=== PATIENT | male | born 1960 | race Caucasian/White ===

== ENCOUNTER 2018-05-25 12:21 | Inpatient (IN) | payer MEDICAID ==
[2018-05-25 13:16] LABS: % BASOPHILS 0.9 % (0.0-2.0); % EOSINOPHILS 3.4 % (0.0-5.0); % LYMPHOCYTES 24.3 % (20.0-50.0); % MONOCYTES 8.4 % (2.0-10.0); BASOPHILE ABSOLUTE 0.1 Th/cumm (0-0.2); EOSINOPHILE ABSOLUTE 0.2 Th/cmm (0.1-0.4); HEMATOCRIT 34.1 % (41.0-60); HEMOGLOBIN 11.4 gm/dL (12-16); LYMPHOCYTE ABSOLUTE 1.7 Th/cmm (1.5-3.0); MEAN CELL VOLUME 96.9 fl (80-99); MEAN CORPUSCULAR HEMOGLOBIN 32.3 pg (26.0-30.0); MEAN CORPUSCULAR HGB CONC 33.3 pg (28.0-36.0); MEAN PLATELET VOLUME 8.2 fl; MONOCYTE ABSOLUTE 0.6 Th/cmm (0.3-1.0); NEUTROPHILE ABSOLUTE 4.3 Th/cmm (1.8-8.0); PLATELET COUNT 190 Th/cmm (150-400); RED BLOOD COUNT 3.52 Mil/cmm (4.30-5.70); RED CELL DISTRIBUTION WIDTH 15.2 % (11.5-20.0); WHITE BLOOD COUNT 6.9 Th/cmm (4.8-10.8)
[2018-05-25 13:36] LABS: ALB/GLOB RATIO 0.8 (1.0-1.8); ALBUMIN 3.8 gm/dL (4.2-5.5); ALKALINE PHOSPHATASE 117 U/L (34-104); AMYLASE SERUM < 10 U/L (29-103); ANION GAP 14.6 (7.0-16.0); BILIRUBIN,TOTAL 0.2 mg/dL (0.3-1.0); BUN - UREA NITROGEN 18 mg/dL (7-25); CALCIUM SERUM 9.8 mg/dL (8.6-10.3); CARBON DIOXIDE 22.9 mEq/L (21.0-31.0); CHLORIDE 98 mEq/L (98-107); CREATININE - SERUM 0.6 mg/dL (0.7-1.3); GFR AFRICAN-AMERICAN > 60.0 ml/min (>90); GFR NON AFRICAN-AMERICAN > 60.0 ml/min; GLUCOSE 291 mg/dL (70-105); POTASSIUM SERUM 4.5 mEq/L (3.5-5.1); SGOT 11 U/L (13-39); SGPT/ALT 17 U/L (7-52); SODIUM SERUM 131 mEq/L (136-145); TOTAL PROTEIN,SERUM 8.9 gm/dL (6.0-8.3)
[2018-05-25 13:39] LABS: LIPASE < 3 U/L (11-82)
[2018-05-25 14:38] LABS: URINE SOURCE CATH
[2018-05-25 14:42] LABS: URINE BILIRUBIN NEGATIVE (NEGATIVE); URINE BLOOD SMALL (NEGATIVE); URINE GLUCOSE (UA) 100 mg/dL (NEGATIVE); URINE KETONE NEGATIVE (NEGATIVE); URINE LEUKOCYTE ESTERASE NEGATIVE (NEGATIVE); URINE MICROSCOPIC INDICATED? YES; URINE NITRATE NEGATIVE (NEGATIVE); URINE PH 5.5 (4.6 - 8.0); URINE PROTEIN 30 mg/dL (NEGATIVE); URINE UROBILINOGEN 0.2 E.U./dL (0.2 - 1.0)
[2018-05-25 15:18] LABS: URINE CLARITY HAZY (CLEAR); URINE COLOR YELLOW
[2018-05-25 15:19] LABS: URINE RBC 0-2 /hpf (0-5)
[2018-05-25 15:20] LABS: URINE BACTERIA MODERATE /hpf (NONE SEEN); URINE EPITHELIAL CELLS NONE SEEN /lpf (FEW)
--- NOTE | 2018-05-25 15:25 | ED Physician Chart ---
ED Chief Complaint/HPI - Patient Information Date Seen:: 05/25/18 Time Seen:: 12:47 Chief Complaint:: loose stools History of Present Illness:: loose stools in a patient who is dependent on tube feeds. Allergies:: Allergies Allergy/AdvReac Type Severity Reaction Status Date / Time No Known Allergies Allergy Verified 05/25/18 12:46 Vitals:: Vital Signs - 8 hr 05/25/18 12:47 Temp 98.4 F HR 124 RR 21 BP 133/87 O2 Sat % 98 Historian:: Patient, Family Member Review:: Nurse's Note Reviewed, Transfer documents Reviewed ED Review of Systems - Review of Systems General/Constitutional: No fever, No chills, No weight loss, No weakness, No diaphoresis, No edema, No loss of appetite Skin: Other (sacral skin breakdown) Head: No headache, No light-headedness Eyes: No loss of vision, No pain, No diplopia ENT: No earache, No nasal drainage, No sore throat, No tinnitus Neck: No neck pain, No swelling, No thyromegaly, No stiffness, No mass noted Cardio Vascular: No chest pain, No palpitations, No PND, No orthopnea, No edema Pulmonary: No SOB, No cough, No sputum, No wheezing GI: No nausea, No vomiting, Diarrhea, No pain, No melena, No hematochezia, No constipation, No hematemesis G/U: No dysuria, No frequency, No hematuria, No nacturia Musculoskeletal: No bone or joint pain, Back pain, No muscle pain, Other (back pain in area of sacral breakdown) Endocrine: No polyuria, No polydipsia Psychiatric: No prior psych history, No depression, No anxiety, No suicidal ideation Hematopoietic: No bruising, No lymphadenopathy Allergic/Immuno: No urticaria, No angioedema Neurological: No syncope, No focal symptoms, No weakness, No paresthesia, No headache, No seizure, No dizziness, No confusion, No vertigo ED Past Medical History - Past Medical History Obtainable: Yes Past Medical History: HTN, DM, CVA/TIA, Dyslipidemia, Other Family Medical History - Family Member Mother History Unknown: Yes ED Physical Exam - Physical Examination General/Constitutional: Awake, Alert, No distress, GCS 15, Ambulatory Other Gen/Cons comments:: chronically ill appearing Head: Atraumatic Eyes: Lids, conjuctiva normal, PERRL, EOMI Other Skin comments:: sacral skin breakdown ENMT: External ears, nose nl Neck: Nontender, No nuchal rigidity, No stridor Respiratory: Nl effort/Exclusion, Clear to Auscultation, No Wheeze/Rhonchi/Rales Cardio Vascular: RRR, No murmur, gallop, rubs, NL S1 S2 GI: No tenderness/rebounding/guarding, No organomegaly, No hernia, Normal BS's, Nondistended, No mass/bruits, No McBurney tenderness Other GI comments:: g tube in place : No CVA tenderness Other Extremities comments:: contracted extremities Neuro/Psych: Alert/oriented, Judgement/insight normal, Mood normal Other Misc comments:: sacral skin breakdown ED Labs/Radiology/EKG Results - Lab Results Results: Laboratory Tests 05/25/18 05/25/18 05/25/18 12:56 12:57 13:07 WBC 6.9 RBC 3.52 L Hgb 11.4 L Hct 34.1 L MCV 96.9 MCH 32.3 H MCHC Differential 33.3 RDW 15.2 Plt Count 190 MPV 8.2 Neutrophils % 63.0 Lymphocytes % 24.3 Monocytes % 8.4 Eosinophils % 3.4 Basophils % 0.9 Sodium Potassium Chloride Carbon Dioxide Anion Gap BUN Creatinine Est GFR ( Amer) Est GFR (Non-Af Amer) BUN/Creatinine Ratio Glucose POC Glucose 297 H Whole Bld Lactic Acid Calcium Total Bilirubin AST ALT Alkaline Phosphatase Total Protein Albumin Globulin Albumin/Globulin Ratio Amylase Lipase Urine Source Urine Color Urine Clarity Urine pH Ur Specific [place] Urine Protein Urine Glucose (UA) Urine Ketones Urine Blood Urine Nitrate Urine Bilirubin Urine Urobilinogen Ur Leukocyte Esterase Urine RBC Urine WBC Ur Epithelial Cells Urine Bacteria Stool Occult Blood NEGATIVE 05/25/18 05/25/18 05/25/18 13:07 13:07 14:10 WBC RBC Hgb Hct MCV MCH MCHC Differential RDW Plt Count MPV Neutrophils % Lymphocytes % Monocytes % Eosinophils % Basophils % Sodium 131 L Potassium 4.5 Chloride 98 Carbon Dioxide 22.9 Anion Gap 14.6 BUN 18 Creatinine 0.6 L Est GFR ( Amer) > 60.0 Est GFR (Non-Af Amer) > 60.0 BUN/Creatinine Ratio 30.0 Glucose 291 H POC Glucose Whole Bld Lactic Acid 1.67 Calcium 9.8 Total Bilirubin 0.2 L AST 11 L ALT 17 Alkaline Phosphatase 117 H Total Protein 8.9 H Albumin 3.8 L Globulin 5.1 Albumin/Globulin Ratio 0.8 L Amylase < 10 L Lipase < 3 L Urine Source CATH Urine Color YELLOW Urine Clarity HAZY Urine pH 5.5 Ur Specific [place] >= 1.030 Urine Protein 30 H Urine Glucose (UA) 100 H Urine Ketones NEGATIVE Urine Blood SMALL H Urine Nitrate NEGATIVE Urine Bilirubin NEGATIVE Urine Urobilinogen 0.2 Ur Leukocyte Esterase NEGATIVE Urine RBC 0-2 H Urine WBC 10-25 H Ur Epithelial Cells NONE SEEN Urine Bacteria MODERATE H Stool Occult Blood ED Assessment - Assessment General Assessment: Dr. Garcia gave orders, will call HMO insurance now. HMO approved full admit for this patient. Spoke with Alexia. EKG: sinus tachycardia, NSST T wave changes, ED Septic Shock - . Is Septic Shock (SBP<90, OR Lactate>4 mmol\L) present?: No - <6hrs of presentation: Vital Signs: Vital Signs - 8 hr 05/25/18 12:47 Temp 98.4 F HR 124 RR 21 BP 133/87 O2 Sat % 98 ED Reassessment (Disposition) - Reassessment Reassessment Condition:: Unchanged - Diagnosis Diagnosis:: Loose stools Urinary tract infection Diabetes mellitus, not well controlled Anemia Low albumin Sacral decubitus. - Patient Disposition Discharge/Transfer:: Acute Care w/in this hosp Admitted to:: Telemetry Condition at Disposition:: Stable, Unchanged
[2018-05-25] MEDS ORDERED: Piperacillin Sodium/Tazobact 3.375 gm Vial IV ONE (15:37)
[2018-05-25 15:38] LABS: BARBITURATES URINE POSITIVE (NEGATIVE); BENZODIAZEPINES QUAL URINE POSITIVE (NEGATIVE); OPIATES (MORPHINE) QUAL. URINE POSITIVE (NEGATIVE)
[2018-05-25 15:39] LABS: AMPHETAMINE URINE NEGATIVE (NEGATIVE); CANNABINOID THC NEGATIVE (NEGATIVE); COCAINE METABOLITE QUAL URINE NEGATIVE (NEGATIVE); METHADONE URINE NEGATIVE (NEGATIVE); METHAMPHETAMINES QUAL URINE NEGATIVE (NEGATIVE); PHENCYCLIDINE (PCP) URINE NEGATIVE (NEGATIVE); TRICYCLICS (TCA) QUAL. URINE NEGATIVE (NEGATIVE)
[2018-05-25 18:56] VITALS: BP 122/81
[2018-05-25] MEDS: Sodium Chloride 0.45% 1,000 ML IV SCH (19:39)
[2018-05-25] MEDS: Diphenoxylate/Atropine 2.5mg Tab PO SCH (21:06)
[2018-05-25] MEDS: INSULIN ASPART SLIDING SCALE 100 UNITS/ML UNIT SUBQ SCH (21:06)
[2018-05-26] MEDS ORDERED: Piperacillin Sodium/Tazobact 3.375 gm Vial IV ONE ×2 (00:02→04:32)
[2018-05-26] MEDS: INSULIN ASPART SLIDING SCALE 100 UNITS/ML UNIT SUBQ SCH ×4 (05:17→22:23)
[2018-05-26] MEDS: Sodium Chloride 0.45% 1,000 ML IV SCH ×3 (05:17→22:09)
[2018-05-26 06:41] LABS: BASOPHILE ABSOLUTE 0.1 Th/cumm (0-0.2); EOSINOPHILE ABSOLUTE 0.3 Th/cmm (0.1-0.4); MEAN CORPUSCULAR HEMOGLOBIN 32.5 pg (26.0-30.0)
[2018-05-26 06:44] LABS: % EOSINOPHILS 4.7 % (0.0-5.0); % MONOCYTES 9.4 % (2.0-10.0); % NEUTROPHILS 66.9 % (40.0-80.0); HEMOGLOBIN 11.1 gm/dL (12-16); LYMPHOCYTE ABSOLUTE 1.2 Th/cmm (1.5-3.0); MEAN CELL VOLUME 96.7 fl (80-99); MEAN CORPUSCULAR HGB CONC 33.7 pg (28.0-36.0); MEAN PLATELET VOLUME 8.5 fl; MONOCYTE ABSOLUTE 0.6 Th/cmm (0.3-1.0); NEUTROPHILE ABSOLUTE 4.6 Th/cmm (1.8-8.0); PLATELET COUNT 170 Th/cmm (150-400); RED BLOOD COUNT 3.41 Mil/cmm (4.30-5.70); RED CELL DISTRIBUTION WIDTH 15.4 % (11.5-20.0); WHITE BLOOD COUNT 6.8 Th/cmm (4.8-10.8)
[2018-05-26 06:57] LABS: ALB/GLOB RATIO 0.7 (1.0-1.8); ALBUMIN 3.6 gm/dL (4.2-5.5); ALKALINE PHOSPHATASE 128 U/L (34-104); BILIRUBIN,TOTAL 0.4 mg/dL (0.3-1.0); BUN - UREA NITROGEN 20 mg/dL (7-25); CALCIUM SERUM 9.6 mg/dL (8.6-10.3); CARBON DIOXIDE 22.8 mEq/L (21.0-31.0); CHLORIDE 98 mEq/L (98-107); CHOLESTEROL 103 mg/dL (<200); CREATININE - SERUM 0.7 mg/dL (0.7-1.3); GFR AFRICAN-AMERICAN > 60.0 ml/min (>90); GFR NON AFRICAN-AMERICAN > 60.0 ml/min; GLUCOSE 310 mg/dL (70-105); HDL -HIGH DENSITY LIPOPROTEIN 30 mg/dL (23-92); POTASSIUM SERUM 3.8 mEq/L (3.5-5.1); SGOT 10 U/L (13-39); SGPT/ALT 14 U/L (7-52); SODIUM SERUM 133 mEq/L (136-145); TOTAL PROTEIN,SERUM 8.6 gm/dL (6.0-8.3); TRIGLYCERIDES 160 mg/dL (<150)
[2018-05-26] MEDS: Diphenoxylate/Atropine 2.5mg Tab PO SCH ×3 (09:33→20:33)
[2018-05-26] MEDS ORDERED: Probiotic Screen MC PRN (12:00)
[2018-05-26] MEDS ORDERED: Non-Formulary Item 1 EA (Apixaban [Eliquis] 5 MG) GT SCH (14:00)
[2018-05-26] MEDS: Hydrocodone/APAP 10 mg/325 mg Tab GT PRN ×2 (16:10→20:43)
--- NOTE | 2018-05-26 16:24 | History & Physical ---
ADMIT DATE: 05/26/2018 CHIEF COMPLAINT: Generalized weakness and diarrhea. HISTORY OF PRESENT ILLNESS: This is a 57-year-old male who is a senior care resident at [facility], admitted to the telemetry unit due to 1-day history of increase of generalized weakness and diarrhea. According to the patient, yesterday he started to have x 3 episode of diarrhea. Denied any abdominal pain or any nausea. The patient states due to his diarrhea he felt very extremely weak. For this reason, he was brought to the hospital to be evaluated. The patient denies any diarrhea at this time, still feels weak and complains of generalized pain. PAST MEDICAL HISTORY: Respiratory failure, status post decannulation; PE; DVT; hypercholesterolemia; GERD; neuropathy; hypertension; seizures and insomnia. PAST SURGICAL HISTORY: Tracheostomy and gastrostomy tube. SOCIAL HISTORY: The patient is a senior care resident, requiring 24-hour nursing care. FAMILY HISTORY: Noncontributory. REVIEW OF SYSTEMS: GENERAL: Denies any fever and chills. CARDIOVASCULAR: Denies chest pain. RESPIRATORY: Denies shortness of breath. GASTROINTESTINAL: Denies nausea, vomiting, abdominal pain, but complains of intermittent diarrhea. MUSCULOSKELETAL: Complains of weakness. PHYSICAL EXAMINATION: GENERAL: The patient is well developed, well nourished, in no apparent distress. VITAL SIGNS: Temperature 98.4, heart rate 97, blood pressure 120/74, respiration 18 and O2 99%. HEENT: Head; normocephalic and atraumatic. NECK: Supple. No mass. LUNGS: Clear bilaterally. HEART: Regular rate and rhythm. ABDOMEN: Soft, nontender and nondistended. EXTREMITIES: No edema noted. SKIN: The patient is noted with generalized rashes. LABORATORY DATA: WBC 6.8, H and H 11.1 and 33.0 and platelet of 170. Sodium 133, potassium 3.8, chloride 98, BUN 20, creatinine 0.7, AST 10 and ALT 14. The patient had a urinalysis done, positive for UTI. ASSESSMENT: Acute dehydration, electrolyte imbalance, acute urinary tract infection, functional quadriplegia, hypercholesterolemia, history of pulmonary embolus and deep venous thrombosis, history of respiratory failure, status post decannulation, type 2 diabetes, seizures, hypertension and gastroesophageal reflux disease. PLAN: The patient to be admitted to telemetry unit. We will send stool for cultures and C. diff. Send urine for culture. We will place the patient on Zosyn 3.375 grams IV q. 6 hours. We will get followup labs for tomorrow morning. We will get a swallow evaluation as well as PT eval. ID consultation, Wound Care consult as well as a Nephrology consultation. Continue IV fluids for hydration. Pain management. We will continue to monitor this patient. JOB# [id number]
[2018-05-26] MEDS: Morphine Sulfate 2 mg/mL 1mL Syr IVP PRN (17:20)
[2018-05-26] MEDS: Albuterol/Ipratropium Neb 3 ML AERS HHN SCH ×2 (19:31→19:47)
[2018-05-26] MEDS: Ferrous Sulfate 300 MG/5 ML UDC PO SCH (20:31)
[2018-05-26] MEDS: Atorvastatin Calcium 10 MG TAB PO SCH (20:31)
[2018-05-26] MEDS: Levetiracetam 500 mg/5mL 5mL UDSyr *for ORAL USE ONLY GT SCH (20:35)
[2018-05-26] MEDS ORDERED: INSULIN ASPART, RECOMBINANT 100 UNITS/ML SUBQ ONE (21:15)
--- NOTE | 2018-05-26 22:47 | Consultation ---
DATE OF CONSULTATION: 05/26/2018 INFECTIOUS DISEASE CONSULTATION REFERRING PHYSICIAN: Dr. Garcia. REASON FOR CONSULTATION: UTI. HISTORY OF PRESENT ILLNESS: The patient is a 57-year-old male with a past medical history of CVA 5 years ago, respiratory failure, was on ventilator, which was discontinued. Tracheostomy was removed. Intracranial bleed, encephalopathy, diabetes mellitus type 2, seizure disorder, DVT, hyperlipidemia, brought to the ER for loose stools for last 4 days and weakness. On initial evaluation, the patient's temperature was 98.4 degrees Fahrenheit and WBC count was 6900. Urinalysis showed UTI, so ID consult was called for antibiotic management. Meanwhile, the patient was started on Zosyn. PAST MEDICAL HISTORY: As mentioned above, diabetes mellitus type 2, has history of respiratory failure, ____ place, CVA, seizure disorder, encephalopathy, history of DVT, and hyperlipidemia. ALLERGIES: NKDA. MEDICATIONS: As per medication reconciliation sheet. Antibiotic nunez, the patient is on Zosyn. REVIEW OF SYSTEMS: The patient has stated that he had a high glucose. GENERAL: The patient has no fever, no chills. HEENT: Head is atraumatic. No diplopia, no photophobia, no sore throat. RESPIRATORY: No cough, no shortness of breath. CARDIOVASCULAR: No chest pain or palpitation. GASTROINTESTINAL: No nausea, no vomiting, no diarrhea, and no constipation. GENITOURINARY: No dysuria. NEUROLOGIC: No headache, no dizziness, no focal weakness. The patient has left-sided weakness ____. PHYSICAL EXAMINATION: VITAL SIGNS: Show temperature is 98.4 degrees Fahrenheit, pulse 97, respiration 18, blood pressure 128/74, oxygen saturation 99%. GENERAL: The patient is comfortable, lying in the bed, not in acute distress. HEENT: Head is normocephalic, atraumatic. Oral cavity moist, pink tongue. Eyes: No pallor, no icterus. PERRLA, EOMI. NECK: Tracheal stoma. No trach. CHEST: Bilateral breath sounds. No crackles or wheezing. HEART: S1, S2 within normal limits. Regular rhythm. No murmur, no gallop. ABDOMEN: Soft, nontender, nondistended. Bowel sounds present. G-tube site is clear. EXTREMITIES: No cyanosis, no clubbing, no edema. NEUROLOGIC: Alert, awake, and oriented x 3. Left-sided paraplegia and some flexion contracture of the left side. SKIN: No ulcer ____. LABORATORY DATA: Current lab shows WBC count 6800, hemoglobin 11.1, hematocrit 33, platelets are 170,000, neutrophils 67%. Sodium is 133, potassium 3.8, chloride 98, bicarbonate is 23, BUN is 20, creatinine 0.7, glucose 310. LFTs are reviewed. Urinalysis showed small blood, negative leukocyte esterase, WBC 10-25, moderate bacteria. Stool for occult blood is negative. Urine for tox screen was positive for opiates, barbiturates, and ventilator dependent. IMPRESSION: 1. Urinary tract infection. 2. Cerebrovascular accident with left-sided weakness. 3. Diabetes mellitus type 2. 4. Hypertension. 5. Seizure disorder. 6. History of dysphagia and G-tube placement. RECOMMENDATIONS: We will continue Zosyn at this time. Get swallow evaluation and physical therapy. Thank you, Dr. Garcia for me involving me in taking care of this patient. JOB# [id number]
[2018-05-27] MEDS: Albuterol/Ipratropium Neb 3 ML AERS HHN SCH ×4 (00:20→18:55)
--- NOTE | 2018-05-27 00:29 | Consultation ---
DATE OF CONSULTATION: 05/26/2018 ATTENDING: Dr. Mandeep Garcia. SOLE CONDITIONER: Dr. Jabari Vasquez. REASON FOR CONSULTATION: Electrolyte imbalance and fluid management. HISTORY OF PRESENT ILLNESS: A 57-year-old male with past medical history of hypertension, who came in because of intractable diarrhea. Two days prior to admission, he developed watery diarrhea. He was prescribed antidiarrheals to no avail. His diarrhea was associated with abdominal pain and nausea, but there was no vomiting. He also denied any ongoing fevers/chills as well as dysuria. A few hours prior to admission, he experienced generalized weakness. This was associated with worsening blood sugars. Thus, he was brought to the Emergency Room. His sodium was 131. He was immediately hydrated with normal saline and his sodium slightly improved to 133. PAST MEDICAL HISTORY: 1. 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 2. Status post respiratory failure with decannulation. 3. Type 2 diabetes mellitus. 4. Essential hypertension. 5. Status post DVT. 6. Dyslipidemia. 7. Epilepsy. 8. Acute kidney injury. 9. Functional quadriplegia. PAST SURGICAL HISTORY: 1. Status post tracheostomy. 2. Status post PEG placement. CURRENT MEDICATIONS: Currently on acetaminophen, atorvastatin, diphenhydramine, docusate sodium, famotidine, ferrous sulfate, folic acid, gabapentin, hydralazine, hydrocodone/APAP, aspart, lactobacillus, levetiracetam, lipase/protease/amylase, lorazepam, magnesium oxide, morphine sulfate, multivitamins, Dilantin, Probiotics, Xarelto, Restoril, and Zosyn. ALLERGIES: No known drug allergies. 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 However, now he is retired and is staying at a snf. Denied history of alcohol and tobacco abuse. FAMILY HISTORY: Unknown at the present time. REVIEW OF SYSTEMS: Unable to obtain directly from the patient because of his I would say slow mentation. PHYSICAL EXAMINATION: GENERAL: The patient is awake, not in any distress now, but stated that earlier he had some abdominal pain. VITAL SIGNS: His temperature 98.6 degrees, pulse 99, blood pressure 121/70. SKIN: Poor turgor, warm, no rash, no jaundice appreciated. HEENT: Head normocephalic, atraumatic. Eyes: Extraocular muscles intact. Pupils equal, round, reactive to light and accommodates. Anicteric sclerae, pale conjunctivae. Nose, midline nasal septum. Mouth: Dry mucosa. Poor dentition. NECK: Supple. No adenopathy, no thyromegaly, no bruits. Trachea palpated in the midline. CHEST AND CARDIOVASCULAR: S1, S2. No rub, murmur, or gallop appreciated. Point of maximal impulse fifth intercostal space, left midclavicular line. No abdominal or femoral bruits appreciated. LUNGS: Equal expansion. No use of accessory muscles. No supraclavicular retractions. Decreased breath sounds, scattered rhonchi, but no rales nor wheezes appreciated. ABDOMEN: Distended, slightly soft. Diminished bowel sounds, some tenderness on deep palpation, but no rebound nor muscle guarding. No bruits either diastolic or systolic. RECTAL: He refused because of pain from his intractable diarrhea. GENITOURINARY: Normal appearing male genitalia. MUSCULOSKELETAL: No effusions present in his joints, but unable to assess his range of motion. EXTREMITIES: No evidence of edema, cyanosis nor clubbing with palpable femoral, but unable to fully appreciate popliteal and dorsalis pedis pulses. NEUROLOGIC: Sensory intact, but motor on the left side is 0/5 and right side is 5/5. LABORATORY DATA: Revealed white count 6.8, hemoglobin 11.1, hematocrit 33, platelets 170, polys 66.9%. Sodium 133, potassium 3.8, chloride 98, bicarbonate 22, BUN 20, creatinine 0.7, glucose 310, calcium 9.6, albumin 3.6. TSH is 0.86. IMPRESSION: 1. Acute hyponatremia secondary to diarrhea with increased sodium loss as compared to free water loss. However, also consider pseudohyponatremia secondary to severe hyperglycemia. 2. Acute intractable diarrhea, possibly viral versus bacterial, osmotic or even from colitis in the form of C. diff. The possibility also of gastroparesis secondary to autonomic neuropathy due to poorly controlled diabetes should be entertained. 3. Type 2 diabetes mellitus, out of control. 4. Essential hypertension. 5. Status post deep venous thrombosis on anticoagulation. 6. Dyslipidemia. 7. Intracranial hemorrhage with left hemiplegia secondary to intracerebral hemorrhage. 8. Epilepsy. 9. History of acute kidney injury. 10. Functional quadriplegia. PLAN: 1. Continue on with IV fluids. 2. Urine spot sodium. 3. Uric acid level and serum osmolarity. 4. Follow up hemoglobin A1c. 5. Follow up stool for C. diff. Thank you, Dr. Garcia, for this consult. We will follow the patient closely with you. [facility]# [id number]
[2018-05-27] MEDS: Sodium Chloride 0.45% 1,000 ML IV SCH (02:59)
[2018-05-27] MEDS: Hydrocodone/APAP 10 mg/325 mg Tab GT PRN (05:51)
[2018-05-27] MEDS: INSULIN ASPART SLIDING SCALE 100 UNITS/ML UNIT SUBQ SCH ×4 (06:47→22:34)
[2018-05-27 07:21] LABS: ANION GAP 12.1 (7.0-16.0); BUN - UREA NITROGEN 13 mg/dL (7-25); CALCIUM SERUM 9.2 mg/dL (8.6-10.3); CARBON DIOXIDE 22.9 mEq/L (21.0-31.0); CHLORIDE 102 mEq/L (98-107); CREATININE - SERUM 0.5 mg/dL (0.7-1.3); GFR AFRICAN-AMERICAN > 60.0 ml/min (>90); GFR NON AFRICAN-AMERICAN > 60.0 ml/min; MAGNESIUM 1.7 mg/dL (1.9-2.7); SODIUM SERUM 133 mEq/L (136-145)
[2018-05-27 07:32] LABS: GLUCOSE 207 mg/dL (70-105)
[2018-05-27 08:39] LABS: % BASOPHILS 0.6 % (0.0-2.0); % EOSINOPHILS 8.8 % (0.0-5.0); % LYMPHOCYTES 29.6 % (20.0-50.0); EOSINOPHILE ABSOLUTE 0.5 Th/cmm (0.1-0.4); HEMATOCRIT 30.9 % (41.0-60); HEMOGLOBIN 10.2 gm/dL (12-16); LYMPHOCYTE ABSOLUTE 1.6 Th/cmm (1.5-3.0); MEAN CELL VOLUME 97.6 fl (80-99); MEAN CORPUSCULAR HEMOGLOBIN 32.2 pg (26.0-30.0); MEAN PLATELET VOLUME 7.9 fl; MONOCYTE ABSOLUTE 0.5 Th/cmm (0.3-1.0); NEUTROPHILE ABSOLUTE 2.7 Th/cmm (1.8-8.0); PLATELET COUNT 164 Th/cmm (150-400); RED BLOOD COUNT 3.16 Mil/cmm (4.30-5.70); RED CELL DISTRIBUTION WIDTH 15.4 % (11.5-20.0); WHITE BLOOD COUNT 5.3 Th/cmm (4.8-10.8)
[2018-05-27] MEDS: Maalox 30 mL Cup PO PRN ×2 (08:43→18:46)
[2018-05-27] MEDS: Ferrous Sulfate 300 MG/5 ML UDC PO SCH ×2 (08:43→22:13)
[2018-05-27] MEDS: Diphenoxylate/Atropine 2.5mg Tab PO SCH ×3 (08:44→22:14)
[2018-05-27] MEDS: Multivitamin w/ Minerals Tab GT SCH (08:45)
[2018-05-27] MEDS: Lactobacillus Rhamnosus GG 15 Billion CFU CAP.SPRINK PO SCH (08:45)
[2018-05-27] MEDS: Docusate Sodium 100 mg/10 mL UD GT SCH (08:45)
[2018-05-27] MEDS: Levetiracetam 500 mg/5mL 5mL UDSyr *for ORAL USE ONLY GT SCH ×2 (08:45→22:14)
[2018-05-27] MEDS ORDERED: Zinc Oxide Ointment 60 gm TP SCH (09:00)
[2018-05-27] MEDS: Morphine Sulfate 2 mg/mL 1mL Syr IVP PRN ×3 (11:15→22:35)
[2018-05-27] MEDS: Polyvinyl Alcohol Ophth Soln 15 mL Bottle EACH EYE SCH (11:18)
--- NOTE | 2018-05-27 13:35 | Infectious Disease Prog Note ---
Infectious Disease Subjective - Review of Systems Service Date: 05/27/18 Infectious Disease Objective - Results Result Diagrams: 05/27/18 05:55 05/27/18 05:55 Recent Labs: Laboratory Last Values WBC 5.3 Th/cmm (4.8-10.8) 05/27/18 05:55 RBC 3.16 Mil/cmm (4.30-5.70) L 05/27/18 05:55 Hgb 10.2 gm/dL (12-16) L 05/27/18 05:55 Hct 30.9 % (41.0-60) L 05/27/18 05:55 MCV 97.6 fl (80-99) 05/27/18 05:55 MCH 32.2 pg (26.0-30.0) H 05/27/18 05:55 MCHC Differential 33.0 pg (28.0-36.0) 05/27/18 05:55 RDW 15.4 % (11.5-20.0) 05/27/18 05:55 Plt Count 164 Th/cmm (150-400) 05/27/18 05:55 MPV 7.9 fl 05/27/18 05:55 Neutrophils % 51.0 % (40.0-80.0) 05/27/18 05:55 Lymphocytes % 29.6 % (20.0-50.0) 05/27/18 05:55 Monocytes % 10.0 % (2.0-10.0) 05/27/18 05:55 Eosinophils % 8.8 % (0.0-5.0) H 05/27/18 05:55 Basophils % 0.6 % (0.0-2.0) 05/27/18 05:55 Sodium 133 mEq/L (136-145) L 05/27/18 05:55 Potassium 4.0 mEq/L (3.5-5.1) 05/27/18 05:55 Chloride 102 mEq/L (98-107) 05/27/18 05:55 Carbon Dioxide 22.9 mEq/L (21.0-31.0) 05/27/18 05:55 Anion Gap 12.1 (7.0-16.0) 05/27/18 05:55 BUN 13 mg/dL (7-25) 05/27/18 05:55 Creatinine 0.5 mg/dL (0.7-1.3) L 05/27/18 05:55 Est GFR ( Amer) > 60.0 ml/min (>90) 05/27/18 05:55 Est GFR (Non-Af Amer) > 60.0 ml/min 05/27/18 05:55 BUN/Creatinine Ratio 26.0 05/27/18 05:55 Glucose 207 mg/dL (70-105) H D 05/27/18 05:55 POC Glucose 283 MG/DL (70 - 105) H 05/27/18 12:30 Whole Bld Lactic Acid 1.67 mmol/L (0.60-1.99) 05/25/18 13:07 Calcium 9.2 mg/dL (8.6-10.3) 05/27/18 05:55 Magnesium 1.7 mg/dL (1.9-2.7) L 05/27/18 05:55 Total Bilirubin 0.4 mg/dL (0.3-1.0) 05/26/18 05:50 AST 10 U/L (13-39) L 05/26/18 05:50 ALT 14 U/L (7-52) 05/26/18 05:50 Alkaline Phosphatase 128 U/L (34-104) H 05/26/18 05:50 Total Protein 8.6 gm/dL (6.0-8.3) H 05/26/18 05:50 Albumin 3.6 gm/dL (4.2-5.5) L 05/26/18 05:50 Globulin 5.0 gm/dL 05/26/18 05:50 Albumin/Globulin Ratio 0.7 (1.0-1.8) L 05/26/18 05:50 Triglycerides 160 mg/dL (<150) H 05/26/18 05:50 Cholesterol 103 mg/dL (<200) 05/26/18 05:50 LDL Cholesterol Direct 62 mg/dL (75-193) L 05/26/18 05:50 HDL Cholesterol 30 mg/dL (23-92) 05/26/18 05:50 Amylase < 10 U/L (29-103) L 05/25/18 13:07 Lipase < 3 U/L (11-82) L 05/25/18 13:07 TSH 0.86 uIU/ml (0.34-5.60) 05/26/18 05:50 Urine Source CATH 05/25/18 14:10 Urine Color YELLOW 05/25/18 14:10 Urine Clarity HAZY (CLEAR) 05/25/18 14:10 Urine pH 5.5 (4.6 - 8.0) 05/25/18 14:10 Ur Specific [place] >= 1.030 (1.005-1.030) 05/25/18 14:10 Urine Protein 30 mg/dL (NEGATIVE) H 05/25/18 14:10 Urine Glucose (UA) 100 mg/dL (NEGATIVE) H 05/25/18 14:10 Urine Ketones NEGATIVE mg/dL (NEGATIVE) 05/25/18 14:10 Urine Blood SMALL (NEGATIVE) H 05/25/18 14:10 Urine Nitrate NEGATIVE (NEGATIVE) 05/25/18 14:10 Urine Bilirubin NEGATIVE (NEGATIVE) 05/25/18 14:10 Urine Urobilinogen 0.2 E.U./dL (0.2 - 1.0) 05/25/18 14:10 Ur Leukocyte Esterase NEGATIVE (NEGATIVE) 05/25/18 14:10 Urine RBC 0-2 /hpf (0-5) H 05/25/18 14:10 Urine WBC 10-25 /hpf (0-5) H 05/25/18 14:10 Ur Epithelial Cells NONE SEEN /lpf (FEW) 05/25/18 14:10 Urine Bacteria MODERATE /hpf (NONE SEEN) H 05/25/18 14:10 Stool Occult Blood NEGATIVE (NEGATIVE) 05/25/18 12:57 Urine Opiates Screen POSITIVE (NEGATIVE) H 05/25/18 14:30 Urine Methadone Screen NEGATIVE (NEGATIVE) 05/25/18 14:30 Ur Barbiturates Screen POSITIVE (NEGATIVE) H 05/25/18 14:30 Ur Tricyclics Screen NEGATIVE (NEGATIVE) 05/25/18 14:30 Ur Phencyclidine Scrn NEGATIVE (NEGATIVE) 05/25/18 14:30 Amphetamines Screen NEGATIVE (NEGATIVE) 05/25/18 14:30 U Methamphetamines Scrn NEGATIVE (NEGATIVE) 05/25/18 14:30 U Benzodiazepines Scrn POSITIVE (NEGATIVE) H 05/25/18 14:30 U Cocaine Metab Screen NEGATIVE (NEGATIVE) 05/25/18 14:30 U Cannabinoids Screen NEGATIVE (NEGATIVE) 05/25/18 14:30 - Physical Exam Vitals and I&O: Vital Signs Temp 97.4 F 05/27/18 12:00 Pulse 96 05/27/18 12:00 Resp 18 05/27/18 12:00 BP 135/79 05/27/18 12:00 Pulse Ox 97 05/27/18 12:00 Intake & Output 05/26/18 05/27/18 05/27/18 18:59 06:59 18:59 Intake Total 1900 1247.917 Output Total 700 800 Balance 1200 447.917 Weight (lbs) 88.451 kg 96.706 kg Intake: Intake, IV Amount 1100 1247.917 Piperacillin Sodium/ 100 100 Tazobact 3.375 gm In Sodium Chloride 0.9% 50 ml @ 100 mls/hr IV Q6HR [facility] Rx#:[id number] Sodium Chloride 0.45% 1, 1000 1147.917 000 ml @ 125 mls/hr IV . Q8H [facility] Rx#:[id number] Oral 600 Other 200 Output: Urine 700 800 Other: # Bowel Movements 2 1 Stool Characteristics Soft Soft Formed Weight Source Bedscale Bedscale Active Medications: Current Medications Acetaminophen (Tylenol 650mg/20.3ml Suspension) 650 mg GT Q6HR PRN PRN Reason: MILD PAIN OR TEMP >100.4 Stop: 07/25/18 13:53 Acetaminophen/Hydrocodone Bitart (Albert [place] 10 Mg/325 Mg) 1 tab GT Q4H PRN PRN Reason: MODERATE PAIN Stop: 07/25/18 13:53 Last Admin: 05/27/18 05:51 Dose: 1 tab Al Hydrox/Mg Hydrox/Simethicone (Maalox) 15 ml PO Q6H PRN PRN Reason: GI DISTRESS Stop: 07/25/18 15:31 Last Admin: 05/27/18 08:43 Dose: 15 ml Albuterol/Ipratropium (Duoneb Neb) 3 ml HHN Q6HRT [facility] Stop: 07/25/18 17:59 Last Admin: 05/27/18 08:58 Dose: 3 ml Lipase/Protease/Amylase (Zenpep 5,000 U) 1 cap GT TID [facility] Stop: 07/25/18 20:59 Last Admin: 05/27/18 08:45 Dose: 1 cap Artificial Tears (Artificial Tears Ophth Soln) 1 drop EACH EYE DAILY [facility] Stop: 07/26/18 08:59 Last Admin: 05/27/18 11:18 Dose: 1 drop Atorvastatin Calcium (Lipitor) 20 mg PO HS [facility] Stop: 07/25/18 20:59 Last Admin: 05/26/18 20:31 Dose: 20 mg Cholecalciferol (Vitamin D3) 5,000 iu PO DAILY [facility] Stop: 07/26/18 08:59 Last Admin: 05/27/18 08:44 Dose: 5,000 iu Diphenhydramine HCl (Benadryl) 50 mg GT Q6H PRN PRN Reason: ALLERGIES Stop: 07/25/18 15:14 Last Admin: 05/26/18 22:09 Dose: 50 mg Diphenoxylate HCl/Atropine (Lomotil) 1 tab PO TID [facility] Stop: 07/25/18 20:59 Last Admin: 05/27/18 08:44 Dose: 1 tab Docusate Sodium (Colace) 100 mg GT DAILY [facility] Stop: 07/26/18 08:59 Last Admin: 05/27/18 08:45 Dose: Not Given Famotidine (Pepcid) 20 mg GT Q12H [facility] Stop: 07/25/18 13:59 Last Admin: 05/27/18 01:26 Dose: 20 mg Ferrous Sulfate (Iron) 300 mg PO Q12HR [facility] Stop: 07/25/18 20:59 Last Admin: 05/27/18 08:43 Dose: 300 mg Folic Acid (Folate) 1 mg GT DAILY [facility] Stop: 07/26/18 08:59 Last Admin: 05/27/18 08:45 Dose: 1 mg Gabapentin (Neurontin) 400 mg GT TID [facility] Stop: 07/25/18 13:59 Last Admin: 05/27/18 08:44 Dose: 400 mg Hydralazine HCl (Apresoline) 20 mg GT Q4H PRN PRN Reason: HYPERTENSION Stop: 07/25/18 13:53 Sodium Chloride (Nacl 0.45%) 1,000 mls @ 125 mls/hr IV .Q8H [facility] Stop: 07/24/18 18:03 Last Admin: 05/27/18 02:59 Dose: 125 mls/hr Piperacillin Sod/Tazobactam (Sod 3.375 gm/ Sodium Chloride) 50 mls @ 100 mls/ hr IV Q6HR [facility] Stop: 07/25/18 00:00 Last Admin: 05/27/18 11:18 Dose: 100 mls/hr Insulin Aspart (Novolog Insulin Sliding Scale) 0 units SUBQ ACHS [facility]; Protocol Stop: 07/25/18 16:29 Last Admin: 05/27/18 06:47 Dose: 2 units Lactobacillus Rhamnosus (Culturelle 15b) 1 each PO DAILY [facility] Stop: 07/26/18 08:59 Last Admin: 05/27/18 08:45 Dose: 1 each Levetiracetam (Keppra) 750 mg GT Q12HR [facility] Stop: 07/25/18 20:59 Last Admin: 05/27/18 08:45 Dose: 750 mg Lorazepam (Ativan) 2 mg GT Q6H PRN PRN Reason: ANXIETY Stop: 07/25/18 15:17 Magnesium Oxide (Mag-Oxide) 400 mg GT DAILY [facility] Stop: 07/26/18 08:59 Last Admin: 05/27/18 08:45 Dose: 400 mg Metformin HCl (Glucophage) 1,000 mg PO BID [facility] Stop: 07/25/18 21:14 Last Admin: 05/27/18 08:44 Dose: 1,000 mg Miscellaneous (Probiotic Screen) 1 ea MC PRN PRN PRN Reason: PROTOCOL Stop: 07/25/18 11:59 Morphine Sulfate (Morphine) 1 mg IVP Q4HR PRN PRN Reason: Pain (Severe) Stop: 07/25/18 16:42 Last Admin: 05/27/18 11:15 Dose: 1 mg Phenytoin (Dilantin) 100 mg GT Q8H [facility] Stop: 07/25/18 13:59 Last Admin: 05/27/18 05:18 Dose: 100 mg Rivaroxaban (Xarelto) 10 mg PO 1800 [facility] Stop: 07/26/18 17:59 Temazepam (Restoril) 15 mg GT HS PRN; Protocol PRN Reason: Insomnia Stop: 07/25/18 13:53 General: no acute distress, well developed, well nourished HEENT: atraumatic, normocephalic, PERRLA, EOMI Neck: supple, no thyromegaly Cardiovascular: S1S2, regular Lungs: clear to auscultation bilaterally, clear to percussion Abdomen: soft, no tender, no distended Extremities: no cyanosis, no clubbing, no edema Neurological: awake, alert, oriented, other (Left sided weakness.) Skin: intact Infectious Disease Assmt/Plan - Problem List Patient Problems: All Active Problems LOOSE STOOLS, WEAKNESS, HYPERGLYCEMIA (Acute) - Assessment Assessment: UTI CVA - Plan Plan: Speech therapy eval. Continue Zosyn. Nutritional Asmnt/Malnutr-PDOC - Dietary Evaluation Malnutrition Findings (Please click <Entered> for more info): Nutritional Asmnt/Malnutrition Start: 05/26/18 14: 57 Text: Status: Active Freq: Protocol: Document 05/26/18 14:57 STEPHANIE (Rec: 05/26/18 15:28 [email or web address]) Nutritional Asmnt/Malnutrition Patient General Information Nutritional Screening High Risk Consult Diagnosis Dehydration, UTI, Electrolyte imbalance Pertinent Medical Hx/Surgical Hx DM Coma, CVA Subjective Information Awoke from Diabetic Coma a few weeks ago, was placed on G tube for nutrition. Is bedridden, needs adult diaper to defecate. Attempts have been made for PO diet, but is in too much pain to eat properly, claims no appetite. 15% PO intake. Swallow eval scheduled for tomorrow. Is willing to try ensure, claims he is more thirsty in the morning than hungry. Nurse claims coffee, Crm of wheat sampled. Current Diet Order/ Nutrition Support [facility] [place] Soft Ground Patient / S.O Not Indicated Pertinent Medications Pepcid, Docusate, Lomotil, Lipitor, Vit D, Insulin Aspart , MOM Pertinent Labs (05/26) Gluc 310 H, POC Gluc 319 H, Alb 3.6 L, LDL 62 L Nutritional Hx/Data Height 1.7 m Height (Calculated Centimeters) 170.2 Current Weight (lbs) 88.451 kg Weight (Calculated Kilograms) 88.5 Weight (Calculated Grams) 05440.5 [place] Body Weight 148 % [place] Body Weight 132 Body Mass Index (BMI) 30.5 Weight Status Obese GI Symptoms Last BM 1 x (05/26) Cultural/Ethnic/Adventist Belief None noted Skin Integrity/Comment: 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 Problem Problem Altered Nutrition related laboratory values Etiology due to uncontrolled Diabetes Signs/Symptoms: (05/26) Gluc 310 H, POC Gluc 319 H 1. Problem Problem Inadequate Oral food intake Etiology due to lack of appetite secondary to pain Signs/Symptoms: PO intake around 15% Malnutrition Alert Is there a minimum of two criteria No selected? Query Text:Check all the applicable criteria. A minimum of two criteria are recommended for diagnosis of either severe or non-severe malnutrition. Malnutrition Related to Morbid Obesity Malnutrition related to morbid obesity No Intervention/Recommendation Recommendations by RD Add supplement feedings Comments Recommendation to include Glucerna shake TID with all meals. Will wait until swallow eval is completed before adressing possible feeding tube recommendations. Expected Outcomes/Goals Expected Outcomes/Goals 1. Pt receive >75% of nutrient needs from PO intake 2. Labs to return to wnl 3. F/U post swallow eval to assess need to resume FT.
--- NOTE | 2018-05-27 13:50 | General Progress Note ---
Subjective - Review of Systems Service Date: 05/27/18 Subjective: alert, less diarrhea Objective - Results Result Diagrams: 05/27/18 05:55 05/27/18 05:55 Recent Labs: Laboratory Last Values WBC 5.3 Th/cmm (4.8-10.8) 05/27/18 05:55 RBC 3.16 Mil/cmm (4.30-5.70) L 05/27/18 05:55 Hgb 10.2 gm/dL (12-16) L 05/27/18 05:55 Hct 30.9 % (41.0-60) L 05/27/18 05:55 MCV 97.6 fl (80-99) 05/27/18 05:55 MCH 32.2 pg (26.0-30.0) H 05/27/18 05:55 MCHC Differential 33.0 pg (28.0-36.0) 05/27/18 05:55 RDW 15.4 % (11.5-20.0) 05/27/18 05:55 Plt Count 164 Th/cmm (150-400) 05/27/18 05:55 MPV 7.9 fl 05/27/18 05:55 Neutrophils % 51.0 % (40.0-80.0) 05/27/18 05:55 Lymphocytes % 29.6 % (20.0-50.0) 05/27/18 05:55 Monocytes % 10.0 % (2.0-10.0) 05/27/18 05:55 Eosinophils % 8.8 % (0.0-5.0) H 05/27/18 05:55 Basophils % 0.6 % (0.0-2.0) 05/27/18 05:55 Sodium 133 mEq/L (136-145) L 05/27/18 05:55 Potassium 4.0 mEq/L (3.5-5.1) 05/27/18 05:55 Chloride 102 mEq/L (98-107) 05/27/18 05:55 Carbon Dioxide 22.9 mEq/L (21.0-31.0) 05/27/18 05:55 Anion Gap 12.1 (7.0-16.0) 05/27/18 05:55 BUN 13 mg/dL (7-25) 05/27/18 05:55 Creatinine 0.5 mg/dL (0.7-1.3) L 05/27/18 05:55 Est GFR ( Amer) > 60.0 ml/min (>90) 05/27/18 05:55 Est GFR (Non-Af Amer) > 60.0 ml/min 05/27/18 05:55 BUN/Creatinine Ratio 26.0 05/27/18 05:55 Glucose 207 mg/dL (70-105) H D 05/27/18 05:55 POC Glucose 283 MG/DL (70 - 105) H 05/27/18 12:30 Whole Bld Lactic Acid 1.67 mmol/L (0.60-1.99) 05/25/18 13:07 Calcium 9.2 mg/dL (8.6-10.3) 05/27/18 05:55 Magnesium 1.7 mg/dL (1.9-2.7) L 05/27/18 05:55 Total Bilirubin 0.4 mg/dL (0.3-1.0) 05/26/18 05:50 AST 10 U/L (13-39) L 05/26/18 05:50 ALT 14 U/L (7-52) 05/26/18 05:50 Alkaline Phosphatase 128 U/L (34-104) H 05/26/18 05:50 Total Protein 8.6 gm/dL (6.0-8.3) H 05/26/18 05:50 Albumin 3.6 gm/dL (4.2-5.5) L 05/26/18 05:50 Globulin 5.0 gm/dL 05/26/18 05:50 Albumin/Globulin Ratio 0.7 (1.0-1.8) L 05/26/18 05:50 Triglycerides 160 mg/dL (<150) H 05/26/18 05:50 Cholesterol 103 mg/dL (<200) 05/26/18 05:50 LDL Cholesterol Direct 62 mg/dL (75-193) L 05/26/18 05:50 HDL Cholesterol 30 mg/dL (23-92) 05/26/18 05:50 Amylase < 10 U/L (29-103) L 05/25/18 13:07 Lipase < 3 U/L (11-82) L 05/25/18 13:07 TSH 0.86 uIU/ml (0.34-5.60) 05/26/18 05:50 Urine Source CATH 05/25/18 14:10 Urine Color YELLOW 05/25/18 14:10 Urine Clarity HAZY (CLEAR) 05/25/18 14:10 Urine pH 5.5 (4.6 - 8.0) 05/25/18 14:10 Ur Specific [place] >= 1.030 (1.005-1.030) 05/25/18 14:10 Urine Protein 30 mg/dL (NEGATIVE) H 05/25/18 14:10 Urine Glucose (UA) 100 mg/dL (NEGATIVE) H 05/25/18 14:10 Urine Ketones NEGATIVE mg/dL (NEGATIVE) 05/25/18 14:10 Urine Blood SMALL (NEGATIVE) H 05/25/18 14:10 Urine Nitrate NEGATIVE (NEGATIVE) 05/25/18 14:10 Urine Bilirubin NEGATIVE (NEGATIVE) 05/25/18 14:10 Urine Urobilinogen 0.2 E.U./dL (0.2 - 1.0) 05/25/18 14:10 Ur Leukocyte Esterase NEGATIVE (NEGATIVE) 05/25/18 14:10 Urine RBC 0-2 /hpf (0-5) H 05/25/18 14:10 Urine WBC 10-25 /hpf (0-5) H 05/25/18 14:10 Ur Epithelial Cells NONE SEEN /lpf (FEW) 05/25/18 14:10 Urine Bacteria MODERATE /hpf (NONE SEEN) H 05/25/18 14:10 Stool Occult Blood NEGATIVE (NEGATIVE) 05/25/18 12:57 Urine Opiates Screen POSITIVE (NEGATIVE) H 05/25/18 14:30 Urine Methadone Screen NEGATIVE (NEGATIVE) 05/25/18 14:30 Ur Barbiturates Screen POSITIVE (NEGATIVE) H 05/25/18 14:30 Ur Tricyclics Screen NEGATIVE (NEGATIVE) 05/25/18 14:30 Ur Phencyclidine Scrn NEGATIVE (NEGATIVE) 05/25/18 14:30 Amphetamines Screen NEGATIVE (NEGATIVE) 05/25/18 14:30 U Methamphetamines Scrn NEGATIVE (NEGATIVE) 05/25/18 14:30 U Benzodiazepines Scrn POSITIVE (NEGATIVE) H 05/25/18 14:30 U Cocaine Metab Screen NEGATIVE (NEGATIVE) 05/25/18 14:30 U Cannabinoids Screen NEGATIVE (NEGATIVE) 05/25/18 14:30 - Physical Exam Vitals and I&O: Vital Signs Temp 97.4 F 05/27/18 12:00 Pulse 95 05/27/18 13:36 Resp 18 05/27/18 13:36 BP 135/79 05/27/18 12:00 Pulse Ox 98 05/27/18 13:36 Intake & Output 05/26/18 05/27/18 05/27/18 18:59 06:59 18:59 Intake Total 1900 1247.917 Output Total 700 800 Balance 1200 447.917 Weight (lbs) 88.451 kg 96.706 kg Intake: Intake, IV Amount 1100 1247.917 Piperacillin Sodium/ 100 100 Tazobact 3.375 gm In Sodium Chloride 0.9% 50 ml @ 100 mls/hr IV Q6HR [facility] Rx#:[id number] Sodium Chloride 0.45% 1, 1000 1147.917 000 ml @ 125 mls/hr IV . Q8H [facility] Rx#:[id number] Oral 600 Other 200 Output: Urine 700 800 Other: # Bowel Movements 2 1 Stool Characteristics Soft Soft Formed Weight Source Bedscale Bedscale Active Medications: Current Medications Acetaminophen (Tylenol 650mg/20.3ml Suspension) 650 mg GT Q6HR PRN PRN Reason: MILD PAIN OR TEMP >100.4 Stop: 07/25/18 13:53 Acetaminophen/Hydrocodone Bitart ([place] 10 Mg/325 Mg) 1 tab GT Q4H PRN PRN Reason: MODERATE PAIN Stop: 07/25/18 13:53 Last Admin: 05/27/18 05:51 Dose: 1 tab Al Hydrox/Mg Hydrox/Simethicone (Maalox) 15 ml PO Q6H PRN PRN Reason: GI DISTRESS Stop: 07/25/18 15:31 Last Admin: 05/27/18 08:43 Dose: 15 ml Albuterol/Ipratropium (Duoneb Neb) 3 ml HHN Q6HRT [facility] Stop: 07/25/18 17:59 Last Admin: 05/27/18 13:36 Dose: 3 ml Lipase/Protease/Amylase (Zenpep 5,000 U) 1 cap GT TID [facility] Stop: 07/25/18 20:59 Last Admin: 05/27/18 08:45 Dose: 1 cap Artificial Tears (Artificial Tears Ophth Soln) 1 drop EACH EYE DAILY [facility] Stop: 07/26/18 08:59 Last Admin: 05/27/18 11:18 Dose: 1 drop Atorvastatin Calcium (Lipitor) 20 mg PO HS [facility] Stop: 07/25/18 20:59 Last Admin: 05/26/18 20:31 Dose: 20 mg Cholecalciferol (Vitamin D3) 5,000 iu PO DAILY [facility] Stop: 07/26/18 08:59 Last Admin: 05/27/18 08:44 Dose: 5,000 iu Diphenhydramine HCl (Benadryl) 50 mg GT Q6H PRN PRN Reason: ALLERGIES Stop: 07/25/18 15:14 Last Admin: 05/26/18 22:09 Dose: 50 mg Diphenoxylate HCl/Atropine (Lomotil) 1 tab PO TID [facility] Stop: 07/25/18 20:59 Last Admin: 05/27/18 08:44 Dose: 1 tab Docusate Sodium (Colace) 100 mg GT DAILY [facility] Stop: 07/26/18 08:59 Last Admin: 05/27/18 08:45 Dose: Not Given Famotidine (Pepcid) 20 mg GT Q12H [facility] Stop: 07/25/18 13:59 Last Admin: 05/27/18 01:26 Dose: 20 mg Ferrous Sulfate (Iron) 300 mg PO Q12HR [facility] Stop: 07/25/18 20:59 Last Admin: 05/27/18 08:43 Dose: 300 mg Folic Acid (Folate) 1 mg GT DAILY [facility] Stop: 07/26/18 08:59 Last Admin: 05/27/18 08:45 Dose: 1 mg Gabapentin (Neurontin) 400 mg GT TID [facility] Stop: 07/25/18 13:59 Last Admin: 05/27/18 08:44 Dose: 400 mg Hydralazine HCl (Apresoline) 20 mg GT Q4H PRN PRN Reason: HYPERTENSION Stop: 07/25/18 13:53 Sodium Chloride (Nacl 0.45%) 1,000 mls @ 125 mls/hr IV .Q8H [facility] Stop: 07/24/18 18:03 Last Admin: 05/27/18 02:59 Dose: 125 mls/hr Piperacillin Sod/Tazobactam (Sod 3.375 gm/ Sodium Chloride) 50 mls @ 100 mls/ hr IV Q6HR [facility] Stop: 07/25/18 00:00 Last Admin: 05/27/18 11:18 Dose: 100 mls/hr Insulin Aspart (Novolog Insulin Sliding Scale) 0 units SUBQ ACHS [facility]; Protocol Stop: 07/25/18 16:29 Last Admin: 05/27/18 06:47 Dose: 2 units Lactobacillus Rhamnosus (Culturelle 15b) 1 each PO DAILY [facility] Stop: 07/26/18 08:59 Last Admin: 05/27/18 08:45 Dose: 1 each Levetiracetam (Keppra) 750 mg GT Q12HR [facility] Stop: 07/25/18 20:59 Last Admin: 05/27/18 08:45 Dose: 750 mg Lorazepam (Ativan) 2 mg GT Q6H PRN PRN Reason: ANXIETY Stop: 07/25/18 15:17 Magnesium Oxide (Mag-Oxide) 400 mg GT DAILY [facility] Stop: 07/26/18 08:59 Last Admin: 05/27/18 08:45 Dose: 400 mg Metformin HCl (Glucophage) 1,000 mg PO BID [facility] Stop: 07/25/18 21:14 Last Admin: 05/27/18 08:44 Dose: 1,000 mg Miscellaneous (Probiotic Screen) 1 ea MC PRN PRN PRN Reason: PROTOCOL Stop: 07/25/18 11:59 Morphine Sulfate (Morphine) 1 mg IVP Q4HR PRN PRN Reason: Pain (Severe) Stop: 07/25/18 16:42 Last Admin: 05/27/18 11:15 Dose: 1 mg Phenytoin (Dilantin) 100 mg GT Q8H [facility] Stop: 07/25/18 13:59 Last Admin: 05/27/18 05:18 Dose: 100 mg Rivaroxaban (Xarelto) 10 mg PO 1800 [facility] Stop: 07/26/18 17:59 Temazepam (Restoril) 15 mg GT HS PRN; Protocol PRN Reason: Insomnia Stop: 07/25/18 13:53 General: Alert, Oriented x3, No acute distress HEENT: Atraumatic, EOMI Neck: Supple, +2 carotid pulse wo bruit Cardiovascular: Regular rate, Normal S1, Normal S2 Lungs: Clear to auscultation Abdomen: Bowel sounds, Soft Extremities: no Edema Neurological: Sensation intact Skin: no Rash Psych/Mental Status: Mood NL Assessment/Plan - Problem List Patient Problems: All Active Problems LOOSE STOOLS, WEAKNESS, HYPERGLYCEMIA (Acute) - Assessment Assessment: Hyponatremia Diarrhea T2DM Ess Htn 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 Epilepsy - Plan Plan: Lab - Result Diagrams 05/27/18 05:55 05/27/18 05:55 Current Medications Acetaminophen (Tylenol 650mg/20.3ml Suspension) 650 mg GT Q6HR PRN PRN Reason: MILD PAIN OR TEMP >100.4 Stop: 07/25/18 13:53 Acetaminophen/Hydrocodone Bitart ([place] 10 Mg/325 Mg) 1 tab GT Q4H PRN PRN Reason: MODERATE PAIN Stop: 07/25/18 13:53 Last Admin: 05/27/18 05:51 Dose: 1 tab Al Hydrox/Mg Hydrox/Simethicone (Maalox) 15 ml PO Q6H PRN PRN Reason: GI DISTRESS Stop: 07/25/18 15:31 Last Admin: 05/27/18 08:43 Dose: 15 ml Albuterol/Ipratropium (Duoneb Neb) 3 ml HHN Q6HRT [facility] Stop: 07/25/18 17:59 Last Admin: 05/27/18 13:36 Dose: 3 ml Lipase/Protease/Amylase (Zenpep 5,000 U) 1 cap GT TID [facility] Stop: 07/25/18 20:59 Last Admin: 05/27/18 08:45 Dose: 1 cap Artificial Tears (Artificial Tears Ophth Soln) 1 drop EACH EYE DAILY [facility] Stop: 07/26/18 08:59 Last Admin: 05/27/18 11:18 Dose: 1 drop Atorvastatin Calcium (Lipitor) 20 mg PO HS [facility] Stop: 07/25/18 20:59 Last Admin: 05/26/18 20:31 Dose: 20 mg Cholecalciferol (Vitamin D3) 5,000 iu PO DAILY [facility] Stop: 07/26/18 08:59 Last Admin: 05/27/18 08:44 Dose: 5,000 iu Diphenhydramine HCl (Benadryl) 50 mg GT Q6H PRN PRN Reason: ALLERGIES Stop: 07/25/18 15:14 Last Admin: 05/26/18 22:09 Dose: 50 mg Diphenoxylate HCl/Atropine (Lomotil) 1 tab PO TID [facility] Stop: 07/25/18 20:59 Last Admin: 05/27/18 08:44 Dose: 1 tab Docusate Sodium (Colace) 100 mg GT DAILY [facility] Stop: 07/26/18 08:59 Last Admin: 05/27/18 08:45 Dose: Not Given Famotidine (Pepcid) 20 mg GT Q12H [facility] Stop: 07/25/18 13:59 Last Admin: 05/27/18 01:26 Dose: 20 mg Ferrous Sulfate (Iron) 300 mg PO Q12HR [facility] Stop: 07/25/18 20:59 Last Admin: 05/27/18 08:43 Dose: 300 mg Folic Acid (Folate) 1 mg GT DAILY [facility] Stop: 07/26/18 08:59 Last Admin: 05/27/18 08:45 Dose: 1 mg Gabapentin (Neurontin) 400 mg GT TID [facility] Stop: 07/25/18 13:59 Last Admin: 05/27/18 08:44 Dose: 400 mg Hydralazine HCl (Apresoline) 20 mg GT Q4H PRN PRN Reason: HYPERTENSION Stop: 07/25/18 13:53 Sodium Chloride (Nacl 0.45%) 1,000 mls @ 125 mls/hr IV .Q8H [facility] Stop: 07/24/18 18:03 Last Admin: 05/27/18 02:59 Dose: 125 mls/hr Piperacillin Sod/Tazobactam (Sod 3.375 gm/ Sodium Chloride) 50 mls @ 100 mls/ hr IV Q6HR [facility] Stop: 07/25/18 00:00 Last Admin: 05/27/18 11:18 Dose: 100 mls/hr Insulin Aspart (Novolog Insulin Sliding Scale) 0 units SUBQ ACHS [facility]; Protocol Stop: 07/25/18 16:29 Last Admin: 05/27/18 06:47 Dose: 2 units Lactobacillus Rhamnosus (Culturelle 15b) 1 each PO DAILY [facility] Stop: 07/26/18 08:59 Last Admin: 05/27/18 08:45 Dose: 1 each Levetiracetam (Keppra) 750 mg GT Q12HR [facility] Stop: 07/25/18 20:59 Last Admin: 05/27/18 08:45 Dose: 750 mg Lorazepam (Ativan) 2 mg GT Q6H PRN PRN Reason: ANXIETY Stop: 07/25/18 15:17 Magnesium Oxide (Mag-Oxide) 400 mg GT DAILY [facility] Stop: 07/26/18 08:59 Last Admin: 05/27/18 08:45 Dose: 400 mg Metformin HCl (Glucophage) 1,000 mg PO BID [facility] Stop: 07/25/18 21:14 Last Admin: 05/27/18 08:44 Dose: 1,000 mg Miscellaneous (Probiotic Screen) 1 ea MC PRN PRN PRN Reason: PROTOCOL Stop: 07/25/18 11:59 Morphine Sulfate (Morphine) 1 mg IVP Q4HR PRN PRN Reason: Pain (Severe) Stop: 07/25/18 16:42 Last Admin: 05/27/18 11:15 Dose: 1 mg Phenytoin (Dilantin) 100 mg GT Q8H [facility] Stop: 07/25/18 13:59 Last Admin: 05/27/18 05:18 Dose: 100 mg Rivaroxaban (Xarelto) 10 mg PO 1800 [facility] Stop: 07/26/18 17:59 Temazepam (Restoril) 15 mg GT HS PRN; Protocol PRN Reason: Insomnia Stop: 07/25/18 13:53 Lab - Result Diagrams 05/27/18 05:55 05/27/18 05:55 Sodium stable @ 133 replace Mg BS better control Nutritional Asmnt/Malnutr-PDOC - Dietary Evaluation Malnutrition Findings (Please click <Entered> for more info): Nutritional Asmnt/Malnutrition Start: 05/26/18 14: 57 Text: Status: Active Freq: Protocol: Document 05/26/18 14:57 RHAQUE (Rec: 05/26/18 15:28 [email or web address] [id number]) Nutritional Asmnt/Malnutrition Patient General Information Nutritional Screening High Risk Consult Diagnosis Dehydration, UTI, Electrolyte imbalance Pertinent Medical Hx/Surgical Hx DM Coma, CVA Subjective Information Awoke from Diabetic Coma a few weeks ago, was placed on G tube for nutrition. Is bedridden, needs adult diaper to defecate. Attempts have been made for PO diet, but is in too much pain to eat properly, claims no appetite. 15% PO intake. Swallow eval scheduled for tomorrow. Is willing to try ensure, claims he is more thirsty in the morning than hungry. Nurse claims coffee, Crm of wheat sampled. Current Diet Order/ Nutrition Support [facility] Soft Ground Patient / S.O Not Indicated Pertinent Medications Pepcid, Docusate, Lomotil, Lipitor, Vit D, Insulin Aspart , MOM Pertinent Labs (05/26) Gluc 310 H, POC Gluc 319 H, Alb 3.6 L, LDL 62 L Nutritional Hx/Data Height 1.7 m Height (Calculated Centimeters) 170.2 Current Weight (lbs) 88.451 kg Weight (Calculated Kilograms) 88.5 Weight (Calculated Grams) 87184.5 [place] Body Weight 148 % [place] Body Weight 132 Body Mass Index (BMI) 30.5 Weight Status Obese GI Symptoms Last BM 1 x (05/26) Cultural/Ethnic/Taoism Belief None noted Skin Integrity/Comment: Incontinence associated dermatitis / 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 Problem Problem Altered Nutrition related laboratory values Etiology due to uncontrolled Diabetes Signs/Symptoms: (05/26) Gluc 310 H, POC Gluc 319 H 1. Problem Problem Inadequate Oral food intake Etiology due to lack of appetite secondary to pain Signs/Symptoms: PO intake around 15% Malnutrition Alert Is there a minimum of two criteria No selected? Query Text:Check all the applicable criteria. A minimum of two criteria are recommended for diagnosis of either severe or non-severe malnutrition. Malnutrition Related to Morbid Obesity Malnutrition related to morbid obesity No Intervention/Recommendation Recommendations by RD Add supplement feedings Comments Recommendation to include Glucerna shake TID with all meals. Will wait until swallow eval is completed before adressing possible feeding tube recommendations. Expected Outcomes/Goals Expected Outcomes/Goals 1. Pt receive >75% of nutrient needs from PO intake 2. Labs to return to wnl 3. F/U post swallow eval to assess need to resume FT.
[2018-05-27] MEDS ORDERED: Mag Sulfate 2gm/50mL Premix 2 GM/50 ML BAG IV ONE (15:00)
--- NOTE | 2018-05-27 20:33 | Internal Medicine Prog Note ---
Internal Medicine Subjective - Subjective Service Date: 05/27/18 ( at bedside updates given regarding patients current condition and plan. requesting for different snf placement.) Patient seen and examined:: with staff Patient is:: awake, verbal Per staff patient has:: tolerating meds Internal Medicine Objective - Results Result Diagrams: 05/27/18 05:55 05/27/18 05:55 Recent Labs: Laboratory Last Values WBC 5.3 Th/cmm (4.8-10.8) 05/27/18 05:55 RBC 3.16 Mil/cmm (4.30-5.70) L 05/27/18 05:55 Hgb 10.2 gm/dL (12-16) L 05/27/18 05:55 Hct 30.9 % (41.0-60) L 05/27/18 05:55 MCV 97.6 fl (80-99) 05/27/18 05:55 MCH 32.2 pg (26.0-30.0) H 05/27/18 05:55 MCHC Differential 33.0 pg (28.0-36.0) 05/27/18 05:55 RDW 15.4 % (11.5-20.0) 05/27/18 05:55 Plt Count 164 Th/cmm (150-400) 05/27/18 05:55 MPV 7.9 fl 05/27/18 05:55 Neutrophils % 51.0 % (40.0-80.0) 05/27/18 05:55 Lymphocytes % 29.6 % (20.0-50.0) 05/27/18 05:55 Monocytes % 10.0 % (2.0-10.0) 05/27/18 05:55 Eosinophils % 8.8 % (0.0-5.0) H 05/27/18 05:55 Basophils % 0.6 % (0.0-2.0) 05/27/18 05:55 Sodium 133 mEq/L (136-145) L 05/27/18 05:55 Potassium 4.0 mEq/L (3.5-5.1) 05/27/18 05:55 Chloride 102 mEq/L (98-107) 05/27/18 05:55 Carbon Dioxide 22.9 mEq/L (21.0-31.0) 05/27/18 05:55 Anion Gap 12.1 (7.0-16.0) 05/27/18 05:55 BUN 13 mg/dL (7-25) 05/27/18 05:55 Creatinine 0.5 mg/dL (0.7-1.3) L 05/27/18 05:55 Est GFR ( Amer) > 60.0 ml/min (>90) 05/27/18 05:55 Est GFR (Non-Af Amer) > 60.0 ml/min 05/27/18 05:55 BUN/Creatinine Ratio 26.0 05/27/18 05:55 Glucose 207 mg/dL (70-105) H D 05/27/18 05:55 POC Glucose 266 MG/DL (70 - 105) H 05/27/18 17:50 Whole Bld Lactic Acid 1.67 mmol/L (0.60-1.99) 05/25/18 13:07 Calcium 9.2 mg/dL (8.6-10.3) 05/27/18 05:55 Magnesium 1.7 mg/dL (1.9-2.7) L 05/27/18 05:55 Total Bilirubin 0.4 mg/dL (0.3-1.0) 05/26/18 05:50 AST 10 U/L (13-39) L 05/26/18 05:50 ALT 14 U/L (7-52) 05/26/18 05:50 Alkaline Phosphatase 128 U/L (34-104) H 05/26/18 05:50 Total Protein 8.6 gm/dL (6.0-8.3) H 05/26/18 05:50 Albumin 3.6 gm/dL (4.2-5.5) L 05/26/18 05:50 Globulin 5.0 gm/dL 05/26/18 05:50 Albumin/Globulin Ratio 0.7 (1.0-1.8) L 05/26/18 05:50 Triglycerides 160 mg/dL (<150) H 05/26/18 05:50 Cholesterol 103 mg/dL (<200) 05/26/18 05:50 LDL Cholesterol Direct 62 mg/dL (75-193) L 05/26/18 05:50 HDL Cholesterol 30 mg/dL (23-92) 05/26/18 05:50 Amylase < 10 U/L (29-103) L 05/25/18 13:07 Lipase < 3 U/L (11-82) L 05/25/18 13:07 TSH 0.86 uIU/ml (0.34-5.60) 05/26/18 05:50 Urine Source CATH 05/25/18 14:10 Urine Color YELLOW 05/25/18 14:10 Urine Clarity HAZY (CLEAR) 05/25/18 14:10 Urine pH 5.5 (4.6 - 8.0) 05/25/18 14:10 Ur Specific [place] >= 1.030 (1.005-1.030) 05/25/18 14:10 Urine Protein 30 mg/dL (NEGATIVE) H 05/25/18 14:10 Urine Glucose (UA) 100 mg/dL (NEGATIVE) H 05/25/18 14:10 Urine Ketones NEGATIVE mg/dL (NEGATIVE) 05/25/18 14:10 Urine Blood SMALL (NEGATIVE) H 05/25/18 14:10 Urine Nitrate NEGATIVE (NEGATIVE) 05/25/18 14:10 Urine Bilirubin NEGATIVE (NEGATIVE) 05/25/18 14:10 Urine Urobilinogen 0.2 E.U./dL (0.2 - 1.0) 05/25/18 14:10 Ur Leukocyte Esterase NEGATIVE (NEGATIVE) 05/25/18 14:10 Urine RBC 0-2 /hpf (0-5) H 05/25/18 14:10 Urine WBC 10-25 /hpf (0-5) H 05/25/18 14:10 Ur Epithelial Cells NONE SEEN /lpf (FEW) 05/25/18 14:10 Urine Bacteria MODERATE /hpf (NONE SEEN) H 05/25/18 14:10 Stool Occult Blood NEGATIVE (NEGATIVE) 05/25/18 12:57 Urine Opiates Screen POSITIVE (NEGATIVE) H 05/25/18 14:30 Urine Methadone Screen NEGATIVE (NEGATIVE) 05/25/18 14:30 Ur Barbiturates Screen POSITIVE (NEGATIVE) H 05/25/18 14:30 Ur Tricyclics Screen NEGATIVE (NEGATIVE) 05/25/18 14:30 Ur Phencyclidine Scrn NEGATIVE (NEGATIVE) 05/25/18 14:30 Amphetamines Screen NEGATIVE (NEGATIVE) 05/25/18 14:30 U Methamphetamines Scrn NEGATIVE (NEGATIVE) 05/25/18 14:30 U Benzodiazepines Scrn POSITIVE (NEGATIVE) H 05/25/18 14:30 U Cocaine Metab Screen NEGATIVE (NEGATIVE) 05/25/18 14:30 U Cannabinoids Screen NEGATIVE (NEGATIVE) 05/25/18 14:30 - Physical Exam Vitals and I&O: Vital Signs Temp 97.5 F 05/27/18 15:46 Pulse 97 05/27/18 15:46 Resp 18 05/27/18 16:00 BP 126/71 05/27/18 15:46 Pulse Ox 97 05/27/18 15:46 Intake & Output 05/27/18 05/27/18 05/28/18 06:59 18:59 06:59 Intake Total 9843.578 7462 Output Total 800 1300 Balance 447.917 50 Weight (lbs) 213 lb 3.2 oz 213 lb Intake: Intake, IV Amount 1247.917 50 Piperacillin Sodium/ 100 50 Tazobact 3.375 gm In Sodium Chloride 0.9% 50 ml @ 100 mls/hr IV Q6HR [facility] Rx#:[id number] Sodium Chloride 0.45% 1, 1147.917 000 ml @ 125 mls/hr IV . Q8H [facility] Rx#:[id number] Oral 1000 Other 300 Output: Urine 800 1300 Other: # Bowel Movements 1 2 Stool Characteristics Soft Formed Weight Source Bedscale Bedscale Active Medications: Current Medications Acetaminophen (Tylenol 650mg/20.3ml Suspension) 650 mg GT Q6HR PRN PRN Reason: MILD PAIN OR TEMP >100.4 Stop: 07/25/18 13:53 Acetaminophen/Hydrocodone Bitart ([place] 10 Mg/325 Mg) 1 tab GT Q4H PRN PRN Reason: MODERATE PAIN Stop: 07/25/18 13:53 Last Admin: 05/27/18 05:51 Dose: 1 tab Al Hydrox/Mg Hydrox/Simethicone (Maalox) 15 ml PO Q6H PRN PRN Reason: GI DISTRESS Stop: 07/25/18 15:31 Last Admin: 05/27/18 18:46 Dose: 15 ml Albuterol/Ipratropium (Duoneb Neb) 3 ml HHN Q6HRT [facility] Stop: 07/25/18 17:59 Last Admin: 05/27/18 18:55 Dose: 3 ml Lipase/Protease/Amylase (Zenpep 5,000 U) 1 cap GT TID [facility] Stop: 07/25/18 20:59 Last Admin: 05/27/18 14:55 Dose: 1 cap Artificial Tears (Artificial Tears Ophth Soln) 1 drop EACH EYE DAILY [facility] Stop: 07/26/18 08:59 Last Admin: 05/27/18 11:18 Dose: 1 drop Atorvastatin Calcium (Lipitor) 20 mg PO HS [facility] Stop: 07/25/18 20:59 Last Admin: 05/26/18 20:31 Dose: 20 mg Cholecalciferol (Vitamin D3) 5,000 iu PO DAILY [facility] Stop: 07/26/18 08:59 Last Admin: 05/27/18 08:44 Dose: 5,000 iu Diphenhydramine HCl (Benadryl) 50 mg GT Q6H PRN PRN Reason: ALLERGIES Stop: 07/25/18 15:14 Last Admin: 05/27/18 14:55 Dose: 50 mg Diphenoxylate HCl/Atropine (Lomotil) 1 tab PO TID [facility] Stop: 07/25/18 20:59 Last Admin: 05/27/18 14:55 Dose: 1 tab Docusate Sodium (Colace) 100 mg GT DAILY [facility] Stop: 07/26/18 08:59 Last Admin: 05/27/18 08:45 Dose: Not Given Famotidine (Pepcid) 20 mg GT Q12H [facility] Stop: 07/25/18 13:59 Last Admin: 05/27/18 14:55 Dose: 20 mg Ferrous Sulfate (Iron) 300 mg PO Q12HR [facility] Stop: 07/25/18 20:59 Last Admin: 05/27/18 08:43 Dose: 300 mg Folic Acid (Folate) 1 mg GT DAILY [facility] Stop: 07/26/18 08:59 Last Admin: 05/27/18 08:45 Dose: 1 mg Gabapentin (Neurontin) 400 mg GT TID [facility] Stop: 07/25/18 13:59 Last Admin: 05/27/18 14:55 Dose: 400 mg Hydralazine HCl (Apresoline) 20 mg GT Q4H PRN PRN Reason: HYPERTENSION Stop: 07/25/18 13:53 Sodium Chloride (Nacl 0.45%) 1,000 mls @ 125 mls/hr IV .Q8H [facility] Stop: 07/24/18 18:03 Last Admin: 05/27/18 02:59 Dose: 125 mls/hr Piperacillin Sod/Tazobactam (Sod 3.375 gm/ Sodium Chloride) 50 mls @ 100 mls/ hr IV Q6HR [facility] Stop: 07/25/18 00:00 Last Admin: 05/27/18 17:11 Dose: 100 mls/hr Insulin Aspart (Novolog Insulin Sliding Scale) 0 units SUBQ ACHS [facility]; Protocol Stop: 07/25/18 16:29 Last Admin: 05/27/18 17:56 Dose: 6 units Lactobacillus Rhamnosus (Culturelle 15b) 1 each PO DAILY [facility] Stop: 07/26/18 08:59 Last Admin: 05/27/18 08:45 Dose: 1 each Levetiracetam (Keppra) 750 mg GT Q12HR [facility] Stop: 07/25/18 20:59 Last Admin: 05/27/18 08:45 Dose: 750 mg Lorazepam (Ativan) 2 mg GT Q6H PRN PRN Reason: ANXIETY Stop: 07/25/18 15:17 Magnesium Oxide (Mag-Oxide) 400 mg GT DAILY [facility] Stop: 07/26/18 08:59 Last Admin: 05/27/18 08:45 Dose: 400 mg Metformin HCl (Glucophage) 1,000 mg PO BID [facility] Stop: 07/25/18 21:14 Last Admin: 05/27/18 17:13 Dose: 1,000 mg Miscellaneous (Probiotic Screen) 1 ea MC PRN PRN PRN Reason: PROTOCOL Stop: 07/25/18 11:59 Morphine Sulfate (Morphine) 1 mg IVP Q4HR PRN PRN Reason: Pain (Severe) Stop: 07/25/18 16:42 Last Admin: 05/27/18 17:56 Dose: 1 mg Phenytoin (Dilantin) 100 mg GT Q8H [facility] Stop: 07/25/18 13:59 Last Admin: 05/27/18 15:04 Dose: 100 mg Rivaroxaban (Xarelto) 10 mg PO 1800 [facility] Stop: 07/26/18 17:59 Last Admin: 05/27/18 17:13 Dose: 10 mg Temazepam (Restoril) 15 mg GT HS PRN; Protocol PRN Reason: Insomnia Stop: 07/25/18 13:53 General: weak, alert HEENT: NC/AT, PERRLA Neck: Supple Lungs: CTAB Cardiovascular: RRR, Normal S1, Normal S2 Abdomen: soft, non-tender, non-distended Extremities: excoriation Internal Medicine Assmt/Plan - Assessment Assessment: Acute dehydration, electrolyte imbalance, acute urinary tract infection, functional quadriplegia, hypercholesterolemia, history of pulmonary embolus and deep venous thrombosis, history of respiratory failure, status post decannulation, type 2 diabetes, seizures, hypertension and gastroesophageal reflux disease. - Plan Plan: ivabx as per id pain mgmt cm to arrange snf placement as requested by am labs continue current plan of care Nutritional Asmnt/Malnutr-PDOC - Dietary Evaluation Malnutrition Findings (Please click <Entered> for more info): Nutritional Asmnt/Malnutrition Start: 05/26/18 14: 57 Text: Status: Active Freq: Protocol: Document 05/26/18 14:57 [facility] (Rec: 05/26/18 15:28 [id number]) Nutritional Asmnt/Malnutrition Patient General Information Nutritional Screening High Risk Consult Diagnosis Dehydration, UTI, Electrolyte imbalance Pertinent Medical Hx/Surgical Hx DM Coma, CVA Subjective Information Awoke from Diabetic Coma a few weeks ago, was placed on G tube for nutrition. Is bedridden, needs adult diaper to defecate. Attempts have been made for PO diet, but is in too much pain to eat properly, claims no appetite. 15% PO intake. Swallow eval scheduled for tomorrow. Is willing to try ensure, claims he is more thirsty in the morning than hungry. Nurse claims coffee, Crm of wheat sampled. Current Diet Order/ Nutrition Support [facility] Patient / S.O Not Indicated Pertinent Medications Pepcid, Docusate, Lomotil, Lipitor, Vit D, Insulin Aspart , MOM Pertinent Labs (05/26) Gluc 310 H, POC Gluc 319 H, Alb 3.6 L, LDL 62 L Nutritional Hx/Data Height 5 ft 7 in Height (Calculated Centimeters) 170.2 Current Weight (lbs) 195 lb Weight (Calculated Kilograms) 88.5 Weight (Calculated Grams) 46087.5 [place] Body Weight 148 % [place] Body Weight 132 Body Mass Index (BMI) 30.5 Weight Status Obese GI Symptoms Last BM 1 x (05/26) Cultural/Ethnic/Voodoo Belief None noted Skin Integrity/Comment: 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 Problem Problem Altered Nutrition related laboratory values Etiology due to uncontrolled Diabetes Signs/Symptoms: (05/26) Gluc 310 H, POC Gluc 319 H 1. Problem Problem Inadequate Oral food intake Etiology due to lack of appetite secondary to pain Signs/Symptoms: PO intake around 15% Malnutrition Alert Is there a minimum of two criteria No selected? Query Text:Check all the applicable criteria. A minimum of two criteria are recommended for diagnosis of either severe or non-severe malnutrition. Malnutrition Related to Morbid Obesity Malnutrition related to morbid obesity No Intervention/Recommendation Recommendations by RD Add supplement feedings Comments Recommendation to include Glucerna shake TID with all meals. Will wait until swallow eval is completed before adressing possible feeding tube recommendations. Expected Outcomes/Goals Expected Outcomes/Goals 1. Pt receive >75% of nutrient needs from PO intake 2. Labs to return to wnl 3. F/U post swallow eval to assess need to resume FT.
[2018-05-27] MEDS: Atorvastatin Calcium 10 MG TAB PO SCH (22:14)
[2018-05-28] MEDS: Albuterol/Ipratropium Neb 3 ML AERS HHN SCH ×4 (00:53→19:05)
[2018-05-28] MEDS: Sodium Chloride 0.45% 1,000 ML IV SCH ×2 (03:18→21:37)
[2018-05-28 06:41] LABS: % EOSINOPHILS 6.9 % (0.0-5.0); % LYMPHOCYTES 29.4 % (20.0-50.0); % MONOCYTES 9.4 % (2.0-10.0); % NEUTROPHILS 53.3 % (40.0-80.0); EOSINOPHILE ABSOLUTE 0.3 Th/cmm (0.1-0.4); HEMATOCRIT 28.9 % (41.0-60); HEMOGLOBIN 9.7 gm/dL (12-16); LYMPHOCYTE ABSOLUTE 1.4 Th/cmm (1.5-3.0); MEAN CELL VOLUME 97.4 fl (80-99); MEAN CORPUSCULAR HEMOGLOBIN 32.6 pg (26.0-30.0); MEAN CORPUSCULAR HGB CONC 33.5 pg (28.0-36.0); MEAN PLATELET VOLUME 8.3 fl; MONOCYTE ABSOLUTE 0.5 Th/cmm (0.3-1.0); NEUTROPHILE ABSOLUTE 2.6 Th/cmm (1.8-8.0); PLATELET COUNT 145 Th/cmm (150-400); RED BLOOD COUNT 2.97 Mil/cmm (4.30-5.70); RED CELL DISTRIBUTION WIDTH 15.1 % (11.5-20.0); WHITE BLOOD COUNT 4.8 Th/cmm (4.8-10.8)
[2018-05-28 07:20] LABS: ANION GAP 12.9 (7.0-16.0); BUN - UREA NITROGEN 10 mg/dL (7-25); CARBON DIOXIDE 23.7 mEq/L (21.0-31.0); CHLORIDE 100 mEq/L (98-107); CREATININE - SERUM 0.6 mg/dL (0.7-1.3); GFR AFRICAN-AMERICAN > 60.0 ml/min (>90); GFR NON AFRICAN-AMERICAN > 60.0 ml/min; GLUCOSE 264 mg/dL (70-105); MAGNESIUM 1.9 mg/dL (1.9-2.7); POTASSIUM SERUM 4.6 mEq/L (3.5-5.1); SODIUM SERUM 132 mEq/L (136-145)
[2018-05-28] MEDS: Lactobacillus Rhamnosus GG 15 Billion CFU CAP.SPRINK PO SCH (09:00)
[2018-05-28] MEDS: Diphenoxylate/Atropine 2.5mg Tab PO SCH ×3 (09:02→21:36)
[2018-05-28] MEDS: Multivitamin w/ Minerals Tab GT SCH (09:02)
[2018-05-28] MEDS: Docusate Sodium 100 mg/10 mL UD GT SCH (09:03)
[2018-05-28] MEDS: Ferrous Sulfate 300 MG/5 ML UDC PO SCH ×2 (09:03→21:35)
[2018-05-28] MEDS: Levetiracetam 500 mg/5mL 5mL UDSyr *for ORAL USE ONLY GT SCH ×2 (09:03→21:36)
--- NOTE | 2018-05-28 13:32 | General Progress Note ---
Subjective - Review of Systems Service Date: 05/28/18 Subjective: alert, more episodes of diarrhea today Objective - Results Result Diagrams: 05/28/18 06:20 05/28/18 06:20 Recent Labs: Laboratory Last Values WBC 4.8 Th/cmm (4.8-10.8) 05/28/18 06:20 RBC 2.97 Mil/cmm (4.30-5.70) L 05/28/18 06:20 Hgb 9.7 gm/dL (12-16) L 05/28/18 06:20 Hct 28.9 % (41.0-60) L 05/28/18 06:20 MCV 97.4 fl (80-99) 05/28/18 06:20 MCH 32.6 pg (26.0-30.0) H 05/28/18 06:20 MCHC Differential 33.5 pg (28.0-36.0) 05/28/18 06:20 RDW 15.1 % (11.5-20.0) 05/28/18 06:20 Plt Count 145 Th/cmm (150-400) L 05/28/18 06:20 MPV 8.3 fl 05/28/18 06:20 Neutrophils % 53.3 % (40.0-80.0) 05/28/18 06:20 Lymphocytes % 29.4 % (20.0-50.0) 05/28/18 06:20 Monocytes % 9.4 % (2.0-10.0) 05/28/18 06:20 Eosinophils % 6.9 % (0.0-5.0) H 05/28/18 06:20 Basophils % 1.0 % (0.0-2.0) 05/28/18 06:20 Sodium 132 mEq/L (136-145) L 05/28/18 06:20 Potassium 4.6 mEq/L (3.5-5.1) 05/28/18 06:20 Chloride 100 mEq/L (98-107) 05/28/18 06:20 Carbon Dioxide 23.7 mEq/L (21.0-31.0) 05/28/18 06:20 Anion Gap 12.9 (7.0-16.0) 05/28/18 06:20 BUN 10 mg/dL (7-25) 05/28/18 06:20 Creatinine 0.6 mg/dL (0.7-1.3) L 05/28/18 06:20 Est GFR ( Amer) > 60.0 ml/min (>90) 05/28/18 06:20 Est GFR (Non-Af Amer) > 60.0 ml/min 05/28/18 06:20 BUN/Creatinine Ratio 16.7 05/28/18 06:20 Glucose 264 mg/dL (70-105) H 05/28/18 06:20 POC Glucose 269 MG/DL (70 - 105) H 05/28/18 05:55 Whole Bld Lactic Acid 1.67 mmol/L (0.60-1.99) 05/25/18 13:07 Calcium 9.0 mg/dL (8.6-10.3) 05/28/18 06:20 Magnesium 1.9 mg/dL (1.9-2.7) 05/28/18 06:20 Total Bilirubin 0.4 mg/dL (0.3-1.0) 05/26/18 05:50 AST 10 U/L (13-39) L 05/26/18 05:50 ALT 14 U/L (7-52) 05/26/18 05:50 Alkaline Phosphatase 128 U/L (34-104) H 05/26/18 05:50 Total Protein 8.6 gm/dL (6.0-8.3) H 05/26/18 05:50 Albumin 3.6 gm/dL (4.2-5.5) L 05/26/18 05:50 Globulin 5.0 gm/dL 05/26/18 05:50 Albumin/Globulin Ratio 0.7 (1.0-1.8) L 05/26/18 05:50 Triglycerides 160 mg/dL (<150) H 05/26/18 05:50 Cholesterol 103 mg/dL (<200) 05/26/18 05:50 LDL Cholesterol Direct 62 mg/dL (75-193) L 05/26/18 05:50 HDL Cholesterol 30 mg/dL (23-92) 05/26/18 05:50 Amylase < 10 U/L (29-103) L 05/25/18 13:07 Lipase < 3 U/L (11-82) L 05/25/18 13:07 TSH 0.86 uIU/ml (0.34-5.60) 05/26/18 05:50 Urine Source CATH 05/25/18 14:10 Urine Color YELLOW 05/25/18 14:10 Urine Clarity HAZY (CLEAR) 05/25/18 14:10 Urine pH 5.5 (4.6 - 8.0) 05/25/18 14:10 Ur Specific [place] >= 1.030 (1.005-1.030) 05/25/18 14:10 Urine Protein 30 mg/dL (NEGATIVE) H 05/25/18 14:10 Urine Glucose (UA) 100 mg/dL (NEGATIVE) H 05/25/18 14:10 Urine Ketones NEGATIVE mg/dL (NEGATIVE) 05/25/18 14:10 Urine Blood SMALL (NEGATIVE) H 05/25/18 14:10 Urine Nitrate NEGATIVE (NEGATIVE) 05/25/18 14:10 Urine Bilirubin NEGATIVE (NEGATIVE) 05/25/18 14:10 Urine Urobilinogen 0.2 E.U./dL (0.2 - 1.0) 05/25/18 14:10 Ur Leukocyte Esterase NEGATIVE (NEGATIVE) 05/25/18 14:10 Urine RBC 0-2 /hpf (0-5) H 05/25/18 14:10 Urine WBC 10-25 /hpf (0-5) H 05/25/18 14:10 Ur Epithelial Cells NONE SEEN /lpf (FEW) 05/25/18 14:10 Urine Bacteria MODERATE /hpf (NONE SEEN) H 05/25/18 14:10 Stool Occult Blood NEGATIVE (NEGATIVE) 05/25/18 12:57 Urine Opiates Screen POSITIVE (NEGATIVE) H 05/25/18 14:30 Urine Methadone Screen NEGATIVE (NEGATIVE) 05/25/18 14:30 Ur Barbiturates Screen POSITIVE (NEGATIVE) H 05/25/18 14:30 Ur Tricyclics Screen NEGATIVE (NEGATIVE) 05/25/18 14:30 Ur Phencyclidine Scrn NEGATIVE (NEGATIVE) 05/25/18 14:30 Amphetamines Screen NEGATIVE (NEGATIVE) 05/25/18 14:30 U Methamphetamines Scrn NEGATIVE (NEGATIVE) 05/25/18 14:30 U Benzodiazepines Scrn POSITIVE (NEGATIVE) H 05/25/18 14:30 U Cocaine Metab Screen NEGATIVE (NEGATIVE) 05/25/18 14:30 U Cannabinoids Screen NEGATIVE (NEGATIVE) 05/25/18 14:30 - Physical Exam Vitals and I&O: Vital Signs Temp 97.9 F 05/28/18 11:47 Pulse 98 05/28/18 11:47 Resp 21 05/28/18 12:00 BP 141/88 05/28/18 11:47 Pulse Ox 100 05/28/18 11:47 Intake & Output 05/27/18 05/28/18 05/28/18 18:59 06:59 18:59 Intake Total 2400 50 Output Total 1300 700 Balance 1100 -650 Weight (lbs) 96.615 kg 96.615 kg Intake: Intake, IV Amount 1100 50 Piperacillin Sodium/ 100 50 Tazobact 3.375 gm In Sodium Chloride 0.9% 50 ml @ 100 mls/hr IV Q6HR [facility] Rx#:[id number] Sodium Chloride 0.45% 1, 1000 000 ml @ 125 mls/hr IV . Q8H [facility] Rx#:[id number] Oral 1000 Other 300 Output: Urine 1300 700 Other: # Bowel Movements 2 2 Stool Characteristics Soft Liquid Liquid Formed Brown Brown Weight Source Bedscale Bedscale Active Medications: Current Medications Acetaminophen (Tylenol 650mg/20.3ml Suspension) 650 mg GT Q6HR PRN PRN Reason: MILD PAIN OR TEMP >100.4 Stop: 07/25/18 13:53 Acetaminophen/Hydrocodone Bitart ([place] 10 Mg/325 Mg) 1 tab GT Q4H PRN PRN Reason: MODERATE PAIN Stop: 07/25/18 13:53 Last Admin: 05/27/18 05:51 Dose: 1 tab Al Hydrox/Mg Hydrox/Simethicone (Maalox) 15 ml PO Q6H PRN PRN Reason: GI DISTRESS Stop: 07/25/18 15:31 Last Admin: 05/27/18 18:46 Dose: 15 ml Albuterol/Ipratropium (Duoneb Neb) 3 ml HHN Q6HRT [facility] Stop: 07/25/18 17:59 Last Admin: 05/28/18 07:28 Dose: 3 ml Lipase/Protease/Amylase (Zenpep 5,000 U) 1 cap GT TID [facility] Stop: 07/25/18 20:59 Last Admin: 05/28/18 09:03 Dose: 1 cap Artificial Tears (Artificial Tears Ophth Soln) 1 drop EACH EYE DAILY [facility] Stop: 07/26/18 08:59 Last Admin: 05/27/18 11:18 Dose: 1 drop Atorvastatin Calcium (Lipitor) 20 mg PO HS [facility] Stop: 07/25/18 20:59 Last Admin: 05/27/18 22:14 Dose: 20 mg Cholecalciferol (Vitamin D3) 5,000 iu PO DAILY [facility] Stop: 07/26/18 08:59 Last Admin: 05/28/18 09:02 Dose: 5,000 iu Diphenhydramine HCl (Benadryl) 50 mg GT Q6H PRN PRN Reason: ALLERGIES Stop: 07/25/18 15:14 Last Admin: 05/27/18 14:55 Dose: 50 mg Diphenoxylate HCl/Atropine (Lomotil) 1 tab PO TID [facility] Stop: 07/25/18 20:59 Last Admin: 05/28/18 09:02 Dose: 1 tab Docusate Sodium (Colace) 100 mg GT DAILY [facility] Stop: 07/26/18 08:59 Last Admin: 05/28/18 09:03 Dose: 100 mg Famotidine (Pepcid) 20 mg GT Q12H [facility] Stop: 07/25/18 13:59 Last Admin: 05/28/18 03:17 Dose: 20 mg Ferrous Sulfate (Iron) 300 mg PO Q12HR [facility] Stop: 07/25/18 20:59 Last Admin: 05/28/18 09:03 Dose: 300 mg Folic Acid (Folate) 1 mg GT DAILY [facility] Stop: 07/26/18 08:59 Last Admin: 05/28/18 09:02 Dose: 1 mg Gabapentin (Neurontin) 400 mg GT TID [facility] Stop: 07/25/18 13:59 Last Admin: 05/28/18 09:02 Dose: 400 mg Hydralazine HCl (Apresoline) 20 mg GT Q4H PRN PRN Reason: HYPERTENSION Stop: 07/25/18 13:53 Sodium Chloride (Nacl 0.45%) 1,000 mls @ 125 mls/hr IV .Q8H [facility] Stop: 07/24/18 18:03 Last Admin: 05/28/18 03:18 Dose: 125 mls/hr Piperacillin Sod/Tazobactam (Sod 3.375 gm/ Sodium Chloride) 50 mls @ 100 mls/ hr IV Q6HR [facility] Stop: 07/25/18 00:00 Last Admin: 05/28/18 05:26 Dose: 100 mls/hr Insulin Aspart (Novolog Insulin Sliding Scale) 0 units SUBQ ACHS [facility]; Protocol Stop: 07/25/18 16:29 Last Admin: 05/27/18 22:34 Dose: 4 units Lactobacillus Rhamnosus (Culturelle 15b) 1 each PO DAILY [facility] Stop: 07/26/18 08:59 Last Admin: 05/27/18 08:45 Dose: 1 each Levetiracetam (Keppra) 750 mg GT Q12HR [facility] Stop: 07/25/18 20:59 Last Admin: 05/28/18 09:03 Dose: 750 mg Lorazepam (Ativan) 2 mg GT Q6H PRN PRN Reason: ANXIETY Stop: 07/25/18 15:17 Magnesium Oxide (Mag-Oxide) 400 mg GT DAILY [facility] Stop: 07/26/18 08:59 Last Admin: 05/28/18 09:02 Dose: 400 mg Metformin HCl (Glucophage) 1,000 mg PO BID [facility] Stop: 07/25/18 21:14 Last Admin: 05/28/18 09:03 Dose: 1,000 mg Miscellaneous (Probiotic Screen) 1 ea MC PRN PRN PRN Reason: PROTOCOL Stop: 07/25/18 11:59 Morphine Sulfate (Morphine) 1 mg IVP Q4HR PRN PRN Reason: Pain (Severe) Stop: 07/25/18 16:42 Last Admin: 05/27/18 22:35 Dose: 1 mg Phenytoin (Dilantin) 100 mg GT Q8H [facility] Stop: 07/25/18 13:59 Last Admin: 05/28/18 07:01 Dose: 100 mg Rivaroxaban (Xarelto) 10 mg PO 1800 [facility] Stop: 07/26/18 17:59 Last Admin: 05/27/18 17:13 Dose: 10 mg Temazepam (Restoril) 15 mg GT HS PRN; Protocol PRN Reason: Insomnia Stop: 07/25/18 13:53 General: Alert, Oriented x3, No acute distress HEENT: Atraumatic, EOMI Neck: Supple, +2 carotid pulse wo bruit Cardiovascular: Regular rate, Normal S1, Normal S2 Lungs: Clear to auscultation Abdomen: Bowel sounds, Soft, Distended Extremities: no Edema Neurological: Sensation intact Skin: no Rash Psych/Mental Status: Mood NL Assessment/Plan - Problem List Patient Problems: All Active Problems LOOSE STOOLS, WEAKNESS, HYPERGLYCEMIA (Acute) - Assessment Assessment: Hyponatremia Diarrhea T2DM Ess Htn 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 Epilepsy - Plan Plan: Lab - Result Diagrams 05/27/18 05:55 05/27/18 05:55 Current Medications Acetaminophen (Tylenol 650mg/20.3ml Suspension) 650 mg GT Q6HR PRN PRN Reason: MILD PAIN OR TEMP >100.4 Stop: 07/25/18 13:53 Acetaminophen/Hydrocodone Bitart ([place] 10 Mg/325 Mg) 1 tab GT Q4H PRN PRN Reason: MODERATE PAIN Stop: 07/25/18 13:53 Last Admin: 05/27/18 05:51 Dose: 1 tab Al Hydrox/Mg Hydrox/Simethicone (Maalox) 15 ml PO Q6H PRN PRN Reason: GI DISTRESS Stop: 07/25/18 15:31 Last Admin: 05/27/18 08:43 Dose: 15 ml Albuterol/Ipratropium (Duoneb Neb) 3 ml HHN Q6HRT [facility] Stop: 07/25/18 17:59 Last Admin: 05/27/18 13:36 Dose: 3 ml Lipase/Protease/Amylase (Zenpep 5,000 U) 1 cap GT TID [facility] Stop: 07/25/18 20:59 Last Admin: 05/27/18 08:45 Dose: 1 cap Artificial Tears (Artificial Tears Ophth Soln) 1 drop EACH EYE DAILY [facility] Stop: 07/26/18 08:59 Last Admin: 05/27/18 11:18 Dose: 1 drop Atorvastatin Calcium (Lipitor) 20 mg PO HS [facility] Stop: 07/25/18 20:59 Last Admin: 05/26/18 20:31 Dose: 20 mg Cholecalciferol (Vitamin D3) 5,000 iu PO DAILY [facility] Stop: 07/26/18 08:59 Last Admin: 05/27/18 08:44 Dose: 5,000 iu Diphenhydramine HCl (Benadryl) 50 mg GT Q6H PRN PRN Reason: ALLERGIES Stop: 07/25/18 15:14 Last Admin: 05/26/18 22:09 Dose: 50 mg Diphenoxylate HCl/Atropine (Lomotil) 1 tab PO TID [facility] Stop: 07/25/18 20:59 Last Admin: 05/27/18 08:44 Dose: 1 tab Docusate Sodium (Colace) 100 mg GT DAILY [facility] Stop: 07/26/18 08:59 Last Admin: 05/27/18 08:45 Dose: Not Given Famotidine (Pepcid) 20 mg GT Q12H [facility] Stop: 07/25/18 13:59 Last Admin: 05/27/18 01:26 Dose: 20 mg Ferrous Sulfate (Iron) 300 mg PO Q12HR [facility] Stop: 07/25/18 20:59 Last Admin: 05/27/18 08:43 Dose: 300 mg Folic Acid (Folate) 1 mg GT DAILY [facility] Stop: 07/26/18 08:59 Last Admin: 05/27/18 08:45 Dose: 1 mg Gabapentin (Neurontin) 400 mg GT TID [facility] Stop: 07/25/18 13:59 Last Admin: 05/27/18 08:44 Dose: 400 mg Hydralazine HCl (Apresoline) 20 mg GT Q4H PRN PRN Reason: HYPERTENSION Stop: 07/25/18 13:53 Sodium Chloride (Nacl 0.45%) 1,000 mls @ 125 mls/hr IV .Q8H [facility] Stop: 07/24/18 18:03 Last Admin: 05/27/18 02:59 Dose: 125 mls/hr Piperacillin Sod/Tazobactam (Sod 3.375 gm/ Sodium Chloride) 50 mls @ 100 mls/ hr IV Q6HR [facility] Stop: 07/25/18 00:00 Last Admin: 05/27/18 11:18 Dose: 100 mls/hr Insulin Aspart (Novolog Insulin Sliding Scale) 0 units SUBQ ACHS [facility]; Protocol Stop: 07/25/18 16:29 Last Admin: 05/27/18 06:47 Dose: 2 units Lactobacillus Rhamnosus (Culturelle 15b) 1 each PO DAILY [facility] Stop: 07/26/18 08:59 Last Admin: 05/27/18 08:45 Dose: 1 each Levetiracetam (Keppra) 750 mg GT Q12HR [facility] Stop: 07/25/18 20:59 Last Admin: 05/27/18 08:45 Dose: 750 mg Lorazepam (Ativan) 2 mg GT Q6H PRN PRN Reason: ANXIETY Stop: 07/25/18 15:17 Magnesium Oxide (Mag-Oxide) 400 mg GT DAILY [facility] Stop: 07/26/18 08:59 Last Admin: 05/27/18 08:45 Dose: 400 mg Metformin HCl (Glucophage) 1,000 mg PO BID [facility] Stop: 07/25/18 21:14 Last Admin: 05/27/18 08:44 Dose: 1,000 mg Miscellaneous (Probiotic Screen) 1 ea MC PRN PRN PRN Reason: PROTOCOL Stop: 07/25/18 11:59 Morphine Sulfate (Morphine) 1 mg IVP Q4HR PRN PRN Reason: Pain (Severe) Stop: 07/25/18 16:42 Last Admin: 05/27/18 11:15 Dose: 1 mg Phenytoin (Dilantin) 100 mg GT Q8H [facility] Stop: 07/25/18 13:59 Last Admin: 05/27/18 05:18 Dose: 100 mg Rivaroxaban (Xarelto) 10 mg PO 1800 [facility] Stop: 07/26/18 17:59 Temazepam (Restoril) 15 mg GT HS PRN; Protocol PRN Reason: Insomnia Stop: 07/25/18 13:53 Lab - Result Diagrams 05/28/18 06:20 05/28/18 06:20 Na stable replace Mg BS better control stool C. diff (-) start Lomotil off ABx Nutritional Asmnt/Malnutr-PDOC - Dietary Evaluation Malnutrition Findings (Please click <Entered> for more info): Nutritional Asmnt/Malnutrition Start: 05/26/18 14: 57 Text: Status: Active Freq: Protocol: Document 05/26/18 14:57 RHAQUE (Rec: 05/26/18 15:28 [email or web address]) Nutritional Asmnt/Malnutrition Patient General Information Nutritional Screening High Risk Consult Diagnosis Dehydration, UTI, Electrolyte imbalance Pertinent Medical Hx/Surgical Hx DM Coma, CVA Subjective Information Awoke from Diabetic Coma a few weeks ago, was placed on G tube for nutrition. Is bedridden, needs adult diaper to defecate. Attempts have been made for PO diet, but is in too much pain to eat properly, claims no appetite. 15% PO intake. Swallow eval scheduled for tomorrow. Is willing to try ensure, claims he is more thirsty in the morning than hungry. Nurse claims coffee, Crm of wheat sampled. Current Diet Order/ Nutrition Support [facility] Soft Ground Patient / S.O Not Indicated Pertinent Medications Pepcid, Docusate, Lomotil, Lipitor, Vit D, Insulin Aspart , MOM Pertinent Labs (05/26) Gluc 310 H, POC Gluc 319 H, Alb 3.6 L, LDL 62 L Nutritional Hx/Data Height 1.7 m Height (Calculated Centimeters) 170.2 Current Weight (lbs) 88.451 kg Weight (Calculated Kilograms) 88.5 Weight (Calculated Grams) 17723.5 [place] Body Weight 148 % [place] Body Weight 132 Body Mass Index (BMI) 30.5 Weight Status Obese GI Symptoms Last BM 1 x (05/26) Cultural/Ethnic/Jainism Belief None noted Skin Integrity/Comment: Incontinence associated 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 Problem Problem Altered Nutrition related laboratory values Etiology due to uncontrolled Diabetes Signs/Symptoms: (05/26) Gluc 310 H, POC Gluc 319 H 1. Problem Problem Inadequate Oral food intake Etiology due to lack of appetite secondary to pain Signs/Symptoms: PO intake around 15% Malnutrition Alert Is there a minimum of two criteria No selected? Query Text:Check all the applicable criteria. A minimum of two criteria are recommended for diagnosis of either severe or non-severe malnutrition. Malnutrition Related to Morbid Obesity Malnutrition related to morbid obesity No Intervention/Recommendation Recommendations by RD Add supplement feedings Comments Recommendation to include Glucerna shake TID with all meals. Will wait until swallow eval is completed before adressing possible feeding tube recommendations. Expected Outcomes/Goals Expected Outcomes/Goals 1. Pt receive >75% of nutrient needs from PO intake 2. Labs to return to wnl 3. F/U post swallow eval to assess need to resume FT.
[2018-05-28] MEDS: Morphine Sulfate 2 mg/mL 1mL Syr IVP PRN ×3 (14:07→22:06)
[2018-05-28] MEDS: INSULIN ASPART SLIDING SCALE 100 UNITS/ML UNIT SUBQ SCH ×3 (14:15→21:57)
--- NOTE | 2018-05-28 18:43 | Internal Medicine Prog Note ---
Internal Medicine Subjective - Subjective Service Date: 05/28/18 Patient is:: awake, verbal Per staff patient has:: tolerating meds Internal Medicine Objective - Results Result Diagrams: 05/28/18 06:20 05/28/18 06:20 Recent Labs: Laboratory Last Values WBC 4.8 Th/cmm (4.8-10.8) 05/28/18 06:20 RBC 2.97 Mil/cmm (4.30-5.70) L 05/28/18 06:20 Hgb 9.7 gm/dL (12-16) L 05/28/18 06:20 Hct 28.9 % (41.0-60) L 05/28/18 06:20 MCV 97.4 fl (80-99) 05/28/18 06:20 MCH 32.6 pg (26.0-30.0) H 05/28/18 06:20 MCHC Differential 33.5 pg (28.0-36.0) 05/28/18 06:20 RDW 15.1 % (11.5-20.0) 05/28/18 06:20 Plt Count 145 Th/cmm (150-400) L 05/28/18 06:20 MPV 8.3 fl 05/28/18 06:20 Neutrophils % 53.3 % (40.0-80.0) 05/28/18 06:20 Lymphocytes % 29.4 % (20.0-50.0) 05/28/18 06:20 Monocytes % 9.4 % (2.0-10.0) 05/28/18 06:20 Eosinophils % 6.9 % (0.0-5.0) H 05/28/18 06:20 Basophils % 1.0 % (0.0-2.0) 05/28/18 06:20 Sodium 132 mEq/L (136-145) L 05/28/18 06:20 Potassium 4.6 mEq/L (3.5-5.1) 05/28/18 06:20 Chloride 100 mEq/L (98-107) 05/28/18 06:20 Carbon Dioxide 23.7 mEq/L (21.0-31.0) 05/28/18 06:20 Anion Gap 12.9 (7.0-16.0) 05/28/18 06:20 BUN 10 mg/dL (7-25) 05/28/18 06:20 Creatinine 0.6 mg/dL (0.7-1.3) L 05/28/18 06:20 Est GFR ( Amer) > 60.0 ml/min (>90) 05/28/18 06:20 Est GFR (Non-Af Amer) > 60.0 ml/min 05/28/18 06:20 BUN/Creatinine Ratio 16.7 05/28/18 06:20 Glucose 264 mg/dL (70-105) H 05/28/18 06:20 POC Glucose 252 MG/DL (70 - 105) H 05/28/18 17:29 Whole Bld Lactic Acid 1.67 mmol/L (0.60-1.99) 05/25/18 13:07 Calcium 9.0 mg/dL (8.6-10.3) 05/28/18 06:20 Magnesium 1.9 mg/dL (1.9-2.7) 05/28/18 06:20 Total Bilirubin 0.4 mg/dL (0.3-1.0) 05/26/18 05:50 AST 10 U/L (13-39) L 05/26/18 05:50 ALT 14 U/L (7-52) 05/26/18 05:50 Alkaline Phosphatase 128 U/L (34-104) H 05/26/18 05:50 Total Protein 8.6 gm/dL (6.0-8.3) H 05/26/18 05:50 Albumin 3.6 gm/dL (4.2-5.5) L 05/26/18 05:50 Globulin 5.0 gm/dL 05/26/18 05:50 Albumin/Globulin Ratio 0.7 (1.0-1.8) L 05/26/18 05:50 Triglycerides 160 mg/dL (<150) H 05/26/18 05:50 Cholesterol 103 mg/dL (<200) 05/26/18 05:50 LDL Cholesterol Direct 62 mg/dL (75-193) L 05/26/18 05:50 HDL Cholesterol 30 mg/dL (23-92) 05/26/18 05:50 Amylase < 10 U/L (29-103) L 05/25/18 13:07 Lipase < 3 U/L (11-82) L 05/25/18 13:07 TSH 0.86 uIU/ml (0.34-5.60) 05/26/18 05:50 Urine Source CATH 05/25/18 14:10 Urine Color YELLOW 05/25/18 14:10 Urine Clarity HAZY (CLEAR) 05/25/18 14:10 Urine pH 5.5 (4.6 - 8.0) 05/25/18 14:10 Ur Specific [place] >= 1.030 (1.005-1.030) 05/25/18 14:10 Urine Protein 30 mg/dL (NEGATIVE) H 05/25/18 14:10 Urine Glucose (UA) 100 mg/dL (NEGATIVE) H 05/25/18 14:10 Urine Ketones NEGATIVE mg/dL (NEGATIVE) 05/25/18 14:10 Urine Blood SMALL (NEGATIVE) H 05/25/18 14:10 Urine Nitrate NEGATIVE (NEGATIVE) 05/25/18 14:10 Urine Bilirubin NEGATIVE (NEGATIVE) 05/25/18 14:10 Urine Urobilinogen 0.2 E.U./dL (0.2 - 1.0) 05/25/18 14:10 Ur Leukocyte Esterase NEGATIVE (NEGATIVE) 05/25/18 14:10 Urine RBC 0-2 /hpf (0-5) H 05/25/18 14:10 Urine WBC 10-25 /hpf (0-5) H 05/25/18 14:10 Ur Epithelial Cells NONE SEEN /lpf (FEW) 05/25/18 14:10 Urine Bacteria MODERATE /hpf (NONE SEEN) H 05/25/18 14:10 Stool Occult Blood NEGATIVE (NEGATIVE) 05/25/18 12:57 Urine Opiates Screen POSITIVE (NEGATIVE) H 05/25/18 14:30 Urine Methadone Screen NEGATIVE (NEGATIVE) 05/25/18 14:30 Ur Barbiturates Screen POSITIVE (NEGATIVE) H 05/25/18 14:30 Ur Tricyclics Screen NEGATIVE (NEGATIVE) 05/25/18 14:30 Ur Phencyclidine Scrn NEGATIVE (NEGATIVE) 05/25/18 14:30 Amphetamines Screen NEGATIVE (NEGATIVE) 05/25/18 14:30 U Methamphetamines Scrn NEGATIVE (NEGATIVE) 05/25/18 14:30 U Benzodiazepines Scrn POSITIVE (NEGATIVE) H 05/25/18 14:30 U Cocaine Metab Screen NEGATIVE (NEGATIVE) 05/25/18 14:30 U Cannabinoids Screen NEGATIVE (NEGATIVE) 05/25/18 14:30 - Physical Exam Vitals and I&O: Vital Signs Temp 97.8 F 05/28/18 15:38 Pulse 94 05/28/18 15:38 Resp 21 05/28/18 16:00 BP 138/79 05/28/18 15:38 Pulse Ox 100 05/28/18 15:38 Intake & Output 05/27/18 05/28/18 05/28/18 18:59 06:59 18:59 Intake Total 2400 100 50 Output Total 1300 700 Balance 1100 -600 50 Weight (lbs) 213 lb 213 lb Intake: Intake, IV Amount 1100 100 50 Piperacillin Sodium/ 100 100 50 Tazobact 3.375 gm In Sodium Chloride 0.9% 50 ml @ 100 mls/hr IV Q6HR [facility] Rx#:[id number] Sodium Chloride 0.45% 1, 1000 000 ml @ 125 mls/hr IV . Q8H [facility] Rx#:[id number] Oral 1000 Other 300 Output: Urine 1300 700 Other: # Bowel Movements 2 2 Stool Characteristics Soft Liquid Liquid Formed Brown Brown Weight Source Bedscale Bedscale Active Medications: Current Medications Acetaminophen (Tylenol 650mg/20.3ml Suspension) 650 mg GT Q6HR PRN PRN Reason: MILD PAIN OR TEMP >100.4 Stop: 07/25/18 13:53 Acetaminophen/Hydrocodone Bitart ([place] 10 Mg/325 Mg) 1 tab GT Q4H PRN PRN Reason: MODERATE PAIN Stop: 07/25/18 13:53 Last Admin: 05/27/18 05:51 Dose: 1 tab Al Hydrox/Mg Hydrox/Simethicone (Maalox) 15 ml PO Q6H PRN PRN Reason: GI DISTRESS Stop: 07/25/18 15:31 Last Admin: 05/27/18 18:46 Dose: 15 ml Albuterol/Ipratropium (Duoneb Neb) 3 ml HHN Q6HRT [facility] Stop: 07/25/18 17:59 Last Admin: 05/28/18 13:50 Dose: 3 ml Lipase/Protease/Amylase (Zenpep 5,000 U) 1 cap GT TID [facility] Stop: 07/25/18 20:59 Last Admin: 05/28/18 14:01 Dose: Not Given Artificial Tears (Artificial Tears Ophth Soln) 1 drop EACH EYE DAILY [facility] Stop: 07/26/18 08:59 Last Admin: 05/27/18 11:18 Dose: 1 drop Atorvastatin Calcium (Lipitor) 20 mg PO HS [facility] Stop: 07/25/18 20:59 Last Admin: 05/27/18 22:14 Dose: 20 mg Cholecalciferol (Vitamin D3) 5,000 iu PO DAILY [facility] Stop: 07/26/18 08:59 Last Admin: 05/28/18 09:02 Dose: 5,000 iu Diphenhydramine HCl (Benadryl) 50 mg GT Q6H PRN PRN Reason: ALLERGIES Stop: 07/25/18 15:14 Last Admin: 05/27/18 14:55 Dose: 50 mg Diphenoxylate HCl/Atropine (Lomotil) 1 tab PO TID [facility] Stop: 07/25/18 20:59 Last Admin: 05/28/18 14:16 Dose: 1 tab Diphenoxylate HCl/Atropine (Lomotil) 2 tab PO QID PRN PRN Reason: Diarrhea Stop: 07/27/18 13:34 Docusate Sodium (Colace) 100 mg GT DAILY [facility] Stop: 07/26/18 08:59 Last Admin: 05/28/18 09:03 Dose: 100 mg Famotidine (Pepcid) 20 mg GT Q12H [facility] Stop: 07/25/18 13:59 Last Admin: 05/28/18 14:01 Dose: Not Given Ferrous Sulfate (Iron) 300 mg PO Q12HR [facility] Stop: 07/25/18 20:59 Last Admin: 05/28/18 09:03 Dose: 300 mg Folic Acid (Folate) 1 mg GT DAILY [facility] Stop: 07/26/18 08:59 Last Admin: 05/28/18 09:02 Dose: 1 mg Gabapentin (Neurontin) 400 mg GT TID [facility] Stop: 07/25/18 13:59 Last Admin: 05/28/18 14:01 Dose: Not Given Hydralazine HCl (Apresoline) 20 mg GT Q4H PRN PRN Reason: HYPERTENSION Stop: 07/25/18 13:53 Sodium Chloride (Nacl 0.45%) 1,000 mls @ 125 mls/hr IV .Q8H [facility] Stop: 07/24/18 18:03 Last Admin: 05/28/18 03:18 Dose: 125 mls/hr Piperacillin Sod/Tazobactam (Sod 3.375 gm/ Sodium Chloride) 50 mls @ 100 mls/ hr IV Q6HR [facility] Stop: 07/25/18 00:00 Last Admin: 05/28/18 17:31 Dose: 100 mls/hr Insulin Aspart (Novolog Insulin Sliding Scale) 0 units SUBQ ACHS [facility]; Protocol Stop: 07/25/18 16:29 Last Admin: 05/28/18 17:43 Dose: Not Given Lactobacillus Rhamnosus (Culturelle 15b) 1 each PO DAILY [facility] Stop: 07/26/18 08:59 Last Admin: 05/28/18 09:00 Dose: 1 each Levetiracetam (Keppra) 750 mg GT Q12HR [facility] Stop: 07/25/18 20:59 Last Admin: 05/28/18 09:03 Dose: 750 mg Lorazepam (Ativan) 2 mg GT Q6H PRN PRN Reason: ANXIETY Stop: 07/25/18 15:17 Magnesium Oxide (Mag-Oxide) 400 mg GT DAILY [facility] Stop: 07/26/18 08:59 Last Admin: 05/28/18 09:02 Dose: 400 mg Metformin HCl (Glucophage) 1,000 mg PO BID [facility] Stop: 07/25/18 21:14 Last Admin: 05/28/18 17:31 Dose: 1,000 mg Miscellaneous (Probiotic Screen) 1 ea MC PRN PRN PRN Reason: PROTOCOL Stop: 07/25/18 11:59 Morphine Sulfate (Morphine) 1 mg IVP Q4HR PRN PRN Reason: Pain (Severe) Stop: 07/25/18 16:42 Last Admin: 05/28/18 18:08 Dose: 1 mg Phenytoin (Dilantin) 100 mg GT Q8H [facility] Stop: 07/25/18 13:59 Last Admin: 05/28/18 14:01 Dose: Not Given Rivaroxaban (Xarelto) 10 mg PO 1800 [facility] Stop: 07/26/18 17:59 Last Admin: 05/28/18 17:31 Dose: 10 mg Temazepam (Restoril) 15 mg GT HS PRN; Protocol PRN Reason: Insomnia Stop: 07/25/18 13:53 General: weak, alert HEENT: NC/AT, PERRLA Neck: Supple Lungs: CTAB Cardiovascular: RRR, Normal S1, Normal S2 Abdomen: soft, non-tender, non-distended Extremities: excoriation Internal Medicine Assmt/Plan - Assessment Assessment: Acute dehydration, electrolyte imbalance, acute urinary tract infection, functional quadriplegia, hypercholesterolemia, history of pulmonary embolus and deep venous thrombosis, history of respiratory failure, status post decannulation, type 2 diabetes, seizures, hypertension and gastroesophageal reflux disease. - Plan Plan: re-swallow eval tmw ivabx as per id pain mgmt cm to arrange snf placement am labs continue current plan of care Nutritional Asmnt/Malnutr-PDOC - Dietary Evaluation Malnutrition Findings (Please click <Entered> for more info): Nutritional Asmnt/Malnutrition Start: 05/26/18 14: 57 Text: Status: Active Freq: Protocol: Document 05/26/18 14:57 RHAQUE (Rec: 05/26/18 15:28 [email or web address] [id number]) Nutritional Asmnt/Malnutrition Patient General Information Nutritional Screening High Risk Consult Diagnosis Dehydration, UTI, Electrolyte imbalance Pertinent Medical Hx/Surgical Hx DM Coma, CVA Subjective Information Awoke from Diabetic Coma a few weeks ago, was placed on G tube for nutrition. Is bedridden, needs adult diaper to defecate. Attempts have been made for PO diet, but is in too much pain to eat properly, claims no appetite. 15% PO intake. Swallow eval scheduled for tomorrow. Is willing to try ensure, claims he is more thirsty in the morning than hungry. Nurse claims coffee, Crm of wheat sampled. Current Diet Order/ Nutrition Support [facility] Soft Ground Patient / S.O Not Indicated Pertinent Medications Pepcid, Docusate, Lomotil, Lipitor, Vit D, Insulin Aspart , MOM Pertinent Labs (05/26) Gluc 310 H, POC Gluc 319 H, Alb 3.6 L, LDL 62 L Nutritional Hx/Data Height 5 ft 7 in Height (Calculated Centimeters) 170.2 Current Weight (lbs) 195 lb Weight (Calculated Kilograms) 88.5 Weight (Calculated Grams) 48830.5 [place] Body Weight 148 % [place] Body Weight 132 Body Mass Index (BMI) 30.5 Weight Status Obese GI Symptoms Last BM 1 x (05/26) Cultural/Ethnic/Adventism Belief None noted Skin Integrity/Comment: 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 Problem Problem Altered Nutrition related laboratory values Etiology due to uncontrolled Diabetes Signs/Symptoms: (05/26) Gluc 310 H, POC Gluc 319 H 1. Problem Problem Inadequate Oral food intake Etiology due to lack of appetite secondary to pain Signs/Symptoms: PO intake around 15% Malnutrition Alert Is there a minimum of two criteria No selected? Query Text:Check all the applicable criteria. A minimum of two criteria are recommended for diagnosis of either severe or non-severe malnutrition. Malnutrition Related to Morbid Obesity Malnutrition related to morbid obesity No Intervention/Recommendation Recommendations by RD Add supplement feedings Comments Recommendation to include Glucerna shake TID with all meals. Will wait until swallow eval is completed before adressing possible feeding tube recommendations. Expected Outcomes/Goals Expected Outcomes/Goals 1. Pt receive >75% of nutrient needs from PO intake 2. Labs to return to wnl 3. F/U post swallow eval to assess need to resume FT.
[2018-05-28] MEDS: Atorvastatin Calcium 10 MG TAB PO SCH (21:36)
[2018-05-29] MEDS: Albuterol/Ipratropium Neb 3 ML AERS HHN SCH ×4 (01:04→18:51)
[2018-05-29] MEDS: Morphine Sulfate 2 mg/mL 1mL Syr IVP PRN ×4 (02:34→21:04)
[2018-05-29 06:22] LABS: % BASOPHILS 0.9 % (0.0-2.0); % EOSINOPHILS 6.9 % (0.0-5.0); % LYMPHOCYTES 29.4 % (20.0-50.0); % MONOCYTES 10.3 % (2.0-10.0); % NEUTROPHILS 52.5 % (40.0-80.0); EOSINOPHILE ABSOLUTE 0.3 Th/cmm (0.1-0.4); HEMATOCRIT 28.8 % (41.0-60); HEMOGLOBIN 9.8 gm/dL (12-16); LYMPHOCYTE ABSOLUTE 1.4 Th/cmm (1.5-3.0); MEAN CELL VOLUME 94.5 fl (80-99); MEAN CORPUSCULAR HEMOGLOBIN 32.2 pg (26.0-30.0); MEAN CORPUSCULAR HGB CONC 34.1 pg (28.0-36.0); MEAN PLATELET VOLUME 8.5 fl; MONOCYTE ABSOLUTE 0.5 Th/cmm (0.3-1.0); NEUTROPHILE ABSOLUTE 2.6 Th/cmm (1.8-8.0); PLATELET COUNT 158 Th/cmm (150-400); RED BLOOD COUNT 3.05 Mil/cmm (4.30-5.70); RED CELL DISTRIBUTION WIDTH 14.8 % (11.5-20.0); WHITE BLOOD COUNT 4.8 Th/cmm (4.8-10.8)
[2018-05-29 07:22] LABS: ANION GAP 14.8 (7.0-16.0); BUN - UREA NITROGEN 9 mg/dL (7-25); CALCIUM SERUM 9.1 mg/dL (8.6-10.3); CARBON DIOXIDE 22.4 mEq/L (21.0-31.0); CHLORIDE 101 mEq/L (98-107); CREATININE - SERUM 0.6 mg/dL (0.7-1.3); GFR AFRICAN-AMERICAN > 60.0 ml/min (>90); GFR NON AFRICAN-AMERICAN > 60.0 ml/min; GLUCOSE 248 mg/dL (70-105); POTASSIUM SERUM 4.2 mEq/L (3.5-5.1); SODIUM SERUM 134 mEq/L (136-145)
[2018-05-29] MEDS: INSULIN ASPART SLIDING SCALE 100 UNITS/ML UNIT SUBQ SCH ×4 (07:30→20:57)
[2018-05-29] MEDS: Lactobacillus Rhamnosus GG 15 Billion CFU CAP.SPRINK PO SCH (09:00)
[2018-05-29] MEDS: Docusate Sodium 100 mg/10 mL UD GT SCH (09:00)
[2018-05-29] MEDS: Polyvinyl Alcohol Ophth Soln 15 mL Bottle EACH EYE SCH (09:00)
[2018-05-29] MEDS: Ferrous Sulfate 300 MG/5 ML UDC PO SCH ×2 (11:57→20:16)
[2018-05-29] MEDS: Sodium Chloride 0.45% 1,000 ML IV SCH (12:31)
[2018-05-29] MEDS ORDERED: INSULIN ASPART SLIDING SCALE 100 UNITS/ML UNIT SUBQ SCH ×3 (12:47→16:30)
--- NOTE | 2018-05-29 13:29 | General Progress Note ---
Subjective - Review of Systems Service Date: 05/29/18 Subjective: alert, less diarrhea today, no problem swallow per pt. Objective - Results Result Diagrams: 05/29/18 05:30 05/29/18 05:30 Recent Labs: Laboratory Last Values WBC 4.8 Th/cmm (4.8-10.8) 05/29/18 05:30 RBC 3.05 Mil/cmm (4.30-5.70) L 05/29/18 05:30 Hgb 9.8 gm/dL (12-16) L 05/29/18 05:30 Hct 28.8 % (41.0-60) L 05/29/18 05:30 MCV 94.5 fl (80-99) 05/29/18 05:30 MCH 32.2 pg (26.0-30.0) H 05/29/18 05:30 MCHC Differential 34.1 pg (28.0-36.0) 05/29/18 05:30 RDW 14.8 % (11.5-20.0) 05/29/18 05:30 Plt Count 158 Th/cmm (150-400) 05/29/18 05:30 MPV 8.5 fl 05/29/18 05:30 Neutrophils % 52.5 % (40.0-80.0) 05/29/18 05:30 Lymphocytes % 29.4 % (20.0-50.0) 05/29/18 05:30 Monocytes % 10.3 % (2.0-10.0) H 05/29/18 05:30 Eosinophils % 6.9 % (0.0-5.0) H 05/29/18 05:30 Basophils % 0.9 % (0.0-2.0) 05/29/18 05:30 Sodium 134 mEq/L (136-145) L 05/29/18 05:30 Potassium 4.2 mEq/L (3.5-5.1) 05/29/18 05:30 Chloride 101 mEq/L (98-107) 05/29/18 05:30 Carbon Dioxide 22.4 mEq/L (21.0-31.0) 05/29/18 05:30 Anion Gap 14.8 (7.0-16.0) 05/29/18 05:30 BUN 9 mg/dL (7-25) 05/29/18 05:30 Creatinine 0.6 mg/dL (0.7-1.3) L 05/29/18 05:30 Est GFR ( Amer) > 60.0 ml/min (>90) 05/29/18 05:30 Est GFR (Non-Af Amer) > 60.0 ml/min 05/29/18 05:30 BUN/Creatinine Ratio 15.0 05/29/18 05:30 Glucose 248 mg/dL (70-105) H 05/29/18 05:30 POC Glucose 226 MG/DL (70 - 105) H 05/29/18 07:09 Whole Bld Lactic Acid 1.67 mmol/L (0.60-1.99) 05/25/18 13:07 Calcium 9.1 mg/dL (8.6-10.3) 05/29/18 05:30 Magnesium 1.9 mg/dL (1.9-2.7) 05/28/18 06:20 Total Bilirubin 0.4 mg/dL (0.3-1.0) 05/26/18 05:50 AST 10 U/L (13-39) L 05/26/18 05:50 ALT 14 U/L (7-52) 05/26/18 05:50 Alkaline Phosphatase 128 U/L (34-104) H 05/26/18 05:50 Total Protein 8.6 gm/dL (6.0-8.3) H 05/26/18 05:50 Albumin 3.6 gm/dL (4.2-5.5) L 05/26/18 05:50 Globulin 5.0 gm/dL 05/26/18 05:50 Albumin/Globulin Ratio 0.7 (1.0-1.8) L 05/26/18 05:50 Triglycerides 160 mg/dL (<150) H 05/26/18 05:50 Cholesterol 103 mg/dL (<200) 05/26/18 05:50 LDL Cholesterol Direct 62 mg/dL (75-193) L 05/26/18 05:50 HDL Cholesterol 30 mg/dL (23-92) 05/26/18 05:50 Amylase < 10 U/L (29-103) L 05/25/18 13:07 Lipase < 3 U/L (11-82) L 05/25/18 13:07 TSH 0.86 uIU/ml (0.34-5.60) 05/26/18 05:50 Urine Source CATH 05/25/18 14:10 Urine Color YELLOW 05/25/18 14:10 Urine Clarity HAZY (CLEAR) 05/25/18 14:10 Urine pH 5.5 (4.6 - 8.0) 05/25/18 14:10 Ur Specific [facility] >= 1.030 (1.005-1.030) 05/25/18 14:10 Urine Protein 30 mg/dL (NEGATIVE) H 05/25/18 14:10 Urine Glucose (UA) 100 mg/dL (NEGATIVE) H 05/25/18 14:10 Urine Ketones NEGATIVE mg/dL (NEGATIVE) 05/25/18 14:10 Urine Blood SMALL (NEGATIVE) H 05/25/18 14:10 Urine Nitrate NEGATIVE (NEGATIVE) 05/25/18 14:10 Urine Bilirubin NEGATIVE (NEGATIVE) 05/25/18 14:10 Urine Urobilinogen 0.2 E.U./dL (0.2 - 1.0) 05/25/18 14:10 Ur Leukocyte Esterase NEGATIVE (NEGATIVE) 05/25/18 14:10 Urine RBC 0-2 /hpf (0-5) H 05/25/18 14:10 Urine WBC 10-25 /hpf (0-5) H 05/25/18 14:10 Ur Epithelial Cells NONE SEEN /lpf (FEW) 05/25/18 14:10 Urine Bacteria MODERATE /hpf (NONE SEEN) H 05/25/18 14:10 Stool Occult Blood NEGATIVE (NEGATIVE) 05/25/18 12:57 Urine Opiates Screen POSITIVE (NEGATIVE) H 05/25/18 14:30 Urine Methadone Screen NEGATIVE (NEGATIVE) 05/25/18 14:30 Ur Barbiturates Screen POSITIVE (NEGATIVE) H 05/25/18 14:30 Ur Tricyclics Screen NEGATIVE (NEGATIVE) 05/25/18 14:30 Ur Phencyclidine Scrn NEGATIVE (NEGATIVE) 05/25/18 14:30 Amphetamines Screen NEGATIVE (NEGATIVE) 05/25/18 14:30 U Methamphetamines Scrn NEGATIVE (NEGATIVE) 05/25/18 14:30 U Benzodiazepines Scrn POSITIVE (NEGATIVE) H 05/25/18 14:30 U Cocaine Metab Screen NEGATIVE (NEGATIVE) 05/25/18 14:30 U Cannabinoids Screen NEGATIVE (NEGATIVE) 05/25/18 14:30 - Physical Exam Vitals and I&O: Vital Signs Temp 96.8 F 05/29/18 11:34 Pulse 91 05/29/18 11:34 Resp 19 05/29/18 11:34 BP 147/87 05/29/18 11:34 Pulse Ox 99 05/29/18 11:34 Intake & Output 05/28/18 05/29/18 05/29/18 18:59 06:59 18:59 Intake Total 1100 1050 50 Balance 1100 1050 50 Weight (lbs) 96.615 kg 96.615 kg Intake: Intake, IV Amount 1100 1050 50 Piperacillin Sodium/ 100 50 50 Tazobact 3.375 gm In Sodium Chloride 0.9% 50 ml @ 100 mls/hr IV Q6HR [facility] Rx#:[id number] Sodium Chloride 0.45% 1, 1000 1000 000 ml @ 125 mls/hr IV . Q8H [facility] Rx#:[id number] Other: Stool Characteristics Liquid Soft Soft Brown Brown Brown Weight Source Bedscale Bedscale Active Medications: Current Medications Acetaminophen (Tylenol 650mg/20.3ml Suspension) 650 mg GT Q6HR PRN PRN Reason: MILD PAIN OR TEMP >100.4 Stop: 07/25/18 13:53 Acetaminophen/Hydrocodone Bitart ([place] 10 Mg/325 Mg) 1 tab GT Q4H PRN PRN Reason: MODERATE PAIN Stop: 07/25/18 13:53 Last Admin: 05/27/18 05:51 Dose: 1 tab Al Hydrox/Mg Hydrox/Simethicone (Maalox) 15 ml PO Q6H PRN PRN Reason: GI DISTRESS Stop: 07/25/18 15:31 Last Admin: 05/27/18 18:46 Dose: 15 ml Albuterol/Ipratropium (Duoneb Neb) 3 ml HHN Q6HRT [facility] Stop: 07/25/18 17:59 Last Admin: 05/29/18 07:55 Dose: 3 ml Lipase/Protease/Amylase (Zenpep 5,000 U) 1 cap GT TID [facility] Stop: 07/25/18 20:59 Last Admin: 05/28/18 21:36 Dose: 1 cap Artificial Tears (Artificial Tears Ophth Soln) 1 drop EACH EYE DAILY [facility] Stop: 07/26/18 08:59 Last Admin: 05/29/18 11:55 Dose: 1 drop Atorvastatin Calcium (Lipitor) 20 mg PO HS [facility] Stop: 07/25/18 20:59 Last Admin: 05/28/18 21:36 Dose: 20 mg Cholecalciferol (Vitamin D3) 5,000 iu PO DAILY [facility] Stop: 07/26/18 08:59 Last Admin: 05/29/18 11:56 Dose: 5,000 iu Diphenhydramine HCl (Benadryl) 50 mg GT Q6H PRN PRN Reason: ALLERGIES Stop: 07/25/18 15:14 Last Admin: 05/29/18 01:10 Dose: 50 mg Diphenoxylate HCl/Atropine (Lomotil) 1 tab PO TID [place] Stop: 07/25/18 20:59 Last Admin: 05/29/18 11:58 Dose: 1 tab Diphenoxylate HCl/Atropine (Lomotil) 2 tab PO QID PRN PRN Reason: Diarrhea Stop: 07/27/18 13:34 Docusate Sodium (Colace) 100 mg GT DAILY [facility] Stop: 07/26/18 08:59 Last Admin: 05/29/18 09:00 Dose: Not Given Famotidine (Pepcid) 20 mg GT Q12H [facility] Stop: 07/25/18 13:59 Last Admin: 05/29/18 01:10 Dose: 20 mg Ferrous Sulfate (Iron) 300 mg PO Q12HR [facility] Stop: 07/25/18 20:59 Last Admin: 05/29/18 11:57 Dose: 300 mg Folic Acid (Folate) 1 mg GT DAILY [facility] Stop: 07/26/18 08:59 Last Admin: 05/29/18 11:58 Dose: 1 mg Gabapentin (Neurontin) 400 mg GT TID [facility] Stop: 07/25/18 13:59 Last Admin: 05/29/18 11:58 Dose: 400 mg Hydralazine HCl (Apresoline) 20 mg GT Q4H PRN PRN Reason: HYPERTENSION Stop: 07/25/18 13:53 Sodium Chloride (Nacl 0.45%) 1,000 mls @ 125 mls/hr IV .Q8H [facility] Stop: 07/24/18 18:03 Last Admin: 05/29/18 12:31 Dose: 125 mls/hr Piperacillin Sod/Tazobactam (Sod 3.375 gm/ Sodium Chloride) 50 mls @ 100 mls/ hr IV Q6HR [facility] Stop: 07/25/18 00:00 Last Admin: 05/29/18 13:00 Dose: 100 mls/hr Insulin Aspart (Novolog Insulin Sliding Scale) 0 units SUBQ ACHS [facility]; Protocol Stop: 07/25/18 16:29 Last Admin: 05/29/18 12:00 Dose: Not Given Insulin Aspart (Novolog Insulin Sliding Scale) 0 units SUBQ ACHS [facility]; Protocol Stop: 07/28/18 16:29 Insulin Aspart (Novolog Insulin Sliding Scale) 0 units SUBQ ACHS [facility]; Protocol Stop: 07/28/18 16:29 Lactobacillus Rhamnosus (Culturelle 15b) 1 each PO DAILY [facility] Stop: 07/26/18 08:59 Last Admin: 05/29/18 09:00 Dose: 1 each Levetiracetam (Keppra) 750 mg GT Q12HR [facility] Stop: 07/25/18 20:59 Last Admin: 05/28/18 21:36 Dose: 750 mg Lorazepam (Ativan) 2 mg GT Q6H PRN PRN Reason: ANXIETY Stop: 07/25/18 15:17 Magnesium Oxide (Mag-Oxide) 400 mg GT DAILY [facility] Stop: 07/26/18 08:59 Last Admin: 05/28/18 09:02 Dose: 400 mg Metformin HCl (Glucophage) 1,000 mg PO BID [facility] Stop: 07/25/18 21:14 Last Admin: 05/28/18 17:31 Dose: 1,000 mg Miscellaneous (Probiotic Screen) 1 ea MC PRN PRN PRN Reason: PROTOCOL Stop: 07/25/18 11:59 Morphine Sulfate (Morphine) 1 mg IVP Q4HR PRN PRN Reason: Pain (Severe) Stop: 07/25/18 16:42 Last Admin: 05/29/18 12:11 Dose: 1 mg Phenytoin (Dilantin) 100 mg GT Q8H [facility] Stop: 07/25/18 13:59 Last Admin: 05/29/18 07:03 Dose: 100 mg Rivaroxaban (Xarelto) 10 mg PO 1800 [facility] Stop: 07/26/18 17:59 Last Admin: 05/28/18 17:31 Dose: 10 mg Temazepam (Restoril) 15 mg GT HS PRN; Protocol PRN Reason: Insomnia Stop: 07/25/18 13:53 General: Alert, Oriented x3, No acute distress HEENT: Atraumatic, EOMI Neck: Supple, +2 carotid pulse wo bruit Cardiovascular: Regular rate, Normal S1, Normal S2 Lungs: Clear to auscultation Abdomen: Bowel sounds, Soft, Distended Extremities: no Edema Neurological: Sensation intact Skin: no Rash Psych/Mental Status: Mood NL Assessment/Plan - Problem List Patient Problems: All Active Problems LOOSE STOOLS, WEAKNESS, HYPERGLYCEMIA (Acute) - Assessment Assessment: Hyponatremia Diarrhea T2DM Ess Htn 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 Epilepsy - Plan Plan: Lab - Result Diagrams 05/27/18 05:55 05/27/18 05:55 Current Medications Acetaminophen (Tylenol 650mg/20.3ml Suspension) 650 mg GT Q6HR PRN PRN Reason: MILD PAIN OR TEMP >100.4 Stop: 07/25/18 13:53 Acetaminophen/Hydrocodone Bitart ([place] 10 Mg/325 Mg) 1 tab GT Q4H PRN PRN Reason: MODERATE PAIN Stop: 07/25/18 13:53 Last Admin: 05/27/18 05:51 Dose: 1 tab Al Hydrox/Mg Hydrox/Simethicone (Maalox) 15 ml PO Q6H PRN PRN Reason: GI DISTRESS Stop: 07/25/18 15:31 Last Admin: 05/27/18 08:43 Dose: 15 ml Albuterol/Ipratropium (Duoneb Neb) 3 ml HHN Q6HRT [facility] Stop: 07/25/18 17:59 Last Admin: 05/27/18 13:36 Dose: 3 ml Lipase/Protease/Amylase (Zenpep 5,000 U) 1 cap GT TID [facility] Stop: 07/25/18 20:59 Last Admin: 05/27/18 08:45 Dose: 1 cap Artificial Tears (Artificial Tears Ophth Soln) 1 drop EACH EYE DAILY [facility] Stop: 07/26/18 08:59 Last Admin: 05/27/18 11:18 Dose: 1 drop Atorvastatin Calcium (Lipitor) 20 mg PO HS [place] Stop: 07/25/18 20:59 Last Admin: 05/26/18 20:31 Dose: 20 mg Cholecalciferol (Vitamin D3) 5,000 iu PO DAILY [facility] Stop: 07/26/18 08:59 Last Admin: 05/27/18 08:44 Dose: 5,000 iu Diphenhydramine HCl (Benadryl) 50 mg GT Q6H PRN PRN Reason: ALLERGIES Stop: 07/25/18 15:14 Last Admin: 05/26/18 22:09 Dose: 50 mg Diphenoxylate HCl/Atropine (Lomotil) 1 tab PO TID [place] Stop: 07/25/18 20:59 Last Admin: 05/27/18 08:44 Dose: 1 tab Docusate Sodium (Colace) 100 mg GT DAILY [facility] Stop: 07/26/18 08:59 Last Admin: 05/27/18 08:45 Dose: Not Given Famotidine (Pepcid) 20 mg GT Q12H [facility] Stop: 07/25/18 13:59 Last Admin: 05/27/18 01:26 Dose: 20 mg Ferrous Sulfate (Iron) 300 mg PO Q12HR [facility] Stop: 07/25/18 20:59 Last Admin: 05/27/18 08:43 Dose: 300 mg Folic Acid (Folate) 1 mg GT DAILY [facility] Stop: 07/26/18 08:59 Last Admin: 05/27/18 08:45 Dose: 1 mg Gabapentin (Neurontin) 400 mg GT TID [facility] Stop: 07/25/18 13:59 Last Admin: 05/27/18 08:44 Dose: 400 mg Hydralazine HCl (Apresoline) 20 mg GT Q4H PRN PRN Reason: HYPERTENSION Stop: 07/25/18 13:53 Sodium Chloride (Nacl 0.45%) 1,000 mls @ 125 mls/hr IV .Q8H [facility] Stop: 07/24/18 18:03 Last Admin: 05/27/18 02:59 Dose: 125 mls/hr Piperacillin Sod/Tazobactam (Sod 3.375 gm/ Sodium Chloride) 50 mls @ 100 mls/ hr IV Q6HR [facility] Stop: 07/25/18 00:00 Last Admin: 05/27/18 11:18 Dose: 100 mls/hr Insulin Aspart (Novolog Insulin Sliding Scale) 0 units SUBQ ACHS [facility]; Protocol Stop: 07/25/18 16:29 Last Admin: 05/27/18 06:47 Dose: 2 units Lactobacillus Rhamnosus (Culturelle 15b) 1 each PO DAILY [facility] Stop: 07/26/18 08:59 Last Admin: 05/27/18 08:45 Dose: 1 each Levetiracetam (Keppra) 750 mg GT Q12HR [facility] Stop: 07/25/18 20:59 Last Admin: 05/27/18 08:45 Dose: 750 mg Lorazepam (Ativan) 2 mg GT Q6H PRN PRN Reason: ANXIETY Stop: 07/25/18 15:17 Magnesium Oxide (Mag-Oxide) 400 mg GT DAILY [facility] Stop: 07/26/18 08:59 Last Admin: 05/27/18 08:45 Dose: 400 mg Metformin HCl (Glucophage) 1,000 mg PO BID [facility] Stop: 07/25/18 21:14 Last Admin: 05/27/18 08:44 Dose: 1,000 mg Miscellaneous (Probiotic Screen) 1 ea MC PRN PRN PRN Reason: PROTOCOL Stop: 07/25/18 11:59 Morphine Sulfate (Morphine) 1 mg IVP Q4HR PRN PRN Reason: Pain (Severe) Stop: 07/25/18 16:42 Last Admin: 05/27/18 11:15 Dose: 1 mg Phenytoin (Dilantin) 100 mg GT Q8H [facility] Stop: 07/25/18 13:59 Last Admin: 05/27/18 05:18 Dose: 100 mg Rivaroxaban (Xarelto) 10 mg PO 1800 [facility] Stop: 07/26/18 17:59 Temazepam (Restoril) 15 mg GT HS PRN; Protocol PRN Reason: Insomnia Stop: 07/25/18 13:53 Lab - Result Diagrams 05/29/18 05:30 05/29/18 05:30 Na stable replace Mg BS better control stool C. diff (-) start Lomotil off ABx encourage po intake Nutritional Asmnt/Malnutr-PDOC - Dietary Evaluation Malnutrition Findings (Please click <Entered> for more info): Nutritional Asmnt/Malnutrition Start: 05/26/18 14: 57 Text: Status: Active Freq: Protocol: Document 05/26/18 14:57 RHAQUE (Rec: 05/26/18 15:28 [email or web address] [id number]) Nutritional Asmnt/Malnutrition Patient General Information Nutritional Screening High Risk Consult Diagnosis Dehydration, UTI, Electrolyte imbalance Pertinent Medical Hx/Surgical Hx DM Coma, CVA Subjective Information Awoke from Diabetic Coma a few weeks ago, was placed on G tube for nutrition. Is bedridden, needs adult diaper to defecate. Attempts have been made for PO diet, but is in too much pain to eat properly, claims no appetite. 15% PO intake. Swallow eval scheduled for tomorrow. Is willing to try ensure, claims he is more thirsty in the morning than hungry. Nurse claims coffee, Crm of wheat sampled. Current Diet Order/ Nutrition Support [facility] Soft Ground Patient / S.O Not Indicated Pertinent Medications Pepcid, Docusate, Lomotil, Lipitor, Vit D, Insulin Aspart , MOM Pertinent Labs (05/26) Gluc 310 H, POC Gluc 319 H, Alb 3.6 L, LDL 62 L Nutritional Hx/Data Height 1.7 m Height (Calculated Centimeters) 170.2 Current Weight (lbs) 88.451 kg Weight (Calculated Kilograms) 88.5 Weight (Calculated Grams) 52546.5 [place] Body Weight 148 % [place] Body Weight 132 Body Mass Index (BMI) 30.5 Weight Status Obese GI Symptoms Last BM 1 x (05/26) Cultural/Ethnic/Faith Belief None noted Skin Integrity/Comment: Incontinence associated dermatitis / 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 Problem Problem Altered Nutrition related laboratory values Etiology due to uncontrolled Diabetes Signs/Symptoms: (05/26) Gluc 310 H, POC Gluc 319 H 1. Problem Problem Inadequate Oral food intake Etiology due to lack of appetite secondary to pain Signs/Symptoms: PO intake around 15% Malnutrition Alert Is there a minimum of two criteria No selected? Query Text:Check all the applicable criteria. A minimum of two criteria are recommended for diagnosis of either severe or non-severe malnutrition. Malnutrition Related to Morbid Obesity Malnutrition related to morbid obesity No Intervention/Recommendation Recommendations by RD Add supplement feedings Comments Recommendation to include Glucerna olgake TID with all meals. Will wait until swallow eval is completed before adressing possible feeding tube recommendations. Expected Outcomes/Goals Expected Outcomes/Goals 1. Pt receive >75% of nutrient needs from PO intake 2. Labs to return to wnl 3. F/U post swallow eval to assess need to resume FT.
--- NOTE | 2018-05-29 13:51 | Infectious Disease Prog Note ---
Infectious Disease Subjective - Review of Systems Service Date: 05/29/18 Subjective: There is no new change, no fever. C/o difficulty eating yesterday, so swallow eval repeated. Infectious Disease Objective - Results Result Diagrams: 05/29/18 05:30 05/29/18 05:30 Recent Labs: Laboratory Last Values WBC 4.8 Th/cmm (4.8-10.8) 05/29/18 05:30 RBC 3.05 Mil/cmm (4.30-5.70) L 05/29/18 05:30 Hgb 9.8 gm/dL (12-16) L 05/29/18 05:30 Hct 28.8 % (41.0-60) L 05/29/18 05:30 MCV 94.5 fl (80-99) 05/29/18 05:30 MCH 32.2 pg (26.0-30.0) H 05/29/18 05:30 MCHC Differential 34.1 pg (28.0-36.0) 05/29/18 05:30 RDW 14.8 % (11.5-20.0) 05/29/18 05:30 Plt Count 158 Th/cmm (150-400) 05/29/18 05:30 MPV 8.5 fl 05/29/18 05:30 Neutrophils % 52.5 % (40.0-80.0) 05/29/18 05:30 Lymphocytes % 29.4 % (20.0-50.0) 05/29/18 05:30 Monocytes % 10.3 % (2.0-10.0) H 05/29/18 05:30 Eosinophils % 6.9 % (0.0-5.0) H 05/29/18 05:30 Basophils % 0.9 % (0.0-2.0) 05/29/18 05:30 Sodium 134 mEq/L (136-145) L 05/29/18 05:30 Potassium 4.2 mEq/L (3.5-5.1) 05/29/18 05:30 Chloride 101 mEq/L (98-107) 05/29/18 05:30 Carbon Dioxide 22.4 mEq/L (21.0-31.0) 05/29/18 05:30 Anion Gap 14.8 (7.0-16.0) 05/29/18 05:30 BUN 9 mg/dL (7-25) 05/29/18 05:30 Creatinine 0.6 mg/dL (0.7-1.3) L 05/29/18 05:30 Est GFR ( Amer) > 60.0 ml/min (>90) 05/29/18 05:30 Est GFR (Non-Af Amer) > 60.0 ml/min 05/29/18 05:30 BUN/Creatinine Ratio 15.0 05/29/18 05:30 Glucose 248 mg/dL (70-105) H 05/29/18 05:30 POC Glucose 226 MG/DL (70 - 105) H 05/29/18 07:09 Whole Bld Lactic Acid 1.67 mmol/L (0.60-1.99) 05/25/18 13:07 Calcium 9.1 mg/dL (8.6-10.3) 05/29/18 05:30 Magnesium 1.9 mg/dL (1.9-2.7) 05/28/18 06:20 Total Bilirubin 0.4 mg/dL (0.3-1.0) 05/26/18 05:50 AST 10 U/L (13-39) L 05/26/18 05:50 ALT 14 U/L (7-52) 05/26/18 05:50 Alkaline Phosphatase 128 U/L (34-104) H 05/26/18 05:50 Total Protein 8.6 gm/dL (6.0-8.3) H 05/26/18 05:50 Albumin 3.6 gm/dL (4.2-5.5) L 05/26/18 05:50 Globulin 5.0 gm/dL 05/26/18 05:50 Albumin/Globulin Ratio 0.7 (1.0-1.8) L 05/26/18 05:50 Triglycerides 160 mg/dL (<150) H 05/26/18 05:50 Cholesterol 103 mg/dL (<200) 05/26/18 05:50 LDL Cholesterol Direct 62 mg/dL (75-193) L 05/26/18 05:50 HDL Cholesterol 30 mg/dL (23-92) 05/26/18 05:50 Amylase < 10 U/L (29-103) L 05/25/18 13:07 Lipase < 3 U/L (11-82) L 05/25/18 13:07 TSH 0.86 uIU/ml (0.34-5.60) 05/26/18 05:50 Urine Source CATH 05/25/18 14:10 Urine Color YELLOW 05/25/18 14:10 Urine Clarity HAZY (CLEAR) 05/25/18 14:10 Urine pH 5.5 (4.6 - 8.0) 05/25/18 14:10 Ur Specific [place] >= 1.030 (1.005-1.030) 05/25/18 14:10 Urine Protein 30 mg/dL (NEGATIVE) H 05/25/18 14:10 Urine Glucose (UA) 100 mg/dL (NEGATIVE) H 05/25/18 14:10 Urine Ketones NEGATIVE mg/dL (NEGATIVE) 05/25/18 14:10 Urine Blood SMALL (NEGATIVE) H 05/25/18 14:10 Urine Nitrate NEGATIVE (NEGATIVE) 05/25/18 14:10 Urine Bilirubin NEGATIVE (NEGATIVE) 05/25/18 14:10 Urine Urobilinogen 0.2 E.U./dL (0.2 - 1.0) 05/25/18 14:10 Ur Leukocyte Esterase NEGATIVE (NEGATIVE) 05/25/18 14:10 Urine RBC 0-2 /hpf (0-5) H 05/25/18 14:10 Urine WBC 10-25 /hpf (0-5) H 05/25/18 14:10 Ur Epithelial Cells NONE SEEN /lpf (FEW) 05/25/18 14:10 Urine Bacteria MODERATE /hpf (NONE SEEN) H 05/25/18 14:10 Stool Occult Blood NEGATIVE (NEGATIVE) 05/25/18 12:57 Urine Opiates Screen POSITIVE (NEGATIVE) H 05/25/18 14:30 Urine Methadone Screen NEGATIVE (NEGATIVE) 05/25/18 14:30 Ur Barbiturates Screen POSITIVE (NEGATIVE) H 05/25/18 14:30 Ur Tricyclics Screen NEGATIVE (NEGATIVE) 05/25/18 14:30 Ur Phencyclidine Scrn NEGATIVE (NEGATIVE) 05/25/18 14:30 Amphetamines Screen NEGATIVE (NEGATIVE) 05/25/18 14:30 U Methamphetamines Scrn NEGATIVE (NEGATIVE) 05/25/18 14:30 U Benzodiazepines Scrn POSITIVE (NEGATIVE) H 05/25/18 14:30 U Cocaine Metab Screen NEGATIVE (NEGATIVE) 05/25/18 14:30 U Cannabinoids Screen NEGATIVE (NEGATIVE) 05/25/18 14:30 - Physical Exam Vitals and I&O: Vital Signs Temp 96.8 F 05/29/18 11:34 Pulse 91 05/29/18 11:34 Resp 19 05/29/18 11:34 BP 147/87 05/29/18 11:34 Pulse Ox 99 05/29/18 11:34 Intake & Output 05/28/18 05/29/18 05/29/18 18:59 06:59 18:59 Intake Total 1100 1050 50 Balance 1100 1050 50 Weight (lbs) 96.615 kg 96.615 kg Intake: Intake, IV Amount 1100 1050 50 Piperacillin Sodium/ 100 50 50 Tazobact 3.375 gm In Sodium Chloride 0.9% 50 ml @ 100 mls/hr IV Q6HR [facility] Rx#:[id number] Sodium Chloride 0.45% 1, 1000 1000 000 ml @ 125 mls/hr IV . Q8H [facility] Rx#:[id number] Other: Stool Characteristics Liquid Soft Soft Brown Brown Brown Weight Source Bedscale Bedscale Active Medications: Current Medications Acetaminophen (Tylenol 650mg/20.3ml Suspension) 650 mg GT Q6HR PRN PRN Reason: MILD PAIN OR TEMP >100.4 Stop: 07/25/18 13:53 Acetaminophen/Hydrocodone Bitart ([place] 10 Mg/325 Mg) 1 tab GT Q4H PRN PRN Reason: MODERATE PAIN Stop: 07/25/18 13:53 Last Admin: 05/27/18 05:51 Dose: 1 tab Al Hydrox/Mg Hydrox/Simethicone (Maalox) 15 ml PO Q6H PRN PRN Reason: GI DISTRESS Stop: 07/25/18 15:31 Last Admin: 05/27/18 18:46 Dose: 15 ml Albuterol/Ipratropium (Duoneb Neb) 3 ml HHN Q6HRT [facility] Stop: 07/25/18 17:59 Last Admin: 05/29/18 07:55 Dose: 3 ml Lipase/Protease/Amylase (Zenpep 5,000 U) 1 cap GT TID [facility] Stop: 07/25/18 20:59 Last Admin: 05/28/18 21:36 Dose: 1 cap Artificial Tears (Artificial Tears Ophth Soln) 1 drop EACH EYE DAILY [facility] Stop: 07/26/18 08:59 Last Admin: 05/29/18 11:55 Dose: 1 drop Atorvastatin Calcium (Lipitor) 20 mg PO HS [facility] Stop: 07/25/18 20:59 Last Admin: 05/28/18 21:36 Dose: 20 mg Cholecalciferol (Vitamin D3) 5,000 iu PO DAILY [facility] Stop: 07/26/18 08:59 Last Admin: 05/29/18 11:56 Dose: 5,000 iu Diphenhydramine HCl (Benadryl) 50 mg GT Q6H PRN PRN Reason: ALLERGIES Stop: 07/25/18 15:14 Last Admin: 05/29/18 01:10 Dose: 50 mg Diphenoxylate HCl/Atropine (Lomotil) 1 tab PO TID [facility] Stop: 07/25/18 20:59 Last Admin: 05/29/18 11:58 Dose: 1 tab Diphenoxylate HCl/Atropine (Lomotil) 2 tab PO QID PRN PRN Reason: Diarrhea Stop: 07/27/18 13:34 Docusate Sodium (Colace) 100 mg GT DAILY [facility] Stop: 07/26/18 08:59 Last Admin: 05/29/18 09:00 Dose: Not Given Famotidine (Pepcid) 20 mg GT Q12H [facility] Stop: 07/25/18 13:59 Last Admin: 05/29/18 01:10 Dose: 20 mg Ferrous Sulfate (Iron) 300 mg PO Q12HR [facility] Stop: 07/25/18 20:59 Last Admin: 05/29/18 11:57 Dose: 300 mg Folic Acid (Folate) 1 mg GT DAILY [facility] Stop: 07/26/18 08:59 Last Admin: 05/29/18 11:58 Dose: 1 mg Gabapentin (Neurontin) 400 mg GT TID [facility] Stop: 07/25/18 13:59 Last Admin: 05/29/18 11:58 Dose: 400 mg Hydralazine HCl (Apresoline) 20 mg GT Q4H PRN PRN Reason: HYPERTENSION Stop: 07/25/18 13:53 Piperacillin Sod/Tazobactam (Sod 3.375 gm/ Sodium Chloride) 50 mls @ 100 mls/ hr IV Q6HR [facility] Stop: 07/25/18 00:00 Last Admin: 05/29/18 13:00 Dose: 100 mls/hr Insulin Aspart (Novolog Insulin Sliding Scale) 0 units SUBQ ACHS [facility]; Protocol Stop: 07/25/18 16:29 Last Admin: 05/29/18 12:00 Dose: Not Given Insulin Aspart (Novolog Insulin Sliding Scale) 0 units SUBQ ACHS [facility]; Protocol Stop: 07/28/18 16:29 Insulin Aspart (Novolog Insulin Sliding Scale) 0 units SUBQ ACHS [facility]; Protocol Stop: 07/28/18 16:29 Lactobacillus Rhamnosus (Culturelle 15b) 1 each PO DAILY [facility] Stop: 07/26/18 08:59 Last Admin: 05/29/18 09:00 Dose: 1 each Levetiracetam (Keppra) 750 mg GT Q12HR [facility] Stop: 07/25/18 20:59 Last Admin: 05/28/18 21:36 Dose: 750 mg Lorazepam (Ativan) 2 mg GT Q6H PRN PRN Reason: ANXIETY Stop: 07/25/18 15:17 Magnesium Oxide (Mag-Oxide) 400 mg GT DAILY [facility] Stop: 07/26/18 08:59 Last Admin: 05/28/18 09:02 Dose: 400 mg Metformin HCl (Glucophage) 1,000 mg PO BID [facility] Stop: 07/25/18 21:14 Last Admin: 05/28/18 17:31 Dose: 1,000 mg Miscellaneous (Probiotic Screen) 1 ea MC PRN PRN PRN Reason: PROTOCOL Stop: 07/25/18 11:59 Morphine Sulfate (Morphine) 1 mg IVP Q4HR PRN PRN Reason: Pain (Severe) Stop: 07/25/18 16:42 Last Admin: 05/29/18 12:11 Dose: 1 mg Phenytoin (Dilantin) 100 mg GT Q8H [facility] Stop: 07/25/18 13:59 Last Admin: 05/29/18 07:03 Dose: 100 mg Rivaroxaban (Xarelto) 10 mg PO 1800 [facility] Stop: 07/26/18 17:59 Last Admin: 05/28/18 17:31 Dose: 10 mg Temazepam (Restoril) 15 mg GT HS PRN; Protocol PRN Reason: Insomnia Stop: 07/25/18 13:53 General: no acute distress, well developed, well nourished HEENT: atraumatic, normocephalic, PERRLA, EOMI Neck: supple, no thyromegaly, no lymphadenopathy, no rigid Cardiovascular: S1S2, regular Lungs: clear to auscultation bilaterally, clear to percussion Abdomen: soft, no tender, no distended, no mass Extremities: no cyanosis, no clubbing, no edema Neurological: awake, alert, oriented, other (Left sided weakness.) Infectious Disease Assmt/Plan - Problem List Patient Problems: All Active Problems LOOSE STOOLS, WEAKNESS, HYPERGLYCEMIA (Acute) - Assessment Assessment: UTI CVA dysphagia. Diarrhea - Plan Plan: Speech therapy eval. DC plan on augmentin po for 5 days. Nutritional Asmnt/Malnutr-PDOC - Dietary Evaluation Malnutrition Findings (Please click <Entered> for more info): Nutritional Asmnt/Malnutrition Start: 05/26/18 14: 57 Text: Status: Active Freq: Protocol: Document 05/26/18 14:57 STEPHANIE (Rec: 05/26/18 15:28 [email or web address] [email or web address]) Nutritional Asmnt/Malnutrition Patient General Information Nutritional Screening High Risk Consult Diagnosis Dehydration, UTI, Electrolyte imbalance Pertinent Medical Hx/Surgical Hx DM Coma, CVA Subjective Information Awoke from Diabetic Coma a few weeks ago, was placed on G tube for nutrition. Is bedridden, needs adult diaper to defecate. Attempts have been made for PO diet, but is in too much pain to eat properly, claims no appetite. 15% PO intake. Swallow eval scheduled for tomorrow. Is willing to try ensure, claims he is more thirsty in the morning than hungry. Nurse claims coffee, Crm of wheat sampled. Current Diet Order/ Nutrition Support [facility] Soft Ground Patient / S.O Not Indicated Pertinent Medications Pepcid, Docusate, Lomotil, Lipitor, Vit D, Insulin Aspart , MOM Pertinent Labs (05/26) Gluc 310 H, POC Gluc 319 H, Alb 3.6 L, LDL 62 L Nutritional Hx/Data Height 1.7 m Height (Calculated Centimeters) 170.2 Current Weight (lbs) 88.451 kg Weight (Calculated Kilograms) 88.5 Weight (Calculated Grams) 78467.5 Yoder Body Weight 148 % Yoder Body Weight 132 Body Mass Index (BMI) 30.5 Weight Status Obese GI Symptoms Last BM 1 x (05/26) Cultural/Ethnic/Mu-Ism Belief None noted Skin Integrity/Comment: 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 Problem Problem Altered Nutrition related laboratory values Etiology due to uncontrolled Diabetes Signs/Symptoms: (05/26) Gluc 310 H, POC Gluc 319 H 1. Problem Problem Inadequate Oral food intake Etiology due to lack of appetite secondary to pain Signs/Symptoms: PO intake around 15% Malnutrition Alert Is there a minimum of two criteria No selected? Query Text:Check all the applicable criteria. A minimum of two criteria are recommended for diagnosis of either severe or non-severe malnutrition. Malnutrition Related to Morbid Obesity Malnutrition related to morbid obesity No Intervention/Recommendation Recommendations by RD Add supplement feedings Comments Recommendation to include Glucerna shake TID with all meals. Will wait until swallow eval is completed before adressing possible feeding tube recommendations. Expected Outcomes/Goals Expected Outcomes/Goals 1. Pt receive >75% of nutrient needs from PO intake 2. Labs to return to wnl 3. F/U post swallow eval to assess need to resume FT.
[2018-05-29] MEDS: Diphenoxylate/Atropine 2.5mg Tab PO SCH ×3 (14:00→20:16)
[2018-05-29] MEDS: Levetiracetam 500 mg/5mL 5mL UDSyr *for ORAL USE ONLY GT SCH ×2 (15:38→20:16)
[2018-05-29] MEDS: Multivitamin w/ Minerals Tab GT SCH (15:54)
[2018-05-29] MEDS: Diphenoxylate/Atropine 2.5mg Tab PO PRN (18:23)
[2018-05-29] MEDS: Atorvastatin Calcium 10 MG TAB PO SCH (20:17)
[2018-05-30] MEDS: Albuterol/Ipratropium Neb 3 ML AERS HHN SCH ×4 (00:47→19:19)
[2018-05-30] MEDS: Morphine Sulfate 2 mg/mL 1mL Syr IVP PRN ×4 (03:28→20:12)
[2018-05-30 06:33] LABS: % BASOPHILS 1.1 % (0.0-2.0); % LYMPHOCYTES 26.6 % (20.0-50.0); % MONOCYTES 11.3 % (2.0-10.0); BASOPHILE ABSOLUTE 0.1 Th/cumm (0-0.2); EOSINOPHILE ABSOLUTE 0.3 Th/cmm (0.1-0.4); HEMATOCRIT 29.6 % (41.0-60); HEMOGLOBIN 9.8 gm/dL (12-16); LYMPHOCYTE ABSOLUTE 1.4 Th/cmm (1.5-3.0); MEAN CELL VOLUME 94.7 fl (80-99); MEAN CORPUSCULAR HEMOGLOBIN 31.3 pg (26.0-30.0); MEAN CORPUSCULAR HGB CONC 33.1 pg (28.0-36.0); MEAN PLATELET VOLUME 8.2 fl; MONOCYTE ABSOLUTE 0.6 Th/cmm (0.3-1.0); PLATELET COUNT 169 Th/cmm (150-400); RED BLOOD COUNT 3.13 Mil/cmm (4.30-5.70); RED CELL DISTRIBUTION WIDTH 14.7 % (11.5-20.0); WHITE BLOOD COUNT 5.4 Th/cmm (4.8-10.8)
[2018-05-30 06:43] LABS: ANION GAP 13.2 (7.0-16.0); BUN - UREA NITROGEN 10 mg/dL (7-25); CALCIUM SERUM 9.3 mg/dL (8.6-10.3); CARBON DIOXIDE 23.8 mEq/L (21.0-31.0); CHLORIDE 100 mEq/L (98-107); CREATININE - SERUM 0.6 mg/dL (0.7-1.3); GFR AFRICAN-AMERICAN > 60.0 ml/min (>90); GFR NON AFRICAN-AMERICAN > 60.0 ml/min; SODIUM SERUM 133 mEq/L (136-145)
[2018-05-30 06:44] LABS: GLUCOSE 218 mg/dL (70-105)
[2018-05-30] MEDS: INSULIN ASPART SLIDING SCALE 100 UNITS/ML UNIT SUBQ SCH ×4 (08:17→20:36)
[2018-05-30] MEDS: Docusate Sodium 100 mg/10 mL UD GT SCH (08:43)
[2018-05-30] MEDS: Lactobacillus Rhamnosus GG 15 Billion CFU CAP.SPRINK PO SCH (08:44)
[2018-05-30] MEDS: Diphenoxylate/Atropine 2.5mg Tab PO SCH ×3 (08:44→20:29)
[2018-05-30] MEDS: Polyvinyl Alcohol Ophth Soln 15 mL Bottle EACH EYE SCH (08:44)
[2018-05-30] MEDS: Ferrous Sulfate 300 MG/5 ML UDC PO SCH ×2 (08:44→20:33)
[2018-05-30] MEDS: Multivitamin w/ Minerals Tab GT SCH (08:45)
[2018-05-30] MEDS: Levetiracetam 500 mg/5mL 5mL UDSyr *for ORAL USE ONLY GT SCH ×2 (08:52→20:33)
--- NOTE | 2018-05-30 11:00 | Internal Medicine Prog Note ---
Internal Medicine Subjective - Subjective Service Date: 05/30/18 (still with diarrhea) Patient is:: awake, verbal Per staff patient has:: tolerating meds Internal Medicine Objective - Results Result Diagrams: 05/30/18 06:15 05/30/18 06:15 Recent Labs: Laboratory Last Values WBC 5.4 Th/cmm (4.8-10.8) 05/30/18 06:15 RBC 3.13 Mil/cmm (4.30-5.70) L 05/30/18 06:15 Hgb 9.8 gm/dL (12-16) L 05/30/18 06:15 Hct 29.6 % (41.0-60) L 05/30/18 06:15 MCV 94.7 fl (80-99) 05/30/18 06:15 MCH 31.3 pg (26.0-30.0) H 05/30/18 06:15 MCHC Differential 33.1 pg (28.0-36.0) 05/30/18 06:15 RDW 14.7 % (11.5-20.0) 05/30/18 06:15 Plt Count 169 Th/cmm (150-400) 05/30/18 06:15 MPV 8.2 fl 05/30/18 06:15 Neutrophils % 55.0 % (40.0-80.0) 05/30/18 06:15 Lymphocytes % 26.6 % (20.0-50.0) 05/30/18 06:15 Monocytes % 11.3 % (2.0-10.0) H 05/30/18 06:15 Eosinophils % 6.0 % (0.0-5.0) H 05/30/18 06:15 Basophils % 1.1 % (0.0-2.0) 05/30/18 06:15 Sodium 133 mEq/L (136-145) L 05/30/18 06:15 Potassium 4.0 mEq/L (3.5-5.1) 05/30/18 06:15 Chloride 100 mEq/L (98-107) 05/30/18 06:15 Carbon Dioxide 23.8 mEq/L (21.0-31.0) 05/30/18 06:15 Anion Gap 13.2 (7.0-16.0) 05/30/18 06:15 BUN 10 mg/dL (7-25) 05/30/18 06:15 Creatinine 0.6 mg/dL (0.7-1.3) L 05/30/18 06:15 Est GFR ( Amer) > 60.0 ml/min (>90) 05/30/18 06:15 Est GFR (Non-Af Amer) > 60.0 ml/min 05/30/18 06:15 BUN/Creatinine Ratio 16.7 05/30/18 06:15 Glucose 218 mg/dL (70-105) H D 05/30/18 06:15 POC Glucose 214 MG/DL (70 - 105) H 05/30/18 06:29 Whole Bld Lactic Acid 1.67 mmol/L (0.60-1.99) 05/25/18 13:07 Calcium 9.3 mg/dL (8.6-10.3) 05/30/18 06:15 Magnesium 1.9 mg/dL (1.9-2.7) 05/28/18 06:20 Total Bilirubin 0.4 mg/dL (0.3-1.0) 05/26/18 05:50 AST 10 U/L (13-39) L 05/26/18 05:50 ALT 14 U/L (7-52) 05/26/18 05:50 Alkaline Phosphatase 128 U/L (34-104) H 05/26/18 05:50 Total Protein 8.6 gm/dL (6.0-8.3) H 05/26/18 05:50 Albumin 3.6 gm/dL (4.2-5.5) L 05/26/18 05:50 Globulin 5.0 gm/dL 05/26/18 05:50 Albumin/Globulin Ratio 0.7 (1.0-1.8) L 05/26/18 05:50 Triglycerides 160 mg/dL (<150) H 05/26/18 05:50 Cholesterol 103 mg/dL (<200) 05/26/18 05:50 LDL Cholesterol Direct 62 mg/dL (75-193) L 05/26/18 05:50 HDL Cholesterol 30 mg/dL (23-92) 05/26/18 05:50 Amylase < 10 U/L (29-103) L 05/25/18 13:07 Lipase < 3 U/L (11-82) L 05/25/18 13:07 TSH 0.86 uIU/ml (0.34-5.60) 05/26/18 05:50 Urine Source CATH 05/25/18 14:10 Urine Color YELLOW 05/25/18 14:10 Urine Clarity HAZY (CLEAR) 05/25/18 14:10 Urine pH 5.5 (4.6 - 8.0) 05/25/18 14:10 Ur Specific [place] >= 1.030 (1.005-1.030) 05/25/18 14:10 Urine Protein 30 mg/dL (NEGATIVE) H 05/25/18 14:10 Urine Glucose (UA) 100 mg/dL (NEGATIVE) H 05/25/18 14:10 Urine Ketones NEGATIVE mg/dL (NEGATIVE) 05/25/18 14:10 Urine Blood SMALL (NEGATIVE) H 05/25/18 14:10 Urine Nitrate NEGATIVE (NEGATIVE) 05/25/18 14:10 Urine Bilirubin NEGATIVE (NEGATIVE) 05/25/18 14:10 Urine Urobilinogen 0.2 E.U./dL (0.2 - 1.0) 05/25/18 14:10 Ur Leukocyte Esterase NEGATIVE (NEGATIVE) 05/25/18 14:10 Urine RBC 0-2 /hpf (0-5) H 05/25/18 14:10 Urine WBC 10-25 /hpf (0-5) H 05/25/18 14:10 Ur Epithelial Cells NONE SEEN /lpf (FEW) 05/25/18 14:10 Urine Bacteria MODERATE /hpf (NONE SEEN) H 05/25/18 14:10 Stool Occult Blood NEGATIVE (NEGATIVE) 05/25/18 12:57 Urine Opiates Screen POSITIVE (NEGATIVE) H 05/25/18 14:30 Urine Methadone Screen NEGATIVE (NEGATIVE) 05/25/18 14:30 Ur Barbiturates Screen POSITIVE (NEGATIVE) H 05/25/18 14:30 Ur Tricyclics Screen NEGATIVE (NEGATIVE) 05/25/18 14:30 Ur Phencyclidine Scrn NEGATIVE (NEGATIVE) 05/25/18 14:30 Amphetamines Screen NEGATIVE (NEGATIVE) 05/25/18 14:30 U Methamphetamines Scrn NEGATIVE (NEGATIVE) 05/25/18 14:30 U Benzodiazepines Scrn POSITIVE (NEGATIVE) H 05/25/18 14:30 U Cocaine Metab Screen NEGATIVE (NEGATIVE) 05/25/18 14:30 U Cannabinoids Screen NEGATIVE (NEGATIVE) 05/25/18 14:30 - Physical Exam Vitals and I&O: Vital Signs Temp 98 F 05/30/18 08:00 Pulse 91 05/30/18 08:00 Resp 20 05/30/18 08:00 BP 118/77 05/30/18 08:00 Pulse Ox 100 05/30/18 08:00 Intake & Output 05/29/18 05/30/18 05/30/18 18:59 06:59 18:59 Intake Total 100 100 50 Balance 100 100 50 Weight (lbs) 213 lb 213 lb Intake: Intake, IV Amount 100 100 50 Piperacillin Sodium/ 100 100 50 Tazobact 3.375 gm In Sodium Chloride 0.9% 50 ml @ 100 mls/hr IV Q6HR [facility] Rx#:[id number] Other: # Voids 2 Stool Characteristics Soft Soft Brown Brown Weight Source Bedscale Bedscale Active Medications: Current Medications Acetaminophen (Tylenol 650mg/20.3ml Suspension) 650 mg GT Q6HR PRN PRN Reason: MILD PAIN OR TEMP >100.4 Stop: 07/25/18 13:53 Acetaminophen/Hydrocodone Bitart ([place] 10 Mg/325 Mg) 1 tab GT Q4H PRN PRN Reason: MODERATE PAIN Stop: 07/25/18 13:53 Last Admin: 05/27/18 05:51 Dose: 1 tab Al Hydrox/Mg Hydrox/Simethicone (Maalox) 15 ml PO Q6H PRN PRN Reason: GI DISTRESS Stop: 07/25/18 15:31 Last Admin: 05/27/18 18:46 Dose: 15 ml Albuterol/Ipratropium (Duoneb Neb) 3 ml HHN Q6HRT [facility] Stop: 07/25/18 17:59 Last Admin: 05/30/18 07:30 Dose: 3 ml Lipase/Protease/Amylase (Zenpep 5,000 U) 1 cap GT TID [facility] Stop: 07/25/18 20:59 Last Admin: 05/30/18 08:44 Dose: 1 cap Artificial Tears (Artificial Tears Ophth Soln) 1 drop EACH EYE DAILY [facility] Stop: 07/26/18 08:59 Last Admin: 05/30/18 08:44 Dose: 1 drop Atorvastatin Calcium (Lipitor) 20 mg PO HS [facility] Stop: 07/25/18 20:59 Last Admin: 05/29/18 20:17 Dose: 20 mg Cholecalciferol (Vitamin D3) 5,000 iu PO DAILY [facility] Stop: 07/26/18 08:59 Last Admin: 05/30/18 08:45 Dose: 5,000 iu Diphenhydramine HCl (Benadryl) 50 mg GT Q6H PRN PRN Reason: ALLERGIES Stop: 07/25/18 15:14 Last Admin: 05/30/18 07:02 Dose: 50 mg Diphenoxylate HCl/Atropine (Lomotil) 1 tab PO TID [facility] Stop: 07/25/18 20:59 Last Admin: 05/30/18 08:44 Dose: 1 tab Diphenoxylate HCl/Atropine (Lomotil) 2 tab PO QID PRN PRN Reason: Diarrhea Stop: 07/27/18 13:34 Last Admin: 05/29/18 18:23 Dose: 2 tab Docusate Sodium (Colace) 100 mg GT DAILY [facility] Stop: 07/26/18 08:59 Last Admin: 05/30/18 08:43 Dose: Not Given Famotidine (Pepcid) 20 mg GT Q12H [facility] Stop: 07/25/18 13:59 Last Admin: 05/30/18 02:31 Dose: Not Given Ferrous Sulfate (Iron) 300 mg PO Q12HR [facility] Stop: 07/25/18 20:59 Last Admin: 05/30/18 08:44 Dose: 300 mg Folic Acid (Folate) 1 mg GT DAILY [facility] Stop: 07/26/18 08:59 Last Admin: 05/30/18 08:45 Dose: 1 mg Gabapentin (Neurontin) 400 mg GT TID [facility] Stop: 07/25/18 13:59 Last Admin: 05/30/18 08:44 Dose: 400 mg Hydralazine HCl (Apresoline) 20 mg GT Q4H PRN PRN Reason: HYPERTENSION Stop: 07/25/18 13:53 Piperacillin Sod/Tazobactam (Sod 3.375 gm/ Sodium Chloride) 50 mls @ 100 mls/ hr IV Q6HR [facility] Stop: 07/25/18 00:00 Last Infusion: 05/30/18 07:42 Dose: Infused Insulin Aspart (Novolog Insulin Sliding Scale) 0 units SUBQ ACHS [facility]; Protocol Stop: 07/25/18 16:29 Last Admin: 05/30/18 08:17 Dose: 4 units Lactobacillus Rhamnosus (Culturelle 15b) 1 each PO DAILY [facility] Stop: 07/26/18 08:59 Last Admin: 05/30/18 08:44 Dose: 1 each Levetiracetam (Keppra) 750 mg GT Q12HR [facility] Stop: 07/25/18 20:59 Last Admin: 05/30/18 08:52 Dose: 750 mg Lorazepam (Ativan) 2 mg GT Q6H PRN PRN Reason: ANXIETY Stop: 07/25/18 15:17 Magnesium Oxide (Mag-Oxide) 400 mg GT DAILY [facility] Stop: 07/26/18 08:59 Last Admin: 05/30/18 08:45 Dose: 400 mg Metformin HCl (Glucophage) 1,000 mg PO BID [facility] Stop: 07/25/18 21:14 Last Admin: 05/30/18 08:44 Dose: 1,000 mg Miscellaneous (Probiotic Screen) 1 ea MC PRN PRN PRN Reason: PROTOCOL Stop: 07/25/18 11:59 Morphine Sulfate (Morphine) 1 mg IVP Q4HR PRN PRN Reason: Pain (Severe) Stop: 07/25/18 16:42 Last Admin: 05/30/18 03:28 Dose: 1 mg Phenytoin (Dilantin) 100 mg GT Q8H [facility] Stop: 07/25/18 13:59 Last Admin: 05/30/18 07:02 Dose: 100 mg Rivaroxaban (Xarelto) 10 mg PO 1800 [facility] Stop: 07/26/18 17:59 Last Admin: 05/29/18 18:32 Dose: 10 mg Temazepam (Restoril) 15 mg GT HS PRN; Protocol PRN Reason: Insomnia Stop: 07/25/18 13:53 General: weak, alert HEENT: NC/AT, PERRLA Neck: Supple Lungs: CTAB Cardiovascular: RRR, Normal S1, Normal S2 Abdomen: soft, non-tender, non-distended Extremities: excoriation Internal Medicine Assmt/Plan - Assessment Assessment: Acute dehydration, electrolyte imbalance, acute urinary tract infection, functional quadriplegia, hypercholesterolemia, history of pulmonary embolus and deep venous thrombosis, history of respiratory failure, status post decannulation, type 2 diabetes, seizures, hypertension and gastroesophageal reflux disease. - Plan Plan: placement pending ivabx as per id pain mgmt cm to arrange snf placement am labs continue current plan of care Nutritional Asmnt/Malnutr-PDOC - Dietary Evaluation Malnutrition Findings (Please click <Entered> for more info): Nutritional Asmnt/Malnutrition Start: 05/26/18 14: 57 Text: Status: Active Freq: Protocol: Document 05/26/18 14:57 RHAQUE (Rec: 05/26/18 15:28 [email or web address] [id number]) Nutritional Asmnt/Malnutrition Patient General Information Nutritional Screening High Risk Consult Diagnosis Dehydration, UTI, Electrolyte imbalance Pertinent Medical Hx/Surgical Hx DM Coma, CVA Subjective Information Awoke from Diabetic Coma a few weeks ago, was placed on G tube for nutrition. Is bedridden, needs adult diaper to defecate. Attempts have been made for PO diet, but is in too much pain to eat properly, claims no appetite. 15% PO intake. Swallow eval scheduled for tomorrow. Is willing to try ensure, claims he is more thirsty in the morning than hungry. Nurse claims coffee, Crm of wheat sampled. Current Diet Order/ Nutrition Support [facility] Soft Ground Patient / S.O Not Indicated Pertinent Medications Pepcid, Docusate, Lomotil, Lipitor, Vit D, Insulin Aspart , MOM Pertinent Labs (05/26) Gluc 310 H, POC Gluc 319 H, Alb 3.6 L, LDL 62 L Nutritional Hx/Data Height 5 ft 7 in Height (Calculated Centimeters) 170.2 Current Weight (lbs) 195 lb Weight (Calculated Kilograms) 88.5 Weight (Calculated Grams) 96060.5 [place] Body Weight 148 % [place] Body Weight 132 Body Mass Index (BMI) 30.5 Weight Status Obese GI Symptoms Last BM 1 x (05/26) Cultural/Ethnic/Religion Belief None noted Skin Integrity/Comment: 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 Problem Problem Altered Nutrition related laboratory values Etiology due to uncontrolled Diabetes Signs/Symptoms: (05/26) Gluc 310 H, POC Gluc 319 H 1. Problem Problem Inadequate Oral food intake Etiology due to lack of appetite secondary to pain Signs/Symptoms: PO intake around 15% Malnutrition Alert Is there a minimum of two criteria No selected? Query Text:Check all the applicable criteria. A minimum of two criteria are recommended for diagnosis of either severe or non-severe malnutrition. Malnutrition Related to Morbid Obesity Malnutrition related to morbid obesity No Intervention/Recommendation Recommendations by RD Add supplement feedings Comments Recommendation to include Glucerna shake TID with all meals. Will wait until swallow eval is completed before adressing possible feeding tube recommendations. Expected Outcomes/Goals Expected Outcomes/Goals 1. Pt receive >75% of nutrient needs from PO intake 2. Labs to return to wnl 3. F/U post swallow eval to assess need to resume FT.
--- NOTE | 2018-05-30 18:16 | General Progress Note ---
Subjective - Review of Systems Service Date: 05/30/18 Subjective: alert, just soft stool X 2 today, no problem swallow per pt. Objective - Results Result Diagrams: 05/30/18 06:15 05/30/18 06:15 Recent Labs: Laboratory Last Values WBC 5.4 Th/cmm (4.8-10.8) 05/30/18 06:15 RBC 3.13 Mil/cmm (4.30-5.70) L 05/30/18 06:15 Hgb 9.8 gm/dL (12-16) L 05/30/18 06:15 Hct 29.6 % (41.0-60) L 05/30/18 06:15 MCV 94.7 fl (80-99) 05/30/18 06:15 MCH 31.3 pg (26.0-30.0) H 05/30/18 06:15 MCHC Differential 33.1 pg (28.0-36.0) 05/30/18 06:15 RDW 14.7 % (11.5-20.0) 05/30/18 06:15 Plt Count 169 Th/cmm (150-400) 05/30/18 06:15 MPV 8.2 fl 05/30/18 06:15 Neutrophils % 55.0 % (40.0-80.0) 05/30/18 06:15 Lymphocytes % 26.6 % (20.0-50.0) 05/30/18 06:15 Monocytes % 11.3 % (2.0-10.0) H 05/30/18 06:15 Eosinophils % 6.0 % (0.0-5.0) H 05/30/18 06:15 Basophils % 1.1 % (0.0-2.0) 05/30/18 06:15 Sodium 133 mEq/L (136-145) L 05/30/18 06:15 Potassium 4.0 mEq/L (3.5-5.1) 05/30/18 06:15 Chloride 100 mEq/L (98-107) 05/30/18 06:15 Carbon Dioxide 23.8 mEq/L (21.0-31.0) 05/30/18 06:15 Anion Gap 13.2 (7.0-16.0) 05/30/18 06:15 BUN 10 mg/dL (7-25) 05/30/18 06:15 Creatinine 0.6 mg/dL (0.7-1.3) L 05/30/18 06:15 Est GFR ( Amer) > 60.0 ml/min (>90) 05/30/18 06:15 Est GFR (Non-Af Amer) > 60.0 ml/min 05/30/18 06:15 BUN/Creatinine Ratio 16.7 05/30/18 06:15 Glucose 218 mg/dL (70-105) H D 05/30/18 06:15 POC Glucose 265 MG/DL (70 - 105) H 05/30/18 17:01 Whole Bld Lactic Acid 1.67 mmol/L (0.60-1.99) 05/25/18 13:07 Calcium 9.3 mg/dL (8.6-10.3) 05/30/18 06:15 Magnesium 1.9 mg/dL (1.9-2.7) 05/28/18 06:20 Total Bilirubin 0.4 mg/dL (0.3-1.0) 05/26/18 05:50 AST 10 U/L (13-39) L 05/26/18 05:50 ALT 14 U/L (7-52) 05/26/18 05:50 Alkaline Phosphatase 128 U/L (34-104) H 05/26/18 05:50 Total Protein 8.6 gm/dL (6.0-8.3) H 05/26/18 05:50 Albumin 3.6 gm/dL (4.2-5.5) L 05/26/18 05:50 Globulin 5.0 gm/dL 05/26/18 05:50 Albumin/Globulin Ratio 0.7 (1.0-1.8) L 05/26/18 05:50 Triglycerides 160 mg/dL (<150) H 05/26/18 05:50 Cholesterol 103 mg/dL (<200) 05/26/18 05:50 LDL Cholesterol Direct 62 mg/dL (75-193) L 05/26/18 05:50 HDL Cholesterol 30 mg/dL (23-92) 05/26/18 05:50 Amylase < 10 U/L (29-103) L 05/25/18 13:07 Lipase < 3 U/L (11-82) L 05/25/18 13:07 TSH 0.86 uIU/ml (0.34-5.60) 05/26/18 05:50 Urine Source CATH 05/25/18 14:10 Urine Color YELLOW 05/25/18 14:10 Urine Clarity HAZY (CLEAR) 05/25/18 14:10 Urine pH 5.5 (4.6 - 8.0) 05/25/18 14:10 Ur Specific [place] >= 1.030 (1.005-1.030) 05/25/18 14:10 Urine Protein 30 mg/dL (NEGATIVE) H 05/25/18 14:10 Urine Glucose (UA) 100 mg/dL (NEGATIVE) H 05/25/18 14:10 Urine Ketones NEGATIVE mg/dL (NEGATIVE) 05/25/18 14:10 Urine Blood SMALL (NEGATIVE) H 05/25/18 14:10 Urine Nitrate NEGATIVE (NEGATIVE) 05/25/18 14:10 Urine Bilirubin NEGATIVE (NEGATIVE) 05/25/18 14:10 Urine Urobilinogen 0.2 E.U./dL (0.2 - 1.0) 05/25/18 14:10 Ur Leukocyte Esterase NEGATIVE (NEGATIVE) 05/25/18 14:10 Urine RBC 0-2 /hpf (0-5) H 05/25/18 14:10 Urine WBC 10-25 /hpf (0-5) H 05/25/18 14:10 Ur Epithelial Cells NONE SEEN /lpf (FEW) 05/25/18 14:10 Urine Bacteria MODERATE /hpf (NONE SEEN) H 05/25/18 14:10 Stool Occult Blood NEGATIVE (NEGATIVE) 05/25/18 12:57 Urine Opiates Screen POSITIVE (NEGATIVE) H 05/25/18 14:30 Urine Methadone Screen NEGATIVE (NEGATIVE) 05/25/18 14:30 Ur Barbiturates Screen POSITIVE (NEGATIVE) H 05/25/18 14:30 Ur Tricyclics Screen NEGATIVE (NEGATIVE) 05/25/18 14:30 Ur Phencyclidine Scrn NEGATIVE (NEGATIVE) 05/25/18 14:30 Amphetamines Screen NEGATIVE (NEGATIVE) 05/25/18 14:30 U Methamphetamines Scrn NEGATIVE (NEGATIVE) 05/25/18 14:30 U Benzodiazepines Scrn POSITIVE (NEGATIVE) H 05/25/18 14:30 U Cocaine Metab Screen NEGATIVE (NEGATIVE) 05/25/18 14:30 U Cannabinoids Screen NEGATIVE (NEGATIVE) 05/25/18 14:30 - Physical Exam Vitals and I&O: Vital Signs Temp 97.6 F 05/30/18 15:49 Pulse 98 05/30/18 15:49 Resp 18 05/30/18 16:00 BP 127/79 05/30/18 15:49 Pulse Ox 100 05/30/18 15:49 Intake & Output 05/29/18 05/30/18 05/30/18 18:59 06:59 18:59 Intake Total 100 100 850 Output Total 600 Balance 100 100 250 Weight (lbs) 96.615 kg 96.615 kg 96.615 kg Intake: Intake, IV Amount 100 100 150 Piperacillin Sodium/ 100 100 150 Tazobact 3.375 gm In Sodium Chloride 0.9% 50 ml @ 100 mls/hr IV Q6HR [facility] Rx#:[id number] Oral 700 Output: Urine 600 Other: # Voids 2 # Bowel Movements 2 Stool Characteristics Soft Soft Soft Brown Brown Brown Weight Source Bedscale Bedscale Bedscale Active Medications: Current Medications Acetaminophen (Tylenol 650mg/20.3ml Suspension) 650 mg GT Q6HR PRN PRN Reason: MILD PAIN OR TEMP >100.4 Stop: 07/25/18 13:53 Acetaminophen/Hydrocodone Bitart ([place] 10 Mg/325 Mg) 1 tab GT Q4H PRN PRN Reason: MODERATE PAIN Stop: 07/25/18 13:53 Last Admin: 05/27/18 05:51 Dose: 1 tab Al Hydrox/Mg Hydrox/Simethicone (Maalox) 15 ml PO Q6H PRN PRN Reason: GI DISTRESS Stop: 07/25/18 15:31 Last Admin: 05/27/18 18:46 Dose: 15 ml Albuterol/Ipratropium (Duoneb Neb) 3 ml HHN Q6HRT [facility] Stop: 07/25/18 17:59 Last Admin: 05/30/18 13:57 Dose: Not Given Lipase/Protease/Amylase (Zenpep 5,000 U) 1 cap GT TID [facility] Stop: 07/25/18 20:59 Last Admin: 05/30/18 14:22 Dose: 1 cap Artificial Tears (Artificial Tears Ophth Soln) 1 drop EACH EYE DAILY [facility] Stop: 07/26/18 08:59 Last Admin: 05/30/18 08:44 Dose: 1 drop Atorvastatin Calcium (Lipitor) 20 mg PO HS [facility] Stop: 07/25/18 20:59 Last Admin: 05/29/18 20:17 Dose: 20 mg Cholecalciferol (Vitamin D3) 5,000 iu PO DAILY [facility] Stop: 07/26/18 08:59 Last Admin: 05/30/18 08:45 Dose: 5,000 iu Diphenhydramine HCl (Benadryl) 50 mg GT Q6H PRN PRN Reason: ALLERGIES Stop: 07/25/18 15:14 Last Admin: 05/30/18 17:08 Dose: 50 mg Diphenoxylate HCl/Atropine (Lomotil) 1 tab PO TID [facility] Stop: 07/25/18 20:59 Last Admin: 05/30/18 14:22 Dose: 1 tab Diphenoxylate HCl/Atropine (Lomotil) 2 tab PO QID PRN PRN Reason: Diarrhea Stop: 07/27/18 13:34 Last Admin: 05/29/18 18:23 Dose: 2 tab Docusate Sodium (Colace) 100 mg GT DAILY [facility] Stop: 07/26/18 08:59 Last Admin: 05/30/18 08:43 Dose: Not Given Famotidine (Pepcid) 20 mg GT Q12H [facility] Stop: 07/25/18 13:59 Last Admin: 05/30/18 14:22 Dose: 20 mg Ferrous Sulfate (Iron) 300 mg PO Q12HR [facility] Stop: 07/25/18 20:59 Last Admin: 05/30/18 08:44 Dose: 300 mg Folic Acid (Folate) 1 mg GT DAILY [facility] Stop: 07/26/18 08:59 Last Admin: 05/30/18 08:45 Dose: 1 mg Gabapentin (Neurontin) 400 mg GT TID [facility] Stop: 07/25/18 13:59 Last Admin: 05/30/18 14:22 Dose: 400 mg Hydralazine HCl (Apresoline) 20 mg GT Q4H PRN PRN Reason: HYPERTENSION Stop: 07/25/18 13:53 Piperacillin Sod/Tazobactam (Sod 3.375 gm/ Sodium Chloride) 50 mls @ 100 mls/ hr IV Q6HR [facility] Stop: 07/25/18 00:00 Last Infusion: 05/30/18 18:11 Dose: Infused Insulin Aspart (Novolog Insulin Sliding Scale) 0 units SUBQ ACHS [facility]; Protocol Stop: 07/25/18 16:29 Last Admin: 05/30/18 17:22 Dose: 6 units Lactobacillus Rhamnosus (Culturelle 15b) 1 each PO DAILY [facility] Stop: 07/26/18 08:59 Last Admin: 05/30/18 08:44 Dose: 1 each Levetiracetam (Keppra) 750 mg GT Q12HR [facility] Stop: 07/25/18 20:59 Last Admin: 05/30/18 08:52 Dose: 750 mg Lorazepam (Ativan) 2 mg GT Q6H PRN PRN Reason: ANXIETY Stop: 07/25/18 15:17 Magnesium Oxide (Mag-Oxide) 400 mg GT DAILY [facility] Stop: 07/26/18 08:59 Last Admin: 05/30/18 08:45 Dose: 400 mg Metformin HCl (Glucophage) 1,000 mg PO BID [facility] Stop: 07/25/18 21:14 Last Admin: 05/30/18 16:13 Dose: 1,000 mg Miscellaneous (Probiotic Screen) 1 ea MC PRN PRN PRN Reason: PROTOCOL Stop: 07/25/18 11:59 Morphine Sulfate (Morphine) 1 mg IVP Q4HR PRN PRN Reason: Pain (Severe) Stop: 07/25/18 16:42 Last Admin: 05/30/18 16:12 Dose: 1 mg Phenytoin (Dilantin) 100 mg GT Q8H [facility] Stop: 07/25/18 13:59 Last Admin: 05/30/18 14:41 Dose: 100 mg Rivaroxaban (Xarelto) 10 mg PO 1800 [facility] Stop: 07/26/18 17:59 Last Admin: 05/30/18 17:08 Dose: 10 mg Temazepam (Restoril) 15 mg GT HS PRN; Protocol PRN Reason: Insomnia Stop: 07/25/18 13:53 General: Alert, Oriented x3, No acute distress HEENT: Atraumatic, EOMI Neck: Supple, +2 carotid pulse wo bruit Cardiovascular: Regular rate, Normal S1, Normal S2 Lungs: Clear to auscultation Abdomen: Bowel sounds, Soft, Distended Extremities: no Edema Neurological: Sensation intact Skin: no Rash Psych/Mental Status: Mood NL Assessment/Plan - Problem List Patient Problems: All Active Problems LOOSE STOOLS, WEAKNESS, HYPERGLYCEMIA (Acute) - Assessment Assessment: Hyponatremia (stable) Diarrhea T2DM Ess Htn 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 Epilepsy - Plan Plan: Lab - Result Diagrams 05/27/18 05:55 05/27/18 05:55 Current Medications Acetaminophen (Tylenol 650mg/20.3ml Suspension) 650 mg GT Q6HR PRN PRN Reason: MILD PAIN OR TEMP >100.4 Stop: 07/25/18 13:53 Acetaminophen/Hydrocodone Bitart ([place] 10 Mg/325 Mg) 1 tab GT Q4H PRN PRN Reason: MODERATE PAIN Stop: 07/25/18 13:53 Last Admin: 05/27/18 05:51 Dose: 1 tab Al Hydrox/Mg Hydrox/Simethicone (Maalox) 15 ml PO Q6H PRN PRN Reason: GI DISTRESS Stop: 07/25/18 15:31 Last Admin: 05/27/18 08:43 Dose: 15 ml Albuterol/Ipratropium (Duoneb Neb) 3 ml HHN Q6HRT [facility] Stop: 07/25/18 17:59 Last Admin: 05/27/18 13:36 Dose: 3 ml Lipase/Protease/Amylase (Zenpep 5,000 U) 1 cap GT TID [facility] Stop: 07/25/18 20:59 Last Admin: 05/27/18 08:45 Dose: 1 cap Artificial Tears (Artificial Tears Ophth Soln) 1 drop EACH EYE DAILY [facility] Stop: 07/26/18 08:59 Last Admin: 05/27/18 11:18 Dose: 1 drop Atorvastatin Calcium (Lipitor) 20 mg PO HS [facility] Stop: 07/25/18 20:59 Last Admin: 05/26/18 20:31 Dose: 20 mg Cholecalciferol (Vitamin D3) 5,000 iu PO DAILY [facility] Stop: 07/26/18 08:59 Last Admin: 05/27/18 08:44 Dose: 5,000 iu Diphenhydramine HCl (Benadryl) 50 mg GT Q6H PRN PRN Reason: ALLERGIES Stop: 07/25/18 15:14 Last Admin: 05/26/18 22:09 Dose: 50 mg Diphenoxylate HCl/Atropine (Lomotil) 1 tab PO TID [facility] Stop: 07/25/18 20:59 Last Admin: 05/27/18 08:44 Dose: 1 tab Docusate Sodium (Colace) 100 mg GT DAILY [facility] Stop: 07/26/18 08:59 Last Admin: 05/27/18 08:45 Dose: Not Given Famotidine (Pepcid) 20 mg GT Q12H [facility] Stop: 07/25/18 13:59 Last Admin: 05/27/18 01:26 Dose: 20 mg Ferrous Sulfate (Iron) 300 mg PO Q12HR [facility] Stop: 07/25/18 20:59 Last Admin: 05/27/18 08:43 Dose: 300 mg Folic Acid (Folate) 1 mg GT DAILY [facility] Stop: 07/26/18 08:59 Last Admin: 05/27/18 08:45 Dose: 1 mg Gabapentin (Neurontin) 400 mg GT TID [facility] Stop: 07/25/18 13:59 Last Admin: 05/27/18 08:44 Dose: 400 mg Hydralazine HCl (Apresoline) 20 mg GT Q4H PRN PRN Reason: HYPERTENSION Stop: 07/25/18 13:53 Sodium Chloride (Nacl 0.45%) 1,000 mls @ 125 mls/hr IV .Q8H [facility] Stop: 07/24/18 18:03 Last Admin: 05/27/18 02:59 Dose: 125 mls/hr Piperacillin Sod/Tazobactam (Sod 3.375 gm/ Sodium Chloride) 50 mls @ 100 mls/ hr IV Q6HR [facility] Stop: 07/25/18 00:00 Last Admin: 05/27/18 11:18 Dose: 100 mls/hr Insulin Aspart (Novolog Insulin Sliding Scale) 0 units SUBQ ACHS [facility]; Protocol Stop: 07/25/18 16:29 Last Admin: 05/27/18 06:47 Dose: 2 units Lactobacillus Rhamnosus (Culturelle 15b) 1 each PO DAILY [facility] Stop: 07/26/18 08:59 Last Admin: 05/27/18 08:45 Dose: 1 each Levetiracetam (Keppra) 750 mg GT Q12HR [facility] Stop: 07/25/18 20:59 Last Admin: 05/27/18 08:45 Dose: 750 mg Lorazepam (Ativan) 2 mg GT Q6H PRN PRN Reason: ANXIETY Stop: 07/25/18 15:17 Magnesium Oxide (Mag-Oxide) 400 mg GT DAILY [facility] Stop: 07/26/18 08:59 Last Admin: 05/27/18 08:45 Dose: 400 mg Metformin HCl (Glucophage) 1,000 mg PO BID [facility] Stop: 07/25/18 21:14 Last Admin: 05/27/18 08:44 Dose: 1,000 mg Miscellaneous (Probiotic Screen) 1 ea MC PRN PRN PRN Reason: PROTOCOL Stop: 07/25/18 11:59 Morphine Sulfate (Morphine) 1 mg IVP Q4HR PRN PRN Reason: Pain (Severe) Stop: 07/25/18 16:42 Last Admin: 05/27/18 11:15 Dose: 1 mg Phenytoin (Dilantin) 100 mg GT Q8H [facility] Stop: 07/25/18 13:59 Last Admin: 05/27/18 05:18 Dose: 100 mg Rivaroxaban (Xarelto) 10 mg PO 1800 [facility] Stop: 07/26/18 17:59 Temazepam (Restoril) 15 mg GT HS PRN; Protocol PRN Reason: Insomnia Stop: 07/25/18 13:53 Lab - Result Diagrams 05/30/18 06:15 05/30/18 06:15 Na remain stable replace Mg BS better control stool C. diff (-) start Lomotil off ABx encourage po intake Nutritional Asmnt/Malnutr-PDOC - Dietary Evaluation Malnutrition Findings (Please click <Entered> for more info): Nutritional Asmnt/Malnutrition Start: 05/26/18 14: 57 Text: Status: Complete Freq: Protocol: Document 05/26/18 14:57 RHAQUE (Rec: 05/26/18 15:28 [email or web address] [id number]) Nutritional Asmnt/Malnutrition Patient General Information Nutritional Screening High Risk Consult Diagnosis Dehydration, UTI, Electrolyte imbalance Pertinent Medical Hx/Surgical Hx DM Coma, CVA Subjective Information Awoke from Diabetic Coma a few weeks ago, was placed on G tube for nutrition. Is bedridden, needs adult diaper to defecate. Attempts have been made for PO diet, but is in too much pain to eat properly, claims no appetite. 15% PO intake. Swallow eval scheduled for tomorrow. Is willing to try ensure, claims he is more thirsty in the morning than hungry. Nurse claims coffee, Crm of wheat sampled. Current Diet Order/ Nutrition Support [facility] Soft Ground Patient / S.O Not Indicated Pertinent Medications Pepcid, Docusate, Lomotil, Lipitor, Vit D, Insulin Aspart , MOM Pertinent Labs (05/26) Gluc 310 H, POC Gluc 319 H, Alb 3.6 L, LDL 62 L Nutritional Hx/Data Height 1.7 m Height (Calculated Centimeters) 170.2 Current Weight (lbs) 88.451 kg Weight (Calculated Kilograms) 88.5 Weight (Calculated Grams) 61105.5 [place] Body Weight 148 % [place] Body Weight 132 Body Mass Index (BMI) 30.5 Weight Status Obese GI Symptoms Last BM 1 x (05/26) Cultural/Ethnic/Advent Belief None noted Skin Integrity/Comment: 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 Problem Problem Altered Nutrition related laboratory values Etiology due to uncontrolled Diabetes Signs/Symptoms: (05/26) Gluc 310 H, POC Gluc 319 H 1. Problem Problem Inadequate Oral food intake Etiology due to lack of appetite secondary to pain Signs/Symptoms: PO intake around 15% Malnutrition Alert Is there a minimum of two criteria No selected? Query Text:Check all the applicable criteria. A minimum of two criteria are recommended for diagnosis of either severe or non-severe malnutrition. Malnutrition Related to Morbid Obesity Malnutrition related to morbid obesity No Intervention/Recommendation Recommendations by RD Add supplement feedings Comments Recommendation to include Glucerna shake TID with all meals. Will wait until swallow eval is completed before adressing possible feeding tube recommendations. Expected Outcomes/Goals Expected Outcomes/Goals 1. Pt receive >75% of nutrient needs from PO intake 2. Labs to return to wnl 3. F/U post swallow eval to assess need to resume FT.
[2018-05-30] MEDS: Atorvastatin Calcium 10 MG TAB PO SCH (20:29)
--- NOTE | 2018-05-31 02:41 | Infectious Disease Prog Note ---
Infectious Disease Subjective - Review of Systems Service Date: 05/31/18 Subjective: There is no new change, no fever. eating well. Infectious Disease Objective - Results Result Diagrams: 05/30/18 06:15 05/30/18 06:15 Recent Labs: Laboratory Last Values WBC 5.4 Th/cmm (4.8-10.8) 05/30/18 06:15 RBC 3.13 Mil/cmm (4.30-5.70) L 05/30/18 06:15 Hgb 9.8 gm/dL (12-16) L 05/30/18 06:15 Hct 29.6 % (41.0-60) L 05/30/18 06:15 MCV 94.7 fl (80-99) 05/30/18 06:15 MCH 31.3 pg (26.0-30.0) H 05/30/18 06:15 MCHC Differential 33.1 pg (28.0-36.0) 05/30/18 06:15 RDW 14.7 % (11.5-20.0) 05/30/18 06:15 Plt Count 169 Th/cmm (150-400) 05/30/18 06:15 MPV 8.2 fl 05/30/18 06:15 Neutrophils % 55.0 % (40.0-80.0) 05/30/18 06:15 Lymphocytes % 26.6 % (20.0-50.0) 05/30/18 06:15 Monocytes % 11.3 % (2.0-10.0) H 05/30/18 06:15 Eosinophils % 6.0 % (0.0-5.0) H 05/30/18 06:15 Basophils % 1.1 % (0.0-2.0) 05/30/18 06:15 Sodium 133 mEq/L (136-145) L 05/30/18 06:15 Potassium 4.0 mEq/L (3.5-5.1) 05/30/18 06:15 Chloride 100 mEq/L (98-107) 05/30/18 06:15 Carbon Dioxide 23.8 mEq/L (21.0-31.0) 05/30/18 06:15 Anion Gap 13.2 (7.0-16.0) 05/30/18 06:15 BUN 10 mg/dL (7-25) 05/30/18 06:15 Creatinine 0.6 mg/dL (0.7-1.3) L 05/30/18 06:15 Est GFR ( Amer) > 60.0 ml/min (>90) 05/30/18 06:15 Est GFR (Non-Af Amer) > 60.0 ml/min 05/30/18 06:15 BUN/Creatinine Ratio 16.7 05/30/18 06:15 Glucose 218 mg/dL (70-105) H D 05/30/18 06:15 POC Glucose 300 MG/DL (70 - 105) H 05/30/18 20:27 Whole Bld Lactic Acid 1.67 mmol/L (0.60-1.99) 05/25/18 13:07 Calcium 9.3 mg/dL (8.6-10.3) 05/30/18 06:15 Magnesium 1.9 mg/dL (1.9-2.7) 05/28/18 06:20 Total Bilirubin 0.4 mg/dL (0.3-1.0) 05/26/18 05:50 AST 10 U/L (13-39) L 05/26/18 05:50 ALT 14 U/L (7-52) 05/26/18 05:50 Alkaline Phosphatase 128 U/L (34-104) H 05/26/18 05:50 Total Protein 8.6 gm/dL (6.0-8.3) H 05/26/18 05:50 Albumin 3.6 gm/dL (4.2-5.5) L 05/26/18 05:50 Globulin 5.0 gm/dL 05/26/18 05:50 Albumin/Globulin Ratio 0.7 (1.0-1.8) L 05/26/18 05:50 Triglycerides 160 mg/dL (<150) H 05/26/18 05:50 Cholesterol 103 mg/dL (<200) 05/26/18 05:50 LDL Cholesterol Direct 62 mg/dL (75-193) L 05/26/18 05:50 HDL Cholesterol 30 mg/dL (23-92) 05/26/18 05:50 Amylase < 10 U/L (29-103) L 05/25/18 13:07 Lipase < 3 U/L (11-82) L 05/25/18 13:07 TSH 0.86 uIU/ml (0.34-5.60) 05/26/18 05:50 Urine Source CATH 05/25/18 14:10 Urine Color YELLOW 05/25/18 14:10 Urine Clarity HAZY (CLEAR) 05/25/18 14:10 Urine pH 5.5 (4.6 - 8.0) 05/25/18 14:10 Ur Specific [place] >= 1.030 (1.005-1.030) 05/25/18 14:10 Urine Protein 30 mg/dL (NEGATIVE) H 05/25/18 14:10 Urine Glucose (UA) 100 mg/dL (NEGATIVE) H 05/25/18 14:10 Urine Ketones NEGATIVE mg/dL (NEGATIVE) 05/25/18 14:10 Urine Blood SMALL (NEGATIVE) H 05/25/18 14:10 Urine Nitrate NEGATIVE (NEGATIVE) 05/25/18 14:10 Urine Bilirubin NEGATIVE (NEGATIVE) 05/25/18 14:10 Urine Urobilinogen 0.2 E.U./dL (0.2 - 1.0) 05/25/18 14:10 Ur Leukocyte Esterase NEGATIVE (NEGATIVE) 05/25/18 14:10 Urine RBC 0-2 /hpf (0-5) H 05/25/18 14:10 Urine WBC 10-25 /hpf (0-5) H 05/25/18 14:10 Ur Epithelial Cells NONE SEEN /lpf (FEW) 05/25/18 14:10 Urine Bacteria MODERATE /hpf (NONE SEEN) H 05/25/18 14:10 Stool Occult Blood NEGATIVE (NEGATIVE) 05/25/18 12:57 Urine Opiates Screen POSITIVE (NEGATIVE) H 05/25/18 14:30 Urine Methadone Screen NEGATIVE (NEGATIVE) 05/25/18 14:30 Ur Barbiturates Screen POSITIVE (NEGATIVE) H 05/25/18 14:30 Ur Tricyclics Screen NEGATIVE (NEGATIVE) 05/25/18 14:30 Ur Phencyclidine Scrn NEGATIVE (NEGATIVE) 05/25/18 14:30 Amphetamines Screen NEGATIVE (NEGATIVE) 05/25/18 14:30 U Methamphetamines Scrn NEGATIVE (NEGATIVE) 05/25/18 14:30 U Benzodiazepines Scrn POSITIVE (NEGATIVE) H 05/25/18 14:30 U Cocaine Metab Screen NEGATIVE (NEGATIVE) 05/25/18 14:30 U Cannabinoids Screen NEGATIVE (NEGATIVE) 05/25/18 14:30 - Physical Exam Vitals and I&O: Vital Signs Temp 98 F 05/31/18 00:00 Pulse 90 05/31/18 00:00 Resp 18 05/31/18 00:00 BP 107/72 05/31/18 00:00 Pulse Ox 95 05/31/18 00:00 Intake & Output 05/30/18 05/30/18 05/31/18 06:59 18:59 06:59 Intake Total 100 850 Output Total 600 Balance 100 250 Weight (lbs) 96.615 kg 96.615 kg Intake: Intake, IV Amount 100 150 Piperacillin Sodium/ 100 150 Tazobact 3.375 gm In Sodium Chloride 0.9% 50 ml @ 100 mls/hr IV Q6HR [facility] Rx#:[id number] Oral 700 Output: Urine 600 Other: # Voids 2 # Bowel Movements 2 Stool Characteristics Soft Soft Brown Brown Weight Source Bedscale Bedscale Active Medications: Current Medications Acetaminophen (Tylenol 650mg/20.3ml Suspension) 650 mg GT Q6HR PRN PRN Reason: MILD PAIN OR TEMP >100.4 Stop: 07/25/18 13:53 Acetaminophen/Hydrocodone Bitart ([place] 10 Mg/325 Mg) 1 tab GT Q4H PRN PRN Reason: MODERATE PAIN Stop: 07/25/18 13:53 Last Admin: 05/27/18 05:51 Dose: 1 tab Al Hydrox/Mg Hydrox/Simethicone (Maalox) 15 ml PO Q6H PRN PRN Reason: GI DISTRESS Stop: 07/25/18 15:31 Last Admin: 05/27/18 18:46 Dose: 15 ml Albuterol/Ipratropium (Duoneb Neb) 3 ml HHN Q6HRT [facility] Stop: 07/25/18 17:59 Last Admin: 05/31/18 00:00 Dose: Not Given Lipase/Protease/Amylase (Zenpep 5,000 U) 1 cap GT TID [facility] Stop: 07/25/18 20:59 Last Admin: 05/30/18 20:29 Dose: 1 cap Artificial Tears (Artificial Tears Ophth Soln) 1 drop EACH EYE DAILY [facility] Stop: 07/26/18 08:59 Last Admin: 05/30/18 08:44 Dose: 1 drop Atorvastatin Calcium (Lipitor) 20 mg PO HS [facility] Stop: 07/25/18 20:59 Last Admin: 05/30/18 20:29 Dose: 20 mg Cholecalciferol (Vitamin D3) 5,000 iu PO DAILY [facility] Stop: 07/26/18 08:59 Last Admin: 05/30/18 08:45 Dose: 5,000 iu Diphenhydramine HCl (Benadryl) 50 mg GT Q6H PRN PRN Reason: ALLERGIES Stop: 07/25/18 15:14 Last Admin: 05/30/18 17:08 Dose: 50 mg Diphenoxylate HCl/Atropine (Lomotil) 1 tab PO TID [facility] Stop: 07/25/18 20:59 Last Admin: 05/30/18 20:29 Dose: 1 tab Diphenoxylate HCl/Atropine (Lomotil) 2 tab PO QID PRN PRN Reason: Diarrhea Stop: 07/27/18 13:34 Last Admin: 05/29/18 18:23 Dose: 2 tab Docusate Sodium (Colace) 100 mg GT DAILY [facility] Stop: 07/26/18 08:59 Last Admin: 05/30/18 08:43 Dose: Not Given Famotidine (Pepcid) 20 mg GT Q12H [facility] Stop: 07/25/18 13:59 Last Admin: 05/30/18 14:22 Dose: 20 mg Ferrous Sulfate (Iron) 300 mg PO Q12HR [facility] Stop: 07/25/18 20:59 Last Admin: 05/30/18 20:33 Dose: 300 mg Folic Acid (Folate) 1 mg GT DAILY [facility] Stop: 07/26/18 08:59 Last Admin: 05/30/18 08:45 Dose: 1 mg Gabapentin (Neurontin) 400 mg GT TID [facility] Stop: 07/25/18 13:59 Last Admin: 05/30/18 20:28 Dose: 400 mg Hydralazine HCl (Apresoline) 20 mg GT Q4H PRN PRN Reason: HYPERTENSION Stop: 07/25/18 13:53 Piperacillin Sod/Tazobactam (Sod 3.375 gm/ Sodium Chloride) 50 mls @ 100 mls/ hr IV Q6HR [facility] Stop: 07/25/18 00:00 Last Admin: 05/31/18 00:30 Dose: 100 mls/hr Insulin Aspart (Novolog Insulin Sliding Scale) 0 units SUBQ ACHS [facility]; Protocol Stop: 07/25/18 16:29 Last Admin: 05/30/18 20:36 Dose: 6 units Lactobacillus Rhamnosus (Culturelle 15b) 1 each PO DAILY [facility] Stop: 07/26/18 08:59 Last Admin: 05/30/18 08:44 Dose: 1 each Levetiracetam (Keppra) 750 mg GT Q12HR [facility] Stop: 07/25/18 20:59 Last Admin: 05/30/18 20:33 Dose: 750 mg Lorazepam (Ativan) 2 mg GT Q6H PRN PRN Reason: ANXIETY Stop: 07/25/18 15:17 Magnesium Oxide (Mag-Oxide) 400 mg GT DAILY [facility] Stop: 07/26/18 08:59 Last Admin: 05/30/18 08:45 Dose: 400 mg Metformin HCl (Glucophage) 1,000 mg PO BID [facility] Stop: 07/25/18 21:14 Last Admin: 05/30/18 16:13 Dose: 1,000 mg Miscellaneous (Probiotic Screen) 1 ea MC PRN PRN PRN Reason: PROTOCOL Stop: 07/25/18 11:59 Morphine Sulfate (Morphine) 1 mg IVP Q4HR PRN PRN Reason: Pain (Severe) Stop: 07/25/18 16:42 Last Admin: 05/30/18 20:12 Dose: 1 mg Phenytoin (Dilantin) 100 mg GT Q8H [facility] Stop: 07/25/18 13:59 Last Admin: 05/30/18 21:37 Dose: 100 mg Rivaroxaban (Xarelto) 10 mg PO 1800 [facility] Stop: 07/26/18 17:59 Last Admin: 05/30/18 17:08 Dose: 10 mg Temazepam (Restoril) 15 mg GT HS PRN; Protocol PRN Reason: Insomnia Stop: 07/25/18 13:53 Last Admin: 05/30/18 21:37 Dose: 15 mg General: no acute distress, well developed, well nourished HEENT: atraumatic, normocephalic, PERRLA, EOMI Neck: supple, no thyromegaly, no lymphadenopathy Cardiovascular: S1S2, regular Lungs: clear to auscultation bilaterally, clear to percussion, crackles Abdomen: soft, no tender, no distended, no mass Extremities: no cyanosis, no clubbing, no edema Neurological: awake, alert, oriented Skin: intact Infectious Disease Assmt/Plan - Problem List Patient Problems: All Active Problems LOOSE STOOLS, WEAKNESS, HYPERGLYCEMIA (Acute) - Assessment Assessment: UTI CVA dysphagia. Diarrhea - Plan Plan: placement. DC plan on augmentin po for 3 days. Nutritional Asmnt/Malnutr-PDOC - Dietary Evaluation Malnutrition Findings (Please click <Entered> for more info): Nutritional Asmnt/Malnutrition Start: 05/26/18 14: 57 Text: Status: Complete Freq: Protocol: Document 05/26/18 14:57 STEPHANIE (Rec: 05/26/18 15:28 [email or web address]) Nutritional Asmnt/Malnutrition Patient General Information Nutritional Screening High Risk Consult Diagnosis Dehydration, UTI, Electrolyte imbalance Pertinent Medical Hx/Surgical Hx DM Coma, CVA Subjective Information Awoke from Diabetic Coma a few weeks ago, was placed on G tube for nutrition. Is bedridden, needs adult diaper to defecate. Attempts have been made for PO diet, but is in too much pain to eat properly, claims no appetite. 15% PO intake. Swallow eval scheduled for tomorrow. Is willing to try ensure, claims he is more thirsty in the morning than hungry. Nurse claims coffee, Crm of wheat sampled. Current Diet Order/ Nutrition Support [facility] Soft Ground Patient / S.O Not Indicated Pertinent Medications Pepcid, Docusate, Lomotil, Lipitor, Vit D, Insulin Aspart , MOM Pertinent Labs (05/26) Gluc 310 H, POC Gluc 319 H, Alb 3.6 L, LDL 62 L Nutritional Hx/Data Height 1.7 m Height (Calculated Centimeters) 170.2 Current Weight (lbs) 88.451 kg Weight (Calculated Kilograms) 88.5 Weight (Calculated Grams) 96633.5 [place] Body Weight 148 % [place] Body Weight 132 Body Mass Index (BMI) 30.5 Weight Status Obese GI Symptoms Last BM 1 x (05/26) Cultural/Ethnic/Congregational Belief None noted Skin Integrity/Comment: 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 Problem Problem Altered Nutrition related laboratory values Etiology due to uncontrolled Diabetes Signs/Symptoms: (05/26) Gluc 310 H, POC Gluc 319 H 1. Problem Problem Inadequate Oral food intake Etiology due to lack of appetite secondary to pain Signs/Symptoms: PO intake around 15% Malnutrition Alert Is there a minimum of two criteria No selected? Query Text:Check all the applicable criteria. A minimum of two criteria are recommended for diagnosis of either severe or non-severe malnutrition. Malnutrition Related to Morbid Obesity Malnutrition related to morbid obesity No Intervention/Recommendation Recommendations by RD Add supplement feedings Comments Recommendation to include Glucerna shake TID with all meals. Will wait until swallow eval is completed before adressing possible feeding tube recommendations. Expected Outcomes/Goals Expected Outcomes/Goals 1. Pt receive >75% of nutrient needs from PO intake 2. Labs to return to wnl 3. F/U post swallow eval to assess need to resume FT.
[2018-05-31] MEDS: Morphine Sulfate 2 mg/mL 1mL Syr IVP PRN ×5 (03:51→23:14)
[2018-05-31 06:54] LABS: ANION GAP 16.2 (7.0-16.0); BUN - UREA NITROGEN 10 mg/dL (7-25); CALCIUM SERUM 9.4 mg/dL (8.6-10.3); CARBON DIOXIDE 18.5 mEq/L (21.0-31.0); CHLORIDE 100 mEq/L (98-107); CREATININE - SERUM 0.6 mg/dL (0.7-1.3); GFR AFRICAN-AMERICAN > 60.0 ml/min (>90); GFR NON AFRICAN-AMERICAN > 60.0 ml/min; POTASSIUM SERUM 4.7 mEq/L (3.5-5.1); SODIUM SERUM 130 mEq/L (136-145)
[2018-05-31 06:56] LABS: GLUCOSE 343 mg/dL (70-105)
[2018-05-31 07:14] LABS: % BASOPHILS 0.5 % (0.0-2.0); % LYMPHOCYTES 27.6 % (20.0-50.0); % MONOCYTES 8.7 % (2.0-10.0); % NEUTROPHILS 58.2 % (40.0-80.0); EOSINOPHILE ABSOLUTE 0.3 Th/cmm (0.1-0.4); HEMATOCRIT 30.8 % (41.0-60); HEMOGLOBIN 10.1 gm/dL (12-16); LYMPHOCYTE ABSOLUTE 1.5 Th/cmm (1.5-3.0); MEAN CORPUSCULAR HEMOGLOBIN 31.6 pg (26.0-30.0); MEAN CORPUSCULAR HGB CONC 32.9 pg (28.0-36.0); MEAN PLATELET VOLUME 8.2 fl; MONOCYTE ABSOLUTE 0.5 Th/cmm (0.3-1.0); NEUTROPHILE ABSOLUTE 3.1 Th/cmm (1.8-8.0); PLATELET COUNT 151 Th/cmm (150-400); RED BLOOD COUNT 3.21 Mil/cmm (4.30-5.70); WHITE BLOOD COUNT 5.4 Th/cmm (4.8-10.8)
[2018-05-31] MEDS: Albuterol/Ipratropium Neb 3 ML AERS HHN SCH ×4 (07:18→19:24)
[2018-05-31] MEDS: INSULIN ASPART SLIDING SCALE 100 UNITS/ML UNIT SUBQ SCH ×4 (07:38→21:13)
[2018-05-31] MEDS: Multivitamin w/ Minerals Tab GT SCH (09:18)
[2018-05-31] MEDS: Diphenoxylate/Atropine 2.5mg Tab PO SCH ×2 (09:18→13:31)
[2018-05-31] MEDS: Lactobacillus Rhamnosus GG 15 Billion CFU CAP.SPRINK PO SCH (09:19)
[2018-05-31] MEDS: Levetiracetam 500 mg/5mL 5mL UDSyr *for ORAL USE ONLY GT SCH ×2 (09:19→20:15)
[2018-05-31] MEDS: Ferrous Sulfate 300 MG/5 ML UDC PO SCH ×2 (09:19→20:15)
[2018-05-31] MEDS: Polyvinyl Alcohol Ophth Soln 15 mL Bottle EACH EYE SCH (09:19)
[2018-05-31] MEDS: Docusate Sodium 100 mg/10 mL UD GT SCH (09:20)
--- NOTE | 2018-05-31 12:49 | Internal Medicine Prog Note ---
Internal Medicine Subjective - Subjective Service Date: 05/31/18 Patient is:: awake, verbal Per staff patient has:: tolerating meds Internal Medicine Objective - Results Result Diagrams: 05/31/18 07:08 05/31/18 06:14 Recent Labs: Laboratory Last Values WBC 5.4 Th/cmm (4.8-10.8) 05/31/18 07:08 RBC 3.21 Mil/cmm (4.30-5.70) L 05/31/18 07:08 Hgb 10.1 gm/dL (12-16) L 05/31/18 07:08 Hct 30.8 % (41.0-60) L 05/31/18 07:08 MCV 96.0 fl (80-99) 05/31/18 07:08 MCH 31.6 pg (26.0-30.0) H 05/31/18 07:08 MCHC Differential 32.9 pg (28.0-36.0) 05/31/18 07:08 RDW 15.0 % (11.5-20.0) 05/31/18 07:08 Plt Count 151 Th/cmm (150-400) 05/31/18 07:08 MPV 8.2 fl 05/31/18 07:08 Neutrophils % 58.2 % (40.0-80.0) 05/31/18 07:08 Lymphocytes % 27.6 % (20.0-50.0) 05/31/18 07:08 Monocytes % 8.7 % (2.0-10.0) 05/31/18 07:08 Eosinophils % 5.0 % (0.0-5.0) 05/31/18 07:08 Basophils % 0.5 % (0.0-2.0) 05/31/18 07:08 Sodium 130 mEq/L (136-145) L 05/31/18 06:14 Potassium 4.7 mEq/L (3.5-5.1) 05/31/18 06:14 Chloride 100 mEq/L (98-107) 05/31/18 06:14 Carbon Dioxide 18.5 mEq/L (21.0-31.0) L 05/31/18 06:14 Anion Gap 16.2 (7.0-16.0) H 05/31/18 06:14 BUN 10 mg/dL (7-25) 05/31/18 06:14 Creatinine 0.6 mg/dL (0.7-1.3) L 05/31/18 06:14 Est GFR ( Amer) > 60.0 ml/min (>90) 05/31/18 06:14 Est GFR (Non-Af Amer) > 60.0 ml/min 05/31/18 06:14 BUN/Creatinine Ratio 16.7 05/31/18 06:14 Glucose 343 mg/dL (70-105) H D 05/31/18 06:14 POC Glucose 227 MG/DL (70 - 105) H 05/31/18 12:06 Whole Bld Lactic Acid 1.67 mmol/L (0.60-1.99) 05/25/18 13:07 Calcium 9.4 mg/dL (8.6-10.3) 05/31/18 06:14 Magnesium 1.9 mg/dL (1.9-2.7) 05/28/18 06:20 Total Bilirubin 0.4 mg/dL (0.3-1.0) 05/26/18 05:50 AST 10 U/L (13-39) L 05/26/18 05:50 ALT 14 U/L (7-52) 05/26/18 05:50 Alkaline Phosphatase 128 U/L (34-104) H 05/26/18 05:50 Total Protein 8.6 gm/dL (6.0-8.3) H 05/26/18 05:50 Albumin 3.6 gm/dL (4.2-5.5) L 05/26/18 05:50 Globulin 5.0 gm/dL 05/26/18 05:50 Albumin/Globulin Ratio 0.7 (1.0-1.8) L 05/26/18 05:50 Triglycerides 160 mg/dL (<150) H 05/26/18 05:50 Cholesterol 103 mg/dL (<200) 05/26/18 05:50 LDL Cholesterol Direct 62 mg/dL (75-193) L 05/26/18 05:50 HDL Cholesterol 30 mg/dL (23-92) 05/26/18 05:50 Amylase < 10 U/L (29-103) L 05/25/18 13:07 Lipase < 3 U/L (11-82) L 05/25/18 13:07 TSH 0.86 uIU/ml (0.34-5.60) 05/26/18 05:50 Urine Source CATH 05/25/18 14:10 Urine Color YELLOW 05/25/18 14:10 Urine Clarity HAZY (CLEAR) 05/25/18 14:10 Urine pH 5.5 (4.6 - 8.0) 05/25/18 14:10 Ur Specific [place] >= 1.030 (1.005-1.030) 05/25/18 14:10 Urine Protein 30 mg/dL (NEGATIVE) H 05/25/18 14:10 Urine Glucose (UA) 100 mg/dL (NEGATIVE) H 05/25/18 14:10 Urine Ketones NEGATIVE mg/dL (NEGATIVE) 05/25/18 14:10 Urine Blood SMALL (NEGATIVE) H 05/25/18 14:10 Urine Nitrate NEGATIVE (NEGATIVE) 05/25/18 14:10 Urine Bilirubin NEGATIVE (NEGATIVE) 05/25/18 14:10 Urine Urobilinogen 0.2 E.U./dL (0.2 - 1.0) 05/25/18 14:10 Ur Leukocyte Esterase NEGATIVE (NEGATIVE) 05/25/18 14:10 Urine RBC 0-2 /hpf (0-5) H 05/25/18 14:10 Urine WBC 10-25 /hpf (0-5) H 05/25/18 14:10 Ur Epithelial Cells NONE SEEN /lpf (FEW) 05/25/18 14:10 Urine Bacteria MODERATE /hpf (NONE SEEN) H 05/25/18 14:10 Stool Occult Blood NEGATIVE (NEGATIVE) 05/25/18 12:57 Urine Opiates Screen POSITIVE (NEGATIVE) H 05/25/18 14:30 Urine Methadone Screen NEGATIVE (NEGATIVE) 05/25/18 14:30 Ur Barbiturates Screen POSITIVE (NEGATIVE) H 05/25/18 14:30 Ur Tricyclics Screen NEGATIVE (NEGATIVE) 05/25/18 14:30 Ur Phencyclidine Scrn NEGATIVE (NEGATIVE) 05/25/18 14:30 Amphetamines Screen NEGATIVE (NEGATIVE) 05/25/18 14:30 U Methamphetamines Scrn NEGATIVE (NEGATIVE) 05/25/18 14:30 U Benzodiazepines Scrn POSITIVE (NEGATIVE) H 05/25/18 14:30 U Cocaine Metab Screen NEGATIVE (NEGATIVE) 05/25/18 14:30 U Cannabinoids Screen NEGATIVE (NEGATIVE) 05/25/18 14:30 - Physical Exam Vitals and I&O: Vital Signs Temp 98.4 F 05/31/18 09:00 Pulse 97 05/31/18 09:00 Resp 18 05/31/18 09:00 BP 131/83 05/31/18 09:00 Pulse Ox 100 05/31/18 09:00 Intake & Output 05/30/18 05/31/18 05/31/18 18:59 06:59 18:59 Intake Total 850 400 Output Total 600 970 Balance 250 -570 Weight (lbs) 213 lb 214 lb Intake: Intake, IV Amount 150 100 Piperacillin Sodium/ 150 100 Tazobact 3.375 gm In Sodium Chloride 0.9% 50 ml @ 100 mls/hr IV Q6HR [facility] Rx#:[id number] Oral 700 Other 300 Output: Urine 600 970 Other: # Bowel Movements 2 3 Stool Characteristics Soft Brown Weight Source Bedscale Bedscale Active Medications: Current Medications Acetaminophen (Tylenol 650mg/20.3ml Suspension) 650 mg GT Q6HR PRN PRN Reason: MILD PAIN OR TEMP >100.4 Stop: 07/25/18 13:53 Acetaminophen/Hydrocodone Bitart ([place] 10 Mg/325 Mg) 1 tab GT Q4H PRN PRN Reason: MODERATE PAIN Stop: 07/25/18 13:53 Last Admin: 05/27/18 05:51 Dose: 1 tab Al Hydrox/Mg Hydrox/Simethicone (Maalox) 15 ml PO Q6H PRN PRN Reason: GI DISTRESS Stop: 07/25/18 15:31 Last Admin: 05/27/18 18:46 Dose: 15 ml Albuterol/Ipratropium (Duoneb Neb) 3 ml HHN Q6HRT [facility] Stop: 07/25/18 17:59 Last Admin: 05/31/18 07:18 Dose: 3 ml Lipase/Protease/Amylase (Zenpep 5,000 U) 1 cap GT TID [facility] Stop: 07/25/18 20:59 Last Admin: 05/31/18 09:18 Dose: 1 cap Artificial Tears (Artificial Tears Ophth Soln) 1 drop EACH EYE DAILY [facility] Stop: 07/26/18 08:59 Last Admin: 05/31/18 09:19 Dose: 1 drop Atorvastatin Calcium (Lipitor) 20 mg PO HS [facility] Stop: 07/25/18 20:59 Last Admin: 05/30/18 20:29 Dose: 20 mg Cholecalciferol (Vitamin D3) 5,000 iu PO DAILY [facility] Stop: 07/26/18 08:59 Last Admin: 05/31/18 09:18 Dose: 5,000 iu Diphenhydramine HCl (Benadryl) 50 mg GT Q6H PRN PRN Reason: ALLERGIES Stop: 07/25/18 15:14 Last Admin: 05/31/18 03:49 Dose: 50 mg Diphenoxylate HCl/Atropine (Lomotil) 1 tab PO TID [facility] Stop: 07/25/18 20:59 Last Admin: 05/31/18 09:18 Dose: 1 tab Diphenoxylate HCl/Atropine (Lomotil) 2 tab PO QID PRN PRN Reason: Diarrhea Stop: 07/27/18 13:34 Last Admin: 05/29/18 18:23 Dose: 2 tab Docusate Sodium (Colace) 100 mg GT DAILY [facility] Stop: 07/26/18 08:59 Last Admin: 05/31/18 09:20 Dose: Not Given Famotidine (Pepcid) 20 mg GT Q12H [facility] Stop: 07/25/18 13:59 Last Admin: 05/31/18 03:50 Dose: 20 mg Ferrous Sulfate (Iron) 300 mg PO Q12HR [facility] Stop: 07/25/18 20:59 Last Admin: 05/31/18 09:19 Dose: 300 mg Folic Acid (Folate) 1 mg GT DAILY [facility] Stop: 07/26/18 08:59 Last Admin: 05/31/18 09:19 Dose: 1 mg Gabapentin (Neurontin) 400 mg GT TID [facility] Stop: 07/25/18 13:59 Last Admin: 05/31/18 09:19 Dose: 400 mg Hydralazine HCl (Apresoline) 20 mg GT Q4H PRN PRN Reason: HYPERTENSION Stop: 07/25/18 13:53 Piperacillin Sod/Tazobactam (Sod 3.375 gm/ Sodium Chloride) 50 mls @ 100 mls/ hr IV Q6HR [facility] Stop: 07/25/18 00:00 Last Admin: 05/31/18 12:23 Dose: 100 mls/hr Insulin Aspart (Novolog Insulin Sliding Scale) 0 units SUBQ ACHS [facility]; Protocol Stop: 07/25/18 16:29 Last Admin: 05/31/18 12:24 Dose: 4 units Lactobacillus Rhamnosus (Culturelle 15b) 1 each PO DAILY [facility] Stop: 07/26/18 08:59 Last Admin: 05/31/18 09:19 Dose: 1 each Levetiracetam (Keppra) 750 mg GT Q12HR [facility] Stop: 07/25/18 20:59 Last Admin: 05/31/18 09:19 Dose: 750 mg Lorazepam (Ativan) 2 mg GT Q6H PRN PRN Reason: ANXIETY Stop: 07/25/18 15:17 Magnesium Oxide (Mag-Oxide) 400 mg GT DAILY [facility] Stop: 07/26/18 08:59 Last Admin: 05/31/18 09:19 Dose: 400 mg Metformin HCl (Glucophage) 1,000 mg PO BID [facility] Stop: 07/25/18 21:14 Last Admin: 05/31/18 09:19 Dose: 1,000 mg Miscellaneous (Probiotic Screen) 1 ea MC PRN PRN PRN Reason: PROTOCOL Stop: 07/25/18 11:59 Morphine Sulfate (Morphine) 1 mg IVP Q4HR PRN PRN Reason: Pain (Severe) Stop: 07/25/18 16:42 Last Admin: 05/31/18 09:39 Dose: 1 mg Phenytoin (Dilantin) 100 mg GT Q8H [facility] Stop: 07/25/18 13:59 Last Admin: 05/31/18 06:20 Dose: 100 mg Rivaroxaban (Xarelto) 10 mg PO 1800 [facility] Stop: 07/26/18 17:59 Last Admin: 05/30/18 17:08 Dose: 10 mg Temazepam (Restoril) 15 mg GT HS PRN; Protocol PRN Reason: Insomnia Stop: 07/25/18 13:53 Last Admin: 05/30/18 21:37 Dose: 15 mg General: weak, alert HEENT: NC/AT, PERRLA Neck: Supple Lungs: CTAB Cardiovascular: RRR, Normal S1, Normal S2 Abdomen: soft, non-tender, non-distended Extremities: excoriation Internal Medicine Assmt/Plan - Assessment Assessment: Acute dehydration, electrolyte imbalance, acute urinary tract infection, functional quadriplegia, hypercholesterolemia, history of pulmonary embolus and deep venous thrombosis, history of respiratory failure, status post decannulation, type 2 diabetes, seizures, hypertension and gastroesophageal reflux disease. - Plan Plan: placement pending ivabx as per id pain mgmt cm to arrange snf placement am labs continue current plan of care Nutritional Asmnt/Malnutr-PDOC - Dietary Evaluation Malnutrition Findings (Please click <Entered> for more info): Nutritional Asmnt/Malnutrition Start: 05/26/18 14: 57 Text: Status: Complete Freq: Protocol: Document 05/26/18 14:57 RHAQUE (Rec: 05/26/18 15:28 RHAQUE [email or web address]) Nutritional Asmnt/Malnutrition Patient General Information Nutritional Screening High Risk Consult Diagnosis Dehydration, UTI, Electrolyte imbalance Pertinent Medical Hx/Surgical Hx DM Coma, CVA Subjective Information Awoke from Diabetic Coma a few weeks ago, was placed on G tube for nutrition. Is bedridden, needs adult diaper to defecate. Attempts have been made for PO diet, but is in too much pain to eat properly, claims no appetite. 15% PO intake. Swallow eval scheduled for tomorrow. Is willing to try ensure, claims he is more thirsty in the morning than hungry. Nurse claims coffee, Crm of wheat sampled. 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 Problem Problem Altered Nutrition related laboratory values Etiology due to uncontrolled Diabetes Signs/Symptoms: (05/26) Gluc 310 H, POC Gluc 319 H 1. Problem Problem Inadequate Oral food intake Etiology due to lack of appetite secondary to pain Signs/Symptoms: PO intake around 15% Malnutrition Alert Is there a minimum of two criteria No selected? Query Text:Check all the applicable criteria. A minimum of two criteria are recommended for diagnosis of either severe or non-severe malnutrition. Malnutrition Related to Morbid Obesity Malnutrition related to morbid obesity No Intervention/Recommendation Recommendations by RD Add supplement feedings Comments Recommendation to include Glucerna shake TID with all meals. Will wait until swallow eval is completed before adressing possible feeding tube recommendations. Expected Outcomes/Goals Expected Outcomes/Goals 1. Pt receive >75% of nutrient needs from PO intake 2. Labs to return to wnl 3. F/U post swallow eval to assess need to resume FT.
--- NOTE | 2018-05-31 14:24 | General Progress Note ---
Subjective - Review of Systems Service Date: 05/31/18 Subjective: alert, just soft stool X 3 today, no problem swallow per pt. Objective - Results Result Diagrams: 05/31/18 07:08 05/31/18 06:14 Recent Labs: Laboratory Last Values WBC 5.4 Th/cmm (4.8-10.8) 05/31/18 07:08 RBC 3.21 Mil/cmm (4.30-5.70) L 05/31/18 07:08 Hgb 10.1 gm/dL (12-16) L 05/31/18 07:08 Hct 30.8 % (41.0-60) L 05/31/18 07:08 MCV 96.0 fl (80-99) 05/31/18 07:08 MCH 31.6 pg (26.0-30.0) H 05/31/18 07:08 MCHC Differential 32.9 pg (28.0-36.0) 05/31/18 07:08 RDW 15.0 % (11.5-20.0) 05/31/18 07:08 Plt Count 151 Th/cmm (150-400) 05/31/18 07:08 MPV 8.2 fl 05/31/18 07:08 Neutrophils % 58.2 % (40.0-80.0) 05/31/18 07:08 Lymphocytes % 27.6 % (20.0-50.0) 05/31/18 07:08 Monocytes % 8.7 % (2.0-10.0) 05/31/18 07:08 Eosinophils % 5.0 % (0.0-5.0) 05/31/18 07:08 Basophils % 0.5 % (0.0-2.0) 05/31/18 07:08 Sodium 130 mEq/L (136-145) L 05/31/18 06:14 Potassium 4.7 mEq/L (3.5-5.1) 05/31/18 06:14 Chloride 100 mEq/L (98-107) 05/31/18 06:14 Carbon Dioxide 18.5 mEq/L (21.0-31.0) L 05/31/18 06:14 Anion Gap 16.2 (7.0-16.0) H 05/31/18 06:14 BUN 10 mg/dL (7-25) 05/31/18 06:14 Creatinine 0.6 mg/dL (0.7-1.3) L 05/31/18 06:14 Est GFR ( Amer) > 60.0 ml/min (>90) 05/31/18 06:14 Est GFR (Non-Af Amer) > 60.0 ml/min 05/31/18 06:14 BUN/Creatinine Ratio 16.7 05/31/18 06:14 Glucose 343 mg/dL (70-105) H D 05/31/18 06:14 POC Glucose 227 MG/DL (70 - 105) H 05/31/18 12:06 Whole Bld Lactic Acid 1.67 mmol/L (0.60-1.99) 05/25/18 13:07 Calcium 9.4 mg/dL (8.6-10.3) 05/31/18 06:14 Magnesium 1.9 mg/dL (1.9-2.7) 05/28/18 06:20 Total Bilirubin 0.4 mg/dL (0.3-1.0) 05/26/18 05:50 AST 10 U/L (13-39) L 05/26/18 05:50 ALT 14 U/L (7-52) 05/26/18 05:50 Alkaline Phosphatase 128 U/L (34-104) H 05/26/18 05:50 Total Protein 8.6 gm/dL (6.0-8.3) H 05/26/18 05:50 Albumin 3.6 gm/dL (4.2-5.5) L 05/26/18 05:50 Globulin 5.0 gm/dL 05/26/18 05:50 Albumin/Globulin Ratio 0.7 (1.0-1.8) L 05/26/18 05:50 Triglycerides 160 mg/dL (<150) H 05/26/18 05:50 Cholesterol 103 mg/dL (<200) 05/26/18 05:50 LDL Cholesterol Direct 62 mg/dL (75-193) L 05/26/18 05:50 HDL Cholesterol 30 mg/dL (23-92) 05/26/18 05:50 Amylase < 10 U/L (29-103) L 05/25/18 13:07 Lipase < 3 U/L (11-82) L 05/25/18 13:07 TSH 0.86 uIU/ml (0.34-5.60) 05/26/18 05:50 Urine Source CATH 05/25/18 14:10 Urine Color YELLOW 05/25/18 14:10 Urine Clarity HAZY (CLEAR) 05/25/18 14:10 Urine pH 5.5 (4.6 - 8.0) 05/25/18 14:10 Ur Specific [place] >= 1.030 (1.005-1.030) 05/25/18 14:10 Urine Protein 30 mg/dL (NEGATIVE) H 05/25/18 14:10 Urine Glucose (UA) 100 mg/dL (NEGATIVE) H 05/25/18 14:10 Urine Ketones NEGATIVE mg/dL (NEGATIVE) 05/25/18 14:10 Urine Blood SMALL (NEGATIVE) H 05/25/18 14:10 Urine Nitrate NEGATIVE (NEGATIVE) 05/25/18 14:10 Urine Bilirubin NEGATIVE (NEGATIVE) 05/25/18 14:10 Urine Urobilinogen 0.2 E.U./dL (0.2 - 1.0) 05/25/18 14:10 Ur Leukocyte Esterase NEGATIVE (NEGATIVE) 05/25/18 14:10 Urine RBC 0-2 /hpf (0-5) H 05/25/18 14:10 Urine WBC 10-25 /hpf (0-5) H 05/25/18 14:10 Ur Epithelial Cells NONE SEEN /lpf (FEW) 05/25/18 14:10 Urine Bacteria MODERATE /hpf (NONE SEEN) H 05/25/18 14:10 Stool Occult Blood NEGATIVE (NEGATIVE) 05/25/18 12:57 Urine Opiates Screen POSITIVE (NEGATIVE) H 05/25/18 14:30 Urine Methadone Screen NEGATIVE (NEGATIVE) 05/25/18 14:30 Ur Barbiturates Screen POSITIVE (NEGATIVE) H 05/25/18 14:30 Ur Tricyclics Screen NEGATIVE (NEGATIVE) 05/25/18 14:30 Ur Phencyclidine Scrn NEGATIVE (NEGATIVE) 05/25/18 14:30 Amphetamines Screen NEGATIVE (NEGATIVE) 05/25/18 14:30 U Methamphetamines Scrn NEGATIVE (NEGATIVE) 05/25/18 14:30 U Benzodiazepines Scrn POSITIVE (NEGATIVE) H 05/25/18 14:30 U Cocaine Metab Screen NEGATIVE (NEGATIVE) 05/25/18 14:30 U Cannabinoids Screen NEGATIVE (NEGATIVE) 05/25/18 14:30 - Physical Exam Vitals and I&O: Vital Signs Temp 98.4 F 05/31/18 09:00 Pulse 99 05/31/18 13:54 Resp 18 05/31/18 13:54 BP 131/83 05/31/18 09:00 Pulse Ox 93 05/31/18 13:54 Intake & Output 05/30/18 05/31/18 05/31/18 18:59 06:59 18:59 Intake Total 850 400 50 Output Total 600 970 Balance 250 -570 50 Weight (lbs) 96.615 kg 97.069 kg Intake: Intake, IV Amount 150 100 50 Piperacillin Sodium/ 150 100 50 Tazobact 3.375 gm In Sodium Chloride 0.9% 50 ml @ 100 mls/hr IV Q6HR [facility] Rx#:[id number] Oral 700 Other 300 Output: Urine 600 970 Other: # Bowel Movements 2 3 Stool Characteristics Soft Brown Weight Source Bedscale Bedscale Active Medications: Current Medications Acetaminophen (Tylenol 650mg/20.3ml Suspension) 650 mg GT Q6HR PRN PRN Reason: MILD PAIN OR TEMP >100.4 Stop: 07/25/18 13:53 Acetaminophen/Hydrocodone Bitart ([place] 10 Mg/325 Mg) 1 tab GT Q4H PRN PRN Reason: MODERATE PAIN Stop: 07/25/18 13:53 Last Admin: 05/27/18 05:51 Dose: 1 tab Al Hydrox/Mg Hydrox/Simethicone (Maalox) 15 ml PO Q6H PRN PRN Reason: GI DISTRESS Stop: 07/25/18 15:31 Last Admin: 05/27/18 18:46 Dose: 15 ml Albuterol/Ipratropium (Duoneb Neb) 3 ml HHN Q6HRT [place] Stop: 07/25/18 17:59 Last Admin: 05/31/18 13:54 Dose: 3 ml Lipase/Protease/Amylase (Zenpep 5,000 U) 1 cap GT TID [place] Stop: 07/25/18 20:59 Last Admin: 05/31/18 13:31 Dose: 1 cap Artificial Tears (Artificial Tears Ophth Soln) 1 drop EACH EYE DAILY [facility] Stop: 07/26/18 08:59 Last Admin: 05/31/18 09:19 Dose: 1 drop Atorvastatin Calcium (Lipitor) 20 mg PO HS [facility] Stop: 07/25/18 20:59 Last Admin: 05/30/18 20:29 Dose: 20 mg Cholecalciferol (Vitamin D3) 5,000 iu PO DAILY [facility] Stop: 07/26/18 08:59 Last Admin: 05/31/18 09:18 Dose: 5,000 iu Diphenhydramine HCl (Benadryl) 50 mg GT Q6H PRN PRN Reason: ALLERGIES Stop: 07/25/18 15:14 Last Admin: 05/31/18 03:49 Dose: 50 mg Diphenoxylate HCl/Atropine (Lomotil) 2 tab PO QID PRN PRN Reason: Diarrhea Stop: 07/27/18 13:34 Last Admin: 05/29/18 18:23 Dose: 2 tab Docusate Sodium (Colace) 100 mg GT DAILY [facility] Stop: 07/26/18 08:59 Last Admin: 05/31/18 09:20 Dose: Not Given Famotidine (Pepcid) 20 mg GT Q12H [facility] Stop: 07/25/18 13:59 Last Admin: 05/31/18 13:31 Dose: 20 mg Ferrous Sulfate (Iron) 300 mg PO Q12HR [facility] Stop: 07/25/18 20:59 Last Admin: 05/31/18 09:19 Dose: 300 mg Folic Acid (Folate) 1 mg GT DAILY [facility] Stop: 07/26/18 08:59 Last Admin: 05/31/18 09:19 Dose: 1 mg Gabapentin (Neurontin) 400 mg GT TID [facility] Stop: 07/25/18 13:59 Last Admin: 05/31/18 13:31 Dose: 400 mg Hydralazine HCl (Apresoline) 20 mg GT Q4H PRN PRN Reason: HYPERTENSION Stop: 07/25/18 13:53 Piperacillin Sod/Tazobactam (Sod 3.375 gm/ Sodium Chloride) 50 mls @ 100 mls/ hr IV Q6HR [facility] Stop: 07/25/18 00:00 Last Infusion: 05/31/18 13:38 Dose: Infused Insulin Aspart (Novolog Insulin Sliding Scale) 0 units SUBQ ACHS [facility]; Protocol Stop: 07/25/18 16:29 Last Admin: 05/31/18 12:24 Dose: 4 units Lactobacillus Rhamnosus (Culturelle 15b) 1 each PO DAILY [facility] Stop: 07/26/18 08:59 Last Admin: 05/31/18 09:19 Dose: 1 each Levetiracetam (Keppra) 750 mg GT Q12HR [facility] Stop: 07/25/18 20:59 Last Admin: 05/31/18 09:19 Dose: 750 mg Lorazepam (Ativan) 2 mg GT Q6H PRN PRN Reason: ANXIETY Stop: 07/25/18 15:17 Magnesium Oxide (Mag-Oxide) 400 mg GT DAILY [facility] Stop: 07/26/18 08:59 Last Admin: 05/31/18 09:19 Dose: 400 mg Metformin HCl (Glucophage) 1,000 mg PO BID [facility] Stop: 07/25/18 21:14 Last Admin: 05/31/18 09:19 Dose: 1,000 mg Miscellaneous (Probiotic Screen) 1 ea MC PRN PRN PRN Reason: PROTOCOL Stop: 07/25/18 11:59 Morphine Sulfate (Morphine) 1 mg IVP Q4HR PRN PRN Reason: Pain (Severe) Stop: 07/25/18 16:42 Last Admin: 05/31/18 09:39 Dose: 1 mg Phenytoin (Dilantin) 100 mg GT Q8H [facility] Stop: 07/25/18 13:59 Last Admin: 05/31/18 06:20 Dose: 100 mg Rivaroxaban (Xarelto) 10 mg PO 1800 [facility] Stop: 07/26/18 17:59 Last Admin: 05/30/18 17:08 Dose: 10 mg Temazepam (Restoril) 15 mg GT HS PRN; Protocol PRN Reason: Insomnia Stop: 07/25/18 13:53 Last Admin: 05/30/18 21:37 Dose: 15 mg General: Alert, Oriented x3, No acute distress HEENT: Atraumatic, EOMI Neck: Supple, +2 carotid pulse wo bruit Cardiovascular: Regular rate, Normal S1, Normal S2 Lungs: Clear to auscultation Abdomen: Bowel sounds, Soft, Distended Extremities: no Edema Neurological: Sensation intact Skin: no Rash Psych/Mental Status: Mood NL Assessment/Plan - Problem List Patient Problems: All Active Problems LOOSE STOOLS, WEAKNESS, HYPERGLYCEMIA (Acute) - Assessment Assessment: Hyponatremia (stable) Diarrhea improved T2DM Ess Htn 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 Epilepsy - Plan Plan: Lab - Result Diagrams 05/27/18 05:55 05/27/18 05:55 Current Medications Acetaminophen (Tylenol 650mg/20.3ml Suspension) 650 mg GT Q6HR PRN PRN Reason: MILD PAIN OR TEMP >100.4 Stop: 07/25/18 13:53 Acetaminophen/Hydrocodone Bitart ([place] 10 Mg/325 Mg) 1 tab GT Q4H PRN PRN Reason: MODERATE PAIN Stop: 07/25/18 13:53 Last Admin: 05/27/18 05:51 Dose: 1 tab Al Hydrox/Mg Hydrox/Simethicone (Maalox) 15 ml PO Q6H PRN PRN Reason: GI DISTRESS Stop: 07/25/18 15:31 Last Admin: 05/27/18 08:43 Dose: 15 ml Albuterol/Ipratropium (Duoneb Neb) 3 ml HHN Q6HRT [place] Stop: 07/25/18 17:59 Last Admin: 05/27/18 13:36 Dose: 3 ml Lipase/Protease/Amylase (Zenpep 5,000 U) 1 cap GT TID [place] Stop: 07/25/18 20:59 Last Admin: 05/27/18 08:45 Dose: 1 cap Artificial Tears (Artificial Tears Ophth Soln) 1 drop EACH EYE DAILY [facility] Stop: 07/26/18 08:59 Last Admin: 05/27/18 11:18 Dose: 1 drop Atorvastatin Calcium (Lipitor) 20 mg PO HS [facility] Stop: 07/25/18 20:59 Last Admin: 05/26/18 20:31 Dose: 20 mg Cholecalciferol (Vitamin D3) 5,000 iu PO DAILY [facility] Stop: 07/26/18 08:59 Last Admin: 05/27/18 08:44 Dose: 5,000 iu Diphenhydramine HCl (Benadryl) 50 mg GT Q6H PRN PRN Reason: ALLERGIES Stop: 07/25/18 15:14 Last Admin: 05/26/18 22:09 Dose: 50 mg Diphenoxylate HCl/Atropine (Lomotil) 1 tab PO TID [facility] Stop: 07/25/18 20:59 Last Admin: 05/27/18 08:44 Dose: 1 tab Docusate Sodium (Colace) 100 mg GT DAILY [facility] Stop: 07/26/18 08:59 Last Admin: 05/27/18 08:45 Dose: Not Given Famotidine (Pepcid) 20 mg GT Q12H [facility] Stop: 07/25/18 13:59 Last Admin: 05/27/18 01:26 Dose: 20 mg Ferrous Sulfate (Iron) 300 mg PO Q12HR [facility] Stop: 07/25/18 20:59 Last Admin: 05/27/18 08:43 Dose: 300 mg Folic Acid (Folate) 1 mg GT DAILY [facility] Stop: 07/26/18 08:59 Last Admin: 05/27/18 08:45 Dose: 1 mg Gabapentin (Neurontin) 400 mg GT TID [facility] Stop: 07/25/18 13:59 Last Admin: 05/27/18 08:44 Dose: 400 mg Hydralazine HCl (Apresoline) 20 mg GT Q4H PRN PRN Reason: HYPERTENSION Stop: 07/25/18 13:53 Sodium Chloride (Nacl 0.45%) 1,000 mls @ 125 mls/hr IV .Q8H [facility] Stop: 07/24/18 18:03 Last Admin: 05/27/18 02:59 Dose: 125 mls/hr Piperacillin Sod/Tazobactam (Sod 3.375 gm/ Sodium Chloride) 50 mls @ 100 mls/ hr IV Q6HR [facility] Stop: 07/25/18 00:00 Last Admin: 05/27/18 11:18 Dose: 100 mls/hr Insulin Aspart (Novolog Insulin Sliding Scale) 0 units SUBQ ACHS [facility]; Protocol Stop: 07/25/18 16:29 Last Admin: 05/27/18 06:47 Dose: 2 units Lactobacillus Rhamnosus (Culturelle 15b) 1 each PO DAILY [facility] Stop: 07/26/18 08:59 Last Admin: 05/27/18 08:45 Dose: 1 each Levetiracetam (Keppra) 750 mg GT Q12HR [facility] Stop: 07/25/18 20:59 Last Admin: 05/27/18 08:45 Dose: 750 mg Lorazepam (Ativan) 2 mg GT Q6H PRN PRN Reason: ANXIETY Stop: 07/25/18 15:17 Magnesium Oxide (Mag-Oxide) 400 mg GT DAILY [facility] Stop: 07/26/18 08:59 Last Admin: 05/27/18 08:45 Dose: 400 mg Metformin HCl (Glucophage) 1,000 mg PO BID [facility] Stop: 07/25/18 21:14 Last Admin: 05/27/18 08:44 Dose: 1,000 mg Miscellaneous (Probiotic Screen) 1 ea MC PRN PRN PRN Reason: PROTOCOL Stop: 07/25/18 11:59 Morphine Sulfate (Morphine) 1 mg IVP Q4HR PRN PRN Reason: Pain (Severe) Stop: 07/25/18 16:42 Last Admin: 05/27/18 11:15 Dose: 1 mg Phenytoin (Dilantin) 100 mg GT Q8H [facility] Stop: 07/25/18 13:59 Last Admin: 05/27/18 05:18 Dose: 100 mg Rivaroxaban (Xarelto) 10 mg PO 1800 [facility] Stop: 07/26/18 17:59 Temazepam (Restoril) 15 mg GT HS PRN; Protocol PRN Reason: Insomnia Stop: 07/25/18 13:53 Lab - Result Diagrams 05/31/18 07:08 05/31/18 06:14 Na down to 130 replace Mg BS better control stool C. diff (-) start Lomotil off IVF encourage po intake DC plan Nutritional Asmnt/Malnutr-PDOC - Dietary Evaluation Malnutrition Findings (Please click <Entered> for more info): Nutritional Asmnt/Malnutrition Start: 05/26/18 14: 57 Text: Status: Complete Freq: Protocol: Document 05/26/18 14:57 RHAQMARCELLUS (Rec: 05/26/18 15:28 [email or web address] [id number]) Nutritional Asmnt/Malnutrition Patient General Information Nutritional Screening High Risk Consult Diagnosis Dehydration, UTI, Electrolyte imbalance Pertinent Medical Hx/Surgical Hx DM Coma, CVA Subjective Information Awoke from Diabetic Coma a few weeks ago, was placed on G tube for nutrition. Is bedridden, needs adult diaper to defecate. Attempts have been made for PO diet, but is in too much pain to eat properly, claims no appetite. 15% PO intake. Swallow eval scheduled for tomorrow. Is willing to try ensure, claims he is more thirsty in the morning than hungry. Nurse claims coffee, Crm of wheat sampled. Current Diet Order/ Nutrition Support [facility] Soft Ground Patient / S.O Not Indicated Pertinent Medications Pepcid, Docusate, Lomotil, Lipitor, Vit D, Insulin Aspart , MOM Pertinent Labs (05/26) Gluc 310 H, POC Gluc 319 H, Alb 3.6 L, LDL 62 L Nutritional Hx/Data Height 1.7 m Height (Calculated Centimeters) 170.2 Current Weight (lbs) 88.451 kg Weight (Calculated Kilograms) 88.5 Weight (Calculated Grams) 30837.5 Mutual Body Weight 148 % Mutual Body Weight 132 Body Mass Index (BMI) 30.5 Weight Status Obese GI Symptoms Last BM 1 x (05/26) Cultural/Ethnic/Nondenominational Belief None noted Skin Integrity/Comment: Incontinence associated dermatitis / 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 Problem Problem Altered Nutrition related laboratory values Etiology due to uncontrolled Diabetes Signs/Symptoms: (05/26) Gluc 310 H, POC Gluc 319 H 1. Problem Problem Inadequate Oral food intake Etiology due to lack of appetite secondary to pain Signs/Symptoms: PO intake around 15% Malnutrition Alert Is there a minimum of two criteria No selected? Query Text:Check all the applicable criteria. A minimum of two criteria are recommended for diagnosis of either severe or non-severe malnutrition. Malnutrition Related to Morbid Obesity Malnutrition related to morbid obesity No Intervention/Recommendation Recommendations by RD Add supplement feedings Comments Recommendation to include Glucerna shake TID with all meals. Will wait until swallow eval is completed before adressing possible feeding tube recommendations. Expected Outcomes/Goals Expected Outcomes/Goals 1. Pt receive >75% of nutrient needs from PO intake 2. Labs to return to wnl 3. F/U post swallow eval to assess need to resume FT.
[2018-05-31] MEDS: Atorvastatin Calcium 10 MG TAB PO SCH (20:15)
[2018-05-31] MEDS: Diphenoxylate/Atropine 2.5mg Tab PO PRN (23:14)
[2018-06-01] MEDS: Albuterol/Ipratropium Neb 3 ML AERS HHN SCH ×4 (00:43→18:33)
--- NOTE | 2018-06-01 00:49 | Infectious Disease Prog Note ---
Infectious Disease Subjective - Review of Systems Service Date: 05/31/18 Subjective: There is no new change, no fever. eating well. Infectious Disease Objective - Results Result Diagrams: 05/31/18 07:08 05/31/18 06:14 Recent Labs: Laboratory Last Values WBC 5.4 Th/cmm (4.8-10.8) 05/31/18 07:08 RBC 3.21 Mil/cmm (4.30-5.70) L 05/31/18 07:08 Hgb 10.1 gm/dL (12-16) L 05/31/18 07:08 Hct 30.8 % (41.0-60) L 05/31/18 07:08 MCV 96.0 fl (80-99) 05/31/18 07:08 MCH 31.6 pg (26.0-30.0) H 05/31/18 07:08 MCHC Differential 32.9 pg (28.0-36.0) 05/31/18 07:08 RDW 15.0 % (11.5-20.0) 05/31/18 07:08 Plt Count 151 Th/cmm (150-400) 05/31/18 07:08 MPV 8.2 fl 05/31/18 07:08 Neutrophils % 58.2 % (40.0-80.0) 05/31/18 07:08 Lymphocytes % 27.6 % (20.0-50.0) 05/31/18 07:08 Monocytes % 8.7 % (2.0-10.0) 05/31/18 07:08 Eosinophils % 5.0 % (0.0-5.0) 05/31/18 07:08 Basophils % 0.5 % (0.0-2.0) 05/31/18 07:08 Sodium 130 mEq/L (136-145) L 05/31/18 06:14 Potassium 4.7 mEq/L (3.5-5.1) 05/31/18 06:14 Chloride 100 mEq/L (98-107) 05/31/18 06:14 Carbon Dioxide 18.5 mEq/L (21.0-31.0) L 05/31/18 06:14 Anion Gap 16.2 (7.0-16.0) H 05/31/18 06:14 BUN 10 mg/dL (7-25) 05/31/18 06:14 Creatinine 0.6 mg/dL (0.7-1.3) L 05/31/18 06:14 Est GFR ( Amer) > 60.0 ml/min (>90) 05/31/18 06:14 Est GFR (Non-Af Amer) > 60.0 ml/min 05/31/18 06:14 BUN/Creatinine Ratio 16.7 05/31/18 06:14 Glucose 343 mg/dL (70-105) H D 05/31/18 06:14 POC Glucose 300 MG/DL (70 - 105) H 05/31/18 20:22 Whole Bld Lactic Acid 1.67 mmol/L (0.60-1.99) 05/25/18 13:07 Calcium 9.4 mg/dL (8.6-10.3) 05/31/18 06:14 Magnesium 1.9 mg/dL (1.9-2.7) 05/28/18 06:20 Total Bilirubin 0.4 mg/dL (0.3-1.0) 05/26/18 05:50 AST 10 U/L (13-39) L 05/26/18 05:50 ALT 14 U/L (7-52) 05/26/18 05:50 Alkaline Phosphatase 128 U/L (34-104) H 05/26/18 05:50 Total Protein 8.6 gm/dL (6.0-8.3) H 05/26/18 05:50 Albumin 3.6 gm/dL (4.2-5.5) L 05/26/18 05:50 Globulin 5.0 gm/dL 05/26/18 05:50 Albumin/Globulin Ratio 0.7 (1.0-1.8) L 05/26/18 05:50 Triglycerides 160 mg/dL (<150) H 05/26/18 05:50 Cholesterol 103 mg/dL (<200) 05/26/18 05:50 LDL Cholesterol Direct 62 mg/dL (75-193) L 05/26/18 05:50 HDL Cholesterol 30 mg/dL (23-92) 05/26/18 05:50 Amylase < 10 U/L (29-103) L 05/25/18 13:07 Lipase < 3 U/L (11-82) L 05/25/18 13:07 TSH 0.86 uIU/ml (0.34-5.60) 05/26/18 05:50 Urine Source CATH 05/25/18 14:10 Urine Color YELLOW 05/25/18 14:10 Urine Clarity HAZY (CLEAR) 05/25/18 14:10 Urine pH 5.5 (4.6 - 8.0) 05/25/18 14:10 Ur Specific [place] >= 1.030 (1.005-1.030) 05/25/18 14:10 Urine Protein 30 mg/dL (NEGATIVE) H 05/25/18 14:10 Urine Glucose (UA) 100 mg/dL (NEGATIVE) H 05/25/18 14:10 Urine Ketones NEGATIVE mg/dL (NEGATIVE) 05/25/18 14:10 Urine Blood SMALL (NEGATIVE) H 05/25/18 14:10 Urine Nitrate NEGATIVE (NEGATIVE) 05/25/18 14:10 Urine Bilirubin NEGATIVE (NEGATIVE) 05/25/18 14:10 Urine Urobilinogen 0.2 E.U./dL (0.2 - 1.0) 05/25/18 14:10 Ur Leukocyte Esterase NEGATIVE (NEGATIVE) 05/25/18 14:10 Urine RBC 0-2 /hpf (0-5) H 05/25/18 14:10 Urine WBC 10-25 /hpf (0-5) H 05/25/18 14:10 Ur Epithelial Cells NONE SEEN /lpf (FEW) 05/25/18 14:10 Urine Bacteria MODERATE /hpf (NONE SEEN) H 05/25/18 14:10 Stool Occult Blood NEGATIVE (NEGATIVE) 05/25/18 12:57 Urine Opiates Screen POSITIVE (NEGATIVE) H 05/25/18 14:30 Urine Methadone Screen NEGATIVE (NEGATIVE) 05/25/18 14:30 Ur Barbiturates Screen POSITIVE (NEGATIVE) H 05/25/18 14:30 Ur Tricyclics Screen NEGATIVE (NEGATIVE) 05/25/18 14:30 Ur Phencyclidine Scrn NEGATIVE (NEGATIVE) 05/25/18 14:30 Amphetamines Screen NEGATIVE (NEGATIVE) 05/25/18 14:30 U Methamphetamines Scrn NEGATIVE (NEGATIVE) 05/25/18 14:30 U Benzodiazepines Scrn POSITIVE (NEGATIVE) H 05/25/18 14:30 U Cocaine Metab Screen NEGATIVE (NEGATIVE) 05/25/18 14:30 U Cannabinoids Screen NEGATIVE (NEGATIVE) 05/25/18 14:30 - Physical Exam Vitals and I&O: Vital Signs Temp 97.7 F 06/01/18 00:00 Pulse 97 06/01/18 00:00 Resp 18 06/01/18 00:00 BP 123/73 06/01/18 00:00 Pulse Ox 97 06/01/18 00:00 Intake & Output 05/31/18 05/31/18 06/01/18 06:59 18:59 06:59 Intake Total 336 34 3542 Output Total 970 1200 Balance -570 50 -200 Weight (lbs) 97.069 kg 108.862 kg Intake: Intake, IV Amount 100 50 Piperacillin Sodium/ 100 50 Tazobact 3.375 gm In Sodium Chloride 0.9% 50 ml @ 100 mls/hr IV Q6HR [facility] Rx#:[id number] Oral 1000 Other 300 Output: Urine 970 1200 Other: # Bowel Movements 3 Stool Characteristics Soft Soft Brown Brown Weight Source Bedscale Bedscale Active Medications: Current Medications Acetaminophen (Tylenol 650mg/20.3ml Suspension) 650 mg GT Q6HR PRN PRN Reason: MILD PAIN OR TEMP >100.4 Stop: 07/25/18 13:53 Acetaminophen/Hydrocodone Bitart ([place] 10 Mg/325 Mg) 1 tab GT Q4H PRN PRN Reason: MODERATE PAIN Stop: 07/25/18 13:53 Last Admin: 05/27/18 05:51 Dose: 1 tab Al Hydrox/Mg Hydrox/Simethicone (Maalox) 15 ml PO Q6H PRN PRN Reason: GI DISTRESS Stop: 07/25/18 15:31 Last Admin: 05/27/18 18:46 Dose: 15 ml Albuterol/Ipratropium (Duoneb Neb) 3 ml HHN Q6HRT [facility] Stop: 07/25/18 17:59 Last Admin: 06/01/18 00:43 Dose: Not Given Lipase/Protease/Amylase (Zenpep 5,000 U) 1 cap GT TID [facility] Stop: 07/25/18 20:59 Last Admin: 05/31/18 20:15 Dose: 1 cap Artificial Tears (Artificial Tears Ophth Soln) 1 drop EACH EYE DAILY [facility] Stop: 07/26/18 08:59 Last Admin: 05/31/18 09:19 Dose: 1 drop Atorvastatin Calcium (Lipitor) 20 mg PO HS [facility] Stop: 07/25/18 20:59 Last Admin: 05/31/18 20:15 Dose: 20 mg Cholecalciferol (Vitamin D3) 5,000 iu PO DAILY [facility] Stop: 07/26/18 08:59 Last Admin: 05/31/18 09:18 Dose: 5,000 iu Diphenhydramine HCl (Benadryl) 50 mg GT Q6H PRN PRN Reason: ALLERGIES Stop: 07/25/18 15:14 Last Admin: 05/31/18 03:49 Dose: 50 mg Diphenoxylate HCl/Atropine (Lomotil) 2 tab PO QID PRN PRN Reason: Diarrhea Stop: 07/27/18 13:34 Last Admin: 05/31/18 23:14 Dose: 2 tab Docusate Sodium (Colace) 100 mg GT DAILY [facility] Stop: 07/26/18 08:59 Last Admin: 05/31/18 09:20 Dose: Not Given Famotidine (Pepcid) 20 mg GT Q12H [facility] Stop: 07/25/18 13:59 Last Admin: 05/31/18 13:31 Dose: 20 mg Ferrous Sulfate (Iron) 300 mg PO Q12HR [facility] Stop: 07/25/18 20:59 Last Admin: 05/31/18 20:15 Dose: 300 mg Folic Acid (Folate) 1 mg GT DAILY [facility] Stop: 07/26/18 08:59 Last Admin: 05/31/18 09:19 Dose: 1 mg Gabapentin (Neurontin) 400 mg GT TID [facility] Stop: 07/25/18 13:59 Last Admin: 05/31/18 20:15 Dose: 400 mg Hydralazine HCl (Apresoline) 20 mg GT Q4H PRN PRN Reason: HYPERTENSION Stop: 07/25/18 13:53 Piperacillin Sod/Tazobactam (Sod 3.375 gm/ Sodium Chloride) 50 mls @ 100 mls/ hr IV Q6HR [facility] Stop: 07/25/18 00:00 Last Admin: 05/31/18 17:30 Dose: 100 mls/hr Insulin Aspart (Novolog Insulin Sliding Scale) 0 units SUBQ ACHS [facility]; Protocol Stop: 07/25/18 16:29 Last Admin: 05/31/18 21:13 Dose: 6 units Lactobacillus Rhamnosus (Culturelle 15b) 1 each PO DAILY [facility] Stop: 07/26/18 08:59 Last Admin: 05/31/18 09:19 Dose: 1 each Levetiracetam (Keppra) 750 mg GT Q12HR [facility] Stop: 07/25/18 20:59 Last Admin: 05/31/18 20:15 Dose: 750 mg Lorazepam (Ativan) 2 mg GT Q6H PRN PRN Reason: ANXIETY Stop: 07/25/18 15:17 Last Admin: 05/31/18 22:00 Dose: 2 mg Magnesium Oxide (Mag-Oxide) 400 mg GT DAILY [facility] Stop: 07/26/18 08:59 Last Admin: 05/31/18 09:19 Dose: 400 mg Metformin HCl (Glucophage) 1,000 mg PO BID [facility] Stop: 07/25/18 21:14 Last Admin: 05/31/18 17:31 Dose: 1,000 mg Miscellaneous (Probiotic Screen) 1 ea MC PRN PRN PRN Reason: PROTOCOL Stop: 07/25/18 11:59 Morphine Sulfate (Morphine) 1 mg IVP Q4HR PRN PRN Reason: Pain (Severe) Stop: 07/25/18 16:42 Last Admin: 05/31/18 23:14 Dose: 1 mg Phenytoin (Dilantin) 100 mg GT Q8H [facility] Stop: 07/25/18 13:59 Last Admin: 05/31/18 21:15 Dose: 100 mg Rivaroxaban (Xarelto) 10 mg PO 1800 [facility] Stop: 07/26/18 17:59 Last Admin: 05/31/18 17:31 Dose: 10 mg Temazepam (Restoril) 15 mg GT HS PRN; Protocol PRN Reason: Insomnia Stop: 07/25/18 13:53 Last Admin: 05/31/18 22:00 Dose: 15 mg General: no acute distress, well developed, well nourished HEENT: atraumatic, normocephalic, PERRLA, EOMI Neck: supple, no thyromegaly Cardiovascular: S1S2, regular Lungs: clear to auscultation bilaterally, clear to percussion Abdomen: soft, no tender, no distended, no mass Extremities: no cyanosis, no clubbing, no edema Neurological: awake, alert, oriented, other (LEFT SIDED WEAKNESS.) Skin: intact Infectious Disease Assmt/Plan - Problem List Patient Problems: All Active Problems LOOSE STOOLS, WEAKNESS, HYPERGLYCEMIA (Acute) - Assessment Assessment: UTI. Treated. CVA dysphagia. Diarrhea - Plan Plan: placement. DC plan DC Zosyn. Nutritional Asmnt/Malnutr-PDOC - Dietary Evaluation Malnutrition Findings (Please click <Entered> for more info): Nutritional Asmnt/Malnutrition Start: 05/26/18 14: 57 Text: Status: Complete Freq: Protocol: Document 05/26/18 14:57 RHAQUE (Rec: 05/26/18 15:28 [email or web address] [email or web address]) Nutritional Asmnt/Malnutrition Patient General Information Nutritional Screening High Risk Consult Diagnosis Dehydration, UTI, Electrolyte imbalance Pertinent Medical Hx/Surgical Hx DM Coma, CVA Subjective Information Awoke from Diabetic Coma a few weeks ago, was placed on G tube for nutrition. Is bedridden, needs adult diaper to defecate. Attempts have been made for PO diet, but is in too much pain to eat properly, claims no appetite. 15% PO intake. Swallow eval scheduled for tomorrow. Is willing to try ensure, claims he is more thirsty in the morning than hungry. Nurse claims coffee, Crm of wheat sampled. Current Diet Order/ Nutrition Support [facility] Soft Ground Patient / S.O Not Indicated Pertinent Medications Pepcid, Docusate, Lomotil, Lipitor, Vit D, Insulin Aspart , MOM Pertinent Labs (05/26) Gluc 310 H, POC Gluc 319 H, Alb 3.6 L, LDL 62 L Nutritional Hx/Data Height 1.7 m Height (Calculated Centimeters) 170.2 Current Weight (lbs) 88.451 kg Weight (Calculated Kilograms) 88.5 Weight (Calculated Grams) 38471.5 [place] Body Weight 148 % [place] Body Weight 132 Body Mass Index (BMI) 30.5 Weight Status Obese GI Symptoms Last BM 1 x (05/26) Cultural/Ethnic/[employer]ar[employer] Belief None noted Skin Integrity/Comment: Incontinence associated dermatitis / 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 Problem Problem Altered Nutrition related laboratory values Etiology due to uncontrolled Diabetes Signs/Symptoms: (05/26) Gluc 310 H, POC Gluc 319 H 1. Problem Problem Inadequate Oral food intake Etiology due to lack of appetite secondary to pain Signs/Symptoms: PO intake around 15% Malnutrition Alert Is there a minimum of two criteria No selected? Query Text:Check all the applicable criteria. A minimum of two criteria are recommended for diagnosis of either severe or non-severe malnutrition. Malnutrition Related to Morbid Obesity Malnutrition related to morbid obesity No Intervention/Recommendation Recommendations by RD Add supplement feedings Comments Recommendation to include Glucerna shake TID with all meals. Will wait until swallow eval is completed before adressing possible feeding tube recommendations. Expected Outcomes/Goals Expected Outcomes/Goals 1. Pt receive >75% of nutrient needs from PO intake 2. Labs to return to wnl 3. F/U post swallow eval to assess need to resume FT.
[2018-06-01] MEDS: Morphine Sulfate 2 mg/mL 1mL Syr IVP PRN ×4 (06:22→20:39)
[2018-06-01] MEDS: INSULIN ASPART SLIDING SCALE 100 UNITS/ML UNIT SUBQ SCH ×5 (07:54→20:58)
[2018-06-01] MEDS: Multivitamin w/ Minerals Tab GT SCH (08:20)
[2018-06-01] MEDS: Lactobacillus Rhamnosus GG 15 Billion CFU CAP.SPRINK PO SCH (08:20)
[2018-06-01] MEDS: Levetiracetam 500 mg/5mL 5mL UDSyr *for ORAL USE ONLY GT SCH ×2 (08:21→20:42)
[2018-06-01] MEDS: Ferrous Sulfate 300 MG/5 ML UDC PO SCH ×2 (08:21→20:42)
[2018-06-01] MEDS: Docusate Sodium 100 mg/10 mL UD GT SCH (08:22)
[2018-06-01] MEDS: Polyvinyl Alcohol Ophth Soln 15 mL Bottle EACH EYE SCH (08:30)
[2018-06-01] MEDS: Maalox 30 mL Cup PO PRN ×2 (08:33→14:38)
[2018-06-01] MEDS: Hydrocodone/APAP 10 mg/325 mg Tab GT PRN ×2 (08:33→14:38)
--- NOTE | 2018-06-01 13:11 | Internal Medicine Prog Note ---
Internal Medicine Subjective - Subjective Service Date: 06/01/18 Patient is:: awake, verbal Per staff patient has:: tolerating meds Internal Medicine Objective - Results Result Diagrams: 05/31/18 07:08 05/31/18 06:14 Recent Labs: Laboratory Last Values WBC 5.4 Th/cmm (4.8-10.8) 05/31/18 07:08 RBC 3.21 Mil/cmm (4.30-5.70) L 05/31/18 07:08 Hgb 10.1 gm/dL (12-16) L 05/31/18 07:08 Hct 30.8 % (41.0-60) L 05/31/18 07:08 MCV 96.0 fl (80-99) 05/31/18 07:08 MCH 31.6 pg (26.0-30.0) H 05/31/18 07:08 MCHC Differential 32.9 pg (28.0-36.0) 05/31/18 07:08 RDW 15.0 % (11.5-20.0) 05/31/18 07:08 Plt Count 151 Th/cmm (150-400) 05/31/18 07:08 MPV 8.2 fl 05/31/18 07:08 Neutrophils % 58.2 % (40.0-80.0) 05/31/18 07:08 Lymphocytes % 27.6 % (20.0-50.0) 05/31/18 07:08 Monocytes % 8.7 % (2.0-10.0) 05/31/18 07:08 Eosinophils % 5.0 % (0.0-5.0) 05/31/18 07:08 Basophils % 0.5 % (0.0-2.0) 05/31/18 07:08 Sodium 130 mEq/L (136-145) L 05/31/18 06:14 Potassium 4.7 mEq/L (3.5-5.1) 05/31/18 06:14 Chloride 100 mEq/L (98-107) 05/31/18 06:14 Carbon Dioxide 18.5 mEq/L (21.0-31.0) L 05/31/18 06:14 Anion Gap 16.2 (7.0-16.0) H 05/31/18 06:14 BUN 10 mg/dL (7-25) 05/31/18 06:14 Creatinine 0.6 mg/dL (0.7-1.3) L 05/31/18 06:14 Est GFR ( Amer) > 60.0 ml/min (>90) 05/31/18 06:14 Est GFR (Non-Af Amer) > 60.0 ml/min 05/31/18 06:14 BUN/Creatinine Ratio 16.7 05/31/18 06:14 Glucose 343 mg/dL (70-105) H D 05/31/18 06:14 POC Glucose 251 MG/DL (70 - 105) H 06/01/18 12:22 Whole Bld Lactic Acid 1.67 mmol/L (0.60-1.99) 05/25/18 13:07 Calcium 9.4 mg/dL (8.6-10.3) 05/31/18 06:14 Magnesium 1.9 mg/dL (1.9-2.7) 05/28/18 06:20 Total Bilirubin 0.4 mg/dL (0.3-1.0) 05/26/18 05:50 AST 10 U/L (13-39) L 05/26/18 05:50 ALT 14 U/L (7-52) 05/26/18 05:50 Alkaline Phosphatase 128 U/L (34-104) H 05/26/18 05:50 Total Protein 8.6 gm/dL (6.0-8.3) H 05/26/18 05:50 Albumin 3.6 gm/dL (4.2-5.5) L 05/26/18 05:50 Globulin 5.0 gm/dL 05/26/18 05:50 Albumin/Globulin Ratio 0.7 (1.0-1.8) L 05/26/18 05:50 Triglycerides 160 mg/dL (<150) H 05/26/18 05:50 Cholesterol 103 mg/dL (<200) 05/26/18 05:50 LDL Cholesterol Direct 62 mg/dL (75-193) L 05/26/18 05:50 HDL Cholesterol 30 mg/dL (23-92) 05/26/18 05:50 Amylase < 10 U/L (29-103) L 05/25/18 13:07 Lipase < 3 U/L (11-82) L 05/25/18 13:07 TSH 0.86 uIU/ml (0.34-5.60) 05/26/18 05:50 Urine Source CATH 05/25/18 14:10 Urine Color YELLOW 05/25/18 14:10 Urine Clarity HAZY (CLEAR) 05/25/18 14:10 Urine pH 5.5 (4.6 - 8.0) 05/25/18 14:10 Ur Specific [place] >= 1.030 (1.005-1.030) 05/25/18 14:10 Urine Protein 30 mg/dL (NEGATIVE) H 05/25/18 14:10 Urine Glucose (UA) 100 mg/dL (NEGATIVE) H 05/25/18 14:10 Urine Ketones NEGATIVE mg/dL (NEGATIVE) 05/25/18 14:10 Urine Blood SMALL (NEGATIVE) H 05/25/18 14:10 Urine Nitrate NEGATIVE (NEGATIVE) 05/25/18 14:10 Urine Bilirubin NEGATIVE (NEGATIVE) 05/25/18 14:10 Urine Urobilinogen 0.2 E.U./dL (0.2 - 1.0) 05/25/18 14:10 Ur Leukocyte Esterase NEGATIVE (NEGATIVE) 05/25/18 14:10 Urine RBC 0-2 /hpf (0-5) H 05/25/18 14:10 Urine WBC 10-25 /hpf (0-5) H 05/25/18 14:10 Ur Epithelial Cells NONE SEEN /lpf (FEW) 05/25/18 14:10 Urine Bacteria MODERATE /hpf (NONE SEEN) H 05/25/18 14:10 Stool Occult Blood NEGATIVE (NEGATIVE) 05/25/18 12:57 Urine Opiates Screen POSITIVE (NEGATIVE) H 05/25/18 14:30 Urine Methadone Screen NEGATIVE (NEGATIVE) 05/25/18 14:30 Ur Barbiturates Screen POSITIVE (NEGATIVE) H 05/25/18 14:30 Ur Tricyclics Screen NEGATIVE (NEGATIVE) 05/25/18 14:30 Ur Phencyclidine Scrn NEGATIVE (NEGATIVE) 05/25/18 14:30 Amphetamines Screen NEGATIVE (NEGATIVE) 05/25/18 14:30 U Methamphetamines Scrn NEGATIVE (NEGATIVE) 05/25/18 14:30 U Benzodiazepines Scrn POSITIVE (NEGATIVE) H 05/25/18 14:30 U Cocaine Metab Screen NEGATIVE (NEGATIVE) 05/25/18 14:30 U Cannabinoids Screen NEGATIVE (NEGATIVE) 05/25/18 14:30 - Physical Exam Vitals and I&O: Vital Signs Temp 97.3 F 06/01/18 11:45 Pulse 67 06/01/18 11:45 Resp 18 06/01/18 11:53 BP 110/79 06/01/18 11:45 Pulse Ox 98 06/01/18 11:45 Intake & Output 05/31/18 06/01/18 06/01/18 18:59 06:59 18:59 Intake Total 50 1000 Output Total 2250 Balance 50 -1250 Weight (lbs) 240 lb 240 lb Intake: Intake, IV Amount 50 Piperacillin Sodium/ 50 Tazobact 3.375 gm In Sodium Chloride 0.9% 50 ml @ 100 mls/hr IV Q6HR [facility] Rx#:[id number] Oral 1000 Output: Urine 2250 Other: # Bowel Movements 3 Stool Characteristics Soft Soft Soft Brown Brown Brown Weight Source Bedscale Bedscale Active Medications: Current Medications Acetaminophen (Tylenol 650mg/20.3ml Suspension) 650 mg GT Q6HR PRN PRN Reason: MILD PAIN OR TEMP >100.4 Stop: 07/25/18 13:53 Acetaminophen/Hydrocodone Bitart ([place] 10 Mg/325 Mg) 1 tab GT Q4H PRN PRN Reason: MODERATE PAIN Stop: 07/25/18 13:53 Last Admin: 06/01/18 08:33 Dose: 1 tab Al Hydrox/Mg Hydrox/Simethicone (Maalox) 15 ml PO Q6H PRN PRN Reason: GI DISTRESS Stop: 07/25/18 15:31 Last Admin: 06/01/18 08:33 Dose: 15 ml Albuterol/Ipratropium (Duoneb Neb) 3 ml HHN Q6HRT [facility] Stop: 07/25/18 17:59 Last Admin: 06/01/18 06:29 Dose: 3 ml Lipase/Protease/Amylase (Zenpep 5,000 U) 1 cap GT TID [facility] Stop: 07/25/18 20:59 Last Admin: 06/01/18 08:21 Dose: 1 cap Artificial Tears (Artificial Tears Ophth Soln) 1 drop EACH EYE DAILY [facility] Stop: 07/26/18 08:59 Last Admin: 06/01/18 08:30 Dose: 1 drop Atorvastatin Calcium (Lipitor) 20 mg PO HS [facility] Stop: 07/25/18 20:59 Last Admin: 05/31/18 20:15 Dose: 20 mg Cholecalciferol (Vitamin D3) 5,000 iu PO DAILY [facility] Stop: 07/26/18 08:59 Last Admin: 06/01/18 08:20 Dose: 5,000 iu Diphenhydramine HCl (Benadryl) 50 mg GT Q6H PRN PRN Reason: ALLERGIES Stop: 07/25/18 15:14 Last Admin: 05/31/18 03:49 Dose: 50 mg Diphenoxylate HCl/Atropine (Lomotil) 2 tab PO QID PRN PRN Reason: Diarrhea Stop: 07/27/18 13:34 Last Admin: 05/31/18 23:14 Dose: 2 tab Docusate Sodium (Colace) 100 mg GT DAILY [facility] Stop: 07/26/18 08:59 Last Admin: 06/01/18 08:22 Dose: Not Given Famotidine (Pepcid) 20 mg GT Q12H [facility] Stop: 07/25/18 13:59 Last Admin: 06/01/18 01:07 Dose: 20 mg Ferrous Sulfate (Iron) 300 mg PO Q12HR [facility] Stop: 07/25/18 20:59 Last Admin: 06/01/18 08:21 Dose: 300 mg Folic Acid (Folate) 1 mg GT DAILY [facility] Stop: 07/26/18 08:59 Last Admin: 06/01/18 08:21 Dose: 1 mg Gabapentin (Neurontin) 400 mg GT TID [facility] Stop: 07/25/18 13:59 Last Admin: 06/01/18 08:20 Dose: 400 mg Hydralazine HCl (Apresoline) 20 mg GT Q4H PRN PRN Reason: HYPERTENSION Stop: 07/25/18 13:53 Insulin Aspart (Novolog Insulin Sliding Scale) 0 units SUBQ ACHS [facility]; Protocol Stop: 07/25/18 16:29 Last Admin: 06/01/18 07:54 Dose: 4 units Lactobacillus Rhamnosus (Culturelle 15b) 1 each PO DAILY [facility] Stop: 07/26/18 08:59 Last Admin: 06/01/18 08:20 Dose: 1 each Levetiracetam (Keppra) 750 mg GT Q12HR [facility] Stop: 07/25/18 20:59 Last Admin: 06/01/18 08:21 Dose: 750 mg Lorazepam (Ativan) 2 mg GT Q6H PRN PRN Reason: ANXIETY Stop: 07/25/18 15:17 Last Admin: 05/31/18 22:00 Dose: 2 mg Magnesium Oxide (Mag-Oxide) 400 mg GT DAILY [facility] Stop: 07/26/18 08:59 Last Admin: 06/01/18 08:30 Dose: 400 mg Metformin HCl (Glucophage) 1,000 mg PO BID [facility] Stop: 07/25/18 21:14 Last Admin: 06/01/18 08:20 Dose: 1,000 mg Miscellaneous (Probiotic Screen) 1 ea MC PRN PRN PRN Reason: PROTOCOL Stop: 07/25/18 11:59 Morphine Sulfate (Morphine) 1 mg IVP Q4HR PRN PRN Reason: Pain (Severe) Stop: 07/25/18 16:42 Last Admin: 06/01/18 12:25 Dose: 1 mg Phenytoin (Dilantin) 100 mg GT Q8H [facility] Stop: 07/25/18 13:59 Last Admin: 06/01/18 06:22 Dose: 100 mg Rivaroxaban (Xarelto) 10 mg PO 1800 [facility] Stop: 07/26/18 17:59 Last Admin: 05/31/18 17:31 Dose: 10 mg Temazepam (Restoril) 15 mg GT HS PRN; Protocol PRN Reason: Insomnia Stop: 07/25/18 13:53 Last Admin: 05/31/18 22:00 Dose: 15 mg General: weak, alert HEENT: NC/AT, PERRLA Neck: Supple Lungs: CTAB Cardiovascular: RRR, Normal S1, Normal S2 Abdomen: soft, non-tender, non-distended Extremities: excoriation Internal Medicine Assmt/Plan - Assessment Assessment: Acute dehydration, electrolyte imbalance, acute urinary tract infection, functional quadriplegia, hypercholesterolemia, history of pulmonary embolus and deep venous thrombosis, history of respiratory failure, status post decannulation, type 2 diabetes, seizures, hypertension and gastroesophageal reflux disease. - Plan Plan: placement pending ivabx as per id pain mgmt cm to arrange snf placement am labs continue current plan of care Nutritional Asmnt/Malnutr-PDOC - Dietary Evaluation Malnutrition Findings (Please click <Entered> for more info): Nutritional Asmnt/Malnutrition Start: 05/26/18 14: 57 Text: Status: Complete Freq: Protocol: Document 05/26/18 14:57 STEPHANIE (Rec: 05/26/18 15:28 STEPHANIE [email or web address]) Nutritional Asmnt/Malnutrition Patient General Information Nutritional Screening High Risk Consult Diagnosis Dehydration, UTI, Electrolyte imbalance Pertinent Medical Hx/Surgical Hx DM Coma, CVA Subjective Information Awoke from Diabetic Coma a few weeks ago, was placed on G tube for nutrition. Is bedridden, needs adult diaper to defecate. Attempts have been made for PO diet, but is in too much pain to eat properly, claims no appetite. 15% PO intake. Swallow eval scheduled for tomorrow. Is willing to try ensure, claims he is more thirsty in the morning than hungry. Nurse claims coffee, Crm of wheat sampled. Current Diet Order/ Nutrition Support [facility] Patient / S.O Not Indicated Pertinent Medications Pepcid, Docusate, Lomotil, Lipitor, Vit D, Insulin Aspart , MOM Pertinent Labs (05/26) Gluc 310 H, POC Gluc 319 H, Alb 3.6 L, LDL 62 L Nutritional Hx/Data Height 5 ft 7 in Height (Calculated Centimeters) 170.2 Current Weight (lbs) 195 lb Weight (Calculated Kilograms) 88.5 Weight (Calculated Grams) 06046.5 [place] Body Weight 148 % [place] Body Weight 132 Body Mass Index (BMI) 30.5 Weight Status Obese GI Symptoms Last BM 1 x (05/26) Cultural/Ethnic/Druze Belief None noted Skin Integrity/Comment: 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 Problem Problem Altered Nutrition related laboratory values Etiology due to uncontrolled Diabetes Signs/Symptoms: (05/26) Gluc 310 H, POC Gluc 319 H 1. Problem Problem Inadequate Oral food intake Etiology due to lack of appetite secondary to pain Signs/Symptoms: PO intake around 15% Malnutrition Alert Is there a minimum of two criteria No selected? Query Text:Check all the applicable criteria. A minimum of two criteria are recommended for diagnosis of either severe or non-severe malnutrition. Malnutrition Related to Morbid Obesity Malnutrition related to morbid obesity No Intervention/Recommendation Recommendations by RD Add supplement feedings Comments Recommendation to include Glucerna shake TID with all meals. Will wait until swallow eval is completed before adressing possible feeding tube recommendations. Expected Outcomes/Goals Expected Outcomes/Goals 1. Pt receive >75% of nutrient needs from PO intake 2. Labs to return to wnl 3. F/U post swallow eval to assess need to resume FT.
--- NOTE | 2018-06-01 14:54 | General Progress Note ---
Subjective - Review of Systems Service Date: 06/01/18 Subjective: alert, just soft stool X 1 today, no problem swallow per pt. Objective - Results Result Diagrams: 05/31/18 07:08 05/31/18 06:14 Recent Labs: Laboratory Last Values WBC 5.4 Th/cmm (4.8-10.8) 05/31/18 07:08 RBC 3.21 Mil/cmm (4.30-5.70) L 05/31/18 07:08 Hgb 10.1 gm/dL (12-16) L 05/31/18 07:08 Hct 30.8 % (41.0-60) L 05/31/18 07:08 MCV 96.0 fl (80-99) 05/31/18 07:08 MCH 31.6 pg (26.0-30.0) H 05/31/18 07:08 MCHC Differential 32.9 pg (28.0-36.0) 05/31/18 07:08 RDW 15.0 % (11.5-20.0) 05/31/18 07:08 Plt Count 151 Th/cmm (150-400) 05/31/18 07:08 MPV 8.2 fl 05/31/18 07:08 Neutrophils % 58.2 % (40.0-80.0) 05/31/18 07:08 Lymphocytes % 27.6 % (20.0-50.0) 05/31/18 07:08 Monocytes % 8.7 % (2.0-10.0) 05/31/18 07:08 Eosinophils % 5.0 % (0.0-5.0) 05/31/18 07:08 Basophils % 0.5 % (0.0-2.0) 05/31/18 07:08 Sodium 130 mEq/L (136-145) L 05/31/18 06:14 Potassium 4.7 mEq/L (3.5-5.1) 05/31/18 06:14 Chloride 100 mEq/L (98-107) 05/31/18 06:14 Carbon Dioxide 18.5 mEq/L (21.0-31.0) L 05/31/18 06:14 Anion Gap 16.2 (7.0-16.0) H 05/31/18 06:14 BUN 10 mg/dL (7-25) 05/31/18 06:14 Creatinine 0.6 mg/dL (0.7-1.3) L 05/31/18 06:14 Est GFR ( Amer) > 60.0 ml/min (>90) 05/31/18 06:14 Est GFR (Non-Af Amer) > 60.0 ml/min 05/31/18 06:14 BUN/Creatinine Ratio 16.7 05/31/18 06:14 Glucose 343 mg/dL (70-105) H D 05/31/18 06:14 POC Glucose 251 MG/DL (70 - 105) H 06/01/18 12:22 Whole Bld Lactic Acid 1.67 mmol/L (0.60-1.99) 05/25/18 13:07 Calcium 9.4 mg/dL (8.6-10.3) 05/31/18 06:14 Magnesium 1.9 mg/dL (1.9-2.7) 05/28/18 06:20 Total Bilirubin 0.4 mg/dL (0.3-1.0) 05/26/18 05:50 AST 10 U/L (13-39) L 05/26/18 05:50 ALT 14 U/L (7-52) 05/26/18 05:50 Alkaline Phosphatase 128 U/L (34-104) H 05/26/18 05:50 Total Protein 8.6 gm/dL (6.0-8.3) H 05/26/18 05:50 Albumin 3.6 gm/dL (4.2-5.5) L 05/26/18 05:50 Globulin 5.0 gm/dL 05/26/18 05:50 Albumin/Globulin Ratio 0.7 (1.0-1.8) L 05/26/18 05:50 Triglycerides 160 mg/dL (<150) H 05/26/18 05:50 Cholesterol 103 mg/dL (<200) 05/26/18 05:50 LDL Cholesterol Direct 62 mg/dL (75-193) L 05/26/18 05:50 HDL Cholesterol 30 mg/dL (23-92) 05/26/18 05:50 Amylase < 10 U/L (29-103) L 05/25/18 13:07 Lipase < 3 U/L (11-82) L 05/25/18 13:07 TSH 0.86 uIU/ml (0.34-5.60) 05/26/18 05:50 Urine Source CATH 05/25/18 14:10 Urine Color YELLOW 05/25/18 14:10 Urine Clarity HAZY (CLEAR) 05/25/18 14:10 Urine pH 5.5 (4.6 - 8.0) 05/25/18 14:10 Ur Specific [place] >= 1.030 (1.005-1.030) 05/25/18 14:10 Urine Protein 30 mg/dL (NEGATIVE) H 05/25/18 14:10 Urine Glucose (UA) 100 mg/dL (NEGATIVE) H 05/25/18 14:10 Urine Ketones NEGATIVE mg/dL (NEGATIVE) 05/25/18 14:10 Urine Blood SMALL (NEGATIVE) H 05/25/18 14:10 Urine Nitrate NEGATIVE (NEGATIVE) 05/25/18 14:10 Urine Bilirubin NEGATIVE (NEGATIVE) 05/25/18 14:10 Urine Urobilinogen 0.2 E.U./dL (0.2 - 1.0) 05/25/18 14:10 Ur Leukocyte Esterase NEGATIVE (NEGATIVE) 05/25/18 14:10 Urine RBC 0-2 /hpf (0-5) H 05/25/18 14:10 Urine WBC 10-25 /hpf (0-5) H 05/25/18 14:10 Ur Epithelial Cells NONE SEEN /lpf (FEW) 05/25/18 14:10 Urine Bacteria MODERATE /hpf (NONE SEEN) H 05/25/18 14:10 Stool Occult Blood NEGATIVE (NEGATIVE) 05/25/18 12:57 Urine Opiates Screen POSITIVE (NEGATIVE) H 05/25/18 14:30 Urine Methadone Screen NEGATIVE (NEGATIVE) 05/25/18 14:30 Ur Barbiturates Screen POSITIVE (NEGATIVE) H 05/25/18 14:30 Ur Tricyclics Screen NEGATIVE (NEGATIVE) 05/25/18 14:30 Ur Phencyclidine Scrn NEGATIVE (NEGATIVE) 05/25/18 14:30 Amphetamines Screen NEGATIVE (NEGATIVE) 05/25/18 14:30 U Methamphetamines Scrn NEGATIVE (NEGATIVE) 05/25/18 14:30 U Benzodiazepines Scrn POSITIVE (NEGATIVE) H 05/25/18 14:30 U Cocaine Metab Screen NEGATIVE (NEGATIVE) 05/25/18 14:30 U Cannabinoids Screen NEGATIVE (NEGATIVE) 05/25/18 14:30 - Physical Exam Vitals and I&O: Vital Signs Temp 97.3 F 06/01/18 11:45 Pulse 93 06/01/18 13:32 Resp 18 06/01/18 13:32 BP 110/79 06/01/18 11:45 Pulse Ox 97 06/01/18 13:32 Intake & Output 05/31/18 06/01/18 06/01/18 18:59 06:59 18:59 Intake Total 50 1000 Output Total 2250 Balance 50 -1250 Weight (lbs) 108.862 kg 108.862 kg Intake: Intake, IV Amount 50 Piperacillin Sodium/ 50 Tazobact 3.375 gm In Sodium Chloride 0.9% 50 ml @ 100 mls/hr IV Q6HR [facility] Rx#:[id number] Oral 1000 Output: Urine 2250 Other: # Bowel Movements 3 Stool Characteristics Soft Soft Soft Brown Brown Brown Weight Source Bedscale Bedscale Active Medications: Current Medications Acetaminophen (Tylenol 650mg/20.3ml Suspension) 650 mg GT Q6HR PRN PRN Reason: MILD PAIN OR TEMP >100.4 Stop: 07/25/18 13:53 Acetaminophen/Hydrocodone Bitart ([place] 10 Mg/325 Mg) 1 tab GT Q4H PRN PRN Reason: MODERATE PAIN Stop: 07/25/18 13:53 Last Admin: 06/01/18 14:38 Dose: 1 tab Al Hydrox/Mg Hydrox/Simethicone (Maalox) 15 ml PO Q6H PRN PRN Reason: GI DISTRESS Stop: 07/25/18 15:31 Last Admin: 06/01/18 14:38 Dose: 15 ml Albuterol/Ipratropium (Duoneb Neb) 3 ml HHN Q6HRT [facility] Stop: 07/25/18 17:59 Last Admin: 06/01/18 13:32 Dose: 3 ml Lipase/Protease/Amylase (Zenpep 5,000 U) 1 cap GT TID [facility] Stop: 07/25/18 20:59 Last Admin: 06/01/18 14:39 Dose: 1 cap Artificial Tears (Artificial Tears Ophth Soln) 1 drop EACH EYE DAILY [facility] Stop: 07/26/18 08:59 Last Admin: 06/01/18 08:30 Dose: 1 drop Atorvastatin Calcium (Lipitor) 20 mg PO HS [facility] Stop: 07/25/18 20:59 Last Admin: 05/31/18 20:15 Dose: 20 mg Cholecalciferol (Vitamin D3) 5,000 iu PO DAILY [facility] Stop: 07/26/18 08:59 Last Admin: 06/01/18 08:20 Dose: 5,000 iu Diphenhydramine HCl (Benadryl) 50 mg GT Q6H PRN PRN Reason: ALLERGIES Stop: 07/25/18 15:14 Last Admin: 05/31/18 03:49 Dose: 50 mg Diphenoxylate HCl/Atropine (Lomotil) 2 tab PO QID PRN PRN Reason: Diarrhea Stop: 07/27/18 13:34 Last Admin: 05/31/18 23:14 Dose: 2 tab Docusate Sodium (Colace) 100 mg GT DAILY [facility] Stop: 07/26/18 08:59 Last Admin: 06/01/18 08:22 Dose: Not Given Famotidine (Pepcid) 20 mg GT Q12H [facility] Stop: 07/25/18 13:59 Last Admin: 06/01/18 14:39 Dose: 20 mg Ferrous Sulfate (Iron) 300 mg PO Q12HR [facility] Stop: 07/25/18 20:59 Last Admin: 06/01/18 08:21 Dose: 300 mg Folic Acid (Folate) 1 mg GT DAILY [facility] Stop: 07/26/18 08:59 Last Admin: 06/01/18 08:21 Dose: 1 mg Gabapentin (Neurontin) 400 mg GT TID [facility] Stop: 07/25/18 13:59 Last Admin: 06/01/18 14:39 Dose: 400 mg Hydralazine HCl (Apresoline) 20 mg GT Q4H PRN PRN Reason: HYPERTENSION Stop: 07/25/18 13:53 Insulin Aspart (Novolog Insulin Sliding Scale) 0 units SUBQ ACHS [facility]; Protocol Stop: 07/25/18 16:29 Last Admin: 06/01/18 13:20 Dose: 6 units Lactobacillus Rhamnosus (Culturelle 15b) 1 each PO DAILY [facility] Stop: 07/26/18 08:59 Last Admin: 06/01/18 08:20 Dose: 1 each Levetiracetam (Keppra) 750 mg GT Q12HR [facility] Stop: 07/25/18 20:59 Last Admin: 06/01/18 08:21 Dose: 750 mg Lorazepam (Ativan) 2 mg GT Q6H PRN PRN Reason: ANXIETY Stop: 07/25/18 15:17 Last Admin: 05/31/18 22:00 Dose: 2 mg Magnesium Oxide (Mag-Oxide) 400 mg GT DAILY [facility] Stop: 07/26/18 08:59 Last Admin: 06/01/18 08:30 Dose: 400 mg Metformin HCl (Glucophage) 1,000 mg PO BID [facility] Stop: 07/25/18 21:14 Last Admin: 06/01/18 08:20 Dose: 1,000 mg Miscellaneous (Probiotic Screen) 1 ea MC PRN PRN PRN Reason: PROTOCOL Stop: 07/25/18 11:59 Morphine Sulfate (Morphine) 1 mg IVP Q4HR PRN PRN Reason: Pain (Severe) Stop: 07/25/18 16:42 Last Admin: 06/01/18 12:25 Dose: 1 mg Phenytoin (Dilantin) 100 mg GT Q8H [facility] Stop: 07/25/18 13:59 Last Admin: 06/01/18 14:41 Dose: 100 mg Rivaroxaban (Xarelto) 10 mg PO 1800 [facility] Stop: 07/26/18 17:59 Last Admin: 05/31/18 17:31 Dose: 10 mg Temazepam (Restoril) 15 mg GT HS PRN; Protocol PRN Reason: Insomnia Stop: 07/25/18 13:53 Last Admin: 05/31/18 22:00 Dose: 15 mg General: Alert, Oriented x3, No acute distress HEENT: Atraumatic, EOMI Neck: Supple, +2 carotid pulse wo bruit Cardiovascular: Regular rate, Normal S1, Normal S2 Lungs: Clear to auscultation Abdomen: Bowel sounds, Soft, Distended Extremities: no Edema Neurological: Sensation intact Skin: no Rash Psych/Mental Status: Mood NL Assessment/Plan - Problem List Patient Problems: All Active Problems LOOSE STOOLS, WEAKNESS, HYPERGLYCEMIA (Acute) - Assessment Assessment: Hyponatremia (stable) Diarrhea improved T2DM Ess Htn 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 Epilepsy - Plan Plan: Lab - Result Diagrams 05/27/18 05:55 05/27/18 05:55 Current Medications Acetaminophen (Tylenol 650mg/20.3ml Suspension) 650 mg GT Q6HR PRN PRN Reason: MILD PAIN OR TEMP >100.4 Stop: 07/25/18 13:53 Acetaminophen/Hydrocodone Bitart ([place] 10 Mg/325 Mg) 1 tab GT Q4H PRN PRN Reason: MODERATE PAIN Stop: 07/25/18 13:53 Last Admin: 05/27/18 05:51 Dose: 1 tab Al Hydrox/Mg Hydrox/Simethicone (Maalox) 15 ml PO Q6H PRN PRN Reason: GI DISTRESS Stop: 07/25/18 15:31 Last Admin: 05/27/18 08:43 Dose: 15 ml Albuterol/Ipratropium (Duoneb Neb) 3 ml HHN Q6HRT [facility] Stop: 07/25/18 17:59 Last Admin: 05/27/18 13:36 Dose: 3 ml Lipase/Protease/Amylase (Zenpep 5,000 U) 1 cap GT TID [facility] Stop: 07/25/18 20:59 Last Admin: 05/27/18 08:45 Dose: 1 cap Artificial Tears (Artificial Tears Ophth Soln) 1 drop EACH EYE DAILY [facility] Stop: 07/26/18 08:59 Last Admin: 05/27/18 11:18 Dose: 1 drop Atorvastatin Calcium (Lipitor) 20 mg PO HS [facility] Stop: 07/25/18 20:59 Last Admin: 05/26/18 20:31 Dose: 20 mg Cholecalciferol (Vitamin D3) 5,000 iu PO DAILY [facility] Stop: 07/26/18 08:59 Last Admin: 05/27/18 08:44 Dose: 5,000 iu Diphenhydramine HCl (Benadryl) 50 mg GT Q6H PRN PRN Reason: ALLERGIES Stop: 07/25/18 15:14 Last Admin: 05/26/18 22:09 Dose: 50 mg Diphenoxylate HCl/Atropine (Lomotil) 1 tab PO TID [facility] Stop: 07/25/18 20:59 Last Admin: 05/27/18 08:44 Dose: 1 tab Docusate Sodium (Colace) 100 mg GT DAILY [facility] Stop: 07/26/18 08:59 Last Admin: 05/27/18 08:45 Dose: Not Given Famotidine (Pepcid) 20 mg GT Q12H [facility] Stop: 07/25/18 13:59 Last Admin: 05/27/18 01:26 Dose: 20 mg Ferrous Sulfate (Iron) 300 mg PO Q12HR [facility] Stop: 07/25/18 20:59 Last Admin: 05/27/18 08:43 Dose: 300 mg Folic Acid (Folate) 1 mg GT DAILY [facility] Stop: 07/26/18 08:59 Last Admin: 05/27/18 08:45 Dose: 1 mg Gabapentin (Neurontin) 400 mg GT TID [facility] Stop: 07/25/18 13:59 Last Admin: 05/27/18 08:44 Dose: 400 mg Hydralazine HCl (Apresoline) 20 mg GT Q4H PRN PRN Reason: HYPERTENSION Stop: 07/25/18 13:53 Sodium Chloride (Nacl 0.45%) 1,000 mls @ 125 mls/hr IV .Q8H [facility] Stop: 07/24/18 18:03 Last Admin: 05/27/18 02:59 Dose: 125 mls/hr Piperacillin Sod/Tazobactam (Sod 3.375 gm/ Sodium Chloride) 50 mls @ 100 mls/ hr IV Q6HR [facility] Stop: 07/25/18 00:00 Last Admin: 05/27/18 11:18 Dose: 100 mls/hr Insulin Aspart (Novolog Insulin Sliding Scale) 0 units SUBQ ACHS [facility]; Protocol Stop: 07/25/18 16:29 Last Admin: 05/27/18 06:47 Dose: 2 units Lactobacillus Rhamnosus (Culturelle 15b) 1 each PO DAILY [facility] Stop: 07/26/18 08:59 Last Admin: 05/27/18 08:45 Dose: 1 each Levetiracetam (Keppra) 750 mg GT Q12HR [facility] Stop: 07/25/18 20:59 Last Admin: 05/27/18 08:45 Dose: 750 mg Lorazepam (Ativan) 2 mg GT Q6H PRN PRN Reason: ANXIETY Stop: 07/25/18 15:17 Magnesium Oxide (Mag-Oxide) 400 mg GT DAILY [facility] Stop: 07/26/18 08:59 Last Admin: 05/27/18 08:45 Dose: 400 mg Metformin HCl (Glucophage) 1,000 mg PO BID [facility] Stop: 07/25/18 21:14 Last Admin: 05/27/18 08:44 Dose: 1,000 mg Miscellaneous (Probiotic Screen) 1 ea MC PRN PRN PRN Reason: PROTOCOL Stop: 07/25/18 11:59 Morphine Sulfate (Morphine) 1 mg IVP Q4HR PRN PRN Reason: Pain (Severe) Stop: 07/25/18 16:42 Last Admin: 05/27/18 11:15 Dose: 1 mg Phenytoin (Dilantin) 100 mg GT Q8H [facility] Stop: 07/25/18 13:59 Last Admin: 05/27/18 05:18 Dose: 100 mg Rivaroxaban (Xarelto) 10 mg PO 1800 [facility] Stop: 07/26/18 17:59 Temazepam (Restoril) 15 mg GT HS PRN; Protocol PRN Reason: Insomnia Stop: 07/25/18 13:53 Lab - Result Diagrams 05/31/18 07:08 05/31/18 06:14 Na down to 130 replace Mg BS better control stool C. diff (-) start Lomotil off IVF encourage po intake DC plan Nutritional Asmnt/Malnutr-PDOC - Dietary Evaluation Malnutrition Findings (Please click <Entered> for more info): Nutritional Asmnt/Malnutrition Start: 05/26/18 14: 57 Text: Status: Complete Freq: Protocol: Document 05/26/18 14:57 RHAQUE (Rec: 05/26/18 15:28 [email or web address] [id number]) Nutritional Asmnt/Malnutrition Patient General Information Nutritional Screening High Risk Consult Diagnosis Dehydration, UTI, Electrolyte imbalance Pertinent Medical Hx/Surgical Hx DM Coma, CVA Subjective Information Awoke from Diabetic Coma a few weeks ago, was placed on G tube for nutrition. Is bedridden, needs adult diaper to defecate. Attempts have been made for PO diet, but is in too much pain to eat properly, claims no appetite. 15% PO intake. Swallow eval scheduled for tomorrow. Is willing to try ensure, claims he is more thirsty in the morning than hungry. Nurse claims coffee, Crm of wheat sampled. Current Diet Order/ Nutrition Support [facility] Soft Ground Patient / S.O Not Indicated Pertinent Medications Pepcid, Docusate, Lomotil, Lipitor, Vit D, Insulin Aspart , MOM Pertinent Labs (05/26) Gluc 310 H, POC Gluc 319 H, Alb 3.6 L, LDL 62 L Nutritional Hx/Data Height 1.7 m Height (Calculated Centimeters) 170.2 Current Weight (lbs) 88.451 kg Weight (Calculated Kilograms) 88.5 Weight (Calculated Grams) 51267.5 [place] Body Weight 148 % [place] Body Weight 132 Body Mass Index (BMI) 30.5 Weight Status Obese GI Symptoms Last BM 1 x (05/26) Cultural/Ethnic/Alevism Belief None noted Skin Integrity/Comment: 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 Problem Problem Altered Nutrition related laboratory values Etiology due to uncontrolled Diabetes Signs/Symptoms: (05/26) Gluc 310 H, POC Gluc 319 H 1. Problem Problem Inadequate Oral food intake Etiology due to lack of appetite secondary to pain Signs/Symptoms: PO intake around 15% Malnutrition Alert Is there a minimum of two criteria No selected? Query Text:Check all the applicable criteria. A minimum of two criteria are recommended for diagnosis of either severe or non-severe malnutrition. Malnutrition Related to Morbid Obesity Malnutrition related to morbid obesity No Intervention/Recommendation Recommendations by RD Add supplement feedings Comments Recommendation to include Glucerna shake TID with all meals. Will wait until swallow eval is completed before adressing possible feeding tube recommendations. Expected Outcomes/Goals Expected Outcomes/Goals 1. Pt receive >75% of nutrient needs from PO intake 2. Labs to return to wnl 3. F/U post swallow eval to assess need to resume FT.
[2018-06-01] MEDS: Atorvastatin Calcium 10 MG TAB PO SCH (20:42)
[2018-06-01] MEDS: Diphenoxylate/Atropine 2.5mg Tab PO PRN (21:57)
--- NOTE | 2018-06-02 00:29 | Infectious Disease Prog Note ---
Infectious Disease Subjective - Review of Systems Service Date: 06/01/18 Subjective: There is no new change, no fever. eating well. Infectious Disease Objective - Results Result Diagrams: 05/31/18 07:08 05/31/18 06:14 Recent Labs: Laboratory Last Values WBC 5.4 Th/cmm (4.8-10.8) 05/31/18 07:08 RBC 3.21 Mil/cmm (4.30-5.70) L 05/31/18 07:08 Hgb 10.1 gm/dL (12-16) L 05/31/18 07:08 Hct 30.8 % (41.0-60) L 05/31/18 07:08 MCV 96.0 fl (80-99) 05/31/18 07:08 MCH 31.6 pg (26.0-30.0) H 05/31/18 07:08 MCHC Differential 32.9 pg (28.0-36.0) 05/31/18 07:08 RDW 15.0 % (11.5-20.0) 05/31/18 07:08 Plt Count 151 Th/cmm (150-400) 05/31/18 07:08 MPV 8.2 fl 05/31/18 07:08 Neutrophils % 58.2 % (40.0-80.0) 05/31/18 07:08 Lymphocytes % 27.6 % (20.0-50.0) 05/31/18 07:08 Monocytes % 8.7 % (2.0-10.0) 05/31/18 07:08 Eosinophils % 5.0 % (0.0-5.0) 05/31/18 07:08 Basophils % 0.5 % (0.0-2.0) 05/31/18 07:08 Sodium 130 mEq/L (136-145) L 05/31/18 06:14 Potassium 4.7 mEq/L (3.5-5.1) 05/31/18 06:14 Chloride 100 mEq/L (98-107) 05/31/18 06:14 Carbon Dioxide 18.5 mEq/L (21.0-31.0) L 05/31/18 06:14 Anion Gap 16.2 (7.0-16.0) H 05/31/18 06:14 BUN 10 mg/dL (7-25) 05/31/18 06:14 Creatinine 0.6 mg/dL (0.7-1.3) L 05/31/18 06:14 Est GFR ( Amer) > 60.0 ml/min (>90) 05/31/18 06:14 Est GFR (Non-Af Amer) > 60.0 ml/min 05/31/18 06:14 BUN/Creatinine Ratio 16.7 05/31/18 06:14 Glucose 343 mg/dL (70-105) H D 05/31/18 06:14 POC Glucose 153 MG/DL (70 - 105) H 06/01/18 20:37 Whole Bld Lactic Acid 1.67 mmol/L (0.60-1.99) 05/25/18 13:07 Calcium 9.4 mg/dL (8.6-10.3) 05/31/18 06:14 Magnesium 1.9 mg/dL (1.9-2.7) 05/28/18 06:20 Total Bilirubin 0.4 mg/dL (0.3-1.0) 05/26/18 05:50 AST 10 U/L (13-39) L 05/26/18 05:50 ALT 14 U/L (7-52) 05/26/18 05:50 Alkaline Phosphatase 128 U/L (34-104) H 05/26/18 05:50 Total Protein 8.6 gm/dL (6.0-8.3) H 05/26/18 05:50 Albumin 3.6 gm/dL (4.2-5.5) L 05/26/18 05:50 Globulin 5.0 gm/dL 05/26/18 05:50 Albumin/Globulin Ratio 0.7 (1.0-1.8) L 05/26/18 05:50 Triglycerides 160 mg/dL (<150) H 05/26/18 05:50 Cholesterol 103 mg/dL (<200) 05/26/18 05:50 LDL Cholesterol Direct 62 mg/dL (75-193) L 05/26/18 05:50 HDL Cholesterol 30 mg/dL (23-92) 05/26/18 05:50 Amylase < 10 U/L (29-103) L 05/25/18 13:07 Lipase < 3 U/L (11-82) L 05/25/18 13:07 TSH 0.86 uIU/ml (0.34-5.60) 05/26/18 05:50 Urine Source CATH 05/25/18 14:10 Urine Color YELLOW 05/25/18 14:10 Urine Clarity HAZY (CLEAR) 05/25/18 14:10 Urine pH 5.5 (4.6 - 8.0) 05/25/18 14:10 Ur Specific [place] >= 1.030 (1.005-1.030) 05/25/18 14:10 Urine Protein 30 mg/dL (NEGATIVE) H 05/25/18 14:10 Urine Glucose (UA) 100 mg/dL (NEGATIVE) H 05/25/18 14:10 Urine Ketones NEGATIVE mg/dL (NEGATIVE) 05/25/18 14:10 Urine Blood SMALL (NEGATIVE) H 05/25/18 14:10 Urine Nitrate NEGATIVE (NEGATIVE) 05/25/18 14:10 Urine Bilirubin NEGATIVE (NEGATIVE) 05/25/18 14:10 Urine Urobilinogen 0.2 E.U./dL (0.2 - 1.0) 05/25/18 14:10 Ur Leukocyte Esterase NEGATIVE (NEGATIVE) 05/25/18 14:10 Urine RBC 0-2 /hpf (0-5) H 05/25/18 14:10 Urine WBC 10-25 /hpf (0-5) H 05/25/18 14:10 Ur Epithelial Cells NONE SEEN /lpf (FEW) 05/25/18 14:10 Urine Bacteria MODERATE /hpf (NONE SEEN) H 05/25/18 14:10 Stool Occult Blood NEGATIVE (NEGATIVE) 05/25/18 12:57 Urine Opiates Screen POSITIVE (NEGATIVE) H 05/25/18 14:30 Urine Methadone Screen NEGATIVE (NEGATIVE) 05/25/18 14:30 Ur Barbiturates Screen POSITIVE (NEGATIVE) H 05/25/18 14:30 Ur Tricyclics Screen NEGATIVE (NEGATIVE) 05/25/18 14:30 Ur Phencyclidine Scrn NEGATIVE (NEGATIVE) 05/25/18 14:30 Amphetamines Screen NEGATIVE (NEGATIVE) 05/25/18 14:30 U Methamphetamines Scrn NEGATIVE (NEGATIVE) 05/25/18 14:30 U Benzodiazepines Scrn POSITIVE (NEGATIVE) H 05/25/18 14:30 U Cocaine Metab Screen NEGATIVE (NEGATIVE) 05/25/18 14:30 U Cannabinoids Screen NEGATIVE (NEGATIVE) 05/25/18 14:30 - Physical Exam Vitals and I&O: Vital Signs Temp 97.6 F 06/01/18 20:00 Pulse 103 06/01/18 20:00 Resp 20 06/02/18 00:00 BP 130/85 06/01/18 20:00 Pulse Ox 100 06/01/18 20:00 Intake & Output 06/01/18 06/01/18 06/02/18 06:59 18:59 06:59 Intake Total 1000 1050 Output Total 2250 600 Balance -1250 450 Weight (lbs) 108.862 kg 105.233 kg Intake: Oral 1000 1050 Output: Urine 2250 600 Other: # Bowel Movements 3 Stool Characteristics Soft Soft Soft Brown Brown Brown Weight Source Bedscale Bedscale Active Medications: Current Medications Acetaminophen (Tylenol 650mg/20.3ml Suspension) 650 mg GT Q6HR PRN PRN Reason: MILD PAIN OR TEMP >100.4 Stop: 07/25/18 13:53 Acetaminophen/Hydrocodone Bitart ([place] 10 Mg/325 Mg) 1 tab GT Q4H PRN PRN Reason: MODERATE PAIN Stop: 07/25/18 13:53 Last Admin: 06/01/18 14:38 Dose: 1 tab Al Hydrox/Mg Hydrox/Simethicone (Maalox) 15 ml PO Q6H PRN PRN Reason: GI DISTRESS Stop: 07/25/18 15:31 Last Admin: 06/01/18 14:38 Dose: 15 ml Albuterol/Ipratropium (Duoneb Neb) 3 ml HHN Q6HRT [facility] Stop: 07/25/18 17:59 Last Admin: 06/01/18 18:33 Dose: 3 ml Lipase/Protease/Amylase (Zenpep 5,000 U) 1 cap GT TID [facility] Stop: 07/25/18 20:59 Last Admin: 06/01/18 20:41 Dose: 1 cap Artificial Tears (Artificial Tears Ophth Soln) 1 drop EACH EYE DAILY [facility] Stop: 07/26/18 08:59 Last Admin: 06/01/18 08:30 Dose: 1 drop Atorvastatin Calcium (Lipitor) 20 mg PO HS [facility] Stop: 07/25/18 20:59 Last Admin: 06/01/18 20:42 Dose: 20 mg Cholecalciferol (Vitamin D3) 5,000 iu PO DAILY [facility] Stop: 07/26/18 08:59 Last Admin: 06/01/18 08:20 Dose: 5,000 iu Diphenhydramine HCl (Benadryl) 50 mg GT Q6H PRN PRN Reason: ALLERGIES Stop: 07/25/18 15:14 Last Admin: 06/01/18 20:52 Dose: 50 mg Diphenoxylate HCl/Atropine (Lomotil) 2 tab PO QID PRN PRN Reason: Diarrhea Stop: 07/27/18 13:34 Last Admin: 06/01/18 21:57 Dose: 2 tab Docusate Sodium (Colace) 100 mg GT DAILY [facility] Stop: 07/26/18 08:59 Last Admin: 06/01/18 08:22 Dose: Not Given Famotidine (Pepcid) 20 mg GT Q12H [facility] Stop: 07/25/18 13:59 Last Admin: 06/01/18 14:39 Dose: 20 mg Ferrous Sulfate (Iron) 300 mg PO Q12HR [facility] Stop: 07/25/18 20:59 Last Admin: 06/01/18 20:42 Dose: 300 mg Folic Acid (Folate) 1 mg GT DAILY [facility] Stop: 07/26/18 08:59 Last Admin: 06/01/18 08:21 Dose: 1 mg Gabapentin (Neurontin) 400 mg GT TID [facility] Stop: 07/25/18 13:59 Last Admin: 06/01/18 20:42 Dose: 400 mg Hydralazine HCl (Apresoline) 20 mg GT Q4H PRN PRN Reason: HYPERTENSION Stop: 07/25/18 13:53 Insulin Aspart (Novolog Insulin Sliding Scale) 0 units SUBQ ACHS [facility]; Protocol Stop: 07/25/18 16:29 Last Admin: 06/01/18 20:58 Dose: Not Given Lactobacillus Rhamnosus (Culturelle 15b) 1 each PO DAILY [facility] Stop: 07/26/18 08:59 Last Admin: 06/01/18 08:20 Dose: 1 each Levetiracetam (Keppra) 750 mg GT Q12HR [facility] Stop: 07/25/18 20:59 Last Admin: 06/01/18 20:42 Dose: 750 mg Lorazepam (Ativan) 2 mg GT Q6H PRN PRN Reason: ANXIETY Stop: 07/25/18 15:17 Last Admin: 06/01/18 21:57 Dose: 2 mg Magnesium Oxide (Mag-Oxide) 400 mg GT DAILY [facility] Stop: 07/26/18 08:59 Last Admin: 06/01/18 08:30 Dose: 400 mg Metformin HCl (Glucophage) 1,000 mg PO BID [facility] Stop: 07/25/18 21:14 Last Admin: 06/01/18 16:34 Dose: 1,000 mg Miscellaneous (Probiotic Screen) 1 ea MC PRN PRN PRN Reason: PROTOCOL Stop: 07/25/18 11:59 Morphine Sulfate (Morphine) 1 mg IVP Q4HR PRN PRN Reason: Pain (Severe) Stop: 07/25/18 16:42 Last Admin: 06/01/18 20:39 Dose: 1 mg Phenytoin (Dilantin) 100 mg GT Q8H [facility] Stop: 07/25/18 13:59 Last Admin: 06/01/18 21:00 Dose: 100 mg Rivaroxaban (Xarelto) 10 mg PO 1800 [facility] Stop: 07/26/18 17:59 Last Admin: 06/01/18 17:00 Dose: 10 mg Temazepam (Restoril) 15 mg GT HS PRN; Protocol PRN Reason: Insomnia Stop: 07/25/18 13:53 Last Admin: 06/01/18 20:42 Dose: 15 mg General: no acute distress, well developed, well nourished HEENT: atraumatic, normocephalic, PERRLA, EOMI Neck: supple, no thyromegaly Cardiovascular: S1S2, regular Lungs: clear to auscultation bilaterally, clear to percussion Abdomen: soft, no tender, no distended, no mass Extremities: no cyanosis, no clubbing, no edema Neurological: awake, alert, oriented, other (left sided weakness) Skin: intact Infectious Disease Assmt/Plan - Problem List Patient Problems: All Active Problems LOOSE STOOLS, WEAKNESS, HYPERGLYCEMIA (Acute) - Assessment Assessment: UTI. Treated. CVA dysphagia. Diarrhea - Plan Plan: placement. DC plan Nutritional Asmnt/Malnutr-PDOC - Dietary Evaluation Malnutrition Findings (Please click <Entered> for more info): Nutritional Asmnt/Malnutrition Start: 05/26/18 14: 57 Text: Status: Complete Freq: Protocol: Document 05/26/18 14:57 STEPHANIE (Rec: 05/26/18 15:28 STEPHANIE [email or web address]) Nutritional Asmnt/Malnutrition Patient General Information Nutritional Screening High Risk Consult Diagnosis Dehydration, UTI, Electrolyte imbalance Pertinent Medical Hx/Surgical Hx DM Coma, CVA Subjective Information Awoke from Diabetic Coma a few weeks ago, was placed on G tube for nutrition. Is bedridden, needs adult diaper to defecate. Attempts have been made for PO diet, but is in too much pain to eat properly, claims no appetite. 15% PO intake. Swallow eval scheduled for tomorrow. Is willing to try ensure, claims he is more thirsty in the morning than hungry. Nurse claims coffee, Crm of wheat sampled. Current Diet Order/ Nutrition Support [facility] Soft Ground Patient / S.O Not Indicated Pertinent Medications Pepcid, Docusate, Lomotil, Lipitor, Vit D, Insulin Aspart , MOM Pertinent Labs (05/26) Gluc 310 H, POC Gluc 319 H, Alb 3.6 L, LDL 62 L Nutritional Hx/Data Height 1.7 m Height (Calculated Centimeters) 170.2 Current Weight (lbs) 88.451 kg Weight (Calculated Kilograms) 88.5 Weight (Calculated Grams) 27986.5 [place] Body Weight 148 % [place] Body Weight 132 Body Mass Index (BMI) 30.5 Weight Status Obese GI Symptoms Last BM 1 x (05/26) Cultural/Ethnic/Zoroastrianism Belief None noted Skin Integrity/Comment: 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 Problem Problem Altered Nutrition related laboratory values Etiology due to uncontrolled Diabetes Signs/Symptoms: (05/26) Gluc 310 H, POC Gluc 319 H 1. Problem Problem Inadequate Oral food intake Etiology due to lack of appetite secondary to pain Signs/Symptoms: PO intake around 15% Malnutrition Alert Is there a minimum of two criteria No selected? Query Text:Check all the applicable criteria. A minimum of two criteria are recommended for diagnosis of either severe or non-severe malnutrition. Malnutrition Related to Morbid Obesity Malnutrition related to morbid obesity No Intervention/Recommendation Recommendations by RD Add supplement feedings Comments Recommendation to include Glucerna shake TID with all meals. Will wait until swallow eval is completed before adressing possible feeding tube recommendations. Expected Outcomes/Goals Expected Outcomes/Goals 1. Pt receive >75% of nutrient needs from PO intake 2. Labs to return to wnl 3. F/U post swallow eval to assess need to resume FT.
[2018-06-02] MEDS: Albuterol/Ipratropium Neb 3 ML AERS HHN SCH ×4 (01:50→19:22)
[2018-06-02] MEDS: Docusate Sodium 100 mg/10 mL UD GT SCH (08:35)
[2018-06-02] MEDS: INSULIN ASPART SLIDING SCALE 100 UNITS/ML UNIT SUBQ SCH ×4 (08:47→20:45)
[2018-06-02] MEDS: Ferrous Sulfate 300 MG/5 ML UDC PO SCH ×2 (08:49→20:44)
[2018-06-02] MEDS: Morphine Sulfate 2 mg/mL 1mL Syr IVP PRN ×4 (08:49→20:59)
[2018-06-02] MEDS: Multivitamin w/ Minerals Tab GT SCH (08:50)
[2018-06-02] MEDS: Levetiracetam 500 mg/5mL 5mL UDSyr *for ORAL USE ONLY GT SCH ×2 (08:51→20:43)
[2018-06-02] MEDS: Lactobacillus Rhamnosus GG 15 Billion CFU CAP.SPRINK PO SCH (08:51)
[2018-06-02] MEDS: Polyvinyl Alcohol Ophth Soln 15 mL Bottle EACH EYE SCH (09:05)
[2018-06-02] MEDS: Diphenoxylate/Atropine 2.5mg Tab PO PRN (13:37)
--- NOTE | 2018-06-02 14:37 | Internal Medicine Prog Note ---
Internal Medicine Subjective - Subjective Service Date: 06/02/18 (still with diarrhea) Patient is:: awake, verbal Per staff patient has:: tolerating meds Internal Medicine Objective - Results Result Diagrams: 05/31/18 07:08 05/31/18 06:14 Recent Labs: Laboratory Last Values WBC 5.4 Th/cmm (4.8-10.8) 05/31/18 07:08 RBC 3.21 Mil/cmm (4.30-5.70) L 05/31/18 07:08 Hgb 10.1 gm/dL (12-16) L 05/31/18 07:08 Hct 30.8 % (41.0-60) L 05/31/18 07:08 MCV 96.0 fl (80-99) 05/31/18 07:08 MCH 31.6 pg (26.0-30.0) H 05/31/18 07:08 MCHC Differential 32.9 pg (28.0-36.0) 05/31/18 07:08 RDW 15.0 % (11.5-20.0) 05/31/18 07:08 Plt Count 151 Th/cmm (150-400) 05/31/18 07:08 MPV 8.2 fl 05/31/18 07:08 Neutrophils % 58.2 % (40.0-80.0) 05/31/18 07:08 Lymphocytes % 27.6 % (20.0-50.0) 05/31/18 07:08 Monocytes % 8.7 % (2.0-10.0) 05/31/18 07:08 Eosinophils % 5.0 % (0.0-5.0) 05/31/18 07:08 Basophils % 0.5 % (0.0-2.0) 05/31/18 07:08 Sodium 130 mEq/L (136-145) L 05/31/18 06:14 Potassium 4.7 mEq/L (3.5-5.1) 05/31/18 06:14 Chloride 100 mEq/L (98-107) 05/31/18 06:14 Carbon Dioxide 18.5 mEq/L (21.0-31.0) L 05/31/18 06:14 Anion Gap 16.2 (7.0-16.0) H 05/31/18 06:14 BUN 10 mg/dL (7-25) 05/31/18 06:14 Creatinine 0.6 mg/dL (0.7-1.3) L 05/31/18 06:14 Est GFR ( Amer) > 60.0 ml/min (>90) 05/31/18 06:14 Est GFR (Non-Af Amer) > 60.0 ml/min 05/31/18 06:14 BUN/Creatinine Ratio 16.7 05/31/18 06:14 Glucose 343 mg/dL (70-105) H D 05/31/18 06:14 POC Glucose 213 MG/DL (70 - 105) H 06/02/18 12:14 Whole Bld Lactic Acid 1.67 mmol/L (0.60-1.99) 05/25/18 13:07 Calcium 9.4 mg/dL (8.6-10.3) 05/31/18 06:14 Magnesium 1.9 mg/dL (1.9-2.7) 05/28/18 06:20 Total Bilirubin 0.4 mg/dL (0.3-1.0) 05/26/18 05:50 AST 10 U/L (13-39) L 05/26/18 05:50 ALT 14 U/L (7-52) 05/26/18 05:50 Alkaline Phosphatase 128 U/L (34-104) H 05/26/18 05:50 Total Protein 8.6 gm/dL (6.0-8.3) H 05/26/18 05:50 Albumin 3.6 gm/dL (4.2-5.5) L 05/26/18 05:50 Globulin 5.0 gm/dL 05/26/18 05:50 Albumin/Globulin Ratio 0.7 (1.0-1.8) L 05/26/18 05:50 Triglycerides 160 mg/dL (<150) H 05/26/18 05:50 Cholesterol 103 mg/dL (<200) 05/26/18 05:50 LDL Cholesterol Direct 62 mg/dL (75-193) L 05/26/18 05:50 HDL Cholesterol 30 mg/dL (23-92) 05/26/18 05:50 Amylase < 10 U/L (29-103) L 05/25/18 13:07 Lipase < 3 U/L (11-82) L 05/25/18 13:07 TSH 0.86 uIU/ml (0.34-5.60) 05/26/18 05:50 Urine Source CATH 05/25/18 14:10 Urine Color YELLOW 05/25/18 14:10 Urine Clarity HAZY (CLEAR) 05/25/18 14:10 Urine pH 5.5 (4.6 - 8.0) 05/25/18 14:10 Ur Specific [place] >= 1.030 (1.005-1.030) 05/25/18 14:10 Urine Protein 30 mg/dL (NEGATIVE) H 05/25/18 14:10 Urine Glucose (UA) 100 mg/dL (NEGATIVE) H 05/25/18 14:10 Urine Ketones NEGATIVE mg/dL (NEGATIVE) 05/25/18 14:10 Urine Blood SMALL (NEGATIVE) H 05/25/18 14:10 Urine Nitrate NEGATIVE (NEGATIVE) 05/25/18 14:10 Urine Bilirubin NEGATIVE (NEGATIVE) 05/25/18 14:10 Urine Urobilinogen 0.2 E.U./dL (0.2 - 1.0) 05/25/18 14:10 Ur Leukocyte Esterase NEGATIVE (NEGATIVE) 05/25/18 14:10 Urine RBC 0-2 /hpf (0-5) H 05/25/18 14:10 Urine WBC 10-25 /hpf (0-5) H 05/25/18 14:10 Ur Epithelial Cells NONE SEEN /lpf (FEW) 05/25/18 14:10 Urine Bacteria MODERATE /hpf (NONE SEEN) H 05/25/18 14:10 Stool Occult Blood NEGATIVE (NEGATIVE) 05/25/18 12:57 Urine Opiates Screen POSITIVE (NEGATIVE) H 05/25/18 14:30 Urine Methadone Screen NEGATIVE (NEGATIVE) 05/25/18 14:30 Ur Barbiturates Screen POSITIVE (NEGATIVE) H 05/25/18 14:30 Ur Tricyclics Screen NEGATIVE (NEGATIVE) 05/25/18 14:30 Ur Phencyclidine Scrn NEGATIVE (NEGATIVE) 05/25/18 14:30 Amphetamines Screen NEGATIVE (NEGATIVE) 05/25/18 14:30 U Methamphetamines Scrn NEGATIVE (NEGATIVE) 05/25/18 14:30 U Benzodiazepines Scrn POSITIVE (NEGATIVE) H 05/25/18 14:30 U Cocaine Metab Screen NEGATIVE (NEGATIVE) 05/25/18 14:30 U Cannabinoids Screen NEGATIVE (NEGATIVE) 05/25/18 14:30 - Physical Exam Vitals and I&O: Vital Signs Temp 97.6 F 06/01/18 20:00 Pulse 94 06/02/18 13:56 Resp 18 06/02/18 13:56 BP 130/85 06/01/18 20:00 Pulse Ox 97 06/02/18 13:56 Intake & Output 06/01/18 06/02/18 06/02/18 18:59 06:59 18:59 Intake Total 1050 Output Total 600 Balance 450 Weight (lbs) 232 lb 232 lb Intake: Oral 1050 Output: Urine 600 Other: # Voids 3 # Bowel Movements 3 Stool Characteristics Soft Soft Soft Brown Brown Weight Source Bedscale Bedscale Active Medications: Current Medications Acetaminophen (Tylenol 650mg/20.3ml Suspension) 650 mg GT Q6HR PRN PRN Reason: MILD PAIN OR TEMP >100.4 Stop: 07/25/18 13:53 Acetaminophen/Hydrocodone Bitart ([place] 10 Mg/325 Mg) 1 tab GT Q4H PRN PRN Reason: MODERATE PAIN Stop: 07/25/18 13:53 Last Admin: 06/01/18 14:38 Dose: 1 tab Al Hydrox/Mg Hydrox/Simethicone (Maalox) 15 ml PO Q6H PRN PRN Reason: GI DISTRESS Stop: 07/25/18 15:31 Last Admin: 06/01/18 14:38 Dose: 15 ml Albuterol/Ipratropium (Duoneb Neb) 3 ml HHN Q6HRT [facility] Stop: 07/25/18 17:59 Last Admin: 06/02/18 13:55 Dose: 3 ml Lipase/Protease/Amylase (Zenpep 5,000 U) 1 cap GT TID [facility] Stop: 07/25/18 20:59 Last Admin: 06/02/18 08:50 Dose: 1 cap Artificial Tears (Artificial Tears Ophth Soln) 1 drop EACH EYE DAILY [facility] Stop: 07/26/18 08:59 Last Admin: 06/02/18 09:05 Dose: 1 drop Atorvastatin Calcium (Lipitor) 20 mg PO HS [facility] Stop: 07/25/18 20:59 Last Admin: 06/01/18 20:42 Dose: 20 mg Cholecalciferol (Vitamin D3) 5,000 iu PO DAILY [facility] Stop: 07/26/18 08:59 Last Admin: 06/02/18 08:49 Dose: 5,000 iu Diphenhydramine HCl (Benadryl) 50 mg GT Q6H PRN PRN Reason: ALLERGIES Stop: 07/25/18 15:14 Last Admin: 06/01/18 20:52 Dose: 50 mg Diphenoxylate HCl/Atropine (Lomotil) 2 tab PO QID PRN PRN Reason: Diarrhea Stop: 07/27/18 13:34 Last Admin: 06/02/18 13:37 Dose: 2 tab Docusate Sodium (Colace) 100 mg GT DAILY [facility] Stop: 07/26/18 08:59 Last Admin: 06/02/18 08:35 Dose: Not Given Famotidine (Pepcid) 20 mg GT Q12H [facility] Stop: 07/25/18 13:59 Last Admin: 06/02/18 02:00 Dose: Not Given Ferrous Sulfate (Iron) 300 mg PO Q12HR [facility] Stop: 07/25/18 20:59 Last Admin: 06/02/18 08:49 Dose: 300 mg Folic Acid (Folate) 1 mg GT DAILY [facility] Stop: 07/26/18 08:59 Last Admin: 06/02/18 08:50 Dose: 1 mg Gabapentin (Neurontin) 400 mg GT TID [facility] Stop: 07/25/18 13:59 Last Admin: 06/02/18 08:50 Dose: 400 mg Hydralazine HCl (Apresoline) 20 mg GT Q4H PRN PRN Reason: HYPERTENSION Stop: 07/25/18 13:53 Insulin Aspart (Novolog Insulin Sliding Scale) 0 units SUBQ ACHS [facility]; Protocol Stop: 07/25/18 16:29 Last Admin: 06/02/18 12:35 Dose: 4 units Lactobacillus Rhamnosus (Culturelle 15b) 1 each PO DAILY [facility] Stop: 07/26/18 08:59 Last Admin: 06/02/18 08:51 Dose: 1 each Levetiracetam (Keppra) 750 mg GT Q12HR [facility] Stop: 07/25/18 20:59 Last Admin: 06/02/18 08:51 Dose: 750 mg Lorazepam (Ativan) 2 mg GT Q6H PRN PRN Reason: ANXIETY Stop: 07/25/18 15:17 Last Admin: 06/01/18 21:57 Dose: 2 mg Magnesium Oxide (Mag-Oxide) 400 mg GT DAILY [facility] Stop: 07/26/18 08:59 Last Admin: 06/02/18 08:51 Dose: 400 mg Metformin HCl (Glucophage) 1,000 mg PO BID [facility] Stop: 07/25/18 21:14 Last Admin: 06/02/18 08:50 Dose: 1,000 mg Miscellaneous (Probiotic Screen) 1 ea MC PRN PRN PRN Reason: PROTOCOL Stop: 07/25/18 11:59 Morphine Sulfate (Morphine) 1 mg IVP Q4HR PRN PRN Reason: Pain (Severe) Stop: 07/25/18 16:42 Last Admin: 06/02/18 12:45 Dose: 1 mg Phenytoin (Dilantin) 100 mg GT Q8H [facility] Stop: 07/25/18 13:59 Last Admin: 06/02/18 06:36 Dose: 100 mg Rivaroxaban (Xarelto) 10 mg PO 1800 [facility] Stop: 07/26/18 17:59 Last Admin: 06/01/18 17:00 Dose: 10 mg Temazepam (Restoril) 15 mg GT HS PRN; Protocol PRN Reason: Insomnia Stop: 07/25/18 13:53 Last Admin: 06/01/18 20:42 Dose: 15 mg General: weak, alert HEENT: NC/AT, PERRLA Neck: Supple Lungs: CTAB Cardiovascular: RRR, Normal S1, Normal S2 Abdomen: soft, non-tender, non-distended Extremities: excoriation Internal Medicine Assmt/Plan - Assessment Assessment: Acute dehydration, electrolyte imbalance, acute urinary tract infection, functional quadriplegia, hypercholesterolemia, history of pulmonary embolus and deep venous thrombosis, history of respiratory failure, status post decannulation, type 2 diabetes, seizures, hypertension and gastroesophageal reflux disease. - Plan Plan: placement pending resend stool for culture pain mgmt cm to arrange snf placement am labs continue current plan of care Nutritional Asmnt/Malnutr-PDOC - Dietary Evaluation Malnutrition Findings (Please click <Entered> for more info): Nutritional Asmnt/Malnutrition Start: 05/26/18 14: 57 Text: Status: Complete Freq: Protocol: Document 05/26/18 14:57 RHAQUE (Rec: 05/26/18 15:28 STEPHANIE [email or web address]) Nutritional Asmnt/Malnutrition Patient General Information Nutritional Screening High Risk Consult Diagnosis Dehydration, UTI, Electrolyte imbalance Pertinent Medical Hx/Surgical Hx DM Coma, CVA Subjective Information Awoke from Diabetic Coma a few weeks ago, was placed on G tube for nutrition. Is bedridden, needs adult diaper to defecate. Attempts have been made for PO diet, but is in too much pain to eat properly, claims no appetite. 15% PO intake. Swallow eval scheduled for tomorrow. Is willing to try ensure, claims he is more thirsty in the morning than hungry. Nurse claims coffee, Crm of wheat sampled. Current Diet Order/ Nutrition Support [facility] Soft Ground Patient / S.O Not Indicated Pertinent Medications Pepcid, Docusate, Lomotil, Lipitor, Vit D, Insulin Aspart , MOM Pertinent Labs (05/26) Gluc 310 H, POC Gluc 319 H, Alb 3.6 L, LDL 62 L Nutritional Hx/Data Height 5 ft 7 in Height (Calculated Centimeters) 170.2 Current Weight (lbs) 195 lb Weight (Calculated Kilograms) 88.5 Weight (Calculated Grams) 94442.5 [place] Body Weight 148 % [place] Body Weight 132 Body Mass Index (BMI) 30.5 Weight Status Obese GI Symptoms Last BM 1 x (05/26) Cultural/Ethnic/Baptist Belief None noted Skin Integrity/Comment: 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 Problem Problem Altered Nutrition related laboratory values Etiology due to uncontrolled Diabetes Signs/Symptoms: (05/26) Gluc 310 H, POC Gluc 319 H 1. Problem Problem Inadequate Oral food intake Etiology due to lack of appetite secondary to pain Signs/Symptoms: PO intake around 15% Malnutrition Alert Is there a minimum of two criteria No selected? Query Text:Check all the applicable criteria. A minimum of two criteria are recommended for diagnosis of either severe or non-severe malnutrition. Malnutrition Related to Morbid Obesity Malnutrition related to morbid obesity No Intervention/Recommendation Recommendations by RD Add supplement feedings Comments Recommendation to include Glucerna shake TID with all meals. Will wait until swallow eval is completed before adressing possible feeding tube recommendations. Expected Outcomes/Goals Expected Outcomes/Goals 1. Pt receive >75% of nutrient needs from PO intake 2. Labs to return to wnl 3. F/U post swallow eval to assess need to resume FT.
[2018-06-02] MEDS: Atorvastatin Calcium 10 MG TAB PO SCH (20:43)
--- NOTE | 2018-06-02 23:59 | Infectious Disease Prog Note ---
Infectious Disease Subjective - Review of Systems Service Date: 06/02/18 Subjective: There is no new change, no fever. eating well. Infectious Disease Objective - Results Result Diagrams: 06/03/18 05:40 06/03/18 05:40 Recent Labs: Laboratory Last Values WBC 5.4 Th/cmm (4.8-10.8) 05/31/18 07:08 RBC 3.21 Mil/cmm (4.30-5.70) L 05/31/18 07:08 Hgb 10.1 gm/dL (12-16) L 05/31/18 07:08 Hct 30.8 % (41.0-60) L 05/31/18 07:08 MCV 96.0 fl (80-99) 05/31/18 07:08 MCH 31.6 pg (26.0-30.0) H 05/31/18 07:08 MCHC Differential 32.9 pg (28.0-36.0) 05/31/18 07:08 RDW 15.0 % (11.5-20.0) 05/31/18 07:08 Plt Count 151 Th/cmm (150-400) 05/31/18 07:08 MPV 8.2 fl 05/31/18 07:08 Neutrophils % 58.2 % (40.0-80.0) 05/31/18 07:08 Lymphocytes % 27.6 % (20.0-50.0) 05/31/18 07:08 Monocytes % 8.7 % (2.0-10.0) 05/31/18 07:08 Eosinophils % 5.0 % (0.0-5.0) 05/31/18 07:08 Basophils % 0.5 % (0.0-2.0) 05/31/18 07:08 Sodium 130 mEq/L (136-145) L 05/31/18 06:14 Potassium 4.7 mEq/L (3.5-5.1) 05/31/18 06:14 Chloride 100 mEq/L (98-107) 05/31/18 06:14 Carbon Dioxide 18.5 mEq/L (21.0-31.0) L 05/31/18 06:14 Anion Gap 16.2 (7.0-16.0) H 05/31/18 06:14 BUN 10 mg/dL (7-25) 05/31/18 06:14 Creatinine 0.6 mg/dL (0.7-1.3) L 05/31/18 06:14 Est GFR ( Amer) > 60.0 ml/min (>90) 05/31/18 06:14 Est GFR (Non-Af Amer) > 60.0 ml/min 05/31/18 06:14 BUN/Creatinine Ratio 16.7 05/31/18 06:14 Glucose 343 mg/dL (70-105) H D 05/31/18 06:14 POC Glucose 260 MG/DL (70 - 105) H 06/02/18 20:42 Whole Bld Lactic Acid 1.67 mmol/L (0.60-1.99) 05/25/18 13:07 Calcium 9.4 mg/dL (8.6-10.3) 05/31/18 06:14 Magnesium 1.9 mg/dL (1.9-2.7) 05/28/18 06:20 Total Bilirubin 0.4 mg/dL (0.3-1.0) 05/26/18 05:50 AST 10 U/L (13-39) L 05/26/18 05:50 ALT 14 U/L (7-52) 05/26/18 05:50 Alkaline Phosphatase 128 U/L (34-104) H 05/26/18 05:50 Total Protein 8.6 gm/dL (6.0-8.3) H 05/26/18 05:50 Albumin 3.6 gm/dL (4.2-5.5) L 05/26/18 05:50 Globulin 5.0 gm/dL 05/26/18 05:50 Albumin/Globulin Ratio 0.7 (1.0-1.8) L 05/26/18 05:50 Triglycerides 160 mg/dL (<150) H 05/26/18 05:50 Cholesterol 103 mg/dL (<200) 05/26/18 05:50 LDL Cholesterol Direct 62 mg/dL (75-193) L 05/26/18 05:50 HDL Cholesterol 30 mg/dL (23-92) 05/26/18 05:50 Amylase < 10 U/L (29-103) L 05/25/18 13:07 Lipase < 3 U/L (11-82) L 05/25/18 13:07 TSH 0.86 uIU/ml (0.34-5.60) 05/26/18 05:50 Urine Source CATH 05/25/18 14:10 Urine Color YELLOW 05/25/18 14:10 Urine Clarity HAZY (CLEAR) 05/25/18 14:10 Urine pH 5.5 (4.6 - 8.0) 05/25/18 14:10 Ur Specific [place] >= 1.030 (1.005-1.030) 05/25/18 14:10 Urine Protein 30 mg/dL (NEGATIVE) H 05/25/18 14:10 Urine Glucose (UA) 100 mg/dL (NEGATIVE) H 05/25/18 14:10 Urine Ketones NEGATIVE mg/dL (NEGATIVE) 05/25/18 14:10 Urine Blood SMALL (NEGATIVE) H 05/25/18 14:10 Urine Nitrate NEGATIVE (NEGATIVE) 05/25/18 14:10 Urine Bilirubin NEGATIVE (NEGATIVE) 05/25/18 14:10 Urine Urobilinogen 0.2 E.U./dL (0.2 - 1.0) 05/25/18 14:10 Ur Leukocyte Esterase NEGATIVE (NEGATIVE) 05/25/18 14:10 Urine RBC 0-2 /hpf (0-5) H 05/25/18 14:10 Urine WBC 10-25 /hpf (0-5) H 05/25/18 14:10 Ur Epithelial Cells NONE SEEN /lpf (FEW) 05/25/18 14:10 Urine Bacteria MODERATE /hpf (NONE SEEN) H 05/25/18 14:10 Stool Occult Blood NEGATIVE (NEGATIVE) 05/25/18 12:57 Urine Opiates Screen POSITIVE (NEGATIVE) H 05/25/18 14:30 Urine Methadone Screen NEGATIVE (NEGATIVE) 05/25/18 14:30 Ur Barbiturates Screen POSITIVE (NEGATIVE) H 05/25/18 14:30 Ur Tricyclics Screen NEGATIVE (NEGATIVE) 05/25/18 14:30 Ur Phencyclidine Scrn NEGATIVE (NEGATIVE) 05/25/18 14:30 Amphetamines Screen NEGATIVE (NEGATIVE) 05/25/18 14:30 U Methamphetamines Scrn NEGATIVE (NEGATIVE) 05/25/18 14:30 U Benzodiazepines Scrn POSITIVE (NEGATIVE) H 05/25/18 14:30 U Cocaine Metab Screen NEGATIVE (NEGATIVE) 05/25/18 14:30 U Cannabinoids Screen NEGATIVE (NEGATIVE) 05/25/18 14:30 - Physical Exam Vitals and I&O: Vital Signs Temp 98 F 06/02/18 20:00 Pulse 106 06/02/18 20:00 Resp 20 06/02/18 20:00 BP 146/85 06/02/18 20:00 Pulse Ox 100 06/02/18 20:00 Intake & Output 06/02/18 06/02/18 06/03/18 06:59 18:59 06:59 Intake Total 1000 Output Total 2400 Balance -1400 Weight (lbs) 105.233 kg 105.233 kg Intake: Oral 1000 Output: Urine 2400 Other: # Voids 3 # Bowel Movements 3 5 Stool Characteristics Soft Soft Brown Weight Source Bedscale Bedscale Active Medications: Current Medications Acetaminophen (Tylenol 650mg/20.3ml Suspension) 650 mg GT Q6HR PRN PRN Reason: MILD PAIN OR TEMP >100.4 Stop: 07/25/18 13:53 Acetaminophen/Hydrocodone Bitart ([place] 10 Mg/325 Mg) 1 tab GT Q4H PRN PRN Reason: MODERATE PAIN Stop: 07/25/18 13:53 Last Admin: 06/01/18 14:38 Dose: 1 tab Al Hydrox/Mg Hydrox/Simethicone (Maalox) 15 ml PO Q6H PRN PRN Reason: GI DISTRESS Stop: 07/25/18 15:31 Last Admin: 06/01/18 14:38 Dose: 15 ml Albuterol/Ipratropium (Duoneb Neb) 3 ml HHN Q6HRT [place] Stop: 07/25/18 17:59 Last Admin: 06/02/18 19:22 Dose: 3 ml Lipase/Protease/Amylase (Zenpep 5,000 U) 1 cap GT TID [place] Stop: 07/25/18 20:59 Last Admin: 06/02/18 20:43 Dose: 1 cap Artificial Tears (Artificial Tears Ophth Soln) 1 drop EACH EYE DAILY [facility] Stop: 07/26/18 08:59 Last Admin: 06/02/18 09:05 Dose: 1 drop Atorvastatin Calcium (Lipitor) 20 mg PO HS [place] Stop: 07/25/18 20:59 Last Admin: 06/02/18 20:43 Dose: 20 mg Calamine/Phenol (Calmoseptine) 1 appl TP QID PRN PRN Reason: Skin Irritation Stop: 08/01/18 18:09 Cholecalciferol (Vitamin D3) 5,000 iu PO DAILY [facility] Stop: 07/26/18 08:59 Last Admin: 06/02/18 08:49 Dose: 5,000 iu Diphenhydramine HCl (Benadryl) 50 mg GT Q6H PRN PRN Reason: ALLERGIES Stop: 07/25/18 15:14 Last Admin: 06/02/18 20:59 Dose: 50 mg Diphenoxylate HCl/Atropine (Lomotil) 2 tab PO QID PRN PRN Reason: Diarrhea Stop: 07/27/18 13:34 Last Admin: 06/02/18 13:37 Dose: 2 tab Docusate Sodium (Colace) 100 mg GT DAILY [facility] Stop: 07/26/18 08:59 Last Admin: 06/02/18 08:35 Dose: Not Given Famotidine (Pepcid) 20 mg GT Q12H [facility] Stop: 07/25/18 13:59 Last Admin: 06/02/18 14:55 Dose: 20 mg Ferrous Sulfate (Iron) 300 mg PO Q12HR [facility] Stop: 07/25/18 20:59 Last Admin: 06/02/18 20:44 Dose: 300 mg Folic Acid (Folate) 1 mg GT DAILY [facility] Stop: 07/26/18 08:59 Last Admin: 06/02/18 08:50 Dose: 1 mg Gabapentin (Neurontin) 400 mg GT TID [facility] Stop: 07/25/18 13:59 Last Admin: 06/02/18 20:43 Dose: 400 mg Hydralazine HCl (Apresoline) 20 mg GT Q4H PRN PRN Reason: HYPERTENSION Stop: 07/25/18 13:53 Insulin Aspart (Novolog Insulin Sliding Scale) 0 units SUBQ ACHS [facility]; Protocol Stop: 07/25/18 16:29 Last Admin: 06/02/18 20:45 Dose: 6 units Lactobacillus Rhamnosus (Culturelle 15b) 1 each PO DAILY [facility] Stop: 07/26/18 08:59 Last Admin: 06/02/18 08:51 Dose: 1 each Levetiracetam (Keppra) 750 mg GT Q12HR [facility] Stop: 07/25/18 20:59 Last Admin: 06/02/18 20:43 Dose: 750 mg Lorazepam (Ativan) 2 mg GT Q6H PRN PRN Reason: ANXIETY Stop: 07/25/18 15:17 Last Admin: 06/01/18 21:57 Dose: 2 mg Magnesium Oxide (Mag-Oxide) 400 mg GT DAILY [facility] Stop: 07/26/18 08:59 Last Admin: 06/02/18 08:51 Dose: 400 mg Metformin HCl (Glucophage) 1,000 mg PO BID [facility] Stop: 07/25/18 21:14 Last Admin: 06/02/18 16:52 Dose: Not Given Miscellaneous (Probiotic Screen) 1 ea MC PRN PRN PRN Reason: PROTOCOL Stop: 07/25/18 11:59 Morphine Sulfate (Morphine) 1 mg IVP Q4HR PRN PRN Reason: Pain (Severe) Stop: 07/25/18 16:42 Last Admin: 06/02/18 20:59 Dose: 1 mg Nystatin (Nystop) 0 units TP BID [facility] Stop: 08/01/18 18:14 Phenytoin (Dilantin) 100 mg GT Q8H [facility] Stop: 07/25/18 13:59 Last Admin: 06/02/18 22:27 Dose: 100 mg Rivaroxaban (Xarelto) 10 mg PO 1800 [facility] Stop: 07/26/18 17:59 Last Admin: 06/02/18 17:54 Dose: 10 mg Temazepam (Restoril) 15 mg GT HS PRN; Protocol PRN Reason: Insomnia Stop: 07/25/18 13:53 Last Admin: 06/01/18 20:42 Dose: 15 mg General: no acute distress, well developed, well nourished HEENT: atraumatic, normocephalic, PERRLA, EOMI Neck: supple, no thyromegaly, no lymphadenopathy Cardiovascular: S1S2, irregular Lungs: clear to auscultation bilaterally, clear to percussion Abdomen: soft, no tender, no distended Extremities: no cyanosis, no clubbing, no edema Neurological: awake, alert, oriented Skin: intact Infectious Disease Assmt/Plan - Problem List Patient Problems: All Active Problems LOOSE STOOLS, WEAKNESS, HYPERGLYCEMIA (Acute) - Assessment Assessment: UTI. Treated. CVA dysphagia. Diarrhea - Plan Plan: placement. DC plan Nutritional Asmnt/Malnutr-PDOC - Dietary Evaluation Malnutrition Findings (Please click <Entered> for more info): Nutritional Asmnt/Malnutrition Start: 05/26/18 14: 57 Text: Status: Complete Freq: Protocol: Document 05/26/18 14:57 STEPHANIE (Rec: 05/26/18 15:28 [email or web address] [id number]) Nutritional Asmnt/Malnutrition Patient General Information Nutritional Screening High Risk Consult Diagnosis Dehydration, UTI, Electrolyte imbalance Pertinent Medical Hx/Surgical Hx DM Coma, CVA Subjective Information Awoke from Diabetic Coma a few weeks ago, was placed on G tube for nutrition. Is bedridden, needs adult diaper to defecate. Attempts have been made for PO diet, but is in too much pain to eat properly, claims no appetite. 15% PO intake. Swallow eval scheduled for tomorrow. Is willing to try ensure, claims he is more thirsty in the morning than hungry. Nurse claims coffee, Crm of wheat sampled. Current Diet Order/ Nutrition Support [facility] Soft Ground Patient / S.O Not Indicated Pertinent Medications Pepcid, Docusate, Lomotil, Lipitor, Vit D, Insulin Aspart , MOM Pertinent Labs (05/26) Gluc 310 H, POC Gluc 319 H, Alb 3.6 L, LDL 62 L Nutritional Hx/Data Height 1.7 m Height (Calculated Centimeters) 170.2 Current Weight (lbs) 88.451 kg Weight (Calculated Kilograms) 88.5 Weight (Calculated Grams) 28162.5 [place] Body Weight 148 % [place] Body Weight 132 Body Mass Index (BMI) 30.5 Weight Status Obese GI Symptoms Last BM 1 x (05/26) Cultural/Ethnic/Anabaptist Belief None noted Skin Integrity/Comment: 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 Problem Problem Altered Nutrition related laboratory values Etiology due to uncontrolled Diabetes Signs/Symptoms: (05/26) Gluc 310 H, POC Gluc 319 H 1. Problem Problem Inadequate Oral food intake Etiology due to lack of appetite secondary to pain Signs/Symptoms: PO intake around 15% Malnutrition Alert Is there a minimum of two criteria No selected? Query Text:Check all the applicable criteria. A minimum of two criteria are recommended for diagnosis of either severe or non-severe malnutrition. Malnutrition Related to Morbid Obesity Malnutrition related to morbid obesity No Intervention/Recommendation Recommendations by RD Add supplement feedings Comments Recommendation to include Glucerna shake TID with all meals. Will wait until swallow eval is completed before adressing possible feeding tube recommendations. Expected Outcomes/Goals Expected Outcomes/Goals 1. Pt receive >75% of nutrient needs from PO intake 2. Labs to return to wnl 3. F/U post swallow eval to assess need to resume FT.
[2018-06-03] MEDS: Morphine Sulfate 2 mg/mL 1mL Syr IVP PRN ×4 (02:23→21:27)
[2018-06-03] MEDS: INSULIN ASPART SLIDING SCALE 100 UNITS/ML UNIT SUBQ SCH ×4 (06:41→21:29)
[2018-06-03 06:55] LABS: % BASOPHILS 0.9 % (0.0-2.0); % EOSINOPHILS 4.1 % (0.0-5.0); % LYMPHOCYTES 33.3 % (20.0-50.0); % MONOCYTES 9.3 % (2.0-10.0); % NEUTROPHILS 52.4 % (40.0-80.0); EOSINOPHILE ABSOLUTE 0.2 Th/cmm (0.1-0.4); HEMATOCRIT 36.5 % (41.0-60); HEMOGLOBIN 11.8 gm/dL (12-16); LYMPHOCYTE ABSOLUTE 1.7 Th/cmm (1.5-3.0); MEAN CELL VOLUME 98.4 fl (80-99); MEAN CORPUSCULAR HEMOGLOBIN 31.9 pg (26.0-30.0); MEAN CORPUSCULAR HGB CONC 32.4 pg (28.0-36.0); MEAN PLATELET VOLUME 8.9 fl; MONOCYTE ABSOLUTE 0.5 Th/cmm (0.3-1.0); NEUTROPHILE ABSOLUTE 2.6 Th/cmm (1.8-8.0); PLATELET COUNT 171 Th/cmm (150-400); RED BLOOD COUNT 3.71 Mil/cmm (4.30-5.70); RED CELL DISTRIBUTION WIDTH 14.4 % (11.5-20.0)
[2018-06-03 07:10] LABS: ANION GAP 14.4 (7.0-16.0); BUN - UREA NITROGEN 12 mg/dL (7-25); CALCIUM SERUM 9.5 mg/dL (8.6-10.3); CARBON DIOXIDE 25.3 mEq/L (21.0-31.0); CHLORIDE 98 mEq/L (98-107); CREATININE - SERUM 0.5 mg/dL (0.7-1.3); GFR AFRICAN-AMERICAN > 60.0 ml/min (>90); GFR NON AFRICAN-AMERICAN > 60.0 ml/min; GLUCOSE 244 mg/dL (70-105); POTASSIUM SERUM 4.7 mEq/L (3.5-5.1); SODIUM SERUM 133 mEq/L (136-145)
[2018-06-03] MEDS: Albuterol/Ipratropium Neb 3 ML AERS HHN SCH ×3 (07:18→19:20)
[2018-06-03] MEDS: Ferrous Sulfate 300 MG/5 ML UDC PO SCH ×2 (09:22→21:28)
[2018-06-03] MEDS: Multivitamin w/ Minerals Tab GT SCH (09:23)
[2018-06-03] MEDS: Levetiracetam 500 mg/5mL 5mL UDSyr *for ORAL USE ONLY GT SCH ×2 (09:23→21:28)
[2018-06-03] MEDS: Lactobacillus Rhamnosus GG 15 Billion CFU CAP.SPRINK PO SCH (09:23)
[2018-06-03] MEDS: Docusate Sodium 100 mg/10 mL UD GT SCH (09:24)
[2018-06-03] MEDS: Maalox 30 mL Cup PO PRN ×2 (09:27→16:13)
[2018-06-03] MEDS: NYSTATIN 100000 UNITS/GM POWD TP SCH ×3 (09:27→16:14)
[2018-06-03] MEDS: Polyvinyl Alcohol Ophth Soln 15 mL Bottle EACH EYE SCH (09:28)
[2018-06-03] MEDS: Menthol/Zinc Oxide Oint 113gm Tube TP PRN (09:28)
[2018-06-03] MEDS: Hydrocodone/APAP 10 mg/325 mg Tab GT PRN (12:57)
[2018-06-03] MEDS: Diphenoxylate/Atropine 2.5mg Tab PO PRN (13:02)
--- NOTE | 2018-06-03 13:15 | Internal Medicine Prog Note ---
Internal Medicine Subjective - Subjective Service Date: 06/03/18 (no diarrhea today) Patient is:: awake, verbal Per staff patient has:: tolerating meds Internal Medicine Objective - Results Result Diagrams: 06/03/18 05:40 06/03/18 05:40 Recent Labs: Laboratory Last Values WBC 5.0 Th/cmm (4.8-10.8) 06/03/18 05:40 RBC 3.71 Mil/cmm (4.30-5.70) L 06/03/18 05:40 Hgb 11.8 gm/dL (12-16) L 06/03/18 05:40 Hct 36.5 % (41.0-60) L 06/03/18 05:40 MCV 98.4 fl (80-99) 06/03/18 05:40 MCH 31.9 pg (26.0-30.0) H 06/03/18 05:40 MCHC Differential 32.4 pg (28.0-36.0) 06/03/18 05:40 RDW 14.4 % (11.5-20.0) 06/03/18 05:40 Plt Count 171 Th/cmm (150-400) 06/03/18 05:40 MPV 8.9 fl 06/03/18 05:40 Neutrophils % 52.4 % (40.0-80.0) 06/03/18 05:40 Lymphocytes % 33.3 % (20.0-50.0) 06/03/18 05:40 Monocytes % 9.3 % (2.0-10.0) 06/03/18 05:40 Eosinophils % 4.1 % (0.0-5.0) 06/03/18 05:40 Basophils % 0.9 % (0.0-2.0) 06/03/18 05:40 Sodium 133 mEq/L (136-145) L 06/03/18 05:40 Potassium 4.7 mEq/L (3.5-5.1) 06/03/18 05:40 Chloride 98 mEq/L (98-107) 06/03/18 05:40 Carbon Dioxide 25.3 mEq/L (21.0-31.0) 06/03/18 05:40 Anion Gap 14.4 (7.0-16.0) 06/03/18 05:40 BUN 12 mg/dL (7-25) 06/03/18 05:40 Creatinine 0.5 mg/dL (0.7-1.3) L 06/03/18 05:40 Est GFR ( Amer) > 60.0 ml/min (>90) 06/03/18 05:40 Est GFR (Non-Af Amer) > 60.0 ml/min 06/03/18 05:40 BUN/Creatinine Ratio 24.0 06/03/18 05:40 Glucose 244 mg/dL (70-105) H 06/03/18 05:40 POC Glucose 221 MG/DL (70 - 105) H 06/03/18 12:18 Whole Bld Lactic Acid 1.67 mmol/L (0.60-1.99) 05/25/18 13:07 Calcium 9.5 mg/dL (8.6-10.3) 06/03/18 05:40 Magnesium 1.9 mg/dL (1.9-2.7) 05/28/18 06:20 Total Bilirubin 0.4 mg/dL (0.3-1.0) 05/26/18 05:50 AST 10 U/L (13-39) L 05/26/18 05:50 ALT 14 U/L (7-52) 05/26/18 05:50 Alkaline Phosphatase 128 U/L (34-104) H 05/26/18 05:50 Total Protein 8.6 gm/dL (6.0-8.3) H 05/26/18 05:50 Albumin 3.6 gm/dL (4.2-5.5) L 05/26/18 05:50 Globulin 5.0 gm/dL 05/26/18 05:50 Albumin/Globulin Ratio 0.7 (1.0-1.8) L 05/26/18 05:50 Triglycerides 160 mg/dL (<150) H 05/26/18 05:50 Cholesterol 103 mg/dL (<200) 05/26/18 05:50 LDL Cholesterol Direct 62 mg/dL (75-193) L 05/26/18 05:50 HDL Cholesterol 30 mg/dL (23-92) 05/26/18 05:50 Amylase < 10 U/L (29-103) L 05/25/18 13:07 Lipase < 3 U/L (11-82) L 05/25/18 13:07 TSH 0.86 uIU/ml (0.34-5.60) 05/26/18 05:50 Urine Source CATH 05/25/18 14:10 Urine Color YELLOW 05/25/18 14:10 Urine Clarity HAZY (CLEAR) 05/25/18 14:10 Urine pH 5.5 (4.6 - 8.0) 05/25/18 14:10 Ur Specific [place] >= 1.030 (1.005-1.030) 05/25/18 14:10 Urine Protein 30 mg/dL (NEGATIVE) H 05/25/18 14:10 Urine Glucose (UA) 100 mg/dL (NEGATIVE) H 05/25/18 14:10 Urine Ketones NEGATIVE mg/dL (NEGATIVE) 05/25/18 14:10 Urine Blood SMALL (NEGATIVE) H 05/25/18 14:10 Urine Nitrate NEGATIVE (NEGATIVE) 05/25/18 14:10 Urine Bilirubin NEGATIVE (NEGATIVE) 05/25/18 14:10 Urine Urobilinogen 0.2 E.U./dL (0.2 - 1.0) 05/25/18 14:10 Ur Leukocyte Esterase NEGATIVE (NEGATIVE) 05/25/18 14:10 Urine RBC 0-2 /hpf (0-5) H 05/25/18 14:10 Urine WBC 10-25 /hpf (0-5) H 05/25/18 14:10 Ur Epithelial Cells NONE SEEN /lpf (FEW) 05/25/18 14:10 Urine Bacteria MODERATE /hpf (NONE SEEN) H 05/25/18 14:10 Stool Occult Blood NEGATIVE (NEGATIVE) 05/25/18 12:57 Urine Opiates Screen POSITIVE (NEGATIVE) H 05/25/18 14:30 Urine Methadone Screen NEGATIVE (NEGATIVE) 05/25/18 14:30 Ur Barbiturates Screen POSITIVE (NEGATIVE) H 05/25/18 14:30 Ur Tricyclics Screen NEGATIVE (NEGATIVE) 05/25/18 14:30 Ur Phencyclidine Scrn NEGATIVE (NEGATIVE) 05/25/18 14:30 Amphetamines Screen NEGATIVE (NEGATIVE) 05/25/18 14:30 U Methamphetamines Scrn NEGATIVE (NEGATIVE) 05/25/18 14:30 U Benzodiazepines Scrn POSITIVE (NEGATIVE) H 05/25/18 14:30 U Cocaine Metab Screen NEGATIVE (NEGATIVE) 05/25/18 14:30 U Cannabinoids Screen NEGATIVE (NEGATIVE) 05/25/18 14:30 - Physical Exam Vitals and I&O: Vital Signs Temp 97.8 F 06/03/18 10:42 Pulse 99 06/03/18 12:36 Resp 18 06/03/18 12:36 BP 128/71 06/03/18 10:42 Pulse Ox 99 06/03/18 12:36 Intake & Output 06/02/18 06/03/18 06/03/18 18:59 06:59 18:59 Intake Total 1000 360 Output Total 2400 1800 Balance -1400 -1440 Weight (lbs) 232 lb 232 lb Intake: Oral 1000 120 Other 240 Output: Urine 2400 1800 Other: # Bowel Movements 5 1 Stool Characteristics Soft Soft Soft Weight Source Bedscale Bedscale Active Medications: Current Medications Acetaminophen (Tylenol 650mg/20.3ml Suspension) 650 mg GT Q6HR PRN PRN Reason: MILD PAIN OR TEMP >100.4 Stop: 07/25/18 13:53 Acetaminophen/Hydrocodone Bitart ([place] 10 Mg/325 Mg) 1 tab GT Q4H PRN PRN Reason: MODERATE PAIN Stop: 07/25/18 13:53 Last Admin: 06/03/18 12:57 Dose: 1 tab Al Hydrox/Mg Hydrox/Simethicone (Maalox) 15 ml PO Q6H PRN PRN Reason: GI DISTRESS Stop: 07/25/18 15:31 Last Admin: 06/03/18 09:27 Dose: 15 ml Albuterol/Ipratropium (Duoneb Neb) 3 ml HHN Q6HRT [place] Stop: 07/25/18 17:59 Last Admin: 06/03/18 12:36 Dose: 3 ml Lipase/Protease/Amylase (Zenpep 5,000 U) 1 cap GT TID [facility] Stop: 07/25/18 20:59 Last Admin: 06/03/18 13:02 Dose: 1 cap Artificial Tears (Artificial Tears Ophth Soln) 1 drop EACH EYE DAILY [facility] Stop: 07/26/18 08:59 Last Admin: 06/03/18 09:28 Dose: 1 drop Atorvastatin Calcium (Lipitor) 20 mg PO HS [facility] Stop: 07/25/18 20:59 Last Admin: 06/02/18 20:43 Dose: 20 mg Calamine/Phenol (Calmoseptine) 1 appl TP QID PRN PRN Reason: Skin Irritation Stop: 08/01/18 18:09 Last Admin: 06/03/18 09:28 Dose: 1 appl Cholecalciferol (Vitamin D3) 5,000 iu PO DAILY [facility] Stop: 07/26/18 08:59 Last Admin: 06/03/18 09:22 Dose: 5,000 iu Diphenhydramine HCl (Benadryl) 50 mg GT Q6H PRN PRN Reason: ALLERGIES Stop: 07/25/18 15:14 Last Admin: 06/03/18 12:56 Dose: 50 mg Diphenoxylate HCl/Atropine (Lomotil) 2 tab PO QID PRN PRN Reason: Diarrhea Stop: 07/27/18 13:34 Last Admin: 06/03/18 13:02 Dose: 2 tab Docusate Sodium (Colace) 100 mg GT DAILY [facility] Stop: 07/26/18 08:59 Last Admin: 06/03/18 09:24 Dose: Not Given Famotidine (Pepcid) 20 mg GT Q12H [facility] Stop: 07/25/18 13:59 Last Admin: 06/03/18 13:02 Dose: 20 mg Ferrous Sulfate (Iron) 300 mg PO Q12HR [facility] Stop: 07/25/18 20:59 Last Admin: 06/03/18 09:22 Dose: 300 mg Folic Acid (Folate) 1 mg GT DAILY [facility] Stop: 07/26/18 08:59 Last Admin: 06/03/18 09:23 Dose: 1 mg Gabapentin (Neurontin) 400 mg GT TID [facility] Stop: 07/25/18 13:59 Last Admin: 06/03/18 13:02 Dose: 400 mg Hydralazine HCl (Apresoline) 20 mg GT Q4H PRN PRN Reason: HYPERTENSION Stop: 07/25/18 13:53 Insulin Aspart (Novolog Insulin Sliding Scale) 0 units SUBQ ACHS [facility]; Protocol Stop: 07/25/18 16:29 Last Admin: 06/03/18 12:59 Dose: 4 units Lactobacillus Rhamnosus (Culturelle 15b) 1 each PO DAILY [facility] Stop: 07/26/18 08:59 Last Admin: 06/03/18 09:23 Dose: 1 each Levetiracetam (Keppra) 750 mg GT Q12HR [facility] Stop: 07/25/18 20:59 Last Admin: 06/03/18 09:23 Dose: 750 mg Lorazepam (Ativan) 2 mg GT Q6H PRN PRN Reason: ANXIETY Stop: 07/25/18 15:17 Last Admin: 06/01/18 21:57 Dose: 2 mg Magnesium Oxide (Mag-Oxide) 400 mg GT DAILY [facility] Stop: 07/26/18 08:59 Last Admin: 06/03/18 09:23 Dose: 400 mg Metformin HCl (Glucophage) 1,000 mg PO BID [facility] Stop: 07/25/18 21:14 Last Admin: 06/03/18 09:22 Dose: 1,000 mg Miscellaneous (Probiotic Screen) 1 ea MC PRN PRN PRN Reason: PROTOCOL Stop: 07/25/18 11:59 Morphine Sulfate (Morphine) 1 mg IVP Q4HR PRN PRN Reason: Pain (Severe) Stop: 07/25/18 16:42 Last Admin: 06/03/18 10:37 Dose: 1 mg Nystatin (Nystop) 0 units TP BID [facility] Stop: 08/01/18 18:14 Last Admin: 06/03/18 09:27 Dose: 100,000 units Phenytoin (Dilantin) 100 mg GT Q8H [facility] Stop: 07/25/18 13:59 Last Admin: 06/03/18 13:02 Dose: 100 mg Rivaroxaban (Xarelto) 10 mg PO 1800 [facility] Stop: 07/26/18 17:59 Last Admin: 06/02/18 17:54 Dose: 10 mg Temazepam (Restoril) 15 mg GT HS PRN; Protocol PRN Reason: Insomnia Stop: 07/25/18 13:53 Last Admin: 06/01/18 20:42 Dose: 15 mg General: weak, alert HEENT: NC/AT, PERRLA Neck: Supple Lungs: CTAB Cardiovascular: RRR, Normal S1, Normal S2 Abdomen: soft, non-tender, non-distended Extremities: excoriation Internal Medicine Assmt/Plan - Assessment Assessment: Acute dehydration, electrolyte imbalance, acute urinary tract infection, functional quadriplegia, hypercholesterolemia, history of pulmonary embolus and deep venous thrombosis, history of respiratory failure, status post decannulation, type 2 diabetes, seizures, hypertension and gastroesophageal reflux disease. - Plan Plan: placement pending pain mgmt cm to arrange snf placement am labs continue current plan of care Nutritional Asmnt/Malnutr-PDOC - Dietary Evaluation Malnutrition Findings (Please click <Entered> for more info): Nutritional Asmnt/Malnutrition Start: 05/26/18 14: 57 Text: Status: Complete Freq: Protocol: Document 05/26/18 14:57 STEPHANIE (Rec: 05/26/18 15:28 [email or web address] [id number]) Nutritional Asmnt/Malnutrition Patient General Information Nutritional Screening High Risk Consult Diagnosis Dehydration, UTI, Electrolyte imbalance Pertinent Medical Hx/Surgical Hx DM Coma, CVA Subjective Information Awoke from Diabetic Coma a few weeks ago, was placed on G tube for nutrition. Is bedridden, needs adult diaper to defecate. Attempts have been made for PO diet, but is in too much pain to eat properly, claims no appetite. 15% PO intake. Swallow eval scheduled for tomorrow. Is willing to try ensure, claims he is more thirsty in the morning than hungry. Nurse claims coffee, Crm of wheat sampled. Current Diet Order/ Nutrition Support [facility] Soft Ground Patient / S.O Not Indicated Pertinent Medications Pepcid, Docusate, Lomotil, Lipitor, Vit D, Insulin Aspart , MOM Pertinent Labs (05/26) Gluc 310 H, POC Gluc 319 H, Alb 3.6 L, LDL 62 L Nutritional Hx/Data Height 5 ft 7 in Height (Calculated Centimeters) 170.2 Current Weight (lbs) 195 lb Weight (Calculated Kilograms) 88.5 Weight (Calculated Grams) 15678.5 Harvel Body Weight 148 % Harvel Body Weight 132 Body Mass Index (BMI) 30.5 Weight Status Obese GI Symptoms Last BM 1 x (05/26) Cultural/Ethnic/Jew Belief None noted Skin Integrity/Comment: 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 Problem Problem Altered Nutrition related laboratory values Etiology due to uncontrolled Diabetes Signs/Symptoms: (05/26) Gluc 310 H, POC Gluc 319 H 1. Problem Problem Inadequate Oral food intake Etiology due to lack of appetite secondary to pain Signs/Symptoms: PO intake around 15% Malnutrition Alert Is there a minimum of two criteria No selected? Query Text:Check all the applicable criteria. A minimum of two criteria are recommended for diagnosis of either severe or non-severe malnutrition. Malnutrition Related to Morbid Obesity Malnutrition related to morbid obesity No Intervention/Recommendation Recommendations by RD Add supplement feedings Comments Recommendation to include Glucerna shake TID with all meals. Will wait until swallow eval is completed before adressing possible feeding tube recommendations. Expected Outcomes/Goals Expected Outcomes/Goals 1. Pt receive >75% of nutrient needs from PO intake 2. Labs to return to wnl 3. F/U post swallow eval to assess need to resume FT.
[2018-06-03] MEDS: Atorvastatin Calcium 10 MG TAB PO SCH (21:28)
[2018-06-04] MEDS: Albuterol/Ipratropium Neb 3 ML AERS HHN SCH ×4 (01:40→18:57)
[2018-06-04] MEDS: Morphine Sulfate 2 mg/mL 1mL Syr IVP PRN ×5 (05:01→21:39)
[2018-06-04] MEDS: INSULIN ASPART SLIDING SCALE 100 UNITS/ML UNIT SUBQ SCH ×4 (06:38→21:34)
[2018-06-04] MEDS: Maalox 30 mL Cup PO PRN (09:12)
[2018-06-04] MEDS: Ferrous Sulfate 300 MG/5 ML UDC PO SCH ×2 (09:13→20:53)
[2018-06-04] MEDS: Lactobacillus Rhamnosus GG 15 Billion CFU CAP.SPRINK PO SCH (09:13)
[2018-06-04] MEDS: Multivitamin w/ Minerals Tab GT SCH (09:13)
[2018-06-04] MEDS: Levetiracetam 500 mg/5mL 5mL UDSyr *for ORAL USE ONLY GT SCH ×2 (09:14→20:53)
[2018-06-04] MEDS: NYSTATIN 100000 UNITS/GM POWD TP SCH ×2 (09:14→17:20)
[2018-06-04] MEDS: Menthol/Zinc Oxide Oint 113gm Tube TP PRN (09:14)
[2018-06-04] MEDS: Docusate Sodium 100 mg/10 mL UD GT SCH (09:15)
[2018-06-04] MEDS: Polyvinyl Alcohol Ophth Soln 15 mL Bottle EACH EYE SCH (09:17)
[2018-06-04] MEDS: Diphenoxylate/Atropine 2.5mg Tab PO PRN (13:28)
--- NOTE | 2018-06-04 14:21 | General Progress Note ---
Subjective - Review of Systems Service Date: 06/04/18 Subjective: alert, tolerating meals Objective - Results Result Diagrams: 06/03/18 05:40 06/03/18 05:40 Recent Labs: Laboratory Last Values WBC 5.0 Th/cmm (4.8-10.8) 06/03/18 05:40 RBC 3.71 Mil/cmm (4.30-5.70) L 06/03/18 05:40 Hgb 11.8 gm/dL (12-16) L 06/03/18 05:40 Hct 36.5 % (41.0-60) L 06/03/18 05:40 MCV 98.4 fl (80-99) 06/03/18 05:40 MCH 31.9 pg (26.0-30.0) H 06/03/18 05:40 MCHC Differential 32.4 pg (28.0-36.0) 06/03/18 05:40 RDW 14.4 % (11.5-20.0) 06/03/18 05:40 Plt Count 171 Th/cmm (150-400) 06/03/18 05:40 MPV 8.9 fl 06/03/18 05:40 Neutrophils % 52.4 % (40.0-80.0) 06/03/18 05:40 Lymphocytes % 33.3 % (20.0-50.0) 06/03/18 05:40 Monocytes % 9.3 % (2.0-10.0) 06/03/18 05:40 Eosinophils % 4.1 % (0.0-5.0) 06/03/18 05:40 Basophils % 0.9 % (0.0-2.0) 06/03/18 05:40 Sodium 133 mEq/L (136-145) L 06/03/18 05:40 Potassium 4.7 mEq/L (3.5-5.1) 06/03/18 05:40 Chloride 98 mEq/L (98-107) 06/03/18 05:40 Carbon Dioxide 25.3 mEq/L (21.0-31.0) 06/03/18 05:40 Anion Gap 14.4 (7.0-16.0) 06/03/18 05:40 BUN 12 mg/dL (7-25) 06/03/18 05:40 Creatinine 0.5 mg/dL (0.7-1.3) L 06/03/18 05:40 Est GFR ( Amer) > 60.0 ml/min (>90) 06/03/18 05:40 Est GFR (Non-Af Amer) > 60.0 ml/min 06/03/18 05:40 BUN/Creatinine Ratio 24.0 06/03/18 05:40 Glucose 244 mg/dL (70-105) H 06/03/18 05:40 POC Glucose 312 MG/DL (70 - 105) H 06/04/18 12:35 Whole Bld Lactic Acid 1.67 mmol/L (0.60-1.99) 05/25/18 13:07 Calcium 9.5 mg/dL (8.6-10.3) 06/03/18 05:40 Magnesium 1.9 mg/dL (1.9-2.7) 05/28/18 06:20 Total Bilirubin 0.4 mg/dL (0.3-1.0) 05/26/18 05:50 AST 10 U/L (13-39) L 05/26/18 05:50 ALT 14 U/L (7-52) 05/26/18 05:50 Alkaline Phosphatase 128 U/L (34-104) H 05/26/18 05:50 Total Protein 8.6 gm/dL (6.0-8.3) H 05/26/18 05:50 Albumin 3.6 gm/dL (4.2-5.5) L 05/26/18 05:50 Globulin 5.0 gm/dL 05/26/18 05:50 Albumin/Globulin Ratio 0.7 (1.0-1.8) L 05/26/18 05:50 Triglycerides 160 mg/dL (<150) H 05/26/18 05:50 Cholesterol 103 mg/dL (<200) 05/26/18 05:50 LDL Cholesterol Direct 62 mg/dL (75-193) L 05/26/18 05:50 HDL Cholesterol 30 mg/dL (23-92) 05/26/18 05:50 Amylase < 10 U/L (29-103) L 05/25/18 13:07 Lipase < 3 U/L (11-82) L 05/25/18 13:07 TSH 0.86 uIU/ml (0.34-5.60) 05/26/18 05:50 Urine Source CATH 05/25/18 14:10 Urine Color YELLOW 05/25/18 14:10 Urine Clarity HAZY (CLEAR) 05/25/18 14:10 Urine pH 5.5 (4.6 - 8.0) 05/25/18 14:10 Ur Specific [place] >= 1.030 (1.005-1.030) 05/25/18 14:10 Urine Protein 30 mg/dL (NEGATIVE) H 05/25/18 14:10 Urine Glucose (UA) 100 mg/dL (NEGATIVE) H 05/25/18 14:10 Urine Ketones NEGATIVE mg/dL (NEGATIVE) 05/25/18 14:10 Urine Blood SMALL (NEGATIVE) H 05/25/18 14:10 Urine Nitrate NEGATIVE (NEGATIVE) 05/25/18 14:10 Urine Bilirubin NEGATIVE (NEGATIVE) 05/25/18 14:10 Urine Urobilinogen 0.2 E.U./dL (0.2 - 1.0) 05/25/18 14:10 Ur Leukocyte Esterase NEGATIVE (NEGATIVE) 05/25/18 14:10 Urine RBC 0-2 /hpf (0-5) H 05/25/18 14:10 Urine WBC 10-25 /hpf (0-5) H 05/25/18 14:10 Ur Epithelial Cells NONE SEEN /lpf (FEW) 05/25/18 14:10 Urine Bacteria MODERATE /hpf (NONE SEEN) H 05/25/18 14:10 Stool Occult Blood NEGATIVE (NEGATIVE) 05/25/18 12:57 Urine Opiates Screen POSITIVE (NEGATIVE) H 05/25/18 14:30 Urine Methadone Screen NEGATIVE (NEGATIVE) 05/25/18 14:30 Ur Barbiturates Screen POSITIVE (NEGATIVE) H 05/25/18 14:30 Ur Tricyclics Screen NEGATIVE (NEGATIVE) 05/25/18 14:30 Ur Phencyclidine Scrn NEGATIVE (NEGATIVE) 05/25/18 14:30 Amphetamines Screen NEGATIVE (NEGATIVE) 05/25/18 14:30 U Methamphetamines Scrn NEGATIVE (NEGATIVE) 05/25/18 14:30 U Benzodiazepines Scrn POSITIVE (NEGATIVE) H 05/25/18 14:30 U Cocaine Metab Screen NEGATIVE (NEGATIVE) 05/25/18 14:30 U Cannabinoids Screen NEGATIVE (NEGATIVE) 05/25/18 14:30 - Physical Exam Vitals and I&O: Vital Signs Temp 98.2 F 06/04/18 12:00 Pulse 105 06/04/18 13:45 Resp 18 06/04/18 13:45 BP 106/72 06/04/18 12:00 Pulse Ox 97 06/04/18 13:45 Intake & Output 06/03/18 06/04/18 06/04/18 18:59 06:59 18:59 Intake Total 440 Output Total 650 Balance -210 Weight (lbs) 105.233 kg Intake: Oral 240 Other 200 Output: Urine 650 Other: # Bowel Movements 1 Stool Characteristics Soft Soft Soft Weight Source Bedscale Active Medications: Current Medications Acetaminophen (Tylenol 650mg/20.3ml Suspension) 650 mg GT Q6HR PRN PRN Reason: MILD PAIN OR TEMP >100.4 Stop: 07/25/18 13:53 Acetaminophen/Hydrocodone Bitart ([place] 10 Mg/325 Mg) 1 tab GT Q4H PRN PRN Reason: MODERATE PAIN Stop: 07/25/18 13:53 Last Admin: 06/03/18 12:57 Dose: 1 tab Al Hydrox/Mg Hydrox/Simethicone (Maalox) 15 ml PO Q6H PRN PRN Reason: GI DISTRESS Stop: 07/25/18 15:31 Last Admin: 06/04/18 09:12 Dose: 15 ml Albuterol/Ipratropium (Duoneb Neb) 3 ml HHN Q6HRT [facility] Stop: 07/25/18 17:59 Last Admin: 06/04/18 13:44 Dose: 3 ml Lipase/Protease/Amylase (Zenpep 5,000 U) 1 cap GT TID [facility] Stop: 07/25/18 20:59 Last Admin: 06/04/18 13:28 Dose: 1 cap Artificial Tears (Artificial Tears Ophth Soln) 1 drop EACH EYE DAILY [facility] Stop: 07/26/18 08:59 Last Admin: 06/04/18 09:17 Dose: 1 drop Atorvastatin Calcium (Lipitor) 20 mg PO HS [facility] Stop: 07/25/18 20:59 Last Admin: 06/03/18 21:28 Dose: 20 mg Calamine/Phenol (Calmoseptine) 1 appl TP QID PRN PRN Reason: Skin Irritation Stop: 08/01/18 18:09 Last Admin: 06/04/18 09:14 Dose: 1 appl Cholecalciferol (Vitamin D3) 5,000 iu PO DAILY [facility] Stop: 07/26/18 08:59 Last Admin: 06/04/18 09:13 Dose: 5,000 iu Diphenhydramine HCl (Benadryl) 50 mg GT Q6H PRN PRN Reason: ALLERGIES Stop: 07/25/18 15:14 Last Admin: 06/04/18 05:47 Dose: 50 mg Diphenoxylate HCl/Atropine (Lomotil) 2 tab PO QID PRN PRN Reason: Diarrhea Stop: 07/27/18 13:34 Last Admin: 06/04/18 13:28 Dose: 2 tab Docusate Sodium (Colace) 100 mg GT DAILY [facility] Stop: 07/26/18 08:59 Last Admin: 06/04/18 09:15 Dose: Not Given Famotidine (Pepcid) 20 mg GT Q12H [facility] Stop: 07/25/18 13:59 Last Admin: 06/04/18 13:28 Dose: 20 mg Ferrous Sulfate (Iron) 300 mg PO Q12HR [facility] Stop: 07/25/18 20:59 Last Admin: 06/04/18 09:13 Dose: 300 mg Folic Acid (Folate) 1 mg GT DAILY [facility] Stop: 07/26/18 08:59 Last Admin: 06/04/18 09:13 Dose: 1 mg Gabapentin (Neurontin) 400 mg GT TID [facility] Stop: 07/25/18 13:59 Last Admin: 06/04/18 13:28 Dose: 400 mg Hydralazine HCl (Apresoline) 20 mg GT Q4H PRN PRN Reason: HYPERTENSION Stop: 07/25/18 13:53 Insulin Aspart (Novolog Insulin Sliding Scale) 0 units SUBQ ACHS [facility]; Protocol Stop: 07/25/18 16:29 Last Admin: 06/04/18 13:35 Dose: 8 units Lactobacillus Rhamnosus (Culturelle 15b) 1 each PO DAILY [facility] Stop: 07/26/18 08:59 Last Admin: 06/04/18 09:13 Dose: 1 each Levetiracetam (Keppra) 750 mg GT Q12HR [facility] Stop: 07/25/18 20:59 Last Admin: 06/04/18 09:14 Dose: 750 mg Lorazepam (Ativan) 2 mg GT Q6H PRN PRN Reason: ANXIETY Stop: 07/25/18 15:17 Last Admin: 06/01/18 21:57 Dose: 2 mg Magnesium Oxide (Mag-Oxide) 400 mg GT DAILY [facility] Stop: 07/26/18 08:59 Last Admin: 06/04/18 09:14 Dose: 400 mg Metformin HCl (Glucophage) 1,000 mg PO BID [facility] Stop: 07/25/18 21:14 Last Admin: 06/04/18 09:13 Dose: 1,000 mg Miscellaneous (Probiotic Screen) 1 ea MC PRN PRN PRN Reason: PROTOCOL Stop: 07/25/18 11:59 Morphine Sulfate (Morphine) 1 mg IVP Q4HR PRN PRN Reason: Pain (Severe) Stop: 07/25/18 16:42 Last Admin: 06/04/18 13:28 Dose: 1 mg Nystatin (Nystop) 0 units TP BID [facility] Stop: 08/01/18 18:14 Last Admin: 06/04/18 09:14 Dose: 100,000 units Phenytoin (Dilantin) 100 mg GT Q8H [facility] Stop: 07/25/18 13:59 Last Admin: 06/04/18 13:35 Dose: 100 mg Temazepam (Restoril) 15 mg GT HS PRN; Protocol PRN Reason: Insomnia Stop: 07/25/18 13:53 Last Admin: 06/03/18 21:28 Dose: 15 mg General: Alert, Oriented x3, No acute distress HEENT: Atraumatic, EOMI Neck: Supple, +2 carotid pulse wo bruit Cardiovascular: Regular rate, Normal S1, Normal S2 Lungs: Clear to auscultation Abdomen: Bowel sounds, Soft, Distended Extremities: no Edema Neurological: Sensation intact Skin: no Rash Psych/Mental Status: Mood NL Assessment/Plan - Problem List Patient Problems: All Active Problems LOOSE STOOLS, WEAKNESS, HYPERGLYCEMIA (Acute) - Assessment Assessment: Hyponatremia (stable) Diarrhea improved T2DM Ess Htn 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 Epilepsy - Plan Plan: Lab - Result Diagrams 05/27/18 05:55 05/27/18 05:55 Current Medications Acetaminophen (Tylenol 650mg/20.3ml Suspension) 650 mg GT Q6HR PRN PRN Reason: MILD PAIN OR TEMP >100.4 Stop: 07/25/18 13:53 Acetaminophen/Hydrocodone Bitart ([place] 10 Mg/325 Mg) 1 tab GT Q4H PRN PRN Reason: MODERATE PAIN Stop: 07/25/18 13:53 Last Admin: 05/27/18 05:51 Dose: 1 tab Al Hydrox/Mg Hydrox/Simethicone (Maalox) 15 ml PO Q6H PRN PRN Reason: GI DISTRESS Stop: 07/25/18 15:31 Last Admin: 05/27/18 08:43 Dose: 15 ml Albuterol/Ipratropium (Duoneb Neb) 3 ml HHN Q6HRT [facility] Stop: 07/25/18 17:59 Last Admin: 05/27/18 13:36 Dose: 3 ml Lipase/Protease/Amylase (Zenpep 5,000 U) 1 cap GT TID [facility] Stop: 07/25/18 20:59 Last Admin: 05/27/18 08:45 Dose: 1 cap Artificial Tears (Artificial Tears Ophth Soln) 1 drop EACH EYE DAILY [facility] Stop: 07/26/18 08:59 Last Admin: 05/27/18 11:18 Dose: 1 drop Atorvastatin Calcium (Lipitor) 20 mg PO HS [facility] Stop: 07/25/18 20:59 Last Admin: 05/26/18 20:31 Dose: 20 mg Cholecalciferol (Vitamin D3) 5,000 iu PO DAILY [facility] Stop: 07/26/18 08:59 Last Admin: 05/27/18 08:44 Dose: 5,000 iu Diphenhydramine HCl (Benadryl) 50 mg GT Q6H PRN PRN Reason: ALLERGIES Stop: 07/25/18 15:14 Last Admin: 05/26/18 22:09 Dose: 50 mg Diphenoxylate HCl/Atropine (Lomotil) 1 tab PO TID [facility] Stop: 07/25/18 20:59 Last Admin: 05/27/18 08:44 Dose: 1 tab Docusate Sodium (Colace) 100 mg GT DAILY [facility] Stop: 07/26/18 08:59 Last Admin: 05/27/18 08:45 Dose: Not Given Famotidine (Pepcid) 20 mg GT Q12H [facility] Stop: 07/25/18 13:59 Last Admin: 05/27/18 01:26 Dose: 20 mg Ferrous Sulfate (Iron) 300 mg PO Q12HR [facility] Stop: 07/25/18 20:59 Last Admin: 05/27/18 08:43 Dose: 300 mg Folic Acid (Folate) 1 mg GT DAILY [facility] Stop: 07/26/18 08:59 Last Admin: 05/27/18 08:45 Dose: 1 mg Gabapentin (Neurontin) 400 mg GT TID [facility] Stop: 07/25/18 13:59 Last Admin: 05/27/18 08:44 Dose: 400 mg Hydralazine HCl (Apresoline) 20 mg GT Q4H PRN PRN Reason: HYPERTENSION Stop: 07/25/18 13:53 Sodium Chloride (Nacl 0.45%) 1,000 mls @ 125 mls/hr IV .Q8H [facility] Stop: 07/24/18 18:03 Last Admin: 05/27/18 02:59 Dose: 125 mls/hr Piperacillin Sod/Tazobactam (Sod 3.375 gm/ Sodium Chloride) 50 mls @ 100 mls/ hr IV Q6HR [facility] Stop: 07/25/18 00:00 Last Admin: 05/27/18 11:18 Dose: 100 mls/hr Insulin Aspart (Novolog Insulin Sliding Scale) 0 units SUBQ ACHS [facility]; Protocol Stop: 07/25/18 16:29 Last Admin: 05/27/18 06:47 Dose: 2 units Lactobacillus Rhamnosus (Culturelle 15b) 1 each PO DAILY [facility] Stop: 07/26/18 08:59 Last Admin: 05/27/18 08:45 Dose: 1 each Levetiracetam (Keppra) 750 mg GT Q12HR [facility] Stop: 07/25/18 20:59 Last Admin: 05/27/18 08:45 Dose: 750 mg Lorazepam (Ativan) 2 mg GT Q6H PRN PRN Reason: ANXIETY Stop: 07/25/18 15:17 Magnesium Oxide (Mag-Oxide) 400 mg GT DAILY [facility] Stop: 07/26/18 08:59 Last Admin: 05/27/18 08:45 Dose: 400 mg Metformin HCl (Glucophage) 1,000 mg PO BID [facility] Stop: 07/25/18 21:14 Last Admin: 05/27/18 08:44 Dose: 1,000 mg Miscellaneous (Probiotic Screen) 1 ea MC PRN PRN PRN Reason: PROTOCOL Stop: 07/25/18 11:59 Morphine Sulfate (Morphine) 1 mg IVP Q4HR PRN PRN Reason: Pain (Severe) Stop: 07/25/18 16:42 Last Admin: 05/27/18 11:15 Dose: 1 mg Phenytoin (Dilantin) 100 mg GT Q8H [facility] Stop: 07/25/18 13:59 Last Admin: 05/27/18 05:18 Dose: 100 mg Rivaroxaban (Xarelto) 10 mg PO 1800 [facility] Stop: 07/26/18 17:59 Temazepam (Restoril) 15 mg GT HS PRN; Protocol PRN Reason: Insomnia Stop: 07/25/18 13:5 Lab - Result Diagrams 06/03/18 05:40 06/03/18 05:40 Na up to 133 replace Mg BS better control stool C. diff (-) start Lomotil off IVF encourage po intake tolerating meals DC plan Nutritional Asmnt/Malnutr-PDOC - Dietary Evaluation Malnutrition Findings (Please click <Entered> for more info): Nutritional Asmnt/Malnutrition Start: 05/26/18 14: 57 Text: Status: Complete Freq: Protocol: Document 05/26/18 14:57 RHAQUE (Rec: 05/26/18 15:28 [email or web address] [id number]) Nutritional Asmnt/Malnutrition Patient General Information Nutritional Screening High Risk Consult Diagnosis Dehydration, UTI, Electrolyte imbalance Pertinent Medical Hx/Surgical Hx DM Coma, CVA Subjective Information Awoke from Diabetic Coma a few weeks ago, was placed on G tube for nutrition. Is bedridden, needs adult diaper to defecate. Attempts have been made for PO diet, but is in too much pain to eat properly, claims no appetite. 15% PO intake. Swallow eval scheduled for tomorrow. Is willing to try ensure, claims he is more thirsty in the morning than hungry. Nurse claims coffee, Crm of wheat sampled. Current Diet Order/ Nutrition Support [facility] Soft Ground Patient / S.O Not Indicated Pertinent Medications Pepcid, Docusate, Lomotil, Lipitor, Vit D, Insulin Aspart , MOM Pertinent Labs (05/26) Gluc 310 H, POC Gluc 319 H, Alb 3.6 L, LDL 62 L Nutritional Hx/Data Height 1.7 m Height (Calculated Centimeters) 170.2 Current Weight (lbs) 88.451 kg Weight (Calculated Kilograms) 88.5 Weight (Calculated Grams) 62207.5 [place] Body Weight 148 % [place] Body Weight 132 Body Mass Index (BMI) 30.5 Weight Status Obese GI Symptoms Last BM 1 x (05/26) Cultural/Ethnic/Islam Belief None noted Skin Integrity/Comment: 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 Problem Problem Altered Nutrition related laboratory values Etiology due to uncontrolled Diabetes Signs/Symptoms: (05/26) Gluc 310 H, POC Gluc 319 H 1. Problem Problem Inadequate Oral food intake Etiology due to lack of appetite secondary to pain Signs/Symptoms: PO intake around 15% Malnutrition Alert Is there a minimum of two criteria No selected? Query Text:Check all the applicable criteria. A minimum of two criteria are recommended for diagnosis of either severe or non-severe malnutrition. Malnutrition Related to Morbid Obesity Malnutrition related to morbid obesity No Intervention/Recommendation Recommendations by RD Add supplement feedings Comments Recommendation to include Glucerna shake TID with all meals. Will wait until swallow eval is completed before adressing possible feeding tube recommendations. Expected Outcomes/Goals Expected Outcomes/Goals 1. Pt receive >75% of nutrient needs from PO intake 2. Labs to return to wnl 3. F/U post swallow eval to assess need to resume FT.
--- NOTE | 2018-06-04 18:26 | Internal Medicine Prog Note ---
Internal Medicine Subjective - Subjective Service Date: 06/04/18 Patient is:: awake, verbal Per staff patient has:: tolerating meds Internal Medicine Objective - Results Result Diagrams: 06/03/18 05:40 06/03/18 05:40 Recent Labs: Laboratory Last Values WBC 5.0 Th/cmm (4.8-10.8) 06/03/18 05:40 RBC 3.71 Mil/cmm (4.30-5.70) L 06/03/18 05:40 Hgb 11.8 gm/dL (12-16) L 06/03/18 05:40 Hct 36.5 % (41.0-60) L 06/03/18 05:40 MCV 98.4 fl (80-99) 06/03/18 05:40 MCH 31.9 pg (26.0-30.0) H 06/03/18 05:40 MCHC Differential 32.4 pg (28.0-36.0) 06/03/18 05:40 RDW 14.4 % (11.5-20.0) 06/03/18 05:40 Plt Count 171 Th/cmm (150-400) 06/03/18 05:40 MPV 8.9 fl 06/03/18 05:40 Neutrophils % 52.4 % (40.0-80.0) 06/03/18 05:40 Lymphocytes % 33.3 % (20.0-50.0) 06/03/18 05:40 Monocytes % 9.3 % (2.0-10.0) 06/03/18 05:40 Eosinophils % 4.1 % (0.0-5.0) 06/03/18 05:40 Basophils % 0.9 % (0.0-2.0) 06/03/18 05:40 Sodium 133 mEq/L (136-145) L 06/03/18 05:40 Potassium 4.7 mEq/L (3.5-5.1) 06/03/18 05:40 Chloride 98 mEq/L (98-107) 06/03/18 05:40 Carbon Dioxide 25.3 mEq/L (21.0-31.0) 06/03/18 05:40 Anion Gap 14.4 (7.0-16.0) 06/03/18 05:40 BUN 12 mg/dL (7-25) 06/03/18 05:40 Creatinine 0.5 mg/dL (0.7-1.3) L 06/03/18 05:40 Est GFR ( Amer) > 60.0 ml/min (>90) 06/03/18 05:40 Est GFR (Non-Af Amer) > 60.0 ml/min 06/03/18 05:40 BUN/Creatinine Ratio 24.0 06/03/18 05:40 Glucose 244 mg/dL (70-105) H 06/03/18 05:40 POC Glucose 156 MG/DL (70 - 105) H 06/04/18 17:24 Whole Bld Lactic Acid 1.67 mmol/L (0.60-1.99) 05/25/18 13:07 Calcium 9.5 mg/dL (8.6-10.3) 06/03/18 05:40 Magnesium 1.9 mg/dL (1.9-2.7) 05/28/18 06:20 Total Bilirubin 0.4 mg/dL (0.3-1.0) 05/26/18 05:50 AST 10 U/L (13-39) L 05/26/18 05:50 ALT 14 U/L (7-52) 05/26/18 05:50 Alkaline Phosphatase 128 U/L (34-104) H 05/26/18 05:50 Total Protein 8.6 gm/dL (6.0-8.3) H 05/26/18 05:50 Albumin 3.6 gm/dL (4.2-5.5) L 05/26/18 05:50 Globulin 5.0 gm/dL 05/26/18 05:50 Albumin/Globulin Ratio 0.7 (1.0-1.8) L 05/26/18 05:50 Triglycerides 160 mg/dL (<150) H 05/26/18 05:50 Cholesterol 103 mg/dL (<200) 05/26/18 05:50 LDL Cholesterol Direct 62 mg/dL (75-193) L 05/26/18 05:50 HDL Cholesterol 30 mg/dL (23-92) 05/26/18 05:50 Amylase < 10 U/L (29-103) L 05/25/18 13:07 Lipase < 3 U/L (11-82) L 05/25/18 13:07 TSH 0.86 uIU/ml (0.34-5.60) 05/26/18 05:50 Urine Source CATH 05/25/18 14:10 Urine Color YELLOW 05/25/18 14:10 Urine Clarity HAZY (CLEAR) 05/25/18 14:10 Urine pH 5.5 (4.6 - 8.0) 05/25/18 14:10 Ur Specific [place] >= 1.030 (1.005-1.030) 05/25/18 14:10 Urine Protein 30 mg/dL (NEGATIVE) H 05/25/18 14:10 Urine Glucose (UA) 100 mg/dL (NEGATIVE) H 05/25/18 14:10 Urine Ketones NEGATIVE mg/dL (NEGATIVE) 05/25/18 14:10 Urine Blood SMALL (NEGATIVE) H 05/25/18 14:10 Urine Nitrate NEGATIVE (NEGATIVE) 05/25/18 14:10 Urine Bilirubin NEGATIVE (NEGATIVE) 05/25/18 14:10 Urine Urobilinogen 0.2 E.U./dL (0.2 - 1.0) 05/25/18 14:10 Ur Leukocyte Esterase NEGATIVE (NEGATIVE) 05/25/18 14:10 Urine RBC 0-2 /hpf (0-5) H 05/25/18 14:10 Urine WBC 10-25 /hpf (0-5) H 05/25/18 14:10 Ur Epithelial Cells NONE SEEN /lpf (FEW) 05/25/18 14:10 Urine Bacteria MODERATE /hpf (NONE SEEN) H 05/25/18 14:10 Stool Occult Blood NEGATIVE (NEGATIVE) 05/25/18 12:57 Urine Opiates Screen POSITIVE (NEGATIVE) H 05/25/18 14:30 Urine Methadone Screen NEGATIVE (NEGATIVE) 05/25/18 14:30 Ur Barbiturates Screen POSITIVE (NEGATIVE) H 05/25/18 14:30 Ur Tricyclics Screen NEGATIVE (NEGATIVE) 05/25/18 14:30 Ur Phencyclidine Scrn NEGATIVE (NEGATIVE) 05/25/18 14:30 Amphetamines Screen NEGATIVE (NEGATIVE) 05/25/18 14:30 U Methamphetamines Scrn NEGATIVE (NEGATIVE) 05/25/18 14:30 U Benzodiazepines Scrn POSITIVE (NEGATIVE) H 05/25/18 14:30 U Cocaine Metab Screen NEGATIVE (NEGATIVE) 05/25/18 14:30 U Cannabinoids Screen NEGATIVE (NEGATIVE) 05/25/18 14:30 - Physical Exam Vitals and I&O: Vital Signs Temp 98.2 F 06/04/18 12:00 Pulse 105 06/04/18 13:45 Resp 18 06/04/18 13:45 BP 106/72 06/04/18 12:00 Pulse Ox 97 06/04/18 13:45 Intake & Output 06/03/18 06/04/18 06/04/18 18:59 06:59 18:59 Intake Total 440 Output Total 650 Balance -210 Weight (lbs) 232 lb Intake: Oral 240 Other 200 Output: Urine 650 Other: # Bowel Movements 1 Stool Characteristics Soft Soft Liquid Weight Source Bedscale Active Medications: Current Medications Acetaminophen (Tylenol 650mg/20.3ml Suspension) 650 mg GT Q6HR PRN PRN Reason: MILD PAIN OR TEMP >100.4 Stop: 07/25/18 13:53 Acetaminophen/Hydrocodone Bitart (Eldred 10 Mg/325 Mg) 1 tab GT Q4H PRN PRN Reason: MODERATE PAIN Stop: 07/25/18 13:53 Last Admin: 06/03/18 12:57 Dose: 1 tab Al Hydrox/Mg Hydrox/Simethicone (Maalox) 15 ml PO Q6H PRN PRN Reason: GI DISTRESS Stop: 07/25/18 15:31 Last Admin: 06/04/18 09:12 Dose: 15 ml Albuterol/Ipratropium (Duoneb Neb) 3 ml HHN Q6HRT [facility] Stop: 07/25/18 17:59 Last Admin: 06/04/18 13:44 Dose: 3 ml Lipase/Protease/Amylase (Zenpep 5,000 U) 1 cap GT TID [facility] Stop: 07/25/18 20:59 Last Admin: 06/04/18 13:28 Dose: 1 cap Artificial Tears (Artificial Tears Ophth Soln) 1 drop EACH EYE DAILY [facility] Stop: 07/26/18 08:59 Last Admin: 06/04/18 09:17 Dose: 1 drop Atorvastatin Calcium (Lipitor) 20 mg PO HS [facility] Stop: 07/25/18 20:59 Last Admin: 06/03/18 21:28 Dose: 20 mg Calamine/Phenol (Calmoseptine) 1 appl TP QID PRN PRN Reason: Skin Irritation Stop: 08/01/18 18:09 Last Admin: 06/04/18 09:14 Dose: 1 appl Cholecalciferol (Vitamin D3) 5,000 iu PO DAILY [facility] Stop: 07/26/18 08:59 Last Admin: 06/04/18 09:13 Dose: 5,000 iu Diphenhydramine HCl (Benadryl) 50 mg GT Q6H PRN PRN Reason: ALLERGIES Stop: 07/25/18 15:14 Last Admin: 06/04/18 05:47 Dose: 50 mg Diphenoxylate HCl/Atropine (Lomotil) 2 tab PO QID PRN PRN Reason: Diarrhea Stop: 07/27/18 13:34 Last Admin: 06/04/18 13:28 Dose: 2 tab Docusate Sodium (Colace) 100 mg GT DAILY [facility] Stop: 07/26/18 08:59 Last Admin: 06/04/18 09:15 Dose: Not Given Famotidine (Pepcid) 20 mg GT Q12H [facility] Stop: 07/25/18 13:59 Last Admin: 06/04/18 13:28 Dose: 20 mg Ferrous Sulfate (Iron) 300 mg PO Q12HR [facility] Stop: 07/25/18 20:59 Last Admin: 06/04/18 09:13 Dose: 300 mg Folic Acid (Folate) 1 mg GT DAILY [facility] Stop: 07/26/18 08:59 Last Admin: 06/04/18 09:13 Dose: 1 mg Gabapentin (Neurontin) 400 mg GT TID [facility] Stop: 07/25/18 13:59 Last Admin: 06/04/18 13:28 Dose: 400 mg Hydralazine HCl (Apresoline) 20 mg GT Q4H PRN PRN Reason: HYPERTENSION Stop: 07/25/18 13:53 Insulin Aspart (Novolog Insulin Sliding Scale) 0 units SUBQ ACHS [facility]; Protocol Stop: 07/25/18 16:29 Last Admin: 06/04/18 17:31 Dose: 2 units Lactobacillus Rhamnosus (Culturelle 15b) 1 each PO DAILY [facility] Stop: 07/26/18 08:59 Last Admin: 06/04/18 09:13 Dose: 1 each Levetiracetam (Keppra) 750 mg GT Q12HR [facility] Stop: 07/25/18 20:59 Last Admin: 06/04/18 09:14 Dose: 750 mg Lorazepam (Ativan) 2 mg GT Q6H PRN PRN Reason: ANXIETY Stop: 07/25/18 15:17 Last Admin: 06/01/18 21:57 Dose: 2 mg Magnesium Oxide (Mag-Oxide) 400 mg GT DAILY [facility] Stop: 07/26/18 08:59 Last Admin: 06/04/18 09:14 Dose: 400 mg Metformin HCl (Glucophage) 1,000 mg PO BID [facility] Stop: 07/25/18 21:14 Last Admin: 06/04/18 17:17 Dose: 1,000 mg Miscellaneous (Probiotic Screen) 1 ea MC PRN PRN PRN Reason: PROTOCOL Stop: 07/25/18 11:59 Morphine Sulfate (Morphine) 1 mg IVP Q4HR PRN PRN Reason: Pain (Severe) Stop: 07/25/18 16:42 Last Admin: 06/04/18 17:18 Dose: 1 mg Nystatin (Nystop) 0 units TP BID [facility] Stop: 08/01/18 18:14 Last Admin: 06/04/18 17:20 Dose: 100,000 units Phenytoin (Dilantin) 100 mg GT Q8H [facility] Stop: 07/25/18 13:59 Last Admin: 06/04/18 13:35 Dose: 100 mg Temazepam (Restoril) 15 mg GT HS PRN; Protocol PRN Reason: Insomnia Stop: 07/25/18 13:53 Last Admin: 06/03/18 21:28 Dose: 15 mg General: weak, alert HEENT: NC/AT, PERRLA Neck: Supple Lungs: CTAB Cardiovascular: RRR, Normal S1, Normal S2 Abdomen: soft, non-tender, non-distended Extremities: excoriation Internal Medicine Assmt/Plan - Assessment Assessment: Acute dehydration, electrolyte imbalance, acute urinary tract infection, functional quadriplegia, hypercholesterolemia, history of pulmonary embolus and deep venous thrombosis, history of respiratory failure, status post decannulation, type 2 diabetes, seizures, hypertension and gastroesophageal reflux disease. - Plan Plan: placement pending pain mgmt cm to arrange snf placement am labs continue current plan of care Nutritional Asmnt/Malnutr-PDOC - Dietary Evaluation Malnutrition Findings (Please click <Entered> for more info): Nutritional Asmnt/Malnutrition Start: 05/26/18 14: 57 Text: Status: Complete Freq: Protocol: Document 05/26/18 14:57 STEPHANIE (Rec: 05/26/18 15:28 STEPHANIE [email or web address]) Nutritional Asmnt/Malnutrition Patient General Information Nutritional Screening High Risk Consult Diagnosis Dehydration, UTI, Electrolyte imbalance Pertinent Medical Hx/Surgical Hx DM Coma, CVA Subjective Information Awoke from Diabetic Coma a few weeks ago, was placed on G tube for nutrition. Is bedridden, needs adult diaper to defecate. Attempts have been made for PO diet, but is in too much pain to eat properly, claims no appetite. 15% PO intake. Swallow eval scheduled for tomorrow. Is willing to try ensure, claims he is more thirsty in the morning than hungry. Nurse claims coffee, Crm of wheat sampled. Current Diet Order/ Nutrition Support [facility] Soft Ground Patient / S.O Not Indicated Pertinent Medications Pepcid, Docusate, Lomotil, Lipitor, Vit D, Insulin Aspart , MOM Pertinent Labs (05/26) Gluc 310 H, POC Gluc 319 H, Alb 3.6 L, LDL 62 L Nutritional Hx/Data Height 5 ft 7 in Height (Calculated Centimeters) 170.2 Current Weight (lbs) 195 lb Weight (Calculated Kilograms) 88.5 Weight (Calculated Grams) 06822.5 [place] Body Weight 148 % [place] Body Weight 132 Body Mass Index (BMI) 30.5 Weight Status Obese GI Symptoms Last BM 1 x (05/26) Cultural/Ethnic/[place] Belief None noted Skin Integrity/Comment: 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 Problem Problem Altered Nutrition related laboratory values Etiology due to uncontrolled Diabetes Signs/Symptoms: (05/26) Gluc 310 H, POC Gluc 319 H 1. Problem Problem Inadequate Oral food intake Etiology due to lack of appetite secondary to pain Signs/Symptoms: PO intake around 15% Malnutrition Alert Is there a minimum of two criteria No selected? Query Text:Check all the applicable criteria. A minimum of two criteria are recommended for diagnosis of either severe or non-severe malnutrition. Malnutrition Related to Morbid Obesity Malnutrition related to morbid obesity No Intervention/Recommendation Recommendations by RD Add supplement feedings Comments Recommendation to include Glucerna shake TID with all meals. Will wait until swallow eval is completed before adressing possible feeding tube recommendations. Expected Outcomes/Goals Expected Outcomes/Goals 1. Pt receive >75% of nutrient needs from PO intake 2. Labs to return to wnl 3. F/U post swallow eval to assess need to resume FT.
[2018-06-04] MEDS: Atorvastatin Calcium 10 MG TAB PO SCH (20:54)
[2018-06-05] MEDS: Albuterol/Ipratropium Neb 3 ML AERS HHN SCH ×3 (00:30→14:22)
[2018-06-05] MEDS: INSULIN ASPART SLIDING SCALE 100 UNITS/ML UNIT SUBQ SCH ×3 (06:39→16:43)
[2018-06-05] MEDS: Lactobacillus Rhamnosus GG 15 Billion CFU CAP.SPRINK PO SCH (09:30)
[2018-06-05] MEDS: Multivitamin w/ Minerals Tab GT SCH (09:30)
[2018-06-05] MEDS: Ferrous Sulfate 300 MG/5 ML UDC PO SCH (09:30)
[2018-06-05] MEDS: Levetiracetam 500 mg/5mL 5mL UDSyr *for ORAL USE ONLY GT SCH (09:30)
[2018-06-05] MEDS: Docusate Sodium 100 mg/10 mL UD GT SCH ×2 (09:30→09:35)
[2018-06-05] MEDS: Polyvinyl Alcohol Ophth Soln 15 mL Bottle EACH EYE SCH (09:47)
[2018-06-05] MEDS: NYSTATIN 100000 UNITS/GM POWD TP SCH ×2 (09:48→16:42)
[2018-06-05] MEDS: Morphine Sulfate 2 mg/mL 1mL Syr IVP PRN ×3 (09:49→17:57)
--- NOTE | 2018-06-05 15:41 | General Progress Note ---
Subjective - Review of Systems Service Date: 06/05/18 Subjective: alert, tolerating meals Objective - Results Result Diagrams: 06/03/18 05:40 06/03/18 05:40 Recent Labs: Laboratory Last Values WBC 5.0 Th/cmm (4.8-10.8) 06/03/18 05:40 RBC 3.71 Mil/cmm (4.30-5.70) L 06/03/18 05:40 Hgb 11.8 gm/dL (12-16) L 06/03/18 05:40 Hct 36.5 % (41.0-60) L 06/03/18 05:40 MCV 98.4 fl (80-99) 06/03/18 05:40 MCH 31.9 pg (26.0-30.0) H 06/03/18 05:40 MCHC Differential 32.4 pg (28.0-36.0) 06/03/18 05:40 RDW 14.4 % (11.5-20.0) 06/03/18 05:40 Plt Count 171 Th/cmm (150-400) 06/03/18 05:40 MPV 8.9 fl 06/03/18 05:40 Neutrophils % 52.4 % (40.0-80.0) 06/03/18 05:40 Lymphocytes % 33.3 % (20.0-50.0) 06/03/18 05:40 Monocytes % 9.3 % (2.0-10.0) 06/03/18 05:40 Eosinophils % 4.1 % (0.0-5.0) 06/03/18 05:40 Basophils % 0.9 % (0.0-2.0) 06/03/18 05:40 Sodium 133 mEq/L (136-145) L 06/03/18 05:40 Potassium 4.7 mEq/L (3.5-5.1) 06/03/18 05:40 Chloride 98 mEq/L (98-107) 06/03/18 05:40 Carbon Dioxide 25.3 mEq/L (21.0-31.0) 06/03/18 05:40 Anion Gap 14.4 (7.0-16.0) 06/03/18 05:40 BUN 12 mg/dL (7-25) 06/03/18 05:40 Creatinine 0.5 mg/dL (0.7-1.3) L 06/03/18 05:40 Est GFR ( Amer) > 60.0 ml/min (>90) 06/03/18 05:40 Est GFR (Non-Af Amer) > 60.0 ml/min 06/03/18 05:40 BUN/Creatinine Ratio 24.0 06/03/18 05:40 Glucose 244 mg/dL (70-105) H 06/03/18 05:40 POC Glucose 228 MG/DL (70 - 105) H 06/05/18 12:20 Whole Bld Lactic Acid 1.67 mmol/L (0.60-1.99) 05/25/18 13:07 Calcium 9.5 mg/dL (8.6-10.3) 06/03/18 05:40 Magnesium 1.9 mg/dL (1.9-2.7) 05/28/18 06:20 Total Bilirubin 0.4 mg/dL (0.3-1.0) 05/26/18 05:50 AST 10 U/L (13-39) L 05/26/18 05:50 ALT 14 U/L (7-52) 05/26/18 05:50 Alkaline Phosphatase 128 U/L (34-104) H 05/26/18 05:50 Total Protein 8.6 gm/dL (6.0-8.3) H 05/26/18 05:50 Albumin 3.6 gm/dL (4.2-5.5) L 05/26/18 05:50 Globulin 5.0 gm/dL 05/26/18 05:50 Albumin/Globulin Ratio 0.7 (1.0-1.8) L 05/26/18 05:50 Triglycerides 160 mg/dL (<150) H 05/26/18 05:50 Cholesterol 103 mg/dL (<200) 05/26/18 05:50 LDL Cholesterol Direct 62 mg/dL (75-193) L 05/26/18 05:50 HDL Cholesterol 30 mg/dL (23-92) 05/26/18 05:50 Amylase < 10 U/L (29-103) L 05/25/18 13:07 Lipase < 3 U/L (11-82) L 05/25/18 13:07 TSH 0.86 uIU/ml (0.34-5.60) 05/26/18 05:50 Urine Source CATH 05/25/18 14:10 Urine Color YELLOW 05/25/18 14:10 Urine Clarity HAZY (CLEAR) 05/25/18 14:10 Urine pH 5.5 (4.6 - 8.0) 05/25/18 14:10 Ur Specific [place] >= 1.030 (1.005-1.030) 05/25/18 14:10 Urine Protein 30 mg/dL (NEGATIVE) H 05/25/18 14:10 Urine Glucose (UA) 100 mg/dL (NEGATIVE) H 05/25/18 14:10 Urine Ketones NEGATIVE mg/dL (NEGATIVE) 05/25/18 14:10 Urine Blood SMALL (NEGATIVE) H 05/25/18 14:10 Urine Nitrate NEGATIVE (NEGATIVE) 05/25/18 14:10 Urine Bilirubin NEGATIVE (NEGATIVE) 05/25/18 14:10 Urine Urobilinogen 0.2 E.U./dL (0.2 - 1.0) 05/25/18 14:10 Ur Leukocyte Esterase NEGATIVE (NEGATIVE) 05/25/18 14:10 Urine RBC 0-2 /hpf (0-5) H 05/25/18 14:10 Urine WBC 10-25 /hpf (0-5) H 05/25/18 14:10 Ur Epithelial Cells NONE SEEN /lpf (FEW) 05/25/18 14:10 Urine Bacteria MODERATE /hpf (NONE SEEN) H 05/25/18 14:10 Stool Occult Blood NEGATIVE (NEGATIVE) 05/25/18 12:57 Urine Opiates Screen POSITIVE (NEGATIVE) H 05/25/18 14:30 Urine Methadone Screen NEGATIVE (NEGATIVE) 05/25/18 14:30 Ur Barbiturates Screen POSITIVE (NEGATIVE) H 05/25/18 14:30 Ur Tricyclics Screen NEGATIVE (NEGATIVE) 05/25/18 14:30 Ur Phencyclidine Scrn NEGATIVE (NEGATIVE) 05/25/18 14:30 Amphetamines Screen NEGATIVE (NEGATIVE) 05/25/18 14:30 U Methamphetamines Scrn NEGATIVE (NEGATIVE) 05/25/18 14:30 U Benzodiazepines Scrn POSITIVE (NEGATIVE) H 05/25/18 14:30 U Cocaine Metab Screen NEGATIVE (NEGATIVE) 05/25/18 14:30 U Cannabinoids Screen NEGATIVE (NEGATIVE) 05/25/18 14:30 - Physical Exam Vitals and I&O: Vital Signs Temp 97.1 F 06/05/18 12:00 Pulse 101 06/05/18 14:22 Resp 18 06/05/18 14:22 BP 110/78 06/05/18 12:00 Pulse Ox 97 06/05/18 14:22 Intake & Output 06/04/18 06/05/18 06/05/18 18:59 06:59 18:59 Intake Total 300 Output Total 1825 Balance -1525 Weight (lbs) 105.687 kg Intake: Oral 300 Output: Urine 1825 Other: # Bowel Movements 0 Stool Characteristics Liquid Liquid Weight Source Bedscale Active Medications: Current Medications Acetaminophen (Tylenol 650mg/20.3ml Suspension) 650 mg GT Q6HR PRN PRN Reason: MILD PAIN OR TEMP >100.4 Stop: 07/25/18 13:53 Acetaminophen/Hydrocodone Bitart ([place] 10 Mg/325 Mg) 1 tab GT Q4H PRN PRN Reason: MODERATE PAIN Stop: 07/25/18 13:53 Last Admin: 06/03/18 12:57 Dose: 1 tab Al Hydrox/Mg Hydrox/Simethicone (Maalox) 15 ml PO Q6H PRN PRN Reason: GI DISTRESS Stop: 07/25/18 15:31 Last Admin: 06/04/18 09:12 Dose: 15 ml Albuterol/Ipratropium (Duoneb Neb) 3 ml HHN Q6HRT [facility] Stop: 07/25/18 17:59 Last Admin: 06/05/18 14:22 Dose: 3 ml Lipase/Protease/Amylase (Zenpep 5,000 U) 1 cap GT TID [facility] Stop: 07/25/18 20:59 Last Admin: 06/05/18 13:53 Dose: 1 cap Artificial Tears (Artificial Tears Ophth Soln) 1 drop EACH EYE DAILY [facility] Stop: 07/26/18 08:59 Last Admin: 06/05/18 09:47 Dose: 1 drop Atorvastatin Calcium (Lipitor) 20 mg PO HS [facility] Stop: 07/25/18 20:59 Last Admin: 06/04/18 20:54 Dose: 20 mg Calamine/Phenol (Calmoseptine) 1 appl TP QID PRN PRN Reason: Skin Irritation Stop: 08/01/18 18:09 Last Admin: 06/04/18 09:14 Dose: 1 appl Cholecalciferol (Vitamin D3) 5,000 iu PO DAILY [facility] Stop: 07/26/18 08:59 Last Admin: 06/05/18 09:29 Dose: 5,000 iu Diphenhydramine HCl (Benadryl) 50 mg GT Q6H PRN PRN Reason: ALLERGIES Stop: 07/25/18 15:14 Last Admin: 06/04/18 20:52 Dose: 50 mg Diphenoxylate HCl/Atropine (Lomotil) 2 tab PO QID PRN PRN Reason: Diarrhea Stop: 07/27/18 13:34 Last Admin: 06/04/18 13:28 Dose: 2 tab Docusate Sodium (Colace) 100 mg GT DAILY [facility] Stop: 07/26/18 08:59 Last Admin: 06/05/18 09:35 Dose: Not Given Famotidine (Pepcid) 20 mg GT Q12H [facility] Stop: 07/25/18 13:59 Last Admin: 06/05/18 13:53 Dose: 20 mg Ferrous Sulfate (Iron) 300 mg PO Q12HR [facility] Stop: 07/25/18 20:59 Last Admin: 06/05/18 09:30 Dose: 300 mg Folic Acid (Folate) 1 mg GT DAILY [facility] Stop: 07/26/18 08:59 Last Admin: 06/05/18 09:30 Dose: 1 mg Gabapentin (Neurontin) 400 mg GT TID [facility] Stop: 07/25/18 13:59 Last Admin: 06/05/18 13:54 Dose: 400 mg Hydralazine HCl (Apresoline) 20 mg GT Q4H PRN PRN Reason: HYPERTENSION Stop: 07/25/18 13:53 Insulin Aspart (Novolog Insulin Sliding Scale) 0 units SUBQ ACHS [facility]; Protocol Stop: 07/25/18 16:29 Last Admin: 06/05/18 12:34 Dose: 4 units Lactobacillus Rhamnosus (Culturelle 15b) 1 each PO DAILY [facility] Stop: 07/26/18 08:59 Last Admin: 06/05/18 09:30 Dose: 1 each Levetiracetam (Keppra) 750 mg GT Q12HR [facility] Stop: 07/25/18 20:59 Last Admin: 06/05/18 09:30 Dose: 750 mg Lorazepam (Ativan) 2 mg GT Q6H PRN PRN Reason: ANXIETY Stop: 07/25/18 15:17 Last Admin: 06/04/18 21:32 Dose: 2 mg Magnesium Oxide (Mag-Oxide) 400 mg GT DAILY [facility] Stop: 07/26/18 08:59 Last Admin: 06/05/18 09:31 Dose: 400 mg Metformin HCl (Glucophage) 1,000 mg PO BID [facility] Stop: 07/25/18 21:14 Last Admin: 06/05/18 09:30 Dose: 1,000 mg Miscellaneous (Probiotic Screen) 1 ea MC PRN PRN PRN Reason: PROTOCOL Stop: 07/25/18 11:59 Morphine Sulfate (Morphine) 1 mg IVP Q4HR PRN PRN Reason: Pain (Severe) Stop: 07/25/18 16:42 Last Admin: 06/05/18 13:54 Dose: 1 mg Nystatin (Nystop) 0 units TP BID [facility] Stop: 08/01/18 18:14 Last Admin: 06/05/18 09:48 Dose: 100,000 units Phenytoin (Dilantin) 100 mg GT Q8H [facility] Stop: 07/25/18 13:59 Last Admin: 06/05/18 14:20 Dose: 100 mg Temazepam (Restoril) 15 mg GT HS PRN; Protocol PRN Reason: Insomnia Stop: 07/25/18 13:53 Last Admin: 06/04/18 20:53 Dose: 15 mg General: Alert, Oriented x3, No acute distress HEENT: Atraumatic, EOMI Neck: Supple, +2 carotid pulse wo bruit Cardiovascular: Regular rate, Normal S1, Normal S2 Lungs: Clear to auscultation Abdomen: Bowel sounds, Soft, Distended Extremities: no Edema Neurological: Sensation intact Skin: no Rash Psych/Mental Status: Mood NL Assessment/Plan - Problem List Patient Problems: All Active Problems LOOSE STOOLS, WEAKNESS, HYPERGLYCEMIA (Acute) - Assessment Assessment: Hyponatremia (stable) Diarrhea improved T2DM Ess Htn 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 Epilepsy - Plan Plan: Lab - Result Diagrams 05/27/18 05:55 05/27/18 05:55 Current Medications Acetaminophen (Tylenol 650mg/20.3ml Suspension) 650 mg GT Q6HR PRN PRN Reason: MILD PAIN OR TEMP >100.4 Stop: 07/25/18 13:53 Acetaminophen/Hydrocodone Bitart ([place] 10 Mg/325 Mg) 1 tab GT Q4H PRN PRN Reason: MODERATE PAIN Stop: 07/25/18 13:53 Last Admin: 05/27/18 05:51 Dose: 1 tab Al Hydrox/Mg Hydrox/Simethicone (Maalox) 15 ml PO Q6H PRN PRN Reason: GI DISTRESS Stop: 07/25/18 15:31 Last Admin: 05/27/18 08:43 Dose: 15 ml Albuterol/Ipratropium (Duoneb Neb) 3 ml HHN Q6HRT [facility] Stop: 07/25/18 17:59 Last Admin: 05/27/18 13:36 Dose: 3 ml Lipase/Protease/Amylase (Zenpep 5,000 U) 1 cap GT TID [facility] Stop: 07/25/18 20:59 Last Admin: 05/27/18 08:45 Dose: 1 cap Artificial Tears (Artificial Tears Ophth Soln) 1 drop EACH EYE DAILY [facility] Stop: 07/26/18 08:59 Last Admin: 05/27/18 11:18 Dose: 1 drop Atorvastatin Calcium (Lipitor) 20 mg PO HS [facility] Stop: 07/25/18 20:59 Last Admin: 05/26/18 20:31 Dose: 20 mg Cholecalciferol (Vitamin D3) 5,000 iu PO DAILY [facility] Stop: 07/26/18 08:59 Last Admin: 05/27/18 08:44 Dose: 5,000 iu Diphenhydramine HCl (Benadryl) 50 mg GT Q6H PRN PRN Reason: ALLERGIES Stop: 07/25/18 15:14 Last Admin: 05/26/18 22:09 Dose: 50 mg Diphenoxylate HCl/Atropine (Lomotil) 1 tab PO TID [facility] Stop: 07/25/18 20:59 Last Admin: 05/27/18 08:44 Dose: 1 tab Docusate Sodium (Colace) 100 mg GT DAILY [facility] Stop: 07/26/18 08:59 Last Admin: 05/27/18 08:45 Dose: Not Given Famotidine (Pepcid) 20 mg GT Q12H [facility] Stop: 07/25/18 13:59 Last Admin: 05/27/18 01:26 Dose: 20 mg Ferrous Sulfate (Iron) 300 mg PO Q12HR [facility] Stop: 07/25/18 20:59 Last Admin: 05/27/18 08:43 Dose: 300 mg Folic Acid (Folate) 1 mg GT DAILY [facility] Stop: 07/26/18 08:59 Last Admin: 05/27/18 08:45 Dose: 1 mg Gabapentin (Neurontin) 400 mg GT TID [facility] Stop: 07/25/18 13:59 Last Admin: 05/27/18 08:44 Dose: 400 mg Hydralazine HCl (Apresoline) 20 mg GT Q4H PRN PRN Reason: HYPERTENSION Stop: 07/25/18 13:53 Sodium Chloride (Nacl 0.45%) 1,000 mls @ 125 mls/hr IV .Q8H [facility] Stop: 07/24/18 18:03 Last Admin: 05/27/18 02:59 Dose: 125 mls/hr Piperacillin Sod/Tazobactam (Sod 3.375 gm/ Sodium Chloride) 50 mls @ 100 mls/ hr IV Q6HR [facility] Stop: 07/25/18 00:00 Last Admin: 05/27/18 11:18 Dose: 100 mls/hr Insulin Aspart (Novolog Insulin Sliding Scale) 0 units SUBQ ACHS [facility]; Protocol Stop: 07/25/18 16:29 Last Admin: 05/27/18 06:47 Dose: 2 units Lactobacillus Rhamnosus (Culturelle 15b) 1 each PO DAILY [facility] Stop: 07/26/18 08:59 Last Admin: 05/27/18 08:45 Dose: 1 each Levetiracetam (Keppra) 750 mg GT Q12HR [facility] Stop: 07/25/18 20:59 Last Admin: 05/27/18 08:45 Dose: 750 mg Lorazepam (Ativan) 2 mg GT Q6H PRN PRN Reason: ANXIETY Stop: 07/25/18 15:17 Magnesium Oxide (Mag-Oxide) 400 mg GT DAILY [facility] Stop: 07/26/18 08:59 Last Admin: 05/27/18 08:45 Dose: 400 mg Metformin HCl (Glucophage) 1,000 mg PO BID [facility] Stop: 07/25/18 21:14 Last Admin: 05/27/18 08:44 Dose: 1,000 mg Miscellaneous (Probiotic Screen) 1 ea MC PRN PRN PRN Reason: PROTOCOL Stop: 07/25/18 11:59 Morphine Sulfate (Morphine) 1 mg IVP Q4HR PRN PRN Reason: Pain (Severe) Stop: 07/25/18 16:42 Last Admin: 05/27/18 11:15 Dose: 1 mg Phenytoin (Dilantin) 100 mg GT Q8H [facility] Stop: 07/25/18 13:59 Last Admin: 05/27/18 05:18 Dose: 100 mg Rivaroxaban (Xarelto) 10 mg PO 1800 [facility] Stop: 07/26/18 17:59 Temazepam (Restoril) 15 mg GT HS PRN; Protocol PRN Reason: Insomnia Stop: 07/25/18 13:5 Lab - Result Diagrams 06/03/18 05:40 06/03/18 05:40 Na up to 133 replace Mg BS better control stool C. diff (-) start Lomotil off IVF encourage po intake tolerating meals DC plan Nutritional Asmnt/Malnutr-PDOC - Dietary Evaluation Malnutrition Findings (Please click <Entered> for more info): Nutritional Asmnt/Malnutrition Start: 05/26/18 14: 57 Text: Status: Complete Freq: Protocol: Document 05/26/18 14:57 [facility] (Rec: 05/26/18 15:28 [id number]) Nutritional Asmnt/Malnutrition Patient General Information Nutritional Screening High Risk Consult Diagnosis Dehydration, UTI, Electrolyte imbalance Pertinent Medical Hx/Surgical Hx DM Coma, CVA Subjective Information Awoke from Diabetic Coma a few weeks ago, was placed on G tube for nutrition. Is bedridden, needs adult diaper to defecate. Attempts have been made for PO diet, but is in too much pain to eat properly, claims no appetite. 15% PO intake. Swallow eval scheduled for tomorrow. Is willing to try ensure, claims he is more thirsty in the morning than hungry. Nurse claims coffee, Crm of wheat sampled. Current Diet Order/ Nutrition Support [facility] Soft Ground Patient / S.O Not Indicated Pertinent Medications Pepcid, Docusate, Lomotil, Lipitor, Vit D, Insulin Aspart , MOM Pertinent Labs (05/26) Gluc 310 H, POC Gluc 319 H, Alb 3.6 L, LDL 62 L Nutritional Hx/Data Height 1.7 m Height (Calculated Centimeters) 170.2 Current Weight (lbs) 88.451 kg Weight (Calculated Kilograms) 88.5 Weight (Calculated Grams) 51123.5 [place] Body Weight 148 % [place] Body Weight 132 Body Mass Index (BMI) 30.5 Weight Status Obese GI Symptoms Last BM 1 x (05/26) Cultural/Ethnic/Anabaptism Belief None noted Skin Integrity/Comment: 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 Problem Problem Altered Nutrition related laboratory values Etiology due to uncontrolled Diabetes Signs/Symptoms: (05/26) Gluc 310 H, POC Gluc 319 H 1. Problem Problem Inadequate Oral food intake Etiology due to lack of appetite secondary to pain Signs/Symptoms: PO intake around 15% Malnutrition Alert Is there a minimum of two criteria No selected? Query Text:Check all the applicable criteria. A minimum of two criteria are recommended for diagnosis of either severe or non-severe malnutrition. Malnutrition Related to Morbid Obesity Malnutrition related to morbid obesity No Intervention/Recommendation Recommendations by RD Add supplement feedings Comments Recommendation to include Glucerna shake TID with all meals. Will wait until swallow eval is completed before adressing possible feeding tube recommendations. Expected Outcomes/Goals Expected Outcomes/Goals 1. Pt receive >75% of nutrient needs from PO intake 2. Labs to return to wnl 3. F/U post swallow eval to assess need to resume FT.
--- NOTE | 2018-06-13 12:06 | Discharge Summary ---
DATE OF DISCHARGE: 06/05/2018 The patient was admitted to [facility] on 05/25/2018 and the patient was discharged and sent to [facility] on 06/05/2018. HOSPITAL COURSE: This patient was admitted because of the initial diagnosis of UTI, dehydration, prerenal azotemia, functional quadriplegia, history of pulmonary embolism, history of respiratory failure status post decannulation, history of diabetes, history of seizures, history of hypertension. The patient was treated. The ID doctor saw the patient as well as the GI doctor. The patient gradually improved. The patient was in stable condition, diagnosis of UTI improving, dehydration improving, status post tracheostomy, which was de-canalized and status post G-tube. The patient was sent back to [facility] where he came from and I will be following the patient there. CONDITION AT TIME OF DISCHARGE: Stable. JOB# [id number]
== END 2018-06-05 18:30 | DRG 249 ==
LOC: ER 12:21 → TELE 17:12
PROVIDERS: ADMIT Internal Medicine; ATTEND Internal Medicine
DX: K52.9 Noninfective gastroenteritis and colitis, unspecified (principal); J96.90 Respiratory failure, unspecified, unspecified whether with hypoxia or hypercapnia; Z99.11 Dependence on respirator [ventilator] status; L89.159 Pressure ulcer of sacral region, unspecified stage; R53.2 Functional quadriplegia; Z93.0 Tracheostomy status; E11.40 Type 2 diabetes mellitus with diabetic neuropathy, unspecified; E87.8 Other disorders of electrolyte and fluid balance, not elsewhere classified; E87.1 Hypo-osmolality and hyponatremia; N39.0 Urinary tract infection, site not specified; D64.9 Anemia, unspecified; E86.0 Dehydration; I10 Essential (primary) hypertension; K21.9 Gastro-esophageal reflux disease without esophagitis; I69.254 Hemiplegia and hemiparesis following other nontraumatic intracranial hemorrhage affecting left non-dominant side; E78.5 Hyperlipidemia, unspecified; G40.909 Epilepsy, unspecified, not intractable, without status epilepticus; E78.00 Pure hypercholesterolemia, unspecified; R19.7 Diarrhea, unspecified; Z86.718 Personal history of other venous thrombosis and embolism; Z93.1 Gastrostomy status
CPT/HCPCS: 36415-UA; 80048-TC; 80053-TC; 80061-TC; 80307; 81001-TC; 82150-TC; 82270-TC; 82947-TC; 82948-90; 83036-90; 83605; 83690-TC; 83735-TC; 84443-TC; 85025-TC; 87046-90; 87086-90; 87230-TC; 93005; 94640; 94760; 97530; J1815; J2270; J2543; J3475; J7030; X3401; X3904; Z7502; Z7610